=== PATIENT | female | born 1995 | race Caucasian/White ===

== ENCOUNTER 2017-12-10 20:43 | Emergency (ER) | payer OTHER ==
[~2017-12-10] VITALS: Ht 175.3 cm; Wt 61.3 kg
[~2017-12-10 20:43] MED LIST: ACET-1256 PO; FERR1TAB13 PO; PRENTAB26 PO
[2017-12-10 20:54] VITALS: TEMP 36.7; Ht 175.3 cm; Wt 61.3 kg
--- NOTE | 2017-12-10 23:56 | EMERGENCY ROOM VISIT NOTE ---
History Report prepared by Priscilla: Kiersten Lira Under the Supervision of: Dr. Mary Jane Zimmerman M.D. First contact with patient: 21:46 Chief Complaint: ED VAG BLEEDING Stated Complaint: BLEEDING, PAIN IN OVERIES History of Present Illness The patient is a 22 year old female who presents to the Emergency Room with complaints of persistent pink vaginal discharge starting 3-4 months ago. The patient has had pink discharge around 2 days out of each week. She denies any itching or burning. She has also had lower abdominal pain for 2 months which has worsened recently. The patient had a child delivered vaginally around 1 year ago. There were no complications with the or delivery. Her periods have been irregular since then. She has not had her period in 4 months. She had been on control, but stopped taking it 1 month ago. The patient has been having unprotected sex, but notes that she has not had sex since stopping her control. Source of History: patient Onset: 3-4 months ago Position: other (vaginal) Quality: other (pink discharge) Timing: other (persistent) Associated Symptoms: + abdominal pain Review of Systems See HPI for pertinent positives & negatives. A total of 10 systems reviewed and were otherwise negative. Past Medical & Surgical Medical Problems: (1) Anxiety (2) Cranial pain (3) Cranial pain (4) Cranial pain (5) Depression (6) H/O multiple concussions (7) Term Family History Diabetes mellitus Hypertension Social History Smoking Status: Never Smoker Alcohol Use: none Drug Use: none Marital Status: in relationship Housing Status: lives with family Current/Historical Medications Scheduled Miconazole Nitrate Vaginal (Miconazole 7), 1 SUPP PV q hs Multivit/Min/Iron/Fol Ac/Pren ( Vitamin), 1 TAB PO DAILY Allergies Coded Allergies: No Known Allergies (Verified , 12/10/17) Physical Exam Vital Signs Date Time Temp Pulse Resp B/P (MAP) Pulse Ox O2 Delivery O2 Flow Rate FiO2 12/11/17 00:39 78 18 108/55 99 12/10/17 23:42 78 18 108/55 99 Room Air 12/10/17 20:54 36.7 108 20 119/86 97 Room Air Physical Exam Vital signs reviewed. General: Well-appearing female, in no significant distress. HEENT: No scleral icterus, PERRLA, neck supple. Atraumatic. Cardiovascular: Regular rate and rhythm, no extra sounds. Pulmonary: Clear to auscultation bilaterally, normal work of breathing. Abdomen: Soft, nontender, nondistended, positive bowel sounds. Pelvis: Cervix was friable with a likely polyp. No cervical motion tenderness. A small amount of chunky white vaginal discharge. No external labial lesion. Normal female genitals. Musculoskeletal: Atraumatic, no peripheral edema. Neurologic: Patient awake alert and oriented x 3, full strength in all 4 extremities. Cranial nerves 2 through 12 grossly intact. Skin: Warm, dry, no rash Medical Decision & Procedures ER Provider Diagnostic Interpretation: Radiology results as stated below per my review and [facility] radiologist interpretation: US Ob/Endovag: Question tiny gestational sac within the endometrium measured 3.3 mm. This is too small to accurately date. Correlate with beta hCG and short-term follow-up clinically indicated. Probable corpus luteum within the right ovary. Otherwise ovaries are unremarkable. No torsion. No free fluid within the pelvis. Laboratory Results Test 12/10/17 22:02 12/11/17 00:13 12/11/17 00:32 Urine Color YELLOW Urine Appearance CLEAR (CLEAR) Urine pH 5.0 (4.5-7.5) Urine Specific [place] 1.023 (1.000-1.030) Urine Protein NEG (NEG) Urine Glucose (UA) NEG (NEG) Urine Ketones NEG (NEG) Urine Occult Blood NEG (NEG) Urine Nitrite NEG (NEG) Urine Bilirubin NEG (NEG) Urine Urobilinogen NEG (NEG) Urine Leukocyte Esterase MODERATE (NEG) Urine WBC (Auto) >30 /hpf (0-5) Urine RBC (Auto) 0-4 /hpf (0-4) Urine Hyaline Casts (Auto) 5-10 /lpf (0-5) Urine Epithelial Cells (Auto) >30 /lpf (0-5) Urine Bacteria (Auto) NEG (NEG) Urine Test POS (NEG) Human Chorionic Gonadotropin, Quant 143 mIU/mL Date/Time Source Procedure Growth Status 12/10/17 23:50 Vaginal Swab Trichomonas Preparation - Final Complete Laboratory results per my review. ED Course 2154: Past medical records reviewed. The patient was evaluated in room B10. A complete history and physical examination was performed. 2230: I reevaluated the patient. I updated her on the results. 2349: I performed a pelvic exam. I discussed findings with her. She verbalized agreement of the treatment plan. She was discharged home. Medical Decision Differential diagnosis: vaginitis, , threatened , ovarian cyst , irregular menses, hormone withdrawal. This patient was evaluated and appeared to be in no significant distress. IV access was obtained and laboratory work was drawn. Patient's urine test is positive. A follow-up quantitative beta hCG was ordered. Ultrasound of the pelvis was performed and reveals no certain at this time. Patient's laboratory work revealed a quantitative beta hCG of 143. It is likely too early to identify a . UA is concerning for infection but is contaminated. This will be sent for culture. Given the above findings and the vaginal discharge, the patient was ordered miconazole vaginal suppositories 7 days and a vitamin. GC/chlamydia and a vaginal culture are pending. The patient was informed of the findings. She was strongly encouraged to follow-up with [facility] as soon as possible. She will return to the emergency department for worsening of symptoms or any medical concerns. Medication Reconcilliation Current Medication List: was personally reviewed by me Blood Pressure Screening Patient's blood pressure: Normal blood pressure Blood pressure disposition: Did not require urgent referral Impression Primary Impression: First trimester bleeding Additional Impression: Yeast vaginitis Scribe Attestation The scribe's documentation has been prepared under my direction and personally reviewed by me in its entirety. I confirm that the note above accurately reflects all work, treatment, procedures, and medical decision making performed by me. Departure Information Dispostion Home / Self-Care Prescriptions Multivit/Min/Iron/Fol Ac/Pren ( Vitamin) Tab 1 TAB PO DAILY for 30 Days, #30 TAB Prov: Mary Jane Zimmerman M.D. 12/11/17 Miconazole Nitrate Vaginal (MICONAZOLE 7) 100 Mg Sup 1 SUPP PV q hs for 7 Days, #7 SUPP Prov: Mary Jane Zimmerman M.D. 12/11/17 Referrals No Doctor, Assigned (PCP) Festus Escobedo M.D. Forms HOME CARE DOCUMENTATION FORM, IMPORTANT VISIT INFORMATION, WORK / SCHOOL INSTRUCTIONS Patient Instructions My [facility] Additional Instructions Diagnosis: Vaginitis, first trimester . Your vaginal cultures are pending. We will contact you if further treatment is necessary. Please contact your OBGYN, number below, for follow up and care. Start a vitamin daily. Avoid alcohol. Return to the ED for worsening of symptoms or any medical concerns. Problem Qualifiers
[2017-12-11] MEDS ORDERED: [UNRECOGNIZED DRUG - CODE] PV (00:04)
[2017-12-11] MEDS ORDERED: PRENTAB26 PO (00:08)
[2017-12-11 00:39] VITALS: BP 108/55; PULSE 78; O2SAT 99
--- NOTE | 2017-12-11 07:14 | DIAGNOSTIC IMAGING REPORT ---
FIRST TRIMESTER OBSTETRICAL ULTRASOUND CLINICAL HISTORY: , first trimester bleed COMPARISON STUDY: No previous studies for comparison. FINDINGS: The patient was scanned in both a transabdominal and endovaginal fashion. The endometrium was thickened measuring 22 mm. A definite intrauterine gestational sac was not identified. There was a tiny cystic structure within the endometrium measuring 3 mm. This however was curvilinear and not convincing for gestational sac. A complex 19 mm right ovarian cystic lesion likely represents a corpus luteum cyst. IMPRESSION: 1. of uncertain location. Diagnostic considerations include ectopic , early intrauterine , or spontaneous . 2. Correlation with serial quantitative beta hCGs is recommended. Electronically signed by: Shay Spain M.D. 12/11/2017 7:12 AM Dictated Date/Time: 12/11/2017 7:08 AM
== END 2017-12-11 00:41 | disposition home or self-care (01) ==
LOC: C.EDB 20:44
DX: O26.851 Spotting complicating pregnancy, first trimester (principal); O26.891 Other specified pregnancy related conditions, first trimester; B37.3 Candidiasis of vulva and vagina; Z87.820 Personal history of traumatic brain injury; Z83.3 Family history of diabetes mellitus; Z82.49 Family history of ischemic heart disease and other diseases of the circulatory system

== ENCOUNTER 2018-03-07 20:24 | Emergency (ER) | payer OTHER ==
[~2018-03-07] VITALS: Ht 175.3 cm; Wt 62.8 kg
[~2018-03-07 20:24] MED LIST changes: -ACET-1256 PO; -FERR1TAB13 PO; -PRENTAB26 PO; +[UNRECOGNIZED DRUG - CODE] PV
[2018-03-07 20:25] VITALS: TEMP 36.7; Ht 175.3 cm; Wt 62.8 kg
[2018-03-07] MEDS ORDERED: SODIUM CHLORIDE 0.9% 1000ML 1,000 ML IV STA (20:43)
[2018-03-07] MEDS ORDERED: ONDANSETRON INJ 2 MG/ML 2 ML VIAL IV STA (20:43)
--- NOTE | 2018-03-07 20:50 | EMERGENCY ROOM VISIT NOTE ---
History Report prepared by Priscilla: Regan Ellison Under the Supervision of: Dr. Martin Landers D.O. First contact with patient: 20:35 Chief Complaint: OTHER COMPLAINT Stated Complaint: MRSA,2MO ,CANT THINK,FEVER,DIZZY History of Present Illness The patient is a 23 year old female who presents to the Emergency Room with complaints of a constant fever beginning today. The patient states that she had an abscess on her left arm and went to the hospital yesterday to have the abscess opened and drained. She reports that she was diagnosed with MRSA today and was placed on cefazedone and Bactrim. The patient states that she took her Bactrim three hours ago, and has been feeling ill since. She notes that her fever reached a high of 100.9 today. She also complains of heart palpitations, shakiness, hot flashes, nausea, vomiting, and chills. She reports that she is two months and had her last normal menstrual period in December. The patient states that she took Tylenol three hours ago with no relief of her symptoms. She denies any history of thyroid problems. Source of History: patient Onset: today Position: other (global) Symptom Intensity: 100.9 Quality: other (fever) Timing: constant Associated Symptoms: + chills, + nausea, + vomiting Note: The patient also complains of heart palpitations, shakiness, and hot flashes. Review of Systems See HPI for pertinent positives & negatives. A total of 10 systems reviewed and were otherwise negative. Past Medical & Surgical Medical Problems: (1) Anxiety (2) Cranial pain (3) Cranial pain (4) Cranial pain (5) Depression (6) H/O multiple concussions (7) MRSA (methicillin resistant Staphylococcus aureus) (8) (9) Term Family History Diabetes mellitus Hypertension Social History Smoking Status: Never Smoker Alcohol Use: none Drug Use: none Marital Status: single Housing Status: lives with family Occupation Status: unemployed Current/Historical Medications Scheduled Multivitamin (Multivitamin), 1 TAB PO DAILY Allergies Coded Allergies: No Known Allergies (Verified , 03/07/18) Physical Exam Vital Signs Date Time Temp Pulse Resp B/P (MAP) Pulse Ox O2 Delivery O2 Flow Rate FiO2 03/07/18 22:30 89 18 120/76 99 03/07/18 22:00 89 18 120/76 99 Room Air 03/07/18 21:20 92 03/07/18 21:18 99 Room Air 03/07/18 20:25 36.7 143 18 138/85 100 Room Air Physical Exam GENERAL: Awake, alert, very anxious appearing. EYES: The conjunctivae are clear. The pupils are round and reactive. EARS, NOSE, MOUTH AND THROAT: The nose is without any evidence of any deformity. Mucous membranes are moist tongue is midline NECK: The neck is nontender and supple. RESPIRATORY: Normal respiratory effort is noted there is no evidence of wheezing rhonchi or rales CARDIOVASCULAR: Heart sounds tachycardic but regular, no definite murmur noted. GASTROINTESTINAL: The abdomen is soft. Bowel sounds are present in all quadrants. Abdomen is nontender MUSCULOSKELETAL/EXTREMITIES: There is no evidence of gross deformity full range of motion is noted in the hips and shoulders SKIN: There is no obvious evidence of any rash. There are no petechiae, pallor or cyanosis noted. There was a recent I&D site on left forearm, no swelling or erythema, no discharge noted. NEUROLOGIC: Patient is awake alert and oriented x3 strength is symmetric patellar reflexes are 2+ bilaterally Medical Decision & Procedures ER Provider Diagnostic Interpretation: Radiology results as stated below per my review and radiologist interpretation: CHEST ONE VIEW PORTABLE FINDINGS: The lungs are clear. Cardiac silhouette is normal in size. No pleural effusions. No pneumothorax. IMPRESSION: No acute process. Electronically signed by: Benjamin Daugherty M.D. 03/07/2018 9:02 PM Laboratory Results 03/07/18 21:00 Red Blood Count 4.04, Mean Corpuscular Volume 90.1, Mean Corpuscular Hemoglobin 31.4, Mean Corpuscular Hemoglobin Concent 34.9, Mean Platelet Volume 10.7, Neutrophils (%) (Auto) 80.4, Lymphocytes (%) (Auto) 13.6, Monocytes (%) (Auto) 5.3, Eosinophils (%) (Auto) 0.3, Basophils (%) (Auto) 0.0, Neutrophils # (Auto) 6.03, Lymphocytes # (Auto) 1.02, Monocytes # (Auto) 0.40, Eosinophils # (Auto) 0.02, Basophils # (Auto) 0.00 03/07/18 21:00 Test 03/07/18 20:45 03/07/18 21:00 Urine Color YELLOW Urine Appearance CLEAR (CLEAR) Urine pH 8.0 (4.5-7.5) Urine Specific [place] 1.009 (1.000-1.030) Urine Protein NEG (NEG) Urine Glucose (UA) NEG (NEG) Urine Ketones NEG (NEG) Urine Occult Blood NEG (NEG) Urine Nitrite NEG (NEG) Urine Bilirubin NEG (NEG) Urine Urobilinogen NEG (NEG) Urine Leukocyte Esterase LARGE (NEG) Urine WBC (Auto) 5-10 /hpf (0-5) Urine RBC (Auto) 0-4 /hpf (0-4) Urine Hyaline Casts (Auto) 0 /lpf (0-5) Urine Epithelial Cells (Auto) 20-30 /lpf (0-5) Urine Bacteria (Auto) NEG (NEG) Urine Opiates Screen NEG (NEG) Urine Methadone, Qualitative NEG (NEG) Urine Barbiturates NEG (NEG) Urine Phencyclidine (PCP) Level NEG (NEG) Ur Amphetamine/Methamphetamine NEG (NEG) MDMA (Ecstasy) Screen NEG (NEG) Urine Benzodiazepines Screen NEG (NEG) Urine Cocaine Metabolite NEG (NEG) Urine Marijuana (THC) NEG (NEG) White Blood Count 7.50 K/uL (4.8-10.8) Red Blood Count 4.04 M/uL (4.2-5.4) Hemoglobin 12.7 g/dL (12.0-16.0) Hematocrit 36.4 % (37-47) Mean Corpuscular Volume 90.1 fL (80-100) Mean Corpuscular Hemoglobin 31.4 pg (25-34) Mean Corpuscular Hemoglobin Concent 34.9 g/dl (32-36) Platelet Count 201 K/uL (130-400) Mean Platelet Volume 10.7 fL (7.4-10.4) Neutrophils (%) (Auto) 80.4 % Lymphocytes (%) (Auto) 13.6 % Monocytes (%) (Auto) 5.3 % Eosinophils (%) (Auto) 0.3 % Basophils (%) (Auto) 0.0 % Neutrophils # (Auto) 6.03 K/uL (1.4-6.5) Lymphocytes # (Auto) 1.02 K/uL (1.2-3.4) Monocytes # (Auto) 0.40 K/uL (0.11-0.59) Eosinophils # (Auto) 0.02 K/uL (0-0.5) Basophils # (Auto) 0.00 K/uL (0-0.2) RDW Standard Deviation 42.2 fL (36.4-46.3) RDW Coefficient of Variation 12.8 % (11.5-14.5) Immature Granulocyte % (Auto) 0.4 % Immature Granulocyte # (Auto) 0.03 K/uL (0.00-0.02) Erythrocyte Sedimentation Rate 14 mm/hr (0-21) Prothrombin Time 10.7 SECONDS (9.0-12.0) Prothromb Time International Ratio 1.0 (0.9-1.1) Activated Partial Thromboplast Time 27.2 SECONDS (21.0-31.0) Partial Thromboplastin Ratio 1.0 Anion Gap 7.0 mmol/L (3-11) Est Creatinine Clear Calc Drug Dose 131.7 ml/min Estimated GFR () 145.6 Estimated GFR (Non- 125.7 BUN/Creatinine Ratio 11.9 (10-20) Calcium Level 8.7 mg/dl (8.5-10.1) Magnesium Level 1.9 mg/dl (1.8-2.4) Total Bilirubin 0.3 mg/dl (0.2-1) Direct Bilirubin 0.1 mg/dl (0-0.2) Aspartate Amino Transf (AST/SGOT) 16 U/L (15-37) Alanine Aminotransferase (ALT/SGPT) 14 U/L (12-78) Alkaline Phosphatase 80 U/L (45-117) Troponin I < 0.015 ng/ml (0-0.045) C-Reactive Protein < 0.29 mg/dl (0-0.29) Total Protein 8.0 gm/dl (6.4-8.2) Albumin 4.0 gm/dl (3.4-5.0) Lipase 69 U/L (73-393) Thyroid Stimulating Hormone (TSH) 2.410 uIu/ml (0.300-4.500) Human Chorionic Gonadotropin, Quant 8078 mIU/mL Laboratory results per my review. Medications Administered Medications (Trade) Dose Ordered Sig/Suha Route Start Time Stop Time Status Last Admin Dose Admin Ondansetron HCl (Zofran Inj) 4 mg NOW STAT IV 03/07/18 20:43 5/16/18 20:44 DC 03/07/18 21:18 4 MG Sodium Chloride 1,000 ml @ 999 mls/hr Q1H1M STAT IV 03/07/18 20:43 03/07/18 21:43 DC 03/07/18 21:17 999 MLS/HR ECG Per My Interpretation Indication: nausea Rate (beats per minute): 96 Rhythm: normal sinus Findings: no ectopy, other (No acute ST segments) Comparison ECG Date: 09/22/15 Change: no significant change ED Course 2033: The patient was evaluated in room B11. A complete history and physical examination were performed. 2042: Sodium Chloride 1000 ml @ 999 mls/hr IV, Zofran Inj 4mg IV 2203: Upon reevaluation, the patient is stable. I discussed the results and treatment plan with her. She verbalized agreement of the treatment plan. The patient was discharged home. Medical Decision Prior records/ancillary studies reviewed. Triage Nursing notes reviewed. The patient's history was concerning for palpitations. Differential diagnosis: Etiologies such as premature contractions, electrolyte abnormality, cardiac dysrhythmia, thyroid dysfunction, pulmonary embolism, infection, gastrointestinal, as well as others were entertained. The patient is a 23-year-old female who presented to the emergency department for an evaluation of palpitations. The patient states that she was recently diagnosed with MRSA in an abscess on her left forearm. The patient states that she was seen at an outside facility and had incision and drainage. The area was well healing. There is no significant discharge noted. She was started on antibiotic which would be appropriate for MRSA. The patient is also 8 weeks . She has no abdominal pain on physical exam. She complains of no vaginal bleeding. I discussed patient's laboratory and radiographic studies with her. She was treated with IV fluids and IV Zofran in the emergency department. Ultimately I encouraged her to continue all medications as prescribed. There is also encouraged to rest and avoid any strenuous activity. I also encouraged her to follow-up with her primary care physician for further evaluation. Medication Reconcilliation Current Medication List: was personally reviewed by me Blood Pressure Screening Patient's blood pressure: Elevated blood pressure Blood pressure disposition: Elevated BP felt to be situational Impression Primary Impression: Palpitations Additional Impression: MRSA (methicillin resistant Staphylococcus aureus) Scribe Attestation The scribe's documentation has been prepared under my direction and personally reviewed by me in its entirety. I confirm that the note above accurately reflects all work, treatment, procedures, and medical decision making performed by me. Departure Information Dispostion Home / Self-Care Referrals No Doctor, Assigned (PCP) Forms HOME CARE DOCUMENTATION FORM, IMPORTANT VISIT INFORMATION, WORK / SCHOOL INSTRUCTIONS Patient Instructions My [facility] Additional Instructions Continue all medications as prescribed. Drink plenty clear liquids. Continue using Tylenol as directed for pain. Call your family doctor in the morning to schedule a follow-up appointment. Continue to put triple antibody ointment to the area on her left arm twice a day. Discussed possibility with your primary care physician that you may require further studies such as an echocardiogram or Holter monitor to further evaluate the cause your palpitations. Problem Qualifiers
--- NOTE | 2018-03-07 21:03 | DIAGNOSTIC IMAGING REPORT ---
CHEST ONE VIEW PORTABLE HISTORY: EVALUATE ALTERED MENTAL STATUS/WEAKNESS COMPARISON: Chest 09/21/2015. FINDINGS: The lungs are clear. Cardiac silhouette is normal in size. No pleural effusions. No pneumothorax. IMPRESSION: No acute process. Electronically signed by: Benjamin Daugherty M.D. 03/07/2018 9:02 PM Dictated Date/Time: 03/07/2018 9:00 PM
[2018-03-07] MEDS ORDERED: MULT-506 PO (21:10)
[2018-03-07 21:18] VITALS: O2SAT 99
[2018-03-07 21:21] LABS: EOS % 0.3 %; EOS ABS # 0.02 K/uL (0-0.5); HEMATOCRIT 36.4 % (37-47); HEMOGLOBIN 12.7 g/dL (12.0-16.0); IG# 0.03 K/uL (0.00-0.02); LYMPH % 13.6 %; LYMPH ABS # 1.02 K/uL (1.2-3.4); MEAN CELL VOLUME 90.1 fL (80-100); MEAN CORPUSCULAR HEMOGLOBIN 31.4 pg (25-34); MEAN CORPUSCULAR HGB CONC 34.9 g/dl (32-36); MEAN PLATELET VOLUME 10.7 fL (7.4-10.4); MONO % 5.3 %; NEUT % 80.4 %; NEUT ABS # 6.03 K/uL (1.4-6.5); PLATELET COUNT 201 K/uL (130-400); RED CELL DISTRIBUTION WIDTH CV 12.8 % (11.5-14.5); RED CELL DISTRIBUTION WIDTH SD 42.2 fL (36.4-46.3)
[2018-03-07 21:41] LABS: PTT PATIENT 27.2 SECONDS (21.0-31.0)
[2018-03-07 21:50] LABS: ALKALINE PHOSPHATASE 80 U/L (45-117); ALT/SGPT 14 U/L (12-78); AST/SGOT 16 U/L (15-37); BLOOD UREA NITROGEN 8 mg/dl (7-18); CALCIUM 8.7 mg/dl (8.5-10.1); CARBON DIOXIDE 25 mmol/L (21-32); CREATININE 0.67 mg/dl (0.60-1.20); GLUCOSE 106 mg/dl (70-99); LIPASE 69 U/L (73-393); POTASSIUM 3.5 mmol/L (3.5-5.1); SODIUM 140 mmol/L (136-145)
[2018-03-07 22:30] VITALS: BP 120/76; PULSE 89; O2SAT 99
== END 2018-03-07 22:30 | disposition home or self-care (01) ==
LOC: C.EDB 20:24
DX: O99.89 Other specified diseases and conditions complicating pregnancy, childbirth and the puerperium (principal); R00.2 Palpitations; L02.414 Cutaneous abscess of left upper limb; A49.02 Methicillin resistant Staphylococcus aureus infection, unspecified site; Z3A.08 8 weeks gestation of pregnancy; F41.9 Anxiety disorder, unspecified; F32.9 Major depressive disorder, single episode, unspecified; Z83.3 Family history of diabetes mellitus; Z82.49 Family history of ischemic heart disease and other diseases of the circulatory system

== ENCOUNTER 2018-05-21 13:30 | Emergency (ER) | payer OTHER ==
[~2018-05-21] VITALS: Ht 175.3 cm; Wt 61.2 kg
[~2018-05-21 13:30] MED LIST changes: +FAMO40TA6 PO; +OXYC-737 PO; -[UNRECOGNIZED DRUG - CODE] PV
[2018-05-21 13:32] VITALS: TEMP 36.7; Ht 175.3 cm; Wt 61.2 kg
[2018-05-21] MEDS ORDERED: SODIUM CHLORIDE 0.9% 1000ML 1,000 ML IV STA (13:43)
[2018-05-21] MEDS ORDERED: KETOROLAC TROMETHAMINE 30 MG/ML VIAL IV STA (13:43)
--- NOTE | 2018-05-21 14:47 | DIAGNOSTIC IMAGING REPORT ---
CT SCAN OF THE ABDOMEN AND PELVIS WITHOUT CONTRAST CLINICAL HISTORY: Left flank pain COMPARISON STUDY: 12/27/2011 TECHNIQUE: CT scan of the abdomen and pelvis was performed from the lung bases to the proximal femurs. Images are reviewed in the axial, sagittal, and coronal planes. IV contrast was not administered for this examination. A dose lowering technique was utilized adhering to the principles of ALARA. CT DOSE: 450.50 mGy.cm FINDINGS: Lower chest: The heart is normal in size and configuration, without pericardial effusion. The lung bases and pleural spaces are clear. Liver: The unenhanced liver is normal in size, contour, and attenuation. There is no intrahepatic biliary ductal dilatation. Gallbladder: Unremarkable. Spleen: Normal in size and attenuation. Pancreas: Unremarkable. Adrenal glands: Unremarkable. Kidneys: There are 2 nonobstructing left renal calculi, the largest of which measures 2 mm. There is no hydronephrosis. No ureteral or bladder calculi are visualized. Bowel: There are no transition zones indicate bowel obstruction. There is no acute diverticulitis. There is no evidence of acute appendicitis. Peritoneum: There is no intraperitoneal free air or abdominal ascites. Vasculature: The abdominal aorta is normal in course and caliber. Adenopathy: None. Pelvic viscera: There is a suspected 3.5 cm left ovarian cyst/follicle. Skeletal structures: No destructive osseous lesions are seen. IMPRESSION: 1. Nonobstructing left renal calculi. No ureteral or bladder calculi identified 2. No evidence of bowel obstruction. No evidence of free air 3. No evidence of acute diverticulitis. No evidence of acute appendicitis. 4. Suspected 3.5 cm left ovarian cyst/follicle Electronically signed by: Shay Spain M.D. 05/21/2018 2:45 PM Dictated Date/Time: 05/21/2018 2:41 PM
[2018-05-21 14:56] LABS: BASO % 0.2 %; BASO ABS # 0.01 K/uL (0-0.2); EOS % 0.7 %; EOS ABS # 0.04 K/uL (0-0.5); HEMATOCRIT 39.7 % (37-47); HEMOGLOBIN 13.1 g/dL (12.0-16.0); IG# 0.01 K/uL (0.00-0.02); LYMPH % 25.8 %; LYMPH ABS # 1.49 K/uL (1.2-3.4); MEAN CELL VOLUME 94.1 fL (80-100); MEAN PLATELET VOLUME 11.2 fL (7.4-10.4); MONO % 6.8 %; MONO ABS # 0.39 K/uL (0.11-0.59); NEUT % 66.3 %; NEUT ABS # 3.83 K/uL (1.4-6.5); PLATELET COUNT 208 K/uL (130-400); RED CELL DISTRIBUTION WIDTH CV 12.6 % (11.5-14.5); RED CELL DISTRIBUTION WIDTH SD 43.2 fL (36.4-46.3); WHITE BLOOD COUNT 5.77 K/uL (4.8-10.8)
[2018-05-21 15:09] LABS: ALBUMIN 3.9 gm/dl (3.4-5.0); CALCIUM 8.9 mg/dl (8.5-10.1); CREATININE 0.67 mg/dl (0.60-1.20); POTASSIUM 3.7 mmol/L (3.5-5.1); TOTAL PROTEIN 7.4 gm/dl (6.4-8.2)
[2018-05-21 15:35] VITALS: BP 100/65; PULSE 68; O2SAT 96
--- NOTE | 2018-05-21 16:51 | EMERGENCY ROOM VISIT NOTE ---
History Report prepared by Priscilla: Estela Chow Under the Supervision of: Dr. Ben Vitale D.O. First contact with patient: 13:36 Chief Complaint: FLANK PAIN Stated Complaint: PAIN IN LEFT SIDE History of Present Illness The patient is a 23 year old female who presents to the Emergency Room with complaints of constant left flank pain that started a week ago. The patient notes that she had an x-ray and US in the ED and states that "they think they see kidney stones". She describes the pain as "intense." The patient notes that the pain is localized on her lower left flank that radiates up into her chest. She notes that she has been taking Tylenol with mild relief. She notes that laying down and not walking alleviates the pain, and that bending over exacerbates it. The patient complains of nausea, vomiting, pain in her middle back, and hematuria.The patient denies pain in her abdomen, pain in her buttocks , and vaginal bleeding. She denies a history of kidney stones. The patient states that her last menstrual period was 1 week ago and that she is sexually active. She notes that her last bowel movement was today. Source of History: patient Onset: 1 week ago Position: other (left flank) Quality: other (intense, radiating) Timing: constant Modifying Factors (Worsening): other (bending over) Modifying Factors (Relieving): tylenol, other (laying down, not moving) Associated Symptoms: + nausea, + vomiting, + back pain (middle back), + urinary symptoms, No abdominal pain Note: The patient denies pain in her buttocks and vaginal bleeding. Review of Systems See HPI for pertinent positives & negatives. A total of 10 systems reviewed and were otherwise negative. Past Medical & Surgical Medical Problems: (1) Anxiety (2) Cranial pain (3) Cranial pain (4) Cranial pain (5) Depression (6) H/O multiple concussions (7) MRSA (methicillin resistant Staphylococcus aureus) (8) (9) Term Family History Diabetes mellitus Hypertension Social History Smoking Status: Never Smoker Alcohol Use: none Drug Use: none Marital Status: single Housing Status: lives with family Occupation Status: unemployed Current/Historical Medications Scheduled Famotidine (Pepcid), 40 MG PO HS Scheduled PRN Oxycodone Immediate Rel Tab (Roxicodone Ir), 1-2 TAB PO Q4H PRN for Severe Pain Allergies Coded Allergies: No Known Allergies (Verified , 05/21/18) Physical Exam Vital Signs Date Time Temp Pulse Resp B/P (MAP) Pulse Ox O2 Delivery O2 Flow Rate FiO2 05/21/18 15:35 68 20 100/65 96 Room Air 05/21/18 13:32 36.7 108 18 114/77 98 Room Air Physical Exam GENERAL: Sitting up in bed, alert, well appearing, well nourished, no distress, non-toxic EYE EXAM: normal conjunctiva. OROPHARYNX: no exudate, no erythema, lips, buccal mucosa, and tongue normal and mucous membranes are moist NECK: supple, no nuchal rigidity, no adenopathy, non-tender LUNGS: Clear to auscultation. Normal chest wall mechanics HEART: no murmurs, S1 normal and S2 normal ABDOMEN: abdomen soft, tenderness in the left flank, normo-active bowel sounds, no masses, no rebound or guarding . BACK: Back is symmetrical on inspection and there is no deformity, no midline tenderness, no CVA tenderness. SKIN: no rashes and no bruising UPPER EXTREMITIES: upper extremities are grossly normal. LOWER EXTREMITIES: No pitting edema. NEURO EXAM: Normal sensorium, cranial nerves II-XII grossly intact, normal speech, no gross weakness of arms, no gross weakness of legs. Medical Decision & Procedures ER Provider Diagnostic Interpretation: Radiology results as stated below per my review and the radiologist's interpretation: CT SCAN OF THE ABDOMEN AND PELVIS WITHOUT CONTRAST CLINICAL HISTORY: Left flank pain COMPARISON STUDY: 12/27/2011 TECHNIQUE: CT scan of the abdomen and pelvis was performed from the lung bases to the proximal femurs. Images are reviewed in the axial, sagittal, and coronal planes. IV contrast was not administered for this examination. A dose lowering technique was utilized adhering to the principles of ALARA. CT DOSE: 450.50 mGy.cm FINDINGS: Lower chest: The heart is normal in size and configuration, without pericardial effusion. The lung bases and pleural spaces are clear. Liver: The unenhanced liver is normal in size, contour, and attenuation. There is no intrahepatic biliary ductal dilatation. Gallbladder: Unremarkable. Spleen: Normal in size and attenuation. Pancreas: Unremarkable. Adrenal glands: Unremarkable. Kidneys: There are 2 nonobstructing left renal calculi, the largest of which measures 2 mm. There is no hydronephrosis. No ureteral or bladder calculi are visualized. Bowel: There are no transition zones indicate bowel obstruction. There is no acute diverticulitis. There is no evidence of acute appendicitis. Peritoneum: There is no intraperitoneal free air or abdominal ascites. Vasculature: The abdominal aorta is normal in course and caliber. Adenopathy: None. Pelvic viscera: There is a suspected 3.5 cm left ovarian cyst/follicle. Skeletal structures: No destructive osseous lesions are seen. IMPRESSION: 1. Nonobstructing left renal calculi. No ureteral or bladder calculi identified 2. No evidence of bowel obstruction. No evidence of free air 3. No evidence of acute diverticulitis. No evidence of acute appendicitis. 4. Suspected 3.5 cm left ovarian cyst/follicle Electronically signed by: Shay Spain M.D. 05/21/2018 2:45 PM Dictated Date/Time: 05/21/2018 2:41 PM Laboratory Results 05/21/18 14:09 Red Blood Count 4.22, Mean Corpuscular Volume 94.1, Mean Corpuscular Hemoglobin 31.0, Mean Corpuscular Hemoglobin Concent 33.0, Mean Platelet Volume 11.2, Neutrophils (%) (Auto) 66.3, Lymphocytes (%) (Auto) 25.8, Monocytes (%) (Auto) 6.8, Eosinophils (%) (Auto) 0.7, Basophils (%) (Auto) 0.2, Neutrophils # (Auto) 3.83, Lymphocytes # (Auto) 1.49, Monocytes # (Auto) 0.39, Eosinophils # (Auto) 0.04, Basophils # (Auto) 0.01 05/21/18 14:09 Test 05/21/18 14:09 05/21/18 14:25 White Blood Count 5.77 K/uL (4.8-10.8) Red Blood Count 4.22 M/uL (4.2-5.4) Hemoglobin 13.1 g/dL (12.0-16.0) Hematocrit 39.7 % (37-47) Mean Corpuscular Volume 94.1 fL (80-100) Mean Corpuscular Hemoglobin 31.0 pg (25-34) Mean Corpuscular Hemoglobin Concent 33.0 g/dl (32-36) Platelet Count 208 K/uL (130-400) Mean Platelet Volume 11.2 fL (7.4-10.4) Neutrophils (%) (Auto) 66.3 % Lymphocytes (%) (Auto) 25.8 % Monocytes (%) (Auto) 6.8 % Eosinophils (%) (Auto) 0.7 % Basophils (%) (Auto) 0.2 % Neutrophils # (Auto) 3.83 K/uL (1.4-6.5) Lymphocytes # (Auto) 1.49 K/uL (1.2-3.4) Monocytes # (Auto) 0.39 K/uL (0.11-0.59) Eosinophils # (Auto) 0.04 K/uL (0-0.5) Basophils # (Auto) 0.01 K/uL (0-0.2) RDW Standard Deviation 43.2 fL (36.4-46.3) RDW Coefficient of Variation 12.6 % (11.5-14.5) Immature Granulocyte % (Auto) 0.2 % Immature Granulocyte # (Auto) 0.01 K/uL (0.00-0.02) Anion Gap 4.0 mmol/L (3-11) Est Creatinine Clear Calc Drug Dose 128.3 ml/min Estimated GFR () 145.6 Estimated GFR (Non- 125.7 BUN/Creatinine Ratio 13.5 (10-20) Calcium Level 8.9 mg/dl (8.5-10.1) Total Bilirubin 0.8 mg/dl (0.2-1) Direct Bilirubin 0.2 mg/dl (0-0.2) Aspartate Amino Transf (AST/SGOT) 13 U/L (15-37) Alanine Aminotransferase (ALT/SGPT) 13 U/L (12-78) Alkaline Phosphatase 74 U/L (45-117) Total Protein 7.4 gm/dl (6.4-8.2) Albumin 3.9 gm/dl (3.4-5.0) Lipase 69 U/L (73-393) Urine Color YELLOW Urine Appearance CLEAR (CLEAR) Urine pH 8.0 (4.5-7.5) Urine Specific [place] 1.015 (1.000-1.030) Urine Protein NEG (NEG) Urine Glucose (UA) NEG (NEG) Urine Ketones NEG (NEG) Urine Occult Blood 2+ (NEG) Urine Nitrite NEG (NEG) Urine Bilirubin NEG (NEG) Urine Urobilinogen NEG (NEG) Urine Leukocyte Esterase MODERATE (NEG) Urine WBC (Auto) 1-5 /hpf (0-5) Urine RBC (Auto) 0-4 /hpf (0-4) Urine Hyaline Casts (Auto) 1-5 /lpf (0-5) Urine Epithelial Cells (Auto) >30 /lpf (0-5) Urine Bacteria (Auto) NEG (NEG) Urine Test NEG (NEG) Laboratory results per my review. Medications Administered Medications (Trade) Dose Ordered Sig/Suha Route Start Time Stop Time Status Last Admin Dose Admin Sodium Chloride 1,000 ml @ 999 mls/hr Q1H1M STAT IV 05/21/18 13:43 05/21/18 14:43 DC 05/21/18 14:11 999 MLS/HR ED Course ED COURSE: Vital signs were reviewed and showed tachycardia. The patients medical record was reviewed The above diagnostic studies were performed and reviewed. ED treatments and interventions as stated above. 1337: The patient was evaluated in room C1. A complete history and physical examination was performed. [id number]: Ordered Toradol Inj 30 mg IV, NSS 1000 ml @ 999 mls/hr IV. 1526: Upon reevaluation, the patient is resting comfortably. I discussed my findings with the patient and she understands and agrees with the treatment plan. Based on the patients age, coexisting illnesses, exam and lab findings the decision to treat as an outpatient was made. The patient remained stable while under my care. The patient appeared well at the time of discharge. Medical Decision Differential diagnoses includes but is not limited to gastritis, peptic ulcer disease, GERD, gallbladder disease, pancreatitis, small bowel obstruction, acute coronary syndrome, pericarditis, ischemic bowel, irritable bowel disease, irritable bowel syndrome, appendicitis, diverticulitis, malignancy, hernia, urinary tract infection, torsion, /ectopic , perforation, trauma, infectious. Patient is a 23-year-old female who presents the ER left flank pain. Patient notes that it has been going on for the past week. Labs including CBC along with BMP, LFTs, bilirubin lipase is unremarkable. UA did have leukocytes greater than 30 epithelial cells. There is no significant white cells. I do favor this likely contaminant. was negative. CT abdomen pelvis shows a left ovarian cyst of 3.5 cm. I do favor that this the likely cause of her pain. Patient was updated in regards to her symptoms. She was given IV fluids and Toradol. She was discharged follow-up with her PCP as an outpatient. Discussed with Pt concerning signs and symptoms to watch out for. Pt was instructed to follow up with their PCP and discussed with the patient their option to return to the ED at anytime for persistent or worsening symptoms. The appropriate anticipatory guidance and out-patient management, including indications for return to the emergency department, were explained at length to the patient and understood. Medication Reconcilliation Current Medication List: was personally reviewed by me Blood Pressure Screening Patient's blood pressure: Normal blood pressure Blood pressure disposition: Did not require urgent referral Impression Primary Impression: Flank pain Additional Impression: Ovarian cyst Scribe Attestation The scribe's documentation has been prepared under my direction and personally reviewed by me in its entirety. I confirm that the note above accurately reflects all work, treatment, procedures, and medical decision making performed by me. Departure Information Dispostion Home / Self-Care Referrals Ángel Ortiz D.O. (PCP) Forms HOME CARE DOCUMENTATION FORM, IMPORTANT VISIT INFORMATION Patient Instructions My [facility] Additional Instructions Please follow up with your primary care doctor with in the next 24 hours. Any worsening of your symptoms, please return to the ED immediately. This includes any fevers greater than 100.4, worsening pain, chest pain, shortness breath, persistent nausea, vomiting, unable to eat or drink, or any other concerning signs or symptoms from your standpoint. Please take Tylenol or Motrin as needed for pain. Please make sure you follow-up with your primary care doctor or [facility] in regards to the left ovarian cyst. Problem Qualifiers Additional Impression: Ovarian cyst Laterality: left Qualified Codes: N83.202 - Unspecified ovarian cyst, left side
== END 2018-05-21 15:38 | disposition home or self-care (01) ==
LOC: C.EDB 13:31 → C.EDC 15:38
DX: R10.9 Unspecified abdominal pain (principal); N83.202 Unspecified ovarian cyst, left side; N20.0 Calculus of kidney; R11.2 Nausea with vomiting, unspecified; Z83.3 Family history of diabetes mellitus; Z82.49 Family history of ischemic heart disease and other diseases of the circulatory system

== ENCOUNTER 2021-05-02 08:54 | Inpatient (IN) ==
[2021-05-02] MEDS ORDERED: ACETAMINOPHEN 1000 MG/100 ML IV IV STA (09:21)
[2021-05-02] MEDS ORDERED: MoRPHine SULFATE 2 MG/ML CARP IV PRN (09:21)
[2021-05-02] MEDS ORDERED: LORazepam 1 MG/2 ML VIAL IV STA (09:21)
[2021-05-02] MEDS ORDERED: ONDANSETRON INJ 2 MG/ML 2 ML VIAL IV STA (09:21)
[2021-05-02] MEDS ORDERED: KETOROLAC TROMETHAMINE 15 MG/ML VIAL IV STA (09:21)
[2021-05-02] MEDS ORDERED: cefTRIAXone SODIUM 2,000 MG/70 ML BAG IV STA (09:23)
[2021-05-02] MEDS ORDERED: SODIUM CHLORIDE 0.9% 1000ML 1,000 ML IV SCH (09:30)
--- NOTE | 2021-05-02 09:30 | Emergency Department Note ---
Impression & Plan Headache, Acute ear pain, Acute Lyme disease, Acute facial pain, Failure of outpatient treatment ED Provider Note NAME: KARYN ADAMES AGE: 26 SEX: F : 1995 ARRIVES VIA: Walk-In INFORMANT: [Patient][family] ED PROVIDER(S): [Uche Ruiz MD] CHIEF COMPLAINT: Headache, ear pain, syncope HISTORY OF PRESENT ILLNESS: The patient is a 26-year-old female presents to the ER with over a month of bilateral ear pain, facial pain, headache, nausea vomiting. She states that she cannot really function. This is her sixth visit to this ER for this complaint. She has seen specialists who have no answer for her discomfort. The patient is currently on doxycycline for potential Lyme disease. She is taking this medication as best that she can however, she has a lot of vomiting and states that sometimes, she may vomit the doxycycline. She has had no fever. She has had no diarrhea or urinary complaints. She is not having chest pain or cough or congestion. She denies any trauma. The patient states that last night, the pain was so bad, she passed out. No injury from the syncope. The patient has had an MRI of her brain, CTs of her brain and mastoids. She has had laboratory work. No answer has been found except for the possibility of Lyme disease. She has an appointment upcoming for neurology. Patient is quite frustrated. She states that she has to wear ear protection to prevent the pain from being even worse. She states she feels very dizzy from all this and lightheaded. Wearing the ear protection seems to help the dizziness. I discussed performing a lumbar puncture. The patient is not willing to undergo this procedure. She states that she wants to see neurology first to see how they feel about her situation. REVIEW OF SYSTEMS: See HPI for pertinent positives and negatives. A total of ten systems were reviewed and were otherwise negative. PMHx/PSHx: See Below SOCIAL HISTORY: See Below. PHYSICAL EXAM: GENERAL: Patient is in mild distress from pain. Anxious. HEENT: No acute trauma, normocephalic atraumatic, mucous membranes moist, no nasal congestion, no scleral icterus. No throat erythema or exudate. NECK: No stridor, no adenopathy, no meningismus, trachea is midline. LUNGS: Clear to auscultation bilaterally, no wheeze, no rhonchi, breath sounds equal. HEART: Tachycardic, regular rhythm, no murmurs. ABDOMEN: Soft, nontender, bowel sounds positive, no hernias, no peritonitis. EXTREMITIES: No cyanosis or edema, full range of motion of all the joints without pain or difficulty, no signs for acute trauma. NEUROLOGIC: Oriented x 3, no acute motor or sensory deficits, no focal weakness. SKIN: No rash, no jaundice, no diaphoresis. Psychiatric: Anxious, upset, tearful. DIFFERENTIAL DIAGNOSIS: Lyme disease, trigeminal neuralgia, anxiety, otitis media, pharyngitis, intracranial mass, cellulitis, meningitis, viral illness, among others. EMERGENCY DEPARTMENT COURSE/PROCEDURES: ECG: Indication was tachycardia. The ECG shows a normal sinus rhythm with a rate of 79. There is no ST elevation, no PVCs. The QTc is 426. Continuous Cardiac Monitoring: An order was placed for continuous cardiac monitoring. The monitor shows a rate of 123 with sinus tachycardia. MEDICAL DECISION MAKING: There is no leukocytosis or concerning anemia. There is a normal platelet count. Sed rate is not elevated. Potassium was somewhat low at 3.1. No kidney failure. Lactic acid level was not elevated making sepsis less likely. No worrisome liver enzyme elevation. CRP was not elevated. The patient appeared to be in a euthyroid state. No concerning liver enzyme elevation. Covid testing was negative. The patient received IV ceftriaxone, 2 g. She was given IV Tylenol, IV Toradol, IV Ativan, IV morphine and IV Zofran. She received IV saline and IV potassium. I did discuss performing a lumbar puncture. The patient has refused this procedure. She wants to wait and see what neurology has to say before she undergoes a spinal tap. She understands that we cannot rule out meningitis wit hout performing this procedure. I think the patient requires a hospital stay. She has had issues now for 1 month. She is being treated for potential Lyme disease and now is vomiting. She had a syncopal spell last night she thinks from all her symptoms. She is failing outpatient treatment. I did speak with case management, the on-call hospitalist was consulted. Further work-up and care is required. Past Med/Surg History Medical History Anxiety Depression H/O multiple concussions History of asthma MRSA (methicillin resistant Staphylococcus aureus) Ovarian cyst Reflux esophagitis Surgical History No significant past surgical history Social History Smoking Status: Never smoker Hx Alcohol Use: Yes Hx Substance Use: No Preferred Language: [place] marital status: Single Current Living Situation: Family current occupational status: unemployed Feels Safe at Home: Yes Allergies Allergies Allergy/AdvReac Type Severity Reaction Status Date / Time No Known Allergies Allergy Verified 05/02/21 09:35 Home Meds Home Medications Medication Instructions Recorded Confirmed levonorgestrel [Mirena] 1 device INTRAUTERINE CONT 04/23/21 05/02/21 buprenorphine HCl 8 mg SUBLINGUAL TID 04/27/21 05/02/21 carbamazepine [Carbatrol] 100 mg PO BID 04/27/21 05/02/21 cephalexin 500 mg PO QID 04/29/21 05/02/21 fluticasone propionate 1 spray INTRANASAL BID 04/29/21 05/02/21 gabapentin 300 mg PO TID 04/29/21 05/02/21 methylprednisolone 4 mg PO DIRECTED 04/29/21 05/02/21 Previous Rx's Medication Instructions Recorded ondansetron 4 mg PO Q6H PRN #20 tab 04/23/21 doxycycline hyclate 100 mg PO BID 21 Days #42 cap 04/29/21 Results & Data (ED) Vital Signs Vital Signs - 24 hr 05/02/21 08:57 05/02/21 09:45 05/02/21 10:00 Temperature 37.2 C Temperature Source Temporal Artery Scan Pulse Rate 125 H 87 Pulse Rate from SpO2 Sensor 88 Respiratory Rate 18 15 Respiratory Effort / Characteristics Non-Labored Respiratory Depth Normal Blood Pressure 124/86 Blood Pressure Mean 98 Pulse Oximetry 98 100 100 Oxygen Delivery Method Room Air Room Air Sepsis Recent Fever Within 48 Hours No Sepsis New/Unexplained Change in Mental Status No Sepsis Action Taken by Nursing No Action Required 05/02/21 10:30 05/02/21 11:00 Temperature Temperature Source Pulse Rate 85 93 H Pulse Rate from SpO2 Sensor 87 93 H Respiratory Rate 20 17 Respiratory Effort / Characteristics Respiratory Depth Blood Pressure 122/93 125/92 Blood Pressure Mean 102 103 Pulse Oximetry 100 100 Oxygen Delivery Method Sepsis Recent Fever Within 48 Hours Sepsis New/Unexplained Change in Mental Status Sepsis Action Taken by Alf Medications Current Medication List: was personally reviewed by me Laboratory Data Attestation: I reviewed the patient's lab results. Result diagrams: 05/02/21 09:41 05/02/21 09:41 Lab Results 05/02/21 05/02/21 05/02/21 Range/Units 09:41 09:41 09:41 WBC 5.44 (4.8-10.8) K/uL RBC 4.24 (4.2-5.4) M/uL Hgb 13.4 (12.0-16.0) g/dL Hct 39.9 (37-47) % MCV 94.1 (80-100) fL MCH 31.6 (25-34) pg MCHC 33.6 (32-36) g/dL RDW Std Deviation 43.2 (36.4-46.3) fL RDW Coeff of Rubén 12.5 (11.5-14.5) % Plt Count 222 (130-400) K/uL MPV 11.1 H (7.4-10.4) fL Immature Gran % (Auto) 0.0 % Neut % (Auto) 65.8 % Lymph % (Auto) 24.1 % Overton % (Auto) 9.4 % Eos % (Auto) 0.7 % Baso % (Auto) 0.0 % Neut # (Auto) 3.58 (1.4-6.5) K/uL Lymph # (Auto) 1.31 (1.2-3.4) K/uL Overton # (Auto) 0.51 (0.11-0.59) K/uL Eos # (Auto) 0.04 (0-0.5) K/uL Baso # (Auto) 0.00 (0-0.2) K/uL Immature Gran # (Auto) 0.00 (0.00-0.02) K/uL ESR 5 (0-20) mm/hr Sodium 140 (136-145) mmol/L Potassium 3.1 L (3.5-5.1) mmol/L Chloride 108 H (98-107) mmol/L Carbon Dioxide 26 (21-32) mmol/L Anion Gap 6.0 (3-11) BUN 12 (7-18) mg/dl Creatinine 0.71 (0.6-1.2) mg/dl Est Cr Clr Drug Dosing 144.9 ml/min Est GFR ( Amer) 138.2 ml/min Est GFR (Non-Af Amer) 119.2 ml/min BUN/Creatinine Ratio 16.6 (10-20) Glucose 88 (70-99) mg/dl Lactate (0.4-2.0) mmol/L Calcium 9.1 (8.5-10.1) mg/dl Phosphorus 3.2 (2.5-4.9) mg/dl Magnesium 2.1 (1.8-2.4) mg/dl Total Bilirubin 0.6 (0.2-1) mg/dl AST 10 L (15-37) U/L ALT 18 (12-78) U/L Alkaline Phosphatase 71 (45-117) U/L C-Reactive Protein < 0.29 (0-0.29) mg/dl Total Protein 8.2 (6.4-8.2) gm/dl Albumin 4.3 (3.4-5.0) gm/dl Globulin 3.9 (2.5-4.0) gm/dl Albumin/Globulin Ratio 1.1 (0.9-2) TSH 1.060 (0.300-4.500) uIu/ml COVID-19 Eval Order SARS-CoV-2 (PCR) (Negative) 05/02/21 05/02/21 05/02/21 Range/Units 09:48 10:45 10:45 WBC (4.8-10.8) K/uL RBC (4.2-5.4) M/uL Hgb (12.0-16.0) g/dL Hct (37-47) % MCV (80-100) fL MCH (25-34) pg MCHC (32-36) g/dL RDW Std Deviation (36.4-46.3) fL RDW Coeff of Rubén (11.5-14.5) % Plt Count (130-400) K/uL MPV (7.4-10.4) fL Immature Gran % (Auto) % Neut % (Auto) % Lymph % (Auto) % Overton % (Auto) % Eos % (Auto) % Baso % (Auto) % Neut # (Auto) (1.4-6.5) K/uL Lymph # (Auto) (1.2-3.4) K/uL Overton # (Auto) (0.11-0.59) K/uL Eos # (Auto) (0-0.5) K/uL Baso # (Auto) (0-0.2) K/uL Immature Gran # (Auto) (0.00-0.02) K/uL ESR (0-20) mm/hr Sodium (136-145) mmol/L Potassium (3.5-5.1) mmol/L Chloride (98-107) mmol/L Carbon Dioxide (21-32) mmol/L Anion Gap (3-11) BUN (7-18) mg/dl Creatinine (0.6-1.2) mg/dl Est Cr Clr Drug Dosing ml/min Est GFR ( Amer) ml/min Est GFR (Non-Af Amer) ml/min BUN/Creatinine Ratio (10-20) Glucose (70-99) mg/dl Lactate 0.8 (0.4-2.0) mmol/L Calcium (8.5-10.1) mg/dl Phosphorus (2.5-4.9) mg/dl Magnesium (1.8-2.4) mg/dl Total Bilirubin (0.2-1) mg/dl AST (15-37) U/L ALT (12-78) U/L Alkaline Phosphatase (45-117) U/L C-Reactive Protein (0-0.29) mg/dl Total Protein (6.4-8.2) gm/dl Albumin (3.4-5.0) gm/dl Globulin (2.5-4.0) gm/dl Albumin/Globulin Ratio (0.9-2) TSH (0.300-4.500) uIu/ml COVID-19 Eval Order Covid19 at [facility] SARS-CoV-2 (PCR) NEGATIVE (Negative) Administered Medications Discontinued Medications Acetaminophen (Acetaminophen 1000 Mg/100 Ml Iv) 1,000 mg IV NOW STA Stop: 05/02/21 09:22 Last Admin: 05/02/21 10:45 Dose: 1,000 mg Documented by: [id number] Sodium Chloride (Nss 1000ml) 1,000 mls @ 999 mls/hr IV .Q1H1M FRIDA Stop: 05/02/21 10:30 Last Infusion: 05/02/21 11:00 Dose: 0 mls/hr Documented by: [id number] Admin: 05/02/21 09:50 Dose: 999 mls/hr Documented by: [id number] Lorazepam (Ativan) 1 mg in 2 mls @ 2 mls/min IV NOW STA Stop: 05/02/21 09:22 Last Admin: 05/02/21 12:00 Dose: Not Given Documented by: [id number] Ceftriaxone Sodium (Rocephin) 2,000 mg in 70 mls @ 140 mls/hr IV NOW STA Stop: 05/02/21 09:52 Last Infusion: 05/02/21 11:45 Dose: 0 mls/hr Documented by: [id number] Admin: 05/02/21 11:00 Dose: 140 mls/hr Documented by: [id number] Potassium Chloride (K [place] / Wtr) 10 meq in 100 mls @ 100 mls/hr IV ONE ONE Stop: 05/02/21 11:28 Last Infusion: 05/02/21 12:01 Dose: 0 mls/hr Documented by: [id number] Admin: 05/02/21 11:00 Dose: 100 mls/hr Documented by: [id number] Ketorolac Tromethamine (Ketorolac Tromethamine 15 Mg/Ml Vial) 15 mg IV NOW STA Stop: 05/02/21 09:22 Last Admin: 05/02/21 10:40 Dose: 15 mg Documented by: [id number] Ondansetron HCl (Ondansetron Inj 2 Mg/Ml 2 Ml Vial) 4 mg IV NOW STA Stop: 05/02/21 09:22 Last Admin: 05/02/21 10:59 Dose: 4 mg Documented by: [id number] Discharge Plan Visit Data Chief Complaint: Syncope Stated Complaint: SYNCOPE ED Provider: Uche Ruiz Discharge Problem: Headache, Acute ear pain, Acute Lyme disease, Acute facial pain, Failure of outpatient treatment Patient Disposition: Admitted As Inpatient Condition: Fair Forms Stand Alone Forms: [facility], [facility] Emergency Department, Important Visit Information Prescriptions Prescriptions: No Action Mirena 20 mcg/24 hours (6 yrs) 52 mg Intrauterine Device 1 device INTRAUTERINE CONT RF: 0 ondansetron 4 mg tablet,disintegrating 4 mg PO Q6H PRN (Reason: nausea and vomiting) Qty: 20 RF: 0 buprenorphine HCl 8 mg tablet, sublingual 8 mg SUBLINGUAL TID RF: 0 carbamazepine [Carbatrol] 100 mg capsule, ER multiphase 12 hr 100 mg PO BID RF: 0 cephalexin 500 mg capsule 500 mg PO QID RF: 0 gabapentin 300 mg capsule 300 mg PO TID RF: 0 methylprednisolone 4 mg tablets,dose pack 4 mg PO DIRECTED RF: 0 fluticasone propionate 50 mcg/actuation spray,suspension 1 spray INTRANASAL BID RF: 0 doxycycline hyclate 100 mg capsule 100 mg PO BID 21 Days Qty: 42 RF: 0 Referrals Referrals: PT,DECLINED [Primary Care Provider] - Discharge Problem: Headache Qualifiers: Headache type: unspecified Headache chronicity pattern: acute headache Intractability: not intractable Qualified Code(s): R51.9 - Headache, unspecified Acute ear pain Qualifiers: Laterality: bilateral Qualified Code(s): H92.03 - Otalgia, bilateral
[2021-05-02 10:00] LABS: Eosinophils # (auto) 0.04 K/uL (0-0.5); Eosinophils % (auto) 0.7 %; Hematocrit (blood only) 39.9 % (37-47); Hemoglobin 13.4 g/dL (12.0-16.0); Lymphocytes # (auto) 1.31 K/uL (1.2-3.4); Lymphocytes % (auto) 24.1 %; Mean Corpuscular Hemoglobin 31.6 pg (25-34); Mean Corpuscular Hgb Conc 33.6 g/dL (32-36); Mean Corpuscular Volume 94.1 fL (80-100); Mean Platelet Volume 11.1 fL (7.4-10.4); Monocytes # (auto) 0.51 K/uL (0.11-0.59); Monocytes % (auto) 9.4 %; Neutrophils # (auto) 3.58 K/uL (1.4-6.5); Neutrophils % (auto) 65.8 %; Platelet Count 222 K/uL (130-400); RDW Coefficient of Variation 12.5 % (11.5-14.5); RDW Standard Deviation 43.2 fL (36.4-46.3); Red Blood Count 4.24 M/uL (4.2-5.4); White Blood Count 5.44 K/uL (4.8-10.8)
[2021-05-02 10:21] LABS: Alanine Aminotransferase 18 U/L (12-78); Albumin Level 4.3 gm/dl (3.4-5.0); Aspartate Aminotransferase 10 U/L (15-37); BUN Creatinine Ratio 16.6 (10-20); Blood Urea Nitrogen 12 mg/dl (7-18); C Reactive Protein < 0.29 mg/dl (0-0.29); Calcium 9.1 mg/dl (8.5-10.1); Carbon Dioxide 26 mmol/L (21-32); Chloride 108 mmol/L (98-107); Creatinine Clr Calc Pharmacy 144.9 ml/min; Est GFR (African American) 138.2 ml/min; Est GFR (Non-African American) 119.2 ml/min; Glucose 88 mg/dl (70-99); Magnesium 2.1 mg/dl (1.8-2.4); Potassium 3.1 mmol/L (3.5-5.1); Sodium 140 mmol/L (136-145)
[2021-05-02] MEDS ORDERED: POTASSIUM CHLORIDE / WTR 10 MEQ/100 ML PLCT IV ONE (10:29)
[2021-05-02 10:30] LABS: Albumin Globulin Ratio 1.1 (0.9-2); Alkaline Phosphatase 71 U/L (45-117); Bilirubin,Total 0.6 mg/dl (0.2-1); Globulin 3.9 gm/dl (2.5-4.0); Phosphorus 3.2 mg/dl (2.5-4.9); Total Protein 8.2 gm/dl (6.4-8.2)
--- NOTE | 2021-05-02 11:05 | Electrocardiogram Report ---
Test Reason : Blood Pressure : / mmHG Vent. Rate : 079 BPM Atrial Rate : 079 BPM P-R Int : 132 ms QRS Dur : 084 ms QT Int : 372 ms P-R-T Axes : 066 066 066 degrees QTc Int : 426 ms Normal sinus rhythm Normal ECG When compared with ECG of 29-APR-2021 08:55, No significant change was found Confirmed by Danny Branham ([id number]) on 05/02/2021 11:05:40 AM Referred By: REFERRED SELF Confirmed By:Tyler Branham
--- NOTE | 2021-05-02 11:48 | History & Physical Report ---
Date of Service May 02, 2021 Assessment & Plan (1) Acute Lyme disease: Acute Lyme disease/likely [employer] involvement- Patient refused LP in the ED Failure of outpatient treatment with oral doxycycline Did have brief improvement after receiving IV ceftriaxone in the ED at a previous visit Placed on ceftriaxone 2 g IV daily, and doxycycline 100 mg IV every 12 hours. Dexamethasone 6 mg IV every 12 hours. Patient would likely need a PICC line placed, and outpatient IV treatment to continue. Consult neurology, who had been aware of the patient in the outpatient setting Present on Admission?: Yes (2) Hypokalemia: NSS + KCl 20 mEq under 25 mils per hour Did receive 1K rider in the ED Repeat laboratories in a.m. Present on Admission?: Yes (3) Depression: Depression with anxiety- Continue buprenorphine, carbamazepine, gabapentin. Present on Admission?: Yes (4) Anxiety: See above Present on Admission?: Yes History of Present Illness Chief Complaint: The patient presents to the emergency department for her sixth visit with persistent symptoms over the past month of bilateral ear pain, decreased hearing, facial pain, headache, nausea, vomiting and generally weak legs Primary Care Provider: PT DECLINED The patient is a 26-year-old female with a past medical history including Lyme disease, MRSA, history of multiple concussions, depression with anxiety, reflux esophagitis and ovarian cyst. She presents with symptoms as noted above. She had been placed on oral doxycycline in the outpatient setting, with continued worsening of her symptoms. She did have a dose of IV ceftriaxone at 1 point in the ED at the previous visit, and reports that her symptoms did improve briefly, but then worsened again. She has had a recent facial rash. She does report some generalized body aches and fatigue. She did undergo an MRI of brain without IV contrast on 04/26/2021, which showed no abnormalities. She was COVID-19 negative in the ED this morning. She did have Lyme testing performed on 04/23/2021 which was IgG negative, but IgM positive with reactive IgM bands 3/3 at 23 kDa, 39 kDa, and 41 kDa. Allergies Allergy/AdvReac Type Severity Reaction Status Date / Time No Known Allergies Allergy Verified 05/02/21 09:35 Home Medications Medication Instructions Recorded Confirmed Type levonorgestrel [Mirena] 1 device INTRAUTERINE CONT 04/23/21 05/02/21 History ondansetron 4 mg PO Q6H PRN #20 tab 04/23/21 05/02/21 Rx buprenorphine HCl 8 mg SUBLINGUAL TID 04/27/21 05/02/21 History carbamazepine [Carbatrol] 100 mg PO BID 04/27/21 05/02/21 History cephalexin 500 mg PO QID 04/29/21 05/02/21 History doxycycline hyclate 100 mg PO BID 21 Days #42 cap 04/29/21 05/02/21 Rx fluticasone propionate 1 spray INTRANASAL BID 04/29/21 05/02/21 History gabapentin 300 mg PO TID 04/29/21 05/02/21 History methylprednisolone 4 mg PO DIRECTED 04/29/21 05/02/21 History Past Med/Surg History Medical History Anxiety Depression H/O multiple concussions History of asthma MRSA (methicillin resistant Staphylococcus aureus) Ovarian cyst Reflux esophagitis Surgical History No significant past surgical history Social History Smoking Status: Never smoker Hx Alcohol Use: Yes Hx Substance Use: No Preferred Language: Mohawk marital status: Single Current Living Situation: Family current occupational status: unemployed Feels Safe at Home: Yes Review of Systems Review of Systems: The patient denies chest pain, palpitations, shortness of breath, dyspnea on exertion, cough, lower extremity swelling, sore throat, fevers, chills, sweats, diarrhea , constipation, abdominal pain, pelvic pain, blood in urine or stool, dysuria, urinary frequency or urgency, memory loss, loss of consciousness, abnormal bruising or bleeding, imbalance, focal weakness, numbness or tingling in arms or legs, back or neck pain, or night sweats. The review of systems is otherwise negative other than for that already noted above, and at least 10 systems have been reviewed. Physical Exam Physical Exam: The patient is awake, alert and oriented 3, well developed and well nourished, normocephalic and atraumatic, lying in bed and in no acute distress. HEENT--PERRL, EOMI, mucous membranes and oropharynx dry. Neck--supple. No JVD. No bruits. Thyroid normal, trachea midline, no adenopathy. Heart--normal S1 and S2. No murmurs, rubs or gallops. Lungs--clear bilaterally, no respiratory distress, no accessory muscle use. Abdomen--normal bowel sounds and soft. Nontender. Nondistended, no hernias or masses, no organomegaly. Extremities--no cyanosis or clubbing. No edema. There are good distal pulses b/l. Dermatologic--normal skin turgor, normal color, no abnormal lymph nodes, no rash. Neurologic--cranial nerves II through XII grossly intact. Rheumatologic--normal range of motion. Psychiatric--anxious Results & Data Results & Data ([facility]) Vital Signs (Past 12 Hours) Vital Signs Temp Pulse Resp BP Pulse Ox 05/02/21 11:00 93 H 17 125/92 100 05/02/21 10:30 85 20 122/93 100 05/02/21 10:00 87 15 100 05/02/21 09:45 100 05/02/21 08:57 99.0 F 125 H 18 124/86 98 Laboratory Results Laboratory Results WBC 5.44 K/uL (4.8-10.8) 05/02/21 09:41 RBC 4.24 M/uL (4.2-5.4) 05/02/21 09:41 Hgb 13.4 g/dL (12.0-16.0) 05/02/21 09:41 Hct 39.9 % (37-47) 05/02/21 09:41 MCV 94.1 fL (80-100) 05/02/21 09:41 MCH 31.6 pg (25-34) 05/02/21 09:41 MCHC 33.6 g/dL (32-36) 05/02/21 09:41 RDW Std Deviation 43.2 fL (36.4-46.3) 05/02/21 09:41 RDW Coeff of Rubén 12.5 % (11.5-14.5) 05/02/21 09:41 Plt Count 222 K/uL (130-400) 05/02/21 09:41 MPV 11.1 fL (7.4-10.4) H 05/02/21 09:41 Immature Gran % (Auto) 0.0 % 05/02/21 09:41 Neut % (Auto) 65.8 % 05/02/21 09:41 Lymph % (Auto) 24.1 % 05/02/21 09:41 Brantley % (Auto) 9.4 % 05/02/21 09:41 Eos % (Auto) 0.7 % 05/02/21 09:41 Baso % (Auto) 0.0 % 05/02/21 09:41 Neut # (Auto) 3.58 K/uL (1.4-6.5) 05/02/21 09:41 Lymph # (Auto) 1.31 K/uL (1.2-3.4) 05/02/21 09:41 Brantley # (Auto) 0.51 K/uL (0.11-0.59) 05/02/21 09:41 Eos # (Auto) 0.04 K/uL (0-0.5) 05/02/21 09:41 Baso # (Auto) 0.00 K/uL (0-0.2) 05/02/21 09:41 Immature Gran # (Auto) 0.00 K/uL (0.00-0.02) 05/02/21 09:41 ESR 5 mm/hr (0-20) 05/02/21 09:41 Sodium 140 mmol/L (136-145) 05/02/21 09:41 Potassium 3.1 mmol/L (3.5-5.1) L 05/02/21 09:41 Chloride 108 mmol/L (98-107) H 05/02/21 09:41 Carbon Dioxide 26 mmol/L (21-32) 05/02/21 09:41 Anion Gap 6.0 (3-11) 05/02/21 09:41 BUN 12 mg/dl (7-18) 05/02/21 09:41 Creatinine 0.71 mg/dl (0.6-1.2) 05/02/21 09:41 Est Cr Clr Drug Dosing 144.9 ml/min 05/02/21 09:41 Est GFR ( Amer) 138.2 ml/min 05/02/21 09:41 Est GFR (Non-Af Amer) 119.2 ml/min 05/02/21 09:41 BUN/Creatinine Ratio 16.6 (10-20) 05/02/21 09:41 Glucose 88 mg/dl (70-99) 05/02/21 09:41 Lactate 0.8 mmol/L (0.4-2.0) 05/02/21 09:48 Calcium 9.1 mg/dl (8.5-10.1) 05/02/21 09:41 Phosphorus 3.2 mg/dl (2.5-4.9) 05/02/21 09:41 Magnesium 2.1 mg/dl (1.8-2.4) 05/02/21 09:41 Total Bilirubin 0.6 mg/dl (0.2-1) 05/02/21 09:41 AST 10 U/L (15-37) L 05/02/21 09:41 ALT 18 U/L (12-78) 05/02/21 09:41 Alkaline Phosphatase 71 U/L (45-117) 05/02/21 09:41 C-Reactive Protein < 0.29 mg/dl (0-0.29) 05/02/21 09:41 Total Protein 8.2 gm/dl (6.4-8.2) 05/02/21 09:41 Albumin 4.3 gm/dl (3.4-5.0) 05/02/21 09:41 Globulin 3.9 gm/dl (2.5-4.0) 05/02/21 09:41 Albumin/Globulin Ratio 1.1 (0.9-2) 05/02/21 09:41 TSH 1.060 uIu/ml (0.300-4.500) 05/02/21 09:41 COVID-19 Eval Order Covid19 at [facility] 05/02/21 10:45 SARS-CoV-2 (PCR) NEGATIVE (Negative) 05/02/21 10:45 Code Status & VTE Plan Code Status Full code VTE Prophylaxis Plan VTE Prophylaxis will be ordered: Yes PG Care Time/CCT Total # of Minutes Spent Total Time Spent with Patient: Total time spent is greater than 50% in coordi nation of care (as documented) at patient's floor/unit and/or counseling patient: Coding Level of Care Code 34977 Initial Inpt Care Lvl 3 Diagnoses Acute Lyme disease A69.20 Hypokalemia E87.6 Depression F32.9 Anxiety F41.9
[2021-05-02] MEDS ORDERED: LEVONORGESTREL IU SCH (15:23)
[2021-05-02] MEDS ORDERED: [UNRECOGNIZED DRUG - OTHER] IU SCH (15:23)
[2021-05-02] MEDS: GABAPENTIN 300 MG CAP PO SCH ×2 (16:08→19:53)
[2021-05-02] MEDS: buprenorphine HCL 8 MG SUBL SL SCH ×2 (16:08→19:52)
[2021-05-02] MEDS: DOXYCYCLINE HYCLATE 100 MG in DEXTROSE 5% 100 ML IV SCH (16:09)
[2021-05-02] MEDS: dexAMETHasone 6 MG in SYRINGE 0 ML IV SCH (16:09)
[2021-05-02] MEDS: NSS + 20MEQ KCL 20 MEQ/1,000 ML BAG IV SCH (16:09)
[2021-05-02] MEDS ORDERED: LORazepam 1 MG/2 ML VIAL IV PRN (17:44)
[2021-05-02] MEDS: IBUPROFEN 200 MG TAB PO PRN (20:18)
[2021-05-03] MEDS: NSS + 20MEQ KCL 20 MEQ/1,000 ML BAG IV SCH (01:54)
[2021-05-03] MEDS: dexAMETHasone 6 MG in SYRINGE 0 ML IV SCH ×2 (05:08→15:35)
[2021-05-03] MEDS: DOXYCYCLINE HYCLATE 100 MG in DEXTROSE 5% 100 ML IV SCH (05:10)
[2021-05-03 06:21] LABS: Basophils # (auto) 0.01 K/uL (0-0.2); Basophils % (auto) 0.1 %; Eosinophils # (auto) 0.01 K/uL (0-0.5); Eosinophils % (auto) 0.1 %; Hematocrit (blood only) 35.9 % (37-47); Hemoglobin 11.7 g/dL (12.0-16.0); Immature Granulocytes # (auto) 0.01 K/uL (0.00-0.02); Immature Granulocytes % (auto) 0.1 %; Lymphocytes # (auto) 1.39 K/uL (1.2-3.4); Lymphocytes % (auto) 17.7 %; Mean Corpuscular Hemoglobin 30.9 pg (25-34); Mean Corpuscular Hgb Conc 32.6 g/dL (32-36); Mean Corpuscular Volume 94.7 fL (80-100); Monocytes # (auto) 0.62 K/uL (0.11-0.59); Monocytes % (auto) 7.9 %; Neutrophils # (auto) 5.81 K/uL (1.4-6.5); Neutrophils % (auto) 74.1 %; Platelet Count 219 K/uL (130-400); RDW Coefficient of Variation 12.5 % (11.5-14.5); RDW Standard Deviation 42.9 fL (36.4-46.3); Red Blood Count 3.79 M/uL (4.2-5.4); White Blood Count 7.85 K/uL (4.8-10.8)
[2021-05-03 07:03] LABS: Alanine Aminotransferase 13 U/L (12-78); Albumin Level 3.6 gm/dl (3.4-5.0); Aspartate Aminotransferase 8 U/L (15-37); BUN Creatinine Ratio 14.3 (10-20); Blood Urea Nitrogen 7 mg/dl (7-18); Carbon Dioxide 27 mmol/L (21-32); Chloride 109 mmol/L (98-107); Creatinine Clr Calc Pharmacy 174.5 ml/min; Est GFR (African American) > 150.0 ml/min; Est GFR (Non-African American) 134.6 ml/min; Glucose 94 mg/dl (70-99); Potassium 3.7 mmol/L (3.5-5.1); Sodium 140 mmol/L (136-145)
[2021-05-03 07:05] LABS: Albumin Globulin Ratio 1.2 (0.9-2); Alkaline Phosphatase 62 U/L (45-117); Bilirubin,Total 0.6 mg/dl (0.2-1); Globulin 3.1 gm/dl (2.5-4.0); Total Protein 6.7 gm/dl (6.4-8.2)
[2021-05-03] MEDS: cefTRIAXone SODIUM 2,000 MG in DEXTROSE 5% 50 ML IV SCH (07:51)
[2021-05-03] MEDS: POTASSIUM CHLORIDE CRTAB 20 MEQ TABCR PO SCH (07:51)
[2021-05-03] MEDS: GABAPENTIN 300 MG CAP PO SCH ×3 (07:55→19:39)
[2021-05-03] MEDS: buprenorphine HCL 8 MG SUBL SL SCH ×3 (07:56→19:40)
--- NOTE | 2021-05-03 08:57 | Neurology Consultation ---
Date of Consultation May 03, 2021 Assessment & Plan (1) Craniofacial pain syndrome: (2) Acute Lyme disease: Persistent craniofacial pain syndrome occurring in the context of probable acute Lyme disease. Symptoms began 1 month ago with intense left ear pain and have subsequently generalized. Most of her pain localizes to the left side of her head and face and has a neuralgiform quality. Would also consider a trigeminal neuralgia variant, nervous intermedius syndrome. Shingles unlikely, no obvious cutaneous lesions and patient had the chickenpox vaccination in childhood. Of note, patient had a brain MRI without contrast completed 1 week ago that was negative for any significant abnormalities. No hydrocephalus, Chiari malformation, neoplasm, demyelinating lesions or stroke. Patient's neck is supple, no meningeal signs. She probably does not have meningitis. However, she has been treated with antibiotics. As above, patient's persistent craniofacial pain occurs in the context of probable acute Lyme disease. She could have a variant of Bannwarth syndrome, lymphocytic meningeal radiculitis (but with cranial neuritis) due to Lyme disease. I would recommend some up-to-date testing including gadolinium enhanced brain MRI with attention to the internal auditory canals and trigeminal nerves. Would also recommend CSF analysis/lumbar puncture under fluoroscopy. Continue with Rocephin. Continue gabapentin 300 mg 3 times per day. Change carbamazepine to carbamazepine ER 200 mg twice daily History of Present Illness Reason for Consultation: Facial pain, Lyme disease Requesting Physician: Ray Trinh MD Attending Physician: Wilmer Page History of Present Illness The patient is a 26-year-old female with a chief complaint of stabbing left ear pain that began about 1 month ago. The pain has subsequently spread to the left side of her face and to the other ear as well. She complains of associated tinnitus, left facial weakness, and blurry vision with the left eye. Her pain is not triggered by chewing or swallowing. She complains of associated nausea as well as light and sound sensitivity. She does not have a history of migraine. She had the chickenpox vaccination in childhood. She denies experiencing any associated vesicular eruption or other rash. She has been evaluated several times in our emergency department and elsewhere. She does have a positive Lyme Western blot on April 23 with 3 reactive IgM bands. She had a single reactive IgG band. She does not have a history of tick bite, arthralgia, or bull's-eye rash, however. Patient does not appear to have elevated risk for Lyme disease, she does not hike or spend time outdoors, she does not have pets. 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 She does relay a history of anxiety. Past medical history also notable for recurrent tonsillar stones. No known history of parotid gland stones. No known history of other significant chronic medical problem. At the time of her latest presentation to [facility] she had already been prescribed sublingual buprenorphine, carbamazepine, Keflex, doxycycline, gabapentin, methylprednisolone, and Zofran. She did have a brain MRI completed without IV contrast on April 26 that was unremarkable. No evidence of neoplasm, stroke, demyelinating lesions, or significant parenchymal abnormality. I reviewed the images as well as the radiologist interpretation of this test. A CT of the mastoids completed on April 23 was unremarkable. The patient has been admitted to the medical floor for further evaluation and management. She is currently receiving Rocephin, intravenous doxycycline, and dexamethasone. Her gabapentin and buprenorphine have been continued. Family history noncontributory Allergies Allergy/AdvReac Type Severity Reaction Status Date / Time No Known Allergies Allergy Verified 05/02/21 09:35 Home Medications Medication Instructions Recorded Confirmed Type levonorgestrel [Mirena] 1 device INTRAUTERINE CONT 04/23/21 05/02/21 History ondansetron 4 mg PO Q6H PRN #20 tab 04/23/21 05/02/21 Rx buprenorphine HCl 8 mg SUBLINGUAL TID 04/27/21 05/02/21 History carbamazepine [Carbatrol] 100 mg PO BID 04/27/21 05/02/21 History cephalexin 500 mg PO QID 04/29/21 05/02/21 History doxycycline hyclate 100 mg PO BID 21 Days #42 cap 04/29/21 05/02/21 Rx fluticasone propionate 1 spray INTRANASAL BID 04/29/21 05/02/21 History gabapentin 300 mg PO TID 04/29/21 05/02/21 History methylprednisolone 4 mg PO DIRECTED 04/29/21 05/02/21 History Patient History Medical History Anxiety Depression H/O multiple concussions History of asthma MRSA (methicillin resistant Staphylococcus aureus) Ovarian cyst Reflux esophagitis Surgical History No significant past surgical history Social History Smoking Status: Never smoker Second Hand Exposure: No; Hx Alcohol Use: No Hx Substance Use: No Preferred Language: Lao Communication Ability: Effective Conventions Reservationist Required: No Beliefs That Will Affect Care: None marital status: Single Current Living Situation: Significant Other current occupational status: unemployed Feels Safe at Home: Yes Assistive Devices: None Review of Systems Constitutional: no fever and no chills Eyes: as per Subjective / HPI; no diplopia Ear, Nose, Mouth, Throat: as per Subjective / HPI, + ear pain and + tinnitus Respiratory: no cough and no dyspnea Cardiovascular: no chest pain and no palpitations Gastrointestinal: + nausea Genitourinary: no dysuria Musculoskeletal: no back pain, no neck pain, no joint pain and no myalgia Integumentary: no rash and no lesions Neurologic: as per Subjective / HPI and + headache(s); no gait abnormality, no localized weakness, no loss of sensation, no paresthesia, no tremor(s), no seizure-like activity and no syncope Psychiatric: + anxiety Hematologic / Lymphatic: no easy bleeding and no easy bruising Exam (Neuro) Constitutional: well developed and well nourished; no acute distress Eyes: normal visual heck by confrontation, PERRL, normal accommodation and EOM intact bilaterally; no fundoscopic abnormality, no nystagmus and no papilledema Cardiovascular: Vessels: normal carotid upstroke; no carotid bruit Neurologic: Oriented to:: Person, Place and Time Memory: Short Term Intact and Remote Intact Attention: Span Intact and Concentration Intact Language: Naming Objects and Repeating Phrases Speech Fluency: negative Dysarthria Speech Aphasia: negative Aphasia Fund of Knowledge: Current Events, Past History and Vocabulary Cranial Nerves: Normal II (Visual heck full to confrontation, visual acuity normal), III, IV, (Pupils equal round reactive to light and accommodation, eye movements normal), V (Facial sensation intact), VII (There is no facial droop or weakness), VIII (Hearing intact), IX, X (Palate elevates to midline), XI (Shoulder shrug intact) and XII (Tongue protrudes to midline) Motor Strength: Normal Lower Extremities and Normal Upper Extremities; negative Pronator Drift Motor Tone: Normal Lower Extremities and Normal Upper Extremities Muscle Bulk/Involuntary Movements: No Involuntary Movements; negative Muscle Atrophy Sensation: Light Touch Intact, Pain/Temperature Intact, Vibration Intact and Proprioception Intact Coordination: Normal; negative Limited Balance, Dysdiadochokinesia, Finger-Nose Abnormal and Heel-Leahy Abnormal Deep Tendon Reflexes: Rt Triceps: 2+, Lt Triceps: 2+, Rt Biceps: 2+, Lt Biceps: 2+, Rt Brachioradialis: 2+, Lt Brachioradialis: 2+, Rt Patellar: 2+, Lt Patellar: 2+, Rt Ankle: 2+ and Lt Ankle: 2+ Special Tests: negative Babinski Present Gait: Normal Station and Gait Results & Data ([facility]) Vital Signs (Past 12 Hours) Vital Signs Temp Pulse Pulse Resp BP Pulse Ox 05/03/21 07:34 36.8 C 98 H 16 114/78 95 05/03/21 07:16 74 05/03/21 03:16 36.5 C 84 14 124/86 99 05/03/21 00:25 36.7 C 18 126/87 95 05/02/21 23:05 36.9 C 16 130/87 98 05/02/21 22:19 66 Laboratory Results WBC 7.85, hemoglobin 11.7, hematocrit 35.9, platelet count 219, ESR 5, sodium 140, potassium 3.7, BUN 7, creatinine 0.51, glucose 94, calcium 9.0, AST 8, ALT 13, TSH 1.060, hCG negative, Lyme Western blot as described in the history of present illness Diagnostic Findings Brain MRI and CT of the mastoids/temporal bones as described in the history of present illness. I reviewed the images as well as the radiologist's interpretation of these tests. An electrocardiogram completed May 02, 2021 revealed a normal sinus rhythm, 79 bpm. Coding Level of Care Code 66154 Initial Inpt Care Lvl 3 Diagnoses Craniofacial pain syndrome G51.8 Acute Lyme disease A69.20
[2021-05-03] MEDS ORDERED: GADOBUTROL 65ML VIAL IV ONE (12:49)
[2021-05-03] MEDS: IBUPROFEN 200 MG TAB PO PRN (13:19)
--- NOTE | 2021-05-03 13:19 | Magnetic Resonance Report ---
MRI OF THE BRAIN INTERNAL AUDITORY CANAL PROTOCOL CLINICAL HISTORY: L>R ear pain, tinnitus, Lyme COMPARISON STUDY: MRI of the brain April 26, 2021. Head CT April 23, 2021. TECHNIQUE: Utilizing a 1.5 Jackelin magnet and dedicated coil, multiplanar, multiecho imaging of the br ain was performed pre and postcontrast administration with thin cut imaging through the internal peace tory canals. IV administration of 6 mL of Gadavist contrast was uneventful. FINDINGS: There are no foci of restricted diffusion to suggest acute infarct. No acute intracranial h emorrhage, midline shift or mass effect is present. Brain volume is normal. Ventricular system is nor mal. Basal cisterns are patent. There are no extra axial collections. Flow-voids for the major intrac ranial vessels are present. There is no intracranial mass or pathologic enhancement. There are no abn ormalities within the internal auditory canals. Exam is mildly compromised by motion artifact but is diagnostic. No foci of parenchymal signal abnormality are present. There is no mastoid effusion. Semi circular canals are intact. Orbits are unremarkable. There is no evidence for sinusitis. Calvarial si gnal is normal. IMPRESSION: 1. Unremarkable MRI of the brain. 2. No abnormalities within the internal auditory canals. 3. Exam mildly compromised by motion artifact. ACT 112: Negative or not required by law. Electronically signed by: Ismael Moses M.D. 05/03/2021 1:18 PM
--- NOTE | 2021-05-03 13:32 | Magnetic Resonance Report ---
MRI OF THE facial/trigeminal nerve WITHOUT AND WITH IV CONTRAST CLINICAL HISTORY: left facial pain, neuralgia COMPARISON STUDY: Noncontrast MRI the brain dated 04/26/2021 TECHNIQUE: MRI of the brain was performed from the vertex to the skull base utilizing various T1 and T2 weighted sequences. Following the IV administration of 6 mL of Gadavist contrast, additional enhan rob images were obtained. FINDINGS: Images were acquired in the sagittal axial and coronal planes, before and after the administration of 6 cc of intravenous Gadavist There is a 4 mm focus of diminished enhancement involving the right lateral aspect of the pituitary g land. A small microadenoma cannot be excluded. Correlation with appropriate biochemical markers recom mended. No additional mass lesions are visualized. Soft tissue prominence within the nasopharynx in the midline likely represents prominent lymphoid tis oneil given the patient's age. Axial diffusion-weighted images reveal no evidence of acute or subacute infarction. There is no evidence of ventricular dilatation. Proton density T2-weighted and FLAIR images reveal no significant intraparenchymal signal abnormaliti es. There are no abnormal flow voids. There is no evidence of pathologic enhancement. No abnormalities of the trigeminal ganglion are visualized. The study is compromised due to motion artifact. IMPRESSION: 1. Motion degradation study 2. No trigeminal nerve lesions identified given the limitations of the examination 3. 4 mm focus of diminished enhancement involving the right lateral aspect of the pituitary. A small microadenoma cannot be excluded. Correlation with appropriate biochemical markers is recommended. ACT 112: Negative or not required by law. Electronically signed by: Shay Spain M.D. 05/03/2021 1:30 PM
[2021-05-03] MEDS ORDERED: SODIUM CHLORIDE 0.65% NA SOLN 45 ML (OCEAN) PRN (14:02)
--- NOTE | 2021-05-03 14:03 | Hospitalist Progress Note ---
Date of Service May 03, 2021 Assessment & Plan (1) Acute Lyme disease: with concern for early disseminated disease to the CAVING GUIDE. no benefit to have both doxy and rocephin concurrently; will d/c doxy, continue rocephin IV. uncertain why she did not respond to doxycycline as outpatient. MRI brain w/ contrast w/ attn to auditory canals normal/negative today. appreciate neuro consult. LP under fluoro ordered - to have tomorrow. r/o CAVING GUIDE lyme and other infectious process. may need formal ID consultation depending on LP results. if she indeed has CAVING GUIDE Lyme disease then extended course of IV rocephin may be needed. (2) Craniofacial pain syndrome: left-sided facial symptoms concerning for trigeminal neuralgia. theoretically Lyme can cause such (can infect any cranial nerve). I did a case report search and there are case reports of trigeminal neuralgia in the setting of recent COVID illness (she had such in early February). agree w/ tegretol. cont gabapentin. titrate meds as needed for optimal pain control. cont IV decadron - reduce to once daily dosing. appreciate neurology consultation. LP under fluoro scheduled for tomorrow am. (3) Hypokalemia: replace repeat level am (4) Depression: (5) Anxiety: ongoing issue may need dedicated medication for such (6) Acute ear pain: may be related to acute Lyme or her craniofacial syndrome but symptoms are b/l. does seem to have element of eustacian tube dysfunction and TMJ syndrome as well. cont steroids. add afrin nasal spray 1 spray each nostril BID x 3 days. add rc 180mg daily. saline nasal spray prn. ENT consult post-d/c. no evidence of shingles. MRI brain today negative. (7) Chronic pain syndrome: on buprenorphine 8mg TID cont such Admission and Anticipated Discharge Date Admission Date: May 02, 2021 Subjective patient continues to have b/l, constant tinnitus - improves when she listens to music with headphones. continues with severe facial pain in the distribution of trigeminal nerve on left - this is main complaint. she also has b/l jaw pain and feels that ears are full which causes pain. she is constantly opening her jaw during the visit trying to "pop" the ears. she is very tearful, stating "I just want to get better". states she had COVID in late January/February. was sick for about 1 week. the ringing, facial pain, etc started about 1 month ago. Review of Systems Constitutional: no fever, no chills and no anorexia Respiratory: no cough and no dyspnea Cardiovascular: no chest pain Neurologic: as per Subjective / HPI and + paresthesia (severe, left-sided facial pain ); no localized weakness Physical Exam Constitutional: well developed, well nourished and + acute distress (holding left side of face 2nd to pain ); no altered mental status Eyes: PERRL; no scleral abnormality ENMT: Ears: + TM abnormality (retracted on left; no serous fluid; normal landmarks) and + unable to visualize TM (right - due to cerumen ) Mouth: no oropharynx abnormality and no oral mucosal abnormality Neck: trachea midline, no thyromegaly Respiratory: normal respiratory effort, lungs clear to auscultation Cardiovascular: RRR, no murmur, no edema Heart Sounds: normal S1 and normal S2 Vessels: posterior tibial pulses present and dorsalis pedis pulses present Gastrointestinal (Abdomen): normal bowel sounds, soft, nontender, no hepatosplenomegaly Skin: no rashes, warm and dry Neurologic: moves all extremities; no focal motor deficits Psychiatric: Orientation: alert and oriented x 3 Mood: + anxious mood Results & Data Results & Data ([facility]) Vital Signs (Past 12 Hours) Vital Signs Temp Pulse Pulse Resp BP Pulse Ox 05/03/21 11:23 36.8 C 84 16 101/65 97 05/03/21 07:34 36.8 C 98 H 16 114/78 95 05/03/21 07:16 74 05/03/21 03:16 36.5 C 84 14 124/86 99 cbc, bmp, lfts wnl recent Lyme Western Blot with +IgM bands x 3 IgG neg anaplasmosis DNA negative PG Care Time/CCT Total # of Minutes Spent Total Time Spent with Patient: Total time spent is greater than 50% in coordination of care (as documented) at patient's floor/unit and/or counseling patient: Coding Level of Care Code 63129 Subseq Hosp Care Lvl 3 Diagnoses Acute Lyme disease A69.20 Craniofacial pain syndrome G51.8 Hypokalemia E87.6 Depression F32.9 Anxiety F41.9 Acute ear pain H92.03 Laterality: bilateral Chronic pain syndrome G89.4 (1) Acute ear pain Laterality: bilateral Qualified Code(s): H92.03 - Otalgia, bilateral
[2021-05-03] MEDS: FEXOFENADINE HCL 180 MG TAB PO SCH (15:35)
[2021-05-03] MEDS: ACETAMINOPHEN 325 MG TAB PO PRN (16:49)
[2021-05-03] MEDS ORDERED: DOXYCYCLINE HYCLATE 100 MG CAP PO SCH (18:00)
[2021-05-03] MEDS: OXYMETAZOLINE 0.05% 30 ML BTL SCH (20:02)
[2021-05-04] MEDS: IBUPROFEN 200 MG TAB PO PRN ×2 (05:33→11:25)
[2021-05-04 06:50] LABS: Basophils # (auto) 0.01 K/uL (0-0.2); Basophils % (auto) 0.2 %; Eosinophils # (auto) 0.06 K/uL (0-0.5); Eosinophils % (auto) 1.1 %; Hematocrit (blood only) 36.5 % (37-47); Hemoglobin 12.1 g/dL (12.0-16.0); Immature Granulocytes # (auto) 0.01 K/uL (0.00-0.02); Immature Granulocytes % (auto) 0.2 %; Lymphocytes # (auto) 1.75 K/uL (1.2-3.4); Lymphocytes % (auto) 31.9 %; Mean Corpuscular Hemoglobin 30.9 pg (25-34); Mean Corpuscular Hgb Conc 33.2 g/dL (32-36); Mean Corpuscular Volume 93.4 fL (80-100); Mean Platelet Volume 11.2 fL (7.4-10.4); Monocytes # (auto) 0.52 K/uL (0.11-0.59); Monocytes % (auto) 9.5 %; Neutrophils # (auto) 3.14 K/uL (1.4-6.5); Neutrophils % (auto) 57.1 %; Platelet Count 211 K/uL (130-400); RDW Coefficient of Variation 12.8 % (11.5-14.5); RDW Standard Deviation 43.1 fL (36.4-46.3); Red Blood Count 3.91 M/uL (4.2-5.4); White Blood Count 5.49 K/uL (4.8-10.8)
[2021-05-04 07:46] LABS: Albumin Globulin Ratio 1.2 (0.9-2); Albumin Level 3.6 gm/dl (3.4-5.0); BUN Creatinine Ratio 24.8 (10-20); Bilirubin,Total 0.4 mg/dl (0.2-1); Calcium 8.8 mg/dl (8.5-10.1); Creatinine Clr Calc Pharmacy 152.2 ml/min; Est GFR (African American) 147.1 ml/min; Est GFR (Non-African American) 126.9 ml/min; Potassium 3.4 mmol/L (3.5-5.1); Total Protein 6.6 gm/dl (6.4-8.2)
[2021-05-04] MEDS: buprenorphine HCL 8 MG SUBL SL SCH ×2 (07:57→15:21)
[2021-05-04] MEDS: cefTRIAXone SODIUM 2,000 MG in DEXTROSE 5% 50 ML IV SCH (08:05)
[2021-05-04] MEDS ORDERED: oxyCODONE HCL IR 5 MG TAB (IMMEDIATE RELEASE) PO STA (08:18)
[2021-05-04] MEDS ORDERED: dexAMETHasone 6 MG in SYRINGE 0 ML IV SCH (09:00)
[2021-05-04] MEDS: NSS + 20MEQ KCL 20 MEQ/1,000 ML BAG IV SCH ×2 (09:40→20:58)
--- NOTE | 2021-05-04 09:43 | Neurology Progress Note ---
Date of Service May 04, 2021 Assessment & Plan (1) Craniofacial pain syndrome: (2) Acute Lyme disease: (3) Pituitary microadenoma: Persistent craniofacial pain syndrome in the context of suspected early Lyme disease. Patient does not have See's palsy although she does have persistent neuralgiform head pain, especially bilateral inner ear pain, could have nervous intermedius syndrome or trigeminal neuralgia variant. Has an intact mental status, does not have nuchal rigidity, probably does not have meningitis. CSF analysis/lumbar puncture will be done today. Incidental pituitary microadenoma. No associated mass-effect or hemorrhage. Would recommend prolactin and other endocrine markers. Continue with Rocephin. Continue with dexamethasone. Consider adding acyclovir or Valtrex. Would also consider trials of sumatriptan 6 mg SQ, indomethacin 50 mg twice daily, or switching from carbamazepine to topiramate. Would also consider consultation with pain management for possible auricular or occipital nerve blocks. If CSF analysis unremarkable would consider obtaining MRA and MRV of the brain as well. Admission and Anticipated Discharge Date Admission Date: May 02, 2021 Subjective Follow-up for cephalgia The patient continues to complain of pain in both ears, left greater than right. She also complains of associated paresthesias affecting the face and neck. She is visibly upset given the persistence of her symptoms. She does not have any vision loss, diplopia, change in speech or swallowing. She denies experiencing any light or sound sensitivity and has been eating reasonably well. She did have an MRI of the brain with attention to the internal auditory canals and trigeminal nerves completed yesterday. These tests were unremarkable. There is an incidental 4 mm focus of diminished enhancement within the right lateral aspect of the pituitary suggestive of a small microadenoma. I did review the images as well as the radiologist interpretation of these tests I discussed them with radiology, Dr. Moses, as well. Microadenomas likely incidental in the context of her symptoms. She had a normal ESR recently and had positive Lyme IgM serology suggestive of acute Lyme. A lumbar puncture is pending for today. I had increased her dosage of carbamazepine ER to 200 mg twice daily yesterday. Her gabapentin has been increased to 400 mg 3 times daily as well. She is also receiving Rocephin and dexamethasone. She remarks that she thinks her symptoms responded better to IV doxycycline yesterday. Review of Systems Constitutional: no fever and no chills Eyes: no blind spots and no diplopia Ear, Nose, Mouth, Throat: as per Subjective / HPI, + ear pain and + tinnitus Neurologic: as per Subjective / HPI, + paresthesia and + headache(s); no gait abnormality, no localized weakness, no loss of sensation and no abnormal speech Psychiatric: + anxiety Tearful Results & Data ([facility]) Vital Signs (Past 12 Hours) Vital Signs Temp Pulse Pulse Resp BP BP Pulse Ox 05/04/21 07:54 37.1 C 87 20 113/76 98 05/04/21 07:38 37 C 85 16 131/91 100 05/04/21 07:00 89 05/04/21 03:15 36.4 C L 75 18 100/66 98 05/04/21 00:10 36.5 C 86 18 110/75 98 05/03/21 22:19 82 Exam (Neuro) Constitutional: well developed and well nourished Upset, intermittently tearful, somewhat distractible. Neurologic: Oriented to:: Person, Place and Time Memory: Short Term Intact and Remote Intact Attention: Span Intact and Concentration Intact Speech Fluency: negative Dysarthria Speech Aphasia: negative Aphasia Fund of Knowledge: Current Events, Past History and Vocabulary Cranial Nerves: Normal II, III, IV, , V, VII, VIII, IX, X, XI and XII Motor Strength: Normal Lower Extremities and Normal Upper Extremities Motor Tone: Normal Lower Extremities and Normal Upper Extremities Muscle Bulk/Involuntary Movements: No Involuntary Movements; negative Muscle Atrophy Sensation: Light Touch Intact and Proprioception Intact Coordination: Normal; negative Dysdiadochokinesia, Finger-Nose Abnormal and Heel-Leahy Abnormal Deep Tendon Reflexes: Rt Biceps: 2+, Lt Biceps: 2+, Rt Patellar: 2+ and Lt Patellar: 2+ Details: No nuchal rigidity. Coding Level of Care Code 95600 Subseq Hosp Care Lvl 3 Diagnoses Craniofacial pain syndrome G51.8 Acute Lyme disease A69.20 Pituitary microadenoma D35.2
[2021-05-04] MEDS: POTASSIUM CHLORIDE CRTAB 20 MEQ TABCR PO SCH (09:46)
[2021-05-04] MEDS: dexAMETHasone 6 MG in SYRINGE 0 ML IV SCH (11:09)
[2021-05-04] MEDS: GABAPENTIN 400 MG CAP PO SCH ×3 (11:10→21:02)
[2021-05-04] MEDS: FEXOFENADINE HCL 180 MG TAB PO SCH (11:10)
[2021-05-04] MEDS: OXYMETAZOLINE 0.05% 30 ML BTL SCH ×2 (11:11→21:02)
--- NOTE | 2021-05-04 13:40 | Fluoroscopy Report ---
FLUOROSCOPICALLY GUIDED LUMBAR PUNCTURE CLINICAL HISTORY: suspected OXIDE FURNACE TENDER lyme disease. Facial numbness. FLUOROSCOPY TIME: 0.1 minutes. A single fluoroscopic spot image of the lumbar spine submitted. PROCEDURE: The procedure, risks and benefits were discussed with the patient including the risk of s kaya headache, bleeding and infection. The patient agreed to the procedure and informed written cons ent was obtained. The procedure was performed by Dr. Daugherty following a timeout. The left L4-5 int erlaminar space was targeted. Skin overlying the space was prepped and draped in the usual sterile fa shion and local anesthesia was achieved with 1% lidocaine. Under intermittent fluoroscopic guidance, a 20-gauge x 3 1/2 in. Sprotte needle was inserted into the thecal sac. A total of 3cc of clear, colo rless cerebral spinal fluid was obtained. The patient complained of nausea during the examination and requested the examination to be stopped. Therefore, only 3 cc of cerebral spinal fluid was obtained. Following the procedure there were no immediate complications. The specimens were sent to the [facility] at the request of the referring physician. IMPRESSION: The patient complained of nausea during the examination and requested the examination to be stopped. Therefore, only 3 cc of cerebral spinal fluid was obtained. The patient was transported t o her room in stable condition. ACT 112: Negative or not required by law. Electronically signed by: Benjamin Daugherty M.D. 05/04/2021 1:38 PM
[2021-05-04 14:16] LABS: Appearance CSF Clear; CSF Count Tube # 1; CSF Xanthrochromic No xanthochromia; Color CSF Colorless; Red Blood Cell CSF (A) 43 /uL (0-); Red Blood Cell CSF (B) 35 /uL (0-); White Blood Cell CSF (A) 4 /uL (0-5); White Blood Cell CSF (B) 3 /uL (0-5)
[2021-05-04] MEDS ORDERED: dexAMETHasone 6 MG in SYRINGE 0 ML IV STA (16:04)
[2021-05-04] MEDS ORDERED: cefTRIAXone SODIUM 2,000 MG in DEXTROSE 5% 50 ML IV STA (16:12)
[2021-05-04] MEDS ORDERED: KETOROLAC 30 MG/ML VIAL IV ONE (19:33)
[2021-05-04] MEDS: busPIRone 5 MG TAB PO SCH (20:58)
[2021-05-04] MEDS ORDERED: LORazepam 1 MG/2 ML VIAL IV PRN (22:55)
--- NOTE | 2021-05-04 23:57 | Hospitalist Progress Note ---
Date of Service May 04, 2021 Assessment & Plan (1) Acute Lyme disease: with concern for early disseminated disease to the [employer]. recent Lyme western blot with + IgM bands x 3. IgG negative on western blot. no benefit to have both doxy and rocephin concurrently; given suspected [employer] involvement will continue rocephin IV. uncertain why she did not respond to doxycycline as outpatient. MRI brain w/ contrast w/ attn to auditory canals normal/negative. LP with 4 wbcs on cell counts - meningitis highly unlikely. [id number] Lyme CSF DNA sent to be complete. it is uncertain if current symptoms - b/l tinnitus, left facial neuropathic pain, etc - is due to Lyme, COVID (had COVID in early February), part of a headache syndrome, etc. appreciate Dr Acevedo's consult & recs. (2) Craniofacial pain syndrome: left-sided facial symptoms concerning for trigeminal neuralgia. theoretically Lyme can cause such (can infect any cranial nerve). I did a case report search and there are case reports of trigeminal neuralgia in the setting of recent COVID illness (she had such in early February). I am uncertain if her tinnitus and ear pain b/l is connected or a completely separate issue however. agree w/ tegretol. cont gabapentin. increase to 400mg TID. I believe patient is not tolerating the decadron well - making her more anxious, etc. will d/c (and, she did not appear to have any relief from steroids either). appreciate neurology consultation. I agree w/ Dr Acevedo she may need pain management consult for consideration of nerve block. (3) Hypokalemia: replace repeat level am (4) Depression: Depression with anxiety- latter SEVERE - as below. previously was on wellbutrin and other agents for depression in the past. she is not coping well with current illness. will ask psych to see in consult. (5) Anxiety: ongoing issue SEVERE start buspar 5mg TID -- she reports having taken this in the past psych consult requested (6) Acute ear pain: b/l ear pain - mainly the canals, but she also has pain more interiorly. no evidence of AOM on exam however. no direct evidence of otitis externa. cannot rule out severe eustacian tube dysfunction contributing. cannot rule out TMJ syndrome causing pain in and around the ears. although I don't see evidence of otitis externa, to help less her inner ear canal pain, will try ciprodex (mainly for the steroid component) to help ease her pain. see above/below for additional information. cont treatment of craniofacial pain. consider ENT consultation for additional recs. if some of this is eustacian tube dysfunction continue valsalva maneuvers, motrin prn, afrin nasal spray x 3 days, saline nasal spray, and antihistamines. (7) Chronic pain syndrome: on buprenorphine 8mg TID PDMP shows she has been taking this at least since April 2019 oddly she reports she hasn't taken the medication in several weeks she has been refusing the subutex while here she may be experiencing subutex withdrawal and needs to go back on such ricky her emotional lability and other symptoms may be withdrawal (8) Pituitary microadenoma: No Rx needed at this time (9) History of COVID-19: early February 2021 (10) Complex care coordination: following my 2nd visit with her later in the day I reassured her she was not experiencing anaphylaxis from any medication no evidence of such on my 2nd physical exam I did order psych consult due to her severe anxiety/depression Admission and Anticipated Discharge Date Admission Date: May 02, 2021 Subjective saw patient multiple times today. first was during rounds. her grand-parents were present at bedside. she had returned from her LP completed by radiology. I gave the prelim results to the patient that cell counts were NOT suspicious for meningitic involvement from Lyme. she was very upset during the visit, oscillating between episodes of frequent crying and tearfulness along with anxiety. she was seen rubbing her TMJs b/l and opening/closing her jaw to gain relief. this am she had refused her rocephin and dexamethasone. she had also declined use of narcotic pain meds for her facial and ear pain. she declined use of ativan for her anxiety. she declined suboxone, and stopped the gabapentin. she requested additional basal IV fluids today. she continues with tinnitus b/l, ear pain (canal) b/l, and left sided facial pain. she is eating albeit little amounts. she ultimately was agreeable to taking the IV rocephin and IV dexamethasone this afternoon. following the steroid the patient complained to the nurse that she felt like she was reacting to the steroid. told staff she couldn't breath, had throat swelling, etc. I came to the bedside - no stridor, no resp distress, no wheezing. lung exam - CTA b/l ENT - no pharyngeal edema; no stridor skin - no rash psych - VERY anxious, crying Review of Systems Constitutional: + fatigue and + anorexia; no fever, no chills and no body aches Ear, Nose, Mouth, Throat: as per Subjective / HPI, + ear pain and + tinnitus; no ear discharge Respiratory: no cough and no dyspnea Cardiovascular: no chest pain Gastrointestinal: + nausea Neurologic: as per Subjective / HPI and + headache(s) Psychiatric: + depression and + anxiety Physical Exam Constitutional: well developed, well nourished and + acute distress (holding left side of face 2nd to pain; opening/closing jaw; rubbing TMJs); no altered mental status anxious, tearful ENMT: Ears: + TM abnormality (retracted on left; still no serous fluid; normal landmarks) and + unable to visualize TM (right - only top-most portion seen of TM - wnl; o/w canal tortuous ) Mouth: no oropharynx abnormality and no oral mucosal abnormality Neck: trachea midline, no thyromegaly no anterior neck swelling, no submandibular swelling and neck nontender Respiratory: normal respiratory effort, lungs clear to auscultation Cardiovascular: RRR, no murmur, no edema Heart Sounds: normal S1 and normal S2 Vessels: posterior tibial pulses present and dorsalis pedis pulses present Gastrointestinal (Abdomen): normal bowel sounds, soft, nontender, no hepatosplenomegaly Skin: no rashes, warm and dry Neurologic: moves all extremities; no focal motor deficits Psychiatric: Orientation: alert and oriented x 3 Affect: + tearful affect Mood: + anxious mood Results & Data Results & Data ([facility]) Vital Signs (Past 12 Hours) Vital Signs Temp Pulse Pulse Resp BP BP Pulse Ox 05/04/21 23:13 36.6 C 79 18 115/70 96 05/04/21 19:03 36.9 C 109 H 18 128/84 97 05/04/21 19:00 36.6 C 75 18 108/73 97 05/04/21 18:21 36.4 C L 89 18 117/80 96 05/04/21 15:00 94 H 05/04/21 13:25 36.7 C 91 H 20 113/75 98 05/04/21 12:20 88 20 105/72 97 Laboratory Results Laboratory Results - last 24 hr 05/04/21 05/04/21 05/04/21 06:35 06:35 06:35 WBC 5.49 RBC 3.91 L Hgb 12.1 Hct 36.5 L MCV 93.4 MCH 30.9 MCHC 33.2 RDW Std Deviation 43.1 RDW Coeff of Rubén 12.8 Plt Count 211 MPV 11.2 H Immature Gran % (Auto) 0.2 Neut % (Auto) 57.1 Lymph % (Auto) 31.9 Cuming % (Auto) 9.5 Eos % (Auto) 1.1 Baso % (Auto) 0.2 Neut # (Auto) 3.14 Lymph # (Auto) 1.75 Cuming # (Auto) 0.52 Eos # (Auto) 0.06 Baso # (Auto) 0.01 Immature Gran # (Auto) 0.01 Sodium 143 Potassium 3.4 L Chloride 112 H Carbon Dioxide 27 Anion Gap 4.0 BUN 15 D Creatinine 0.61 Est Cr Clr Drug Dosing 152.2 Est GFR ( Amer) 147.1 Est GFR (Non-Af Amer) 126.9 BUN/Creatinine Ratio 24.8 H Glucose 95 Calcium 8.8 Total Bilirubin 0.4 AST 6 L ALT 13 Alkaline Phosphatase 65 Total Protein 6.6 Albumin 3.6 Globulin 3.0 Albumin/Globulin Ratio 1.2 Vitamin B12 933 Fld Lyme DNA (PCR) Fluid Comment CSF Appearance CSF Color Xanthrochromic CSF WBC CSF RBC CSF Cell Count Tube # CSF Mononuclear WBCs % CSF Total Protein Lyme Specimen Source 05/04/21 05/04/21 05/04/21 13:59 14:00 Unknown WBC RBC Hgb Hct MCV MCH MCHC RDW Std Deviation RDW Coeff of Rubén Plt Count MPV Immature Gran % (Auto) Neut % (Auto) Lymph % (Auto) Cuming % (Auto) Eos % (Auto) Baso % (Auto) Neut # (Auto) Lymph # (Auto) Cuming # (Auto) Eos # (Auto) Baso # (Auto) Immature Gran # (Auto) Sodium Potassium Chloride Carbon Dioxide Anion Gap BUN Creatinine Est Cr Clr Drug Dosing Est GFR ( Amer) Est GFR (Non-Af Amer) BUN/Creatinine Ratio Glucose Calcium Total Bilirubin AST ALT Alkaline Phosphatase Total Protein Albumin Globulin Albumin/Globulin Ratio Vitamin B12 Fld Lyme DNA (PCR) Pending Fluid Comment CSF Appearance Clear CSF Color Colorless Xanthrochromic No xanthochromia CSF WBC 4 CSF RBC 43 CSF Cell Count Tube # 1 CSF Mononuclear WBCs % CSF Total Protein 45.5 H Lyme Specimen Source Pending PG Care Time/CCT Total # of Minutes Spent Total Time Spent with Patient: Total time spent is greater than 50% in coordination of care (as documented) at patient's floor/unit and/or counseling patient: Coding Level of Care Code 88909 Subseq Hosp Care Lvl 3 Diagnoses Acute Lyme disease A69.20 Craniofacial pain syndrome G51.8 Hypokalemia E87.6 Depression F32.9 Anxiety F41.9 Acute ear pain H92.03 Laterality: bilateral Chronic pain syndrome G89.4 Pituitary microadenoma D35.2 History of COVID-19 Z86.16 Complex care coordination Z71.89 (1) Acute ear pain Laterality: bilateral Qualified Code(s): H92.03 - Otalgia, bilateral
[2021-05-05] MEDS: MELATONIN 3 MG TAB PO PRN ×2 (00:36→22:44)
[2021-05-05] MEDS: CIPRO 0.3%/DEXAMETHASONE 0.1% OTIC SUSP 7.5ML OT SCH ×4 (01:10→20:22)
[2021-05-05] MEDS: NSS + 20MEQ KCL 20 MEQ/1,000 ML BAG IV SCH ×3 (06:41→15:49)
[2021-05-05 07:13] LABS: Basophils # (auto) 0.01 K/uL (0-0.2); Basophils % (auto) 0.1 %; Eosinophils # (auto) 0.01 K/uL (0-0.5); Eosinophils % (auto) 0.1 %; Hematocrit (blood only) 36.1 % (37-47); Hemoglobin 11.9 g/dL (12.0-16.0); Immature Granulocytes # (auto) 0.02 K/uL (0.00-0.02); Immature Granulocytes % (auto) 0.2 %; Lymphocytes # (auto) 1.19 K/uL (1.2-3.4); Lymphocytes % (auto) 12.4 %; Mean Corpuscular Hemoglobin 31.4 pg (25-34); Mean Corpuscular Volume 95.3 fL (80-100); Mean Platelet Volume 11.5 fL (7.4-10.4); Monocytes # (auto) 0.53 K/uL (0.11-0.59); Monocytes % (auto) 5.5 %; Neutrophils # (auto) 7.87 K/uL (1.4-6.5); Neutrophils % (auto) 81.7 %; Platelet Count 215 K/uL (130-400); RDW Coefficient of Variation 12.6 % (11.5-14.5); RDW Standard Deviation 43.8 fL (36.4-46.3); Red Blood Count 3.79 M/uL (4.2-5.4); White Blood Count 9.63 K/uL (4.8-10.8)
[2021-05-05 07:47] LABS: Alanine Aminotransferase 13 U/L (12-78); Albumin Level 3.4 gm/dl (3.4-5.0); Aspartate Aminotransferase 5 U/L (15-37); Blood Urea Nitrogen 11 mg/dl (7-18); Calcium 8.7 mg/dl (8.5-10.1); Carbon Dioxide 26 mmol/L (21-32); Chloride 112 mmol/L (98-107); Est GFR (African American) > 150.0 ml/min; Est GFR (Non-African American) 139.2 ml/min; Glucose 91 mg/dl (70-99); Sodium 142 mmol/L (136-145)
[2021-05-05 07:48] LABS: Alkaline Phosphatase 61 U/L (45-117); Bilirubin,Total 0.4 mg/dl (0.2-1); Globulin 3.3 gm/dl (2.5-4.0); Total Protein 6.7 gm/dl (6.4-8.2)
[2021-05-05] MEDS: cefTRIAXone SODIUM 2,000 MG in DEXTROSE 5% 50 ML IV SCH (09:46)
[2021-05-05] MEDS: GABAPENTIN 400 MG CAP PO SCH ×4 (09:50→20:23)
[2021-05-05] MEDS: FEXOFENADINE HCL 180 MG TAB PO SCH (09:51)
[2021-05-05] MEDS: busPIRone 5 MG TAB PO SCH ×3 (09:51→20:20)
[2021-05-05] MEDS: buprenorphine HCL 8 MG SUBL SL SCH ×3 (09:51→20:20)
[2021-05-05] MEDS: OXYMETAZOLINE 0.05% 30 ML BTL SCH ×2 (09:52→20:24)
[2021-05-05] MEDS: POTASSIUM CHLORIDE CRTAB 20 MEQ TABCR PO SCH (09:52)
[2021-05-05] MEDS: IBUPROFEN 200 MG TAB PO PRN ×2 (10:00→20:13)
--- NOTE | 2021-05-05 11:15 | Neurology Progress Note ---
Date of Service May 05, 2021 Assessment & Plan (1) Craniofacial pain syndrome: (2) Pituitary microadenoma: (3) Acute Lyme disease: Plan: Improving craniofacial pain, nonspecific headache syndrome. No objective evidence of disease other than positive Lyme IgM Western blot. Patient's clinical presentation would be atypical for acute Lyme. Nonetheless, she has been treated with appropriate antibiotics and has also received corticosteroids. She does have an incidental pituitary microadenoma. Should follow-up with endocrinology and/or appropriate lab evaluation, prolactin, etc. This finding does not explain her headaches. There is some concern regarding her buprenorphine use, Dr. Page aware, patient has a prescription but has apparently not taken the medication in several weeks and has been refusing this medication while here. Possibility of Subutex withdrawal considered. Potential misuse of narcotic analgesics is a potential contributing factor. Patient has been seen by psychiatry liaison as well. Patient has a history of depression and anxiety and has been admitted to the [facility] for these issues in 2012 and as well. Formal psychiatry evaluation pending. Continue with carbamazepine and gabapentin at the current dosages. Consider outpatient ENT evaluation Consider pain management consultation if head pain recurs or persists during this hospitalization. Admission and Anticipated Discharge Date Admission Date: May 02, 2021 Subjective Follow-up for headache The patient reports that her headache is improved this morning although she complains of bilateral ear pressure. She complains of fullness and popping in her ears, no hearing loss. She became tearful again and began to complain of headache. I discussed her case with Dr. Page this morning. Patient has had extensive unremarkable testing during this current hospitalization including MRI of the brain with attention to the internal auditory canals and trigeminal nerves. Her lumbar puncture was unremarkable as well although only a limited sample was obtained due to poor patient tolerance of the procedure. CSF clear, colorless, no xanthochromia, CSF WBC 4, RBC 43, total protein 45.5. Gram stain unremarkable. Review of Systems Constitutional: No fever Eyes: No vision loss Neurologic: As per subjective Results & Data ([facility]) Vital Signs (Past 12 Hours) Vital Signs Temp Pulse Pulse Resp BP BP Pulse Ox 05/05/21 09:00 68 05/05/21 07:25 36.8 C 75 16 115/74 97 05/05/21 04:58 36.6 C 94 H 14 118/80 97 05/04/21 23:13 36.6 C 79 18 115/70 96 Exam (Neuro) Neurologic: Oriented to:: Person, Place and Time Attention: Span Intact and Concentration Intact Speech Fluency: negative Dysarthria Speech Aphasia: negative Aphasia Fund of Knowledge: Vocabulary Cranial Nerves: Normal II, III, IV, , V, VII, VIII, IX, X, XI and XII Motor Strength: Normal Lower Extremities and Normal Upper Extremities Spasticity: None Muscle Bulk/Involuntary Movements: No Involuntary Movements Coordination: Normal Gait: Normal Station and Gait Coding Level of Care Code 19323 Subseq Hosp Care Lvl 2 Diagnoses Craniofacial pain syndrome G51.8 Pituitary microadenoma D35.2 Acute Lyme disease A69.20
--- NOTE | 2021-05-05 14:57 | Psychiatric Consultation ---
Date of Consultation May 05, 2021 Impression / Recommendations Impression This is a 26 old female presenting with anxiety which she claims is surrounding her pain symptoms. Chart review shows that patient has been struggling with depression anxiety for quite some time. At this time however patient is unwilling to accept psychiatric medication changes including potential to start SSRI or SNRI medication. She may benefit from benzodiazepine administration while in the hospital to assist with her anxiety, of course this is to be balanced with her use of opiates as there is the potential for respiratory depression. Recommendations: Lorazepam 0.5 mg every 12hrs as needed anxiety Patient to follow-up with outpatient psychiatric services Psych History Identifying Data 26-year-old female presenting with numerous medical complaints secondary to what is thought to be Lyme disease. Chief Complaint "I am just in a lot of pain right now". History of Present Illness HPI as per psychiatric liaison "Met with patient at bedside to complete mental health assessment. Upon entering patients room she is resting in bed with her eyes closed, headphones on and her eyes covered. She is easily roused verbally and is agreeable to interview at this time. Affect is flat to tearful throughout our interaction. Alert and oriented X4. Appears to be appropriately groomed. Eye contact is fleeting. All information contained in note was obtained from patient. Chief complaint is I cant deal with all of this. Depression and anxiety have been worsening since approximately one month ago when her Lyme disease symptoms became exacerbated. Including paresthesia, numbness, tinnitus, and facial pain. Chronically coping with these ailments are causing her great distress as she is feeling worn down and I cant keep living like this. She denies SI currently or within the past 30 days. She does however endorse what she does not describe as passive wishes but rather just wanting to leave so I dont have to deal with this anymore. Additional stressors include the recent suicide completion by her father, whom she was very close to and states We were pretty much each others supports. We bonded over his struggles with mental health. He was schizophrenic and treatments never seemed to work for him Reports difficulty completing ADLs at home due to a combination of lack of motivation, anergia, chronic pain, and other symptoms associated with her Lyme. She endorse additional depressive symptoms including anhedonia, feelings of hopelessness, sleep disturbances, poor appetite, lowered self-esteem, and focus is impaired as well. PHQ9 score total is 24, number 9 is scored as 1. She complains that she is experiencing anxiety almost constantly, nothing resolves, and rumination makes worse. Panic attacks with symptoms including globulus sensation, heart palpitations, chest tightness, shortness of breath, and tunnel vision occurring 4-5 times on most days, lasting an indeterminate amount of time. She denies panic attacks since hospitalized. She denies HI, AH/VH, SIB, past suicide attempts, and past violence/aggression. Denies alcohol and other substance use. She had previously been prescribed Subutex for treatment of pain approximately one year ago and does admit to using it from a friend recently. She has had two past inpatient hospitalizations [facility] in 2013 and 2014, both for Depression and anxiety with no suicidality. Her outpatient providers include a PCP at [facility] whom she was unable to recall the name, review of her chart shows Ángel Ortiz with [facility]. Last was seen by PCP one week ago with future appointment sometime next week. No psychiatrist c urrently or historically. Therapy services are provided via telehealth to patient by [facility], name of therapist is unrecalled by patient. Last appointment was one week ago and has appointment on 05/10. She was provided case management services [place] in [place] 3 months ago but did not follow up after that, agency and provider is unrecalled by patient. Additional providers include Neurologist, Jesús Acevedo, who she initially saw here during this admission. Per her report, she is to follow up with that provider as outpatient once discharged. She signs NATY consents for her PCP and [facility]. Lives in [place] with her boyfriend/significant other, Endy Sanders, who she identifies as her main support. Reports no guns or weapons accessible by patient at home. 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 Denies current legal issues. " Upon evaluation today patient endorsed the above information is accurate. Did state that she was starting to feel somewhat hopeless regarding her situation, but denied any suicidal or homicidal ideation. She was offered supportive counseling regarding the timing of medical treatments and the necessity for her to be patient. She does acknowledge anxiety more so than depression which she states is situationally related to her pain. Treatment options were discussed with the patient who at this time, is not open to the idea of SSRIs or other antidepressants to target her low mood. She feels that her mood symptoms are related to her pain and feels that medication at this time would be futile. Allergies Allergy/AdvReac Type Severity Reaction Status Date / Time No Known Allergies Allergy Verified 05/02/21 09:35 Home Medications Medication Instructions Recorded Confirmed Type levonorgestrel 20 mcg/24 hours (6 1 device INTRAUTERINE CONT 04/23/21 05/02/21 History yrs) 52 mg intrauterine device (Mirena) ondansetron 4 mg disintegrating 4 mg PO Q6H PRN #20 tab 04/23/21 05/02/21 Rx tablet buprenorphine HCl 8 mg sublingual 8 mg SUBLINGUAL TID 04/27/21 05/02/21 History tablet carbamazepine 100 mg 100 mg PO BID 04/27/21 05/02/21 History capsule,extended release [id number] (Carbatrol) cephalexin 500 mg capsule 500 mg PO QID 04/29/21 05/02/21 History doxycycline hyclate 100 mg capsule 100 mg PO BID 21 Days #42 cap 04/29/21 05/02/21 Rx fluticasone propionate 50 1 spray INTRANASAL BID 04/29/21 05/02/21 History mcg/actuation nasal spray,suspension gabapentin 300 mg capsule 300 mg PO TID 04/29/21 05/02/21 History methylprednisolone 4 mg tablets in 4 mg PO DIRECTED 04/29/21 05/02/21 History a dose pack Personal History Beliefs That Will Affect Care: None Patient History Medical History Anxiety Depression H/O multiple concussions History of asthma MRSA (methicillin resistant Staphylococcus aureus) Ovarian cyst Reflux esophagitis Surgical History No significant past surgical history Social History Smoking Status: Never smoker Second Hand Exposure: No; Hx Alcohol Use: No Hx Substance Use: No Preferred Language: Citizen [place] Communication Ability: Effective [employer] Required: No Beliefs That Will Affect Care: None marital status: Single Current Living Situation: Significant Other current occupational status: unemployed Feels Safe at Home: Yes Assistive Devices: None Physical Exam Psychiatric: alert well groomed good normal regular rhythm and rate frustrated moderately dysphoric linear logical denies denies Hallucinations: no auditory hallucinations and no visual hallucinations none Cognition: remote memory grossly intact Estimated Intelligence: consistent wi th education level Insight: + fair insight Judgement: + fair judgement Vital Signs (Past 24 Hours): Last Vital Signs Temp 36.7 C 05/05/21 10:53 Pulse 84 05/05/21 10:53 Resp 16 05/05/21 10:53 BP 102/70 05/05/21 10:53 Pulse Ox 97 05/05/21 10:53 Review of Systems Review of systems as outlined in HPI Results & Data (PSY) Medications Administered Acetaminophen (Acetaminophen 325 Mg Tab) 650 mg PO Q4H PRN PRN Reason: Pain or Fever Stop: 06/01/21 15:22 Last Admin: 05/03/21 16:49 Dose: 650 mg Documented by: [id number] Buprenorphine HCl (Buprenorphine Hcl 8 Mg Subl) 8 mg SL TID [facility] Stop: 06/04/21 08:59 Last Admin: 05/05/21 13:40 Dose: Not Given Documented by: [id number] Admin: 05/05/21 09:51 Dose: Not Given Documented by: [id number] Buspirone HCl (Buspirone 5 Mg Tab) 5 mg PO TID [facility] Stop: 06/03/21 19:59 Last Admin: 05/05/21 13:40 Dose: Not Given Documented by: [id number] Admin: 05/05/21 09:51 Dose: Not Given Documented by: [id number] Admin: 05/04/21 20:58 Dose: Not Given Documented by: [id number] Carbamazepine (Carbamazepine 200 Mg Tabcr) 200 mg PO BID [facility] Stop: 06/02/21 09:29 Last Admin: 05/05/21 09:55 Dose: Not Given Documented by: [id number] Admin: 05/04/21 21:01 Dose: 200 mg Documented by: [id number] Admin: 05/04/21 11:10 Dose: Not Given Documented by: [id number] Admin: 05/03/21 19:41 Dose: Not Given Documented by: [id number] Admin: 05/03/21 13:54 Dose: Not Given Documented by: [id number] Ciprofloxacin/Dexamethasone (Cipro 0.3%/Dexamethasone 0.1% Otic Susp 7.5ml) 4 drops OT BID [facility] Stop: 06/03/21 23:44 Last Admin: 05/05/21 10:29 Dose: 4 drops Documented by: [id number] Admin: 05/05/21 07:46 Dose: Not Given Documented by: [id number] Fexofenadine HCl (Fexofenadine Hcl 180 Mg Tab) 180 mg PO QAM [facility]IDA Stop: 06/02/21 14:14 Last Admin: 05/05/21 09:51 Dose: Not Given Documented by: [id number] Admin: 05/04/21 11:10 Dose: Not Given Documented by: [id number] Admin: 05/03/21 15:35 Dose: 180 mg Documented by: [id number] Gabapentin (Gabapentin 400 Mg Cap) 400 mg PO TID [facility]IDA Stop: 05/13/21 09:01 Last Admin: 05/05/21 09:55 Dose: 400 mg Documented by: [id number] Admin: 05/04/21 21:02 Dose: 400 mg Documented by: [id number] Admin: 05/04/21 15:21 Dose: Not Given Documented by: [id number] Admin: 05/04/21 11:10 Dose: Not Given Documented by: [id number] Ceftriaxone Sodium 2,000 mg/ (Dextrose) 70 mls @ 100 mls/hr IV DAILY FRIDA; Protocol Stop: 05/13/21 08:59 Last Infusion: 05/05/21 10:28 Dose: 0 mls/hr Documented by: [id number] Admin: 05/05/21 09:46 Dose: 100 mls/hr Documented by: [id number] Infusion: 05/04/21 11:10 Dose: 0 mls/hr Documented by: [id number] Infusion: 05/04/21 08:30 Dose: 0 mls/hr Documented by: [id number] Admin: 05/04/21 08:05 Dose: 100 mls/hr Documented by: [id number] Infusion: 05/03/21 08:47 Dose: 0 mls/hr Documented by: [id number] Admin: 05/03/21 07:51 Dose: 100 mls/hr Documented by: [id number] Potassium Chloride/Sodium Chloride (Normal Saline W/20 Meq Kcl) 20 meq in 1,000 mls @ 100 mls/hr IV .Q10H FRIDA Stop: 06/03/21 08:29 Last Infusion: 05/05/21 10:28 Dose: 100 mls/hr Documented by: [id number] Infusion: 05/05/21 09:46 Dose: 0 mls/hr Documented by: [id number] Admin: 05/05/21 09:30 Dose: 100 mls/hr Documented by: [id number] Infusion: 05/05/21 06:58 Dose: 100 mls/hr Documented by: [id number] Admin: 05/05/21 06:41 Dose: Not Given Documented by: [id number] Admin: 05/04/21 20:58 Dose: 100 mls/hr Documented by: [id number] Infusion: 05/04/21 20:58 Dose: 100 mls/hr Documented by: [id number] Infusion: 05/04/21 15:45 Dose: 100 mls/hr Documented by: [id number] Infusion: 05/04/21 13:07 Dose: 0 mls/hr Documented by: [id number] Admin: 05/04/21 09:40 Dose: 100 mls/hr Documented by: [id number] Ibuprofen (Ibuprofen 200 Mg Tab) 400 mg PO QID PRN PRN Reason: headache, body aches Stop: 06/01/21 20:01 Last Admin: 05/05/21 10:00 Dose: 400 mg Documented by: [id number] Admin: 05/04/21 11:25 Dose: 400 mg Documented by: [id number] Admin: 05/04/21 05:33 Dose: 400 mg Documented by: [id number] Admin: 05/03/21 13:19 Dose: 400 mg Documented by: [id number] Admin: 05/02/21 20:18 Dose: 400 mg Documented by: [id number] Melatonin (Melatonin 3 Mg Tab) 3 mg PO HS PRN PRN Reason: Sleep Stop: 06/04/21 00:01 Last Admin: 05/05/21 00:36 Dose: 3 mg Documented by: [id number] Oxymetazoline HCl (Oxymetazoline 0.05% 30 Ml Btl) 1 sprays NA BID FRIDA Stop: 05/06/21 20:59 Last Admin: 05/05/21 09:52 Dose: 1 sprays Documented by: [id number] Admin: 05/04/21 21:02 Dose: 1 sprays Documented by: [id number] Admin: 05/04/21 11:11 Dose: Not Given Documented by: [id number] Admin: 05/03/21 20:02 Dose: 1 sprays Documented by: [id number] Potassium Chloride (Potassium Chloride Crtab 20 Meq Tabcr) 40 meq PO QAM FRIDA Stop: 06/02/21 08:59 Last Admin: 05/05/21 09:52 Dose: 40 meq Documented by: [id number] Admin: 05/04/21 09:46 Dose: 40 meq Documented by: [id number] Admin: 05/03/21 07:51 Dose: 40 meq Documented by: [id number] Sodium Chloride (Sodium Chloride 0.65% Na Soln 45 Ml ([place])) 2 sprays NA Q1H PRN PRN Reason: nasal congestion/ear pain Stop: 06/02/21 14:01 Last Admin: 05/04/21 15:51 Dose: 2 sprays Documented by: [id number] Coding Level of Care Code 04126 [facility] Time Spent (min) 45
[2021-05-05] MEDS: ACETAMINOPHEN 325 MG TAB PO PRN (15:06)
--- NOTE | 2021-05-05 22:38 | Hospitalist Progress Note ---
Date of Service May 05, 2021 Assessment & Plan (1) Acute Lyme disease: Plan: Early stage vs early disseminated CSF cell counts not suspicious for meningitic involvement CSF lyme pending (2) Craniofacial pain syndrome: Plan: Trigeminal neuralgia - left ? Auricular nerve involvement? Complex migraine? (3) Hypokalemia: Plan: resolved (4) Depression: Plan: psych consult appreciated (5) Anxiety: Plan: refusing buspar also refusing ativan (6) Acute ear pain: Plan: b/l - etiology?? spoke with Dr Villafuerte, [facility] - he will see her shortly after d/c; will need tympanograms, audiometry, etc to determine etiology. MRI brain x 2 negative for acute pathology. seems to have some benefit from ciprodex -- but no discrete evidence of otitis externa or otitis media on exam as of 05/04. (7) Chronic pain syndrome: Plan: PDMP shows chronic subutex usage since at least 2018. had refill on 04/08, but patient states only using it prn now?? at other points during this hospitalization she states she has been off of it completely x 1-2 months. continues to refuse subutex and all narcotics. (8) Pituitary microadenoma: Plan: unlikely to be contributing to current symptomatology. (9) History of COVID-19: Plan: January 2021 (10) Radicular pain of right lower extremity: Plan: L5 nerve root distribution. started yesterday following her LP. (11) Complex care coordination: Plan: care d/w Dr Acevedo several times today care d/w Dr Dey from pain management care d/w Dr Villafuerte from ENT Plan: 1. patient not wanting to take gabapentin TID due to sedation; cut dose to HS use only 2. encouraged use of tegretol given suspicion of trigeminal neuralgia 3. stop oral K supplement 4. pain management consult 5. ENT consult post-d/c 6. MRI l-spine w/ and w/o contrast -- r/o spinal hematoma from LP 7. stop rocephin after today's dose; switch back to PO doxy in am for Lyme 8. cont ciprodex total time coordinating her complex care - 70 minutes (multiple visits to bedside, multiple phone calls to multiple providers, etc) Admission and Anticipated Discharge Date Admission Date: May 02, 2021 Subjective multiple visits to pt's bedside today pt with various complaints today including ongoing b/l tinnitus, b/l ear canal pain and ear fullness, left facial pain, frontal headache, sinus fullness, and new-onset right leg numbness extending from the right buttock down to the right foot. RLE numbness began several hours following her LP. denies RLE weakness. no LLE symptoms. she reports "it is my sciatica." she has frequent crying spells during the visit. "I just want to feel better." we had lengthy discussion about her subutex. she reports she stopped taking it regularly at least 1 month ago or longer. I explained to her that on the state PDMP I can see that she had it filled on April 08. she stated she got it filled because she continues to take it "once or twice a week" for back pain related to scoliosis. she has been on subutex for well over 5 years. nursing staff report that she is frequently declining use of the gabapentin and carbamazepine because she feels drunk/drowsy/dizzy on them. she also continues to decline the subutex. declining the buspar, stating it doesn't work. asks if we can go back to doxycycline. is using the ciprodex - seems to help ear canal pain. tele overnight wnl. Review of Systems Constitutional: + fatigue and + weakness; no fever, no body aches and no anorexia (appetite improving ) Respiratory: no cough and no dyspnea Cardiovascular: no chest pain Gastrointestinal: + constipation (no BM in 1 week ); no abdominal pain Neurologic: as per Subjective / HPI, + tingling (left face - ongoing), + paresthesia and + radiating pain (RLE) Psychiatric: + depression, + irritability and + anxiety Physical Exam Constitutional: well developed, well nourished and average body habitus; no acute distress and no altered mental status ENMT: Mouth: no oropharynx abnormality and no oral mucosal abnormality Respiratory: normal respiratory effort, lungs clear to auscultation Cardiovascular: RRR, no murmur, no edema Heart Sounds: normal S1 and normal S2 Vessels: posterior tibial pulses present and dorsalis pedis pulses present Gastrointestinal (Abdomen): normal bowel sounds, soft, nontender, no hepatosplenomegaly Skin: no rashes, warm and dry Neurologic: moves all extremities; no focal motor deficits Motor/Sensory: + sensory deficit (L5 dermatome, distal RLE) Psychiatric: Orientation: alert and oriented x 3 Affect: + tearful affect Mood: + anxious mood Results & Data Results & Data ([facility]) Vital Signs (Past 12 Hours) Vital Signs Temp Pulse Pulse Resp BP Pulse Ox 05/05/21 19:00 37.0 C 89 20 100/65 98 05/05/21 16:00 103 H 05/05/21 14:46 36.7 C 104 H 16 104/68 98 05/05/21 10:53 36.7 C 84 16 102/70 97 Laboratory Results Laboratory Results - last 24 hr 05/05/21 05/05/21 06:22 06:22 WBC 9.63 RBC 3.79 L Hgb 11.9 L Hct 36.1 L MCV 95.3 MCH 31.4 MCHC 33.0 RDW Std Deviation 43.8 RDW Coeff of Rubén 12.6 Plt Count 215 MPV 11.5 H Immature Gran % (Auto) 0.2 Neut % (Auto) 81.7 Lymph % (Auto) 12.4 [place] % (Auto) 5.5 Eos % (Auto) 0.1 Baso % (Auto) 0.1 Neut # (Auto) 7.87 H Lymph # (Auto) 1.19 L [place] # (Auto) 0.53 Eos # (Auto) 0.01 Baso # (Auto) 0.01 Immature Gran # (Auto) 0.02 Sodium 142 Potassium 4.0 D Chloride 112 H Carbon Dioxide 26 Anion Gap 4.0 BUN 11 Creatinine 0.46 L Est Cr Clr Drug Dosing 192.0 Est GFR ( Amer) > 150.0 Est GFR (Non-Af Amer) 139.2 BUN/Creatinine Ratio 23.0 H Glucose 91 Calcium 8.7 Total Bilirubin 0.4 AST 5 L ALT 13 Alkaline Phosphatase 61 Total Protein 6.7 Albumin 3.4 Globulin 3.3 Albumin/Globulin Ratio 1.0 Diagnostic Findings Microbiology 05/04/21 13:58 Cerebral Spinal Fluid Gram Stain - Final 05/04/21 13:58 Cerebral Spinal Fluid CSF Culture - Preliminary No growth to date. 05/02/21 09:41 Blood Aerobic Blood Culture - Preliminary No growth in Aerobic bottle after 48 hours. 05/02/21 09:41 Blood Anaerobic Blood Culture - Final 05/02/21 09:41 Blood Aerobic Blood Culture - Preliminary No growth in Aerobic bottle after 48 hours. 05/02/21 09:41 Blood Anaerobic Blood Culture - Preliminary No growth in Anaerobic bottle after 48 hours. PG Care Time/CCT Total # of Minutes Spent Total Time Spent with Patient: Total time spent is greater than 50% in coordination of care (as documented) at patient's floor/unit and/or counseling patient: Prolonged Care Time Prolonged Care Time: Yes 70 Coding Level of Care Code 48829 Subseq Hosp Care Lvl 3 (25 - SIGNIFICANT, SEPARATELY IDENTIFIABLE ) Diagnoses Acute Lyme disease A69.20 Craniofacial pain syndrome G51.8 Hypokalemia E87.6 Depression F32.9 Anxiety F41.9 Acute ear pain H92.03 Laterality: bilateral Chronic pain syndrome G89.4 Pituitary microadenoma D35.2 History of COVID-19 Z86.16 Complex care coordination Z71.89 Radicular pain of right lower extremity M54.10 Additional Codes Prolonged Care Time - Prolonged Care Time: Yes ([id number]) (1) Acute ear pain Laterality: bilateral Qualified Code(s): H92.03 - Otalgia, bilateral
--- NOTE | 2021-05-05 22:52 | Magnetic Resonance Report ---
MRI OF THE LUMBAR SPINE WITHOUT IV CONTRAST CLINICAL HISTORY: Lower extremity radiculopathy status post lumbar puncture. COMPARISON STUDY: Abdominal CT dated 05/21/2018. TECHNIQUE: MRI of the lumbar spine is performed utilizing various T1 and T2-weighted sequences in the axial and sagittal planes. IV contrast was not administered for this examination. FINDINGS: Lumbar spine: Vertebral body height and alignment are maintained throughout the lumbar spine. Normal marrow signal intensity is maintained throughout the visualized bony structures. The transverse and s pinous processes are intact. There is no evidence of spondylolysis. No destructive bony lesion is see n. Intervertebral discs: Normal in height and signal intensity. Spinal cord and central canal: The visualized spinal cord is normal in morphology and signal intensit y. The conus medullaris terminates at the level of L1. The nerve roots of the cauda equina are normal in morphology and signal intensity. There is no epidural fluid collection identified. L1-L2: Unremarkable. L2-L3: Unremarkable. L3-L4: Unremarkable. L4-L5: There is minimal posterior disc bulge with annular fissure. This abuts the transiting nerve ro ots. No significant acquired compromise of the central canal is identified. There is mild subarticula r stenosis. The neural foramina appear clear. L5-S1: There is minimal posterior disc bulge with annular fissure. No significant acquired compromise the central canal is identified. Mild facet arthropathy is of no consequence. The neural foramina ar e patent. Sacrum: The visualized sacrum is normal in morphology and signal intensity. Soft tissues: Mild induration within the posterior soft tissues at L4-L5 is likely related to recent lumbar puncture. The paraspinous soft tissues are otherwise normal as visualized. The retroperitoneal structures are grossly unremarkable but incompletely evaluated. IMPRESSION: 1. There is no disc herniation or significant acquired compromise of the central canal. 2. There is no epidural fluid collection identified as clinically queried. 3. Mild degenerative disc disease at L4-L5 and L5-S1 as above. See discussion for detailed level by rafael hannah analysis. Electronically signed by: Uche Butler M.D. 05/05/2021 10:51 PM
[2021-05-06] MEDS: NSS + 20MEQ KCL 20 MEQ/1,000 ML BAG IV SCH ×2 (00:58→08:37)
[2021-05-06] MEDS: ACETAMINOPHEN 325 MG TAB PO PRN ×3 (00:58→19:59)
[2021-05-06] MEDS ORDERED: KETOROLAC 30 MG/ML VIAL IV ONE (07:29)
[2021-05-06] MEDS: oxyCODONE HCL IR 5 MG TAB (IMMEDIATE RELEASE) PO STA ×2 (07:40→13:35)
[2021-05-06 07:50] LABS: BUN Creatinine Ratio 28.4 (10-20); Blood Urea Nitrogen 14 mg/dl (7-18); Calcium 8.3 mg/dl (8.5-10.1); Carbon Dioxide 29 mmol/L (21-32); Chloride 113 mmol/L (98-107); Creatinine Clr Calc Pharmacy 178.6 ml/min; Est GFR (African American) > 150.0 ml/min; Est GFR (Non-African American) 135.5 ml/min; Glucose 90 mg/dl (70-99); Potassium 3.7 mmol/L (3.5-5.1); Sodium 143 mmol/L (136-145)
[2021-05-06] MEDS: buprenorphine HCL 8 MG SUBL SL SCH ×2 (08:35→14:05)
[2021-05-06] MEDS: busPIRone 5 MG TAB PO SCH ×2 (08:35→14:05)
[2021-05-06] MEDS: CIPRO 0.3%/DEXAMETHASONE 0.1% OTIC SUSP 7.5ML OT SCH ×2 (08:36→20:04)
[2021-05-06] MEDS: DOXYCYCLINE HYCLATE 100 MG CAP PO SCH ×2 (08:37→20:03)
[2021-05-06] MEDS: SENNA 8.6 MG TAB PO SCH (08:37)
--- NOTE | 2021-05-06 09:16 | Pain Management Consultation ---
Date of Consultation May 06, 2021 Assessment & Plan (1) Craniofacial pain syndrome: (2) Acute Lyme disease: (3) Acute ear pain: Laterality: left Qualified Code(s): H92.02 - Otalgia, left ear (4) Depression: (5) Anxiety: * (6) Misuse of medication: * Patient presenting with atypical craniofacial/auricular pain complaints potentially related to her acute Lyme disease but ultimately unknown etiology. Due to her active Lyme infection and current antibiotic usage would not recommend pursuing cranial nerve block procedures * Patient may utilize ketorolac 15 mg every 6 hours for as needed breakthrough pain * Continue with Tegretol and gabapentin dosing-attempt to progress gabapentin dose * Would not recommend resumption of buprenorphine at this time as she admits to misusing the medication recently indicating she has not been utilizing the medication over the past few months although has been obtaining monthly prescriptions for review of PDMP which she readily admits are being taken by her boyfriend/significant other * Recommend ENT evaluation-consider initiation of steroid nasal spray * Continue involvement with behavioral health * Pain service will sign off at this time. Please contact us for reevaluation as needed. History of Present Illness Reason for Consultation: Atypical facial/ear pain Requesting Physician: Wilmer Page MD Attending Physician: Wilmer Page History of Present Illness Mrs. Ozuna is a 26-year-old white female who was admitted due to complaints of bilateral ear pain and facial pain with numbness. Patient has had multiple emergency department visits over the past few weeks due to similar complaints. She reported onset of recurrent complaints approximately 1 month ago without known injury. She is describing pain in the ear region bilaterally and equal which she describes as sharp, shooting in characteristic with a sense of fullness and pressure. She reports the pain can travel to the throat as she reports prior history of eustachian tube dysfunction. She further reported some left-sided facial numbness which is intermittent as well and complaints. She describes some general pain in the scalp bilaterally in the auriculotemporal and supraorbital locations. Patient has been diagnosed with Lyme disease upon this admission and is being treated with IV antibiotic therapy. Lumbar puncture was completed during this admission as well with negative Gram stain and preliminary culture with no growth to date. Patient has history of chronic Suboxone utilization of unclear reasons although has multiple mental health admissions and admissions to [place] [id number] in 2012 in 2014 for depression and anxiety. Patient reports that she has not been utilizing Suboxone over the past 1-2 [facility] although continues to receive monthly refills per review of PDMP. She further admitted today that her boyfriend has been using her Suboxone. She again denied current utilization of illicit drugs. Patient has frequent episodes of tearfulness followed by normal conversation throughout the visit. Patient was tearful upon entering due to her pain. Patient denies axial neck pain or cervicogenic component to her headache complaints. She denies upper extremity radicular pain or paresthesias. She denies diarrhea or abdominal pain. She reports some constipation. Patient denies visual disturbances. She denies difficulty with chewing or swallowing. She does report some chronic history of some jaw pain and nighttime clenching. Plan of care discussed with Dr. Lesly Dey. Pain Assessment Full Body Front + Back: 1. Right periauricular/external auditory canal/auriculotemporal scalp 2. Left periauricular/external auditory canal/auriculotemporal scalp Pain scale - at its best (0-10): 5 Pain scale - at its worst (0-10): 10 Allergies Allergy/AdvReac Type Severity Reaction Status Date / Time No Known Allergies Allergy Verified 05/02/21 09:35 Home Medications Medication Instructions Recorded Confirmed Type levonorgestrel 20 mcg/24 hours (6 1 device INTRAUTERINE CONT 04/23/21 05/02/21 History yrs) 52 mg intrauterine device (Mirena) ondansetron 4 mg disintegrating 4 mg PO Q6H PRN #20 tab 04/23/21 05/02/21 Rx tablet buprenorphine HCl 8 mg sublingual 8 mg SUBLINGUAL TID 04/27/21 05/02/21 History tablet carbamazepine 100 mg 100 mg PO BID 04/27/21 05/02/21 History capsule,extended release [id number] (Carbatrol) cephalexin 500 mg capsule 500 mg PO QID 04/29/21 05/02/21 History doxycycline hyclate 100 mg capsule 100 mg PO BID 21 Days #42 cap 04/29/21 05/02/21 Rx fluticasone propionate 50 1 spray INTRANASAL BID 04/29/21 05/02/21 History mcg/actuation nasal spray,suspension gabapentin 300 mg capsule 300 mg PO TID 04/29/21 05/02/21 History methylprednisolone 4 mg tablets in 4 mg PO DIRECTED 04/29/21 05/02/21 History a dose pack Pain History Pain Intensity Pain scale - at its best (0-10): 5 Pain scale - at its worst (0-10): 10 Patient History Medical History (Updated 05/06/21 @ 09:38 by Ricardo Shook PA-C) Anxiety Depression H/O multiple concussions History of asthma Misuse of medication MRSA (methicillin resistant Staphylococcus aureus) Ovarian cyst Reflux esophagitis Surgical History No significant past surgical history Social History Smoking Status: Never smoker Second Hand Exposure: No; Hx Alcohol Use: No Hx Substance Use: No Preferred Language: Spanish Communication Ability: Effective Architect Internship Required: No Beliefs That Will Affect Care: None marital status: Single Current Living Situation: Significant Other current occupational status: unemployed Feels Safe at Home: Yes Assistive Devices: None Physical Exam Physical Exam: General: Patient sitting quietly in exam room in no acute distress. Patient was weepy intermittently throughout the visit followed by normal speech/flat affect. Patient had headphones on initially upon entering. Cognition intact. Head: Normocephalic and atraumatic. Patient was tender over the greater auricular nerve, auriculotemporal nerve, lesser occipital nerve and greater occipital nerve bilaterally. ENT: No evidence of nasal or oral mucosal lesions. Mucous membranes are moist. Patient is nontender with manipulation of the tragus. There is no visible abnormalities of the external auditory canal upon visual inspection. Patient does have some clicking and popping sensations of the temporomandibular joint right greater than left-sided. Eyes: Pupils equal round reactive to light. Neck: Supple without adenopathy and full range of motion. Patient is moderately tender along the proximal sternocleidomastoid musculature. Minimal spasm. Patient nontender to provocative testing of the facet joints bilaterally. Paravertebral spasm was appreciated. A few scattered myoneural trigger points were appreciated in the proximal and mid trapezius region bilaterally. Chest: Nontender to palpation of the costosternal junction. Abdomen: Soft and nondistended. No organomegaly. Bowel sounds active. Lower extremities: Sensation intact. No appreciable edema. Neurologic: Cranial nerves grossly intact. Ambulatory function not witnessed. Results (Pain Clinic) Previous Records Review Previous Records: personally reviewed by me Opioid Risk Assessment Opioid Risk Assessment: risk assessment performed and high risk identified Additional Findings: PDMP reviewed which indicated the patient is receiving Suboxone 8 mg 3 times daily most recently written on 04/08/2021 and filled on same day for #84 tablets. Patient has 27 prescription for controlled medications over the past 1 year with 11 prescribers and 5 pharmacies utilized. The patient is utilizing private pay each time. Patient admits to not utilizing her Suboxone although she continues to refill prescriptions. Patient reported that her boyfriend is using her Suboxone.
--- NOTE | 2021-05-06 09:33 | Neurology Progress Note ---
Date of Service May 06, 2021 Assessment & Plan (1) Craniofacial pain syndrome: (2) Headache: Plan: Nonspecific headache/craniofacial pain syndrome. Patient has been very difficult from a management standpoint. Has refused multiple dosages of carbamazepine and gabapentin during this hospitalization. She has no objective abnormalities extensive imaging evaluation and has an intact neurological examination. Her Lyme Western blot done on April 23 did reveal 3+ IgM bands and 1+ IgM band potentially suggestive of acute Lyme. However, her symptoms began in early March and she does not have a known history of tick bite, bull's-eye rash, arthralgias, or other symptoms suggestive of systemic Lyme disease. Lumbar puncture/CSF analysis done on May 04 was unremarkable although only a limited sample could be obtained due to poor patient tolerance. She does not a ppear to have [employer] Lyme disease or meningitis. She has been treated with antibiotics both in the inpatient and outpatient setting. Patient's reported head head pain would be atypical for trigeminal neuralgia or migraine. Her symptoms could be consistent with nervous intermedius neuralgia although this is a very uncommon pain syndrome. This condition is felt to generally respond to carbamazepine and I would like her to continue with this medication. She has been taking it inconsistently during her hospitalization and I encouraged compliance. I will increase the dosage of carbamazepine to 300 mg twice daily. May also consider adding lamotrigine depending on her status going forward. I have ordered an MRA and MRV of the brain to complete her otherwise thorough neuro imaging work-up. These tests will be useful to exclude any significant vascular lesion that may otherwise contribute to or explain her headaches. However, there is no compelling evidence for aneurysmal rupture or cerebral venous thrombosis on other imaging studies of the brain. In addition to outpatient consultation with ENT, I will also likely need to refer this patient to a tertiary headache center for another opinion regarding her diagnosis and management. Admission and Anticipated Discharge Date Admission Date: May 02, 2021 Subjective Follow-up for headache The patient continues to complain of bilateral deep ear/head pain, stabbing quality, associated feeling of ear fullness, no hearing loss. Reports the pain is both constant and episodic. Does not complain of any significant associated nausea, light or sound sensitivity. Reports that wearing headphones eases her discomfort mildly. No dizziness or associated vertigo. Becomes upset and tearful. Requesting additional testing. Reviewed results of patient's lumbar spine MRI that was done yesterday. No evidence of hematoma or other significant abnormality. Denies significant low back pain, pain in the legs, or paresthesias in the lower limbs at this time. Reviewed results of patient's previous brain imaging including MRI with attention to both the internal auditory canals and trigeminal nerves. No significant abnormalities on these tests. Case has been discussed with Dr. Page several times. Concern regarding inconsistent or inappropriate use of buprenorphine as an outpatient. Noncompliance with gabapentin and carbamazepine as an inpatient. Patient has been evaluated by psychiatry during this hospitalization for depression with anxiety, lorazepam recommended. Patient will be referred to ENT as an outpatient for further evaluation as well. Review of Systems Constitutional: no fever and no chills Eyes: no blind spots and no diplopia Neurologic: as per Subjective / HPI and + headache(s) Results & Data ([facility]) Vital Signs (Past 12 Hours) Vital Signs Temp Pulse Resp BP Pulse Ox 05/06/21 07:51 36.8 C 82 18 116/77 99 05/06/21 04:31 36.8 C 76 20 116/80 98 05/06/21 00:13 36.8 C 66 18 103/71 98 Exam (Neuro) Neurologic: Oriented to:: Person, Place and Time Attention: Span Intact and Concentration Intact Speech Fluency: negative Dysarthria or Dysfluency Fund of Knowledge: Vocabulary Cranial Nerves: Normal II, III, IV, , V, VII, VIII, IX, X, XI and XII Motor Strength: Normal Lower Extremities and Normal Upper Extremities PG Care Time/CCT Total # of Minutes Spent Total Time Spent with Patient: Total time spent is greater than 50% in coordination of care (as documented) at patient's floor/unit and/or counseling patient: Coding Level of Care Code 79108 Subseq Hosp Care Lvl 3 Diagnoses Craniofacial pain syndrome G51.8 Headache R51.9 Headache chronicity pattern: acute headache Headache type: unspecified Intractability: not intractable (1) Headache Headache chronicity pattern: acute headache Headache type: unspecified In tractability: not intractable Qualified Code(s): R51.9 - Headache, unspecified
[2021-05-06] MEDS ORDERED: oxyCODONE HCL IR 5 MG TAB (IMMEDIATE RELEASE) PO PRN (11:00)
--- NOTE | 2021-05-06 11:40 | Magnetic Resonance Report ---
MR angio head wo con HISTORY: 26 years-old Female refractory headache . Subacute headache with left-sided facial numbness COMPARISON: MRV of same day TECHNIQUE: MRA of the head was obtained without the use of IV contrast. All measurements were obtaine d according to NASCET criteria. FINDINGS: Patent and normal-appearing internal, middle and anterior cerebral arteries. The distal vertebral art eries are unremarkable. The basilar and posterior cerebral arteries are within normal limits. No aneu rysm, dissection, high-grade stenosis or proximal branch occlusion. IMPRESSION: Unremarkable MRA of the head. ACT 112: Negative or not required by law. The above report was generated using voice recognition software. It may contain grammatical, syntax o r spelling errors. Electronically signed by: Ze Felder M.D. 05/06/2021 11:39 AM
--- NOTE | 2021-05-06 11:41 | Magnetic Resonance Report ---
MR venography head wo con CLINICAL HISTORY: Refractory headache. COMPARISON STUDY: Head CT April 23, 2021. MRI of the brain May 03, 2021. TECHNIQUE: Utilizing a 1.5 Jackelin magnet and dedicated coil was [id number] technique, unenhanced M RV was obtained. FINDINGS: The superior sagittal sinus is patent. The straight sinus is patent. The bilateral transver se and sigmoid sinuses are patent. No dural sinus thrombosis is identified on this examination. IMPRESSION: No evidence of dural sinus thrombosis. ACT 112: Negative or not required by law. Electronically signed by: Ismael Moses M.D. 05/06/2021 11:39 AM
[2021-05-06] MEDS: KETOROLAC TROMETHAMINE 15 MG/ML VIAL IV PRN (13:13)
[2021-05-06] MEDS ORDERED: BUTALBITAL/ACETAMIN/CAFFEINE TAB PO STA (14:33)
[2021-05-06] MEDS: NYSTATIN SUSP 500,000 U/5 ML UDC PO SCH ×3 (16:07→22:49)
[2021-05-06] MEDS: PSEUDOEPHEDRINE HCL 30 MG TAB PO PRN (20:02)
[2021-05-06] MEDS: GABAPENTIN 400 MG CAP PO SCH (20:03)
--- NOTE | 2021-05-06 21:09 | Hospitalist Progress Note ---
Date of Service May 06, 2021 Assessment & Plan (1) Acute Lyme disease: Plan: Early stage vs early disseminated - favor former. CSF cell counts not suspicious for meningitic involvement CSF lyme pending but anticipate it will be negative ok to d/c rocephin and change to PO doxy 100mg BID (2) Craniofacial pain syndrome: Plan: Trigeminal neuralgia - left ? Auricular nerve involvement? Complex migraine? No response to numerous meds tried this week No response to fioricet today MRI of brain x 2 negative. LP negative. MRV/MRA brain today NEGATIVE. Patient is willing to take gabapentin BID. will schedule such. cont tegretol. pain management saw - conservative Rx recommended at this time rather than diagnostic nerve block appreciate neurology consult & recs. (3) Hypokalemia: Plan: resolved d/c supplementation (4) Depression: Plan: psych consult appreciated (5) Anxiety: Plan: refusing buspar also refusing ativan (6) Acute ear pain: Plan: b/l - etiology?? [place] Villafuerte[place] [facility] [place] [facility] [place] he will see her shortly after d/c; will need tympanograms, audiometry, etc to determine etiology. MRI brain x 2 negative for acute pathology. seems to have some benefit from ciprodex -- but no discrete evidence of otitis externa or otitis media on exam as of 05/04. suspect the steroid component helps the canal and/or TM I looked again in her ears today - continues with mild TM retraction c/w eustacian dysfunction cont saline spray, decongestants, etc (7) Chronic pain syndrome: Plan: PDMP shows chronic subutex usage since at least 2018. had refill on 04/08. continues to refuse subutex and all narcotics, however. pain management saw patient in consult -- no plans for diagnostic nerve block at this time. I did encourage her to use toradol and/or oxycodone for severe facial pain. (8) Pituitary microadenoma: Plan: unlikely to be contributing to current symptomatology. (9) History of COVID-19: Plan: December/January 2021 (10) Radicular pain of right lower extremity: Plan: L5 nerve root distribution. started following her LP. MRI of l-spine returned -- no hematoma. treat symptoms. (11) Complex care coordination: Plan: care d/w Dr Acevedo several times today care d/w Dr Dey from pain management Plan: spoke with [facility] for 30min - they declined her transfer patient made aware of the decline pt's mother extensively updated today by phone (15 minutes) mother confirmed that patient has had depression and anxiety going back many, many years total time coordinating her complex care - 65 minutes -- multiple visits to bedside, multiple phone calls to multiple providers including [facility], [facility] Admission and Anticipated Discharge Date Admission Date: May 02, 2021 Subjective multiple visits to patient's room today. during the visits the patient would continue to oscillate between crying spells, having anxiety, and calmness. she reports ongoing pain, fullness and tinnitus in both ears. ciprodex helps for a little while. still reluctant to take any pain medication for her pains. still with facial numbness, facial fullness/subjective swelling, and headache. no prior h/o migraines. right leg paresthesias resolved today. both she and her mother requested transfer to [facility] in [place]. they request this to "get another opinion." she is hopeful that she can have ENT help her with the bilateral ear fullness and tinnitus. she remains frustrated that she hasn't improve thus far. after my first visit with her I gave her a one-time dose of fiorcet for her facial pain. after taking this she felt flushed and dizzy when she walked in the hallway. I came to her bedside after she walked in hallway - she was very anxious. called and spoke with the chief triage physician at [facility]. he and the hospitalist both declined her transfer. they also reported a 2-3 day waiting period for accepted transfers. was on the phone with [facility] for 30 minutes. Review of Systems Constitutional: + fatigue; no fever, no chills and no anorexia (this has improved ) Ear, Nose, Mouth, Throat: + ear pain, + tinnitus, + dizziness, + facial pain and + TMJ pain Respiratory: no cough and no dyspnea Cardiovascular: + palpitations; no chest pain Gastrointestinal: + constipation; no abdominal pain, no nausea and no vomiting Physical Exam Constitutional: well developed, well nourished and average body habitus; no acute distress and no altered mental status Eyes: PERRL; no scleral abnormality ENMT: Ears: + TM abnormality (retracted on left; still no serous fluid; normal landmarks) and + unable to visualize TM (right - only top-most portion seen of TM - wnl; o/w canal tortuous ) Mouth: no oropharynx abnormality and no oral mucosal abnormality Neck: trachea midline, no thyromegaly no anterior neck swelling, no submandibular swelling and neck nontender Respiratory: normal respiratory effort, lungs clear to auscultation Cardiovascular: RRR, no murmur, no edema Heart Sounds: normal S1 and normal S2 Vessels: posterior tibial pulses present and dorsalis pedis pulses present Gastrointestinal (Abdomen): normal bowel sounds, soft, nontender, no hepatosplenomegaly Skin: no rashes, warm and dry Neurologic: moves all extremities; no focal motor deficits Motor/Sensory: + sensory deficit (L5 dermatome, distal RLE) Psychiatric: Orientation: alert and oriented x 3 Affect: + tearful affect Mood: + anxious mood Results & Data Results & Data ([facility]) Vital Signs (Past 12 Hours) Vital Signs Temp Pulse Pulse Resp BP Pulse Ox 05/06/21 18:11 37 C 75 20 151/92 H 99 05/06/21 16:48 92 H 05/06/21 15:25 36.9 C 87 18 108/74 97 05/06/21 11:37 83 05/06/21 11:07 36.7 C 87 18 109/70 98 Laboratory Results Laboratory Results - last 24 hr 05/06/21 05/06/21 06:37 18:11 Sodium 143 Potassium 3.7 Chloride 113 H Carbon Dioxide 29 Anion Gap 1.0 L BUN 14 Creatinine 0.50 L Est Cr Clr Drug Dosing 178.6 Est GFR ( Amer) > 150.0 Est GFR (Non-Af Amer) 135.5 BUN/Creatinine Ratio 28.4 H Glucose 90 POC Glucose 86 Calcium 8.3 L Diagnostic Findings blood and CSF cultures negative MRA/MRV studies negative urine cx still with possible UTI PG Care Time/CCT Total # of Minutes Spent Total Time Spent with Patient: Total time spent is greater than 50% in coordination of care (as documented) at patient's floor/unit and/or counseling patient: Prolonged Care Time Prolonged Care Time: Yes Total Prolonged Care Time: 65 Coding Level of Care Code 41758 Subseq Hosp Care Lvl 3 (25 - SIGNIFICANT, SEPARATELY IDENTIFIABLE ) Diagnoses Acute Lyme disease A69.20 Craniofacial pain syndrome G51.8 Hypokalemia E87.6 Depression F32.9 Anxiety F41.9 Acute ear pain H92.03 Laterality: bilateral Chronic pain syndrome G89.4 Pituitary microadenoma D35.2 History of COVID-19 Z86.16 Radicular pain of right lower extremity M54.10 Complex care coordination Z71.89 Additional Codes Prolonged Care Time - Prolonged Care Time: Yes ([id number]) Time Spent (min) 65 (1) Acute ear pain Laterality: bilateral Qualified Code(s): H92.03 - Otalgia, bilateral
[2021-05-07] MEDS: NYSTATIN SUSP 500,000 U/5 ML UDC PO SCH ×4 (08:10→20:42)
[2021-05-07] MEDS: SENNA 8.6 MG TAB PO SCH (08:11)
[2021-05-07] MEDS: CIPRO 0.3%/DEXAMETHASONE 0.1% OTIC SUSP 7.5ML OT SCH ×2 (08:11→20:41)
[2021-05-07] MEDS: ACETAMINOPHEN 325 MG TAB PO PRN ×2 (08:12→20:56)
[2021-05-07] MEDS: DOXYCYCLINE HYCLATE 100 MG CAP PO SCH ×2 (08:12→20:43)
[2021-05-07] MEDS: ONDANSETRON 4 MG OD TAB PO PRN (09:08)
[2021-05-07] MEDS: GABAPENTIN 100 MG CAP PO SCH (11:05)
[2021-05-07] MEDS: PSEUDOEPHEDRINE HCL 30 MG TAB PO PRN (11:55)
--- NOTE | 2021-05-07 14:18 | XRay Report ---
PA CHEST RADIOGRAPH AND UPRIGHT AND SUPINE AP RADIOGRAPHS OF THE ABDOMEN CLINICAL HISTORY: abdominal pain; assess fecal load, etc COMPARISON STUDY: CT of the abdomen and pelvis May 21, 2018. Chest radiograph September 21, 2015. FINDINGS: Lung volumes are normal. Lungs are clear. There is no pneumothorax or pleural effusion. Ca rdiac size is normal. Mediastinal contours are normal. There is no free air. Intrauterine device is i n place. The bowel gas pattern is normal. There are multiple small calculi within the lower pole of t he left kidney that measure up to 2 mm. A left pelvic calcification statistically reflects a phleboli th. Amount of stool within the colon is within normal limits. IMPRESSION: 1. No free air or evidence of bowel obstruction. 2. Unremarkable amount of stool. 3. Left-sided nephrolithiasis. 4. No acute cardiopulmonary findings. ACT 112: Negative or not required by law. Electronically signed by: Ismael Moses M.D. 05/07/2021 2:16 PM
[2021-05-07] MEDS: KETOROLAC TROMETHAMINE 15 MG/ML VIAL IV PRN ×2 (14:20→20:39)
[2021-05-07] MEDS ORDERED: HYDROCODONE/ACETAMOPHEN 5/325MG TAB PO STA (16:26)
[2021-05-07] MEDS: LIDOCAINE 5% 1 PATCH TD SCH (17:13)
[2021-05-07] MEDS: lamoTRIgine 25 MG TAB PO SCH (20:42)
[2021-05-07] MEDS: GABAPENTIN 400 MG CAP PO SCH (20:44)
[2021-05-07 22:12] LABS: Lyme DNA PCR CSF or Synovial Not detected (Not Detected); Lyme DNA Source CSF
--- NOTE | 2021-05-07 23:26 | Hospitalist Progress Note ---
Date of Service May 07, 2021 Assessment & Plan (1) Acute Lyme disease: Plan: Early stage vs early disseminated - likely former. CSF cell counts not suspicious for meningitic involvement CSF lyme pending but anticipate it will be negative has transitioned back to doxycycline 100mg BID she is day #9 or rocephin IV or PO doxy (2) Craniofacial pain syndrome: Plan: ongoing, but she clinically looks much better in comparison to earlier this week. Trigeminal neuralgia - left ? Auricular nerve involvement? Complex migraine? No response to numerous meds tried this week No response to fioricet Incomplete response to steroids & NSAIDs MRI of brain x 2 negative. MRV/MRA brain NEGATIVE. LP negative. Mastoid CT earlier this month negative. pain management saw - conservative Rx recommended at this time rather than diagnostic nerve block appreciate neurology consult & recs. (3) Hypokalemia: Plan: resolved (4) Depression: Plan: psych consult appreciated (5) Anxiety: Plan: refusing buspar also refusing ativan (6) Acute ear pain: Plan: b/l - etiology?? spoke with Dr Villafuerte, [facility] [place] [facility] - he will see her shortly after d/c; will need tympanograms, audiometry, etc to determine etiology. MRI brain x 2 negative for acute pathology including an MRI that was focused on the ear canals. seems to have some benefit from ciprodex -- but no discrete evidence of otitis externa or otitis media on exam as of 05/04. suspect the steroid component helps the canal and/or TM suspect element of eustacian dysfunction and TMJ syndrome (7) Chronic pain syndrome: Plan: PDMP shows chronic subutex usage since at least 2018. had refill on 04/08. continues to refuse subutex and all narcotics, however. pain management saw patient in consult -- no plans for diagnostic nerve block at this time. I did encourage her to use toradol and/or oxycodone (or norco) for severe facial pain. (8) Pituitary microadenoma: Plan: unlikely to be contributing to current symptomatology. (9) History of COVID-19: Plan: December/January 2021 (10) Radicular pain of right lower extremity: Plan: L5 nerve root distribution. started following her LP. MRI of l-spine returned -- no hematoma. treat symptoms. (11) Complex care coordination: Plan: care d/w Dr Acevedo several times today care d/w Dr Dey from pain management (12) Abdominal pain: Plan: KUB x-ray today -- tiny left-sided renal stones in the renal pelvis, no significant fecal load passing a small kidney stone? gastritis from doxy? bowel spasm? other? (13) Candidiasis of mouth and esophagus: Plan: 1. check u/a 2. consider CT a/p - r/o kidney stone 3. spoke with Dr Acevedo -- d/c tegretol BID; change to lamictal 25mg HS; increase this med qweekly by 25mg 4. norco x 1 now for facial pain and abdominal pain (if she will take) 5. cont NSAIDs prn 6. cont nystatin qid swish/spit 7. cont bowel regimen for constipation d/c tele move to med/surg hopefully home this weekend?? Admission and Anticipated Discharge Date Admission Date: May 02, 2021 Subjective tele normal overnight patient has gone outside with family at least twice today - she stated it is helping her overall c/o left-sided abd pain - started this am no pain w/ eating no dysuria comes/goes, crampy/sharp no vomiting still with facial pain, facial numbness, and headache fioricet did NOT help these symptoms symptoms mildly worse w/ standing but able to ambulate tinnitus, ear pain b/l seem a little better today finally had multiple BMs this am Review of Systems Constitutional: no fever, no chills, no fatigue, no weakness and no anorexia Ear, Nose, Mouth, Throat: + ear pain, + tinnitus, + facial pain and + sinus pain/pressure; no ear discharge and no sore throat Respiratory: no cough, no dyspnea and no dyspnea on exertion Cardiovascular: no chest pain Gastrointestinal: as per Subjective / HPI and + abdominal pain; no nausea, no vomiting, no constipation and no diarrhea/loose stools Genitourinary: no dysuria and no hematuria Physical Exam Constitutional: well developed, well nourished and average body habitus; no acute distress and no altered mental status looks good today - best she has looked all week Eyes: PERRL; no scleral abnormality ENMT: external ear and nose normal, oropharynx normal Neck: trachea midline, no thyromegaly Respiratory: normal respiratory effort, lungs clear to auscultation Cardiovascular: RRR, no murmur, no edema Heart Sounds: normal S1 and normal S2 Vessels: posterior tibial pulses present and dorsalis pedis pulses present Extremities: no edema Gastrointestinal (Abdomen): Inspection/Auscultation: normal bowel sounds; abdomen not distended Percussion/Palpation: + abdomen tender (left upper quadrant at junction of left lower quadrant; no flank pain on L ) and abdomen soft; no guarding, abdomen not rigid and no hepatosplenomegaly Musculoskeletal: no cyanosis or clubbing, extremities motor strength 5/5 Skin: no rashes, warm and dry Neurologic: moves all extremities; no focal motor deficits Psychiatric: Orientation: alert and oriented x 3 Affect: + depressed affect, + anxious affect and + tearful affect Mood: + anxious mood Results & Data Results & Data ([facility]) Vital Signs (Past 12 Hours) Vital Signs Temp Pulse Pulse Resp BP Pulse Ox 05/07/21 16:04 103 H 05/07/21 15:14 36.8 C 139 H 20 106/78 96 Laboratory Results CSF culture negative blood cultures negative PG Care Time/CCT Total # of Minutes Spent Total Time Spent with Patient: Total time spent is greater than 50% in coordination of care (as documented) at patient's floor/unit and/or counseling patient: Coding Level of Care Code 03935 Subseq Hosp Care Lvl 3 Diagnoses Acute Lyme disease A69.20 Craniofacial pain syndrome G51.8 Hypokalemia E87.6 Depression F32.9 Anxiety F41.9 Acute ear pain H92.03 Laterality: bilateral Chronic pain syndrome G89.4 Pituitary microadenoma D35.2 History of COVID-19 Z86.16 Radicular pain of right lower extremity M54.10 Complex care coordination Z71.89 Abdominal pain R10.9 Candidiasis of mouth and esophagus B37.81; B37.0 (1) Acute ear pain Laterality: bilateral Qualified Code(s): H92.03 - Otalgia, bilateral
[2021-05-08 07:15] LABS: Appearance Urine Clear (Clear); Bilirubin Urine Negative (Negative); Blood Urine Negative (Negative); Color Urine Yellow; Glucose Urine UA Negative (Negative); Ketones Urine Negative (Negative); Leukocyte Esterase Urine Negative (Negative); Nitrite Urine Negative (Negative); Protein Urine Negative (Negative); Urobilinogen Urine Negative (Negative); pH Urine 5.5 (4.5-7.5)
[2021-05-08] MEDS ORDERED: IBUPROFEN 200 MG TAB PO ONE (08:55)
[2021-05-08] MEDS ORDERED: IBUPROFEN 600 MG TAB PO ONE (08:55)
[2021-05-08] MEDS: GABAPENTIN 100 MG CAP PO SCH (09:22)
[2021-05-08] MEDS: DOXYCYCLINE HYCLATE 100 MG CAP PO SCH ×2 (09:22→21:40)
[2021-05-08] MEDS: NYSTATIN SUSP 500,000 U/5 ML UDC PO SCH ×4 (09:24→21:40)
[2021-05-08] MEDS: SENNA 8.6 MG TAB PO SCH (09:24)
[2021-05-08] MEDS: CIPRO 0.3%/DEXAMETHASONE 0.1% OTIC SUSP 7.5ML OT SCH ×2 (10:19→21:40)
--- NOTE | 2021-05-08 12:43 | Hospitalist Progress Note ---
Date of Service May 08, 2021 Assessment & Plan (1) Acute Lyme disease: Plan: Early stage lyme. [employer] lyme disease was a concern at admission due to her various facial symptoms - LP negative; CSF lyme DNA NEGATIVE ruling out [employer] lyme. has transitioned back to doxycycline 100mg BID she is day #10 of . (2) Craniofacial pain syndrome: Plan: ongoing. no specific agent has been effective at reducing/eliminating her symptoms. Trigeminal neuralgia was entertained as a diagnosis early on (she had left facial numbness/pain) but now her symptoms are b/l. Complex migraine? But no response to fioricet Incomplete response to steroids & NSAIDs Gave imitrex 25mg po x 1 and it helped "a little" by report MRI of brain x 2 negative. MRV/MRA brain negative. LP negative. Mastoid CT earlier this month negative. spinal headache post-LP? pain management saw - conservative Rx recommended at this time rather than diagnostic nerve block appreciate neurology consult & recs. remains on lamictal 25mg HS remains on gabapentin 400mg HS, 200mg gabapentin qam (3) Hypokalemia: Plan: resolved (4) Depression: Plan: psych consult appreciated lamictal may provide some mood stabilization (5) Anxiety: Plan: refusing buspar refusing ativan previously was on various SSRIs in the past (6) Acute ear pain: Plan: b/l - etiology?? spoke with Dr Villafuerte, [facility] [place] [facility] - he will see her shortly after d/c; will need tympanograms, audiometry, etc to determine etiology. MRI brain x 2 negative for acute pathology including an MRI that was focused on the ear canals. seems to have some benefit from ciprodex -- but no discrete evidence of otitis externa or otitis media on exam as of 05/04. suspect the steroid component helps the canal and/or TM suspect element of eustacian dysfunction and TMJ syndrome (7) Chronic pain syndrome: Plan: PDMP shows chronic subutex usage since at least 2018. had refill on 04/08. continues to refuse subutex and all narcotics, however. pain management saw patient in consult -- no plans for diagnostic nerve block at this time. I did encourage her to use toradol and/or oxycodone (or norco) for severe facial pain but continues to decline narcotics. (8) Pituitary microadenoma: Plan: unlikely to be contributing to current symptomatology. checking cortisol would not be helpful because of recent steroids TSH wnl could consider prolactin, LH, FSH at some point (9) History of COVID-19: Plan: December/January 2021 (10) Radicular pain of right lower extremity: Plan: resolved L5 nerve root distribution. started following her LP. MRI of l-spine returned -- no hematoma. mild HNP seen on MRI (11) Complex care coordination: Plan: care d/w Dr Acevedo several times this week care d/w Dr Dey from pain management this week care d/w pt's mother this week (12) Abdominal pain: Plan: resolved KUB x-ray -- tiny left-sided renal stones in the renal pelvis, no significant fecal load she could have passed a small kidney stone - but ua negative either way pain resolved (13) Candidiasis of mouth and esophagus: Plan: nystatin Plan: 1. consulted anesthesiology to ensure no element of spinal headache 2. trialed her on imitrex today - unfortunately not helpful 3. cont lamictal, gabapentin - increase AM dose of latter to 400mg 4. nsaids prn 5. ciprodex b/l ear canals (steroid component may be helping her pain) hopefully home soon with ENT f/u Admission and Anticipated Discharge Date Admission Date: May 02, 2021 Subjective patient resting comfortably with her headphones on when I came into her room. her blinds were drawn and her lights were off - it was late morning. I woke her up to assess her, and within a minute she was crying. no change in her facial pain - she states her maxillary areas and nose feel swollen, she has bifrontal headache, she has numbness on the face (now bilateral). ears continue to hurt. does state that the lidoderm patches helped neck tingling (left posterior neck). no right leg symptoms. headache is worse w/ standing. she initially said the headache started getting worse with standing following her LP, then she said it was like this before the LP. she has been seen moving about the halls. she also asks if she can go outside again today w/ her boyfriend. eating fine. Review of Systems Constitutional: no fever, no chills, no body aches and no anorexia Eyes: no worsening vision Ear, Nose, Mouth, Throat: + sinus pain/pressure Respiratory: no cough, no dyspnea and no dyspnea on exertion Cardiovascular: no chest pain Gastrointestinal: no abdominal pain (resolved, no further left-sided pain ), no nausea and no vomiting Neurologic: + headache(s) no photophobia or phonophobia Psychiatric: + depression and + anxiety Physical Exam Constitutional: well developed, well nourished and average body habitus; no acute distress and no altered mental status crying spells - intermittent - throughout the visit Eyes: PERRL; no scleral abnormality ENMT: external ear and nose normal, oropharynx normal Respiratory: normal respiratory effort, lungs clear to auscultation Cardiovascular: RRR, no murmur, no edema Heart Sounds: normal S1 and normal S2 Vessels: posterior tibial pulses present and dorsalis pedis pulses present Extremities: no edema Gastrointestinal (Abdomen): normal bowel sounds, soft, nontender, no hepatosplenomegaly Musculoskeletal: no cyanosis or clubbing, extremities motor strength 5/5 Skin: no rashes, warm and dry Neurologic: moves all extremities; no focal motor deficits Psychiatric: Orientation: alert and oriented x 3 Affect: + depressed affect, + anxious affect and + tearful affect Results & Data Results & Data ([facility]) Vital Signs (Past 12 Hours) Vital Signs Temp Pulse Resp BP Pulse Ox 05/08/21 07:56 36.7 C 90 16 106/70 98 Laboratory Results Laboratory Results - last 24 hr 05/04/21 05/08/21 Unknown 06:45 Urine Color Yellow Urine Appearance Clear Urine pH 5.5 Ur Specific [place] 1.020 Urine Protein Negative Urine Glucose (UA) Negative Urine Ketones Negative Urine Blood Negative Urine Nitrite Negative Urine Bilirubin Negative Urine Urobilinogen Negative Ur Leukocyte Esterase Negative Fld Lyme DNA (PCR) Not detected Lyme Specimen Source CSF PG Care Time/CCT Total # of Minutes Spent Total Time Spent with Patient: Total time spent is greater than 50% in coordination of care (as documented) at patient's floor/unit and/or counseling patient: Coding Level of Care Code 31581 Subseq Hosp Care Lvl 3 Diagnoses Acute Lyme disease A69.20 Craniofacial pain syndrome G51.8 Hypokalemia E87.6 Depression F32.9 Anxiety F41.9 Acute ear pain H92.03 Laterality: bilateral Chronic pain syndrome G89.4 Pituitary microadenoma D35.2 History of COVID-19 Z86.16 Radicular pain of right lower extremity M54.10 Complex care coordination Z71.89 Abdominal pain R10.9 Candidiasis of mouth and esophagus B37.81; B37.0 (1) Acute ear pain Laterality: bilateral Qualified Code(s): H92.03 - Otalgia, bilateral
--- NOTE | 2021-05-08 13:41 | Anesthesiology Progress Note ---
Date of Service May 08, 2021 Assessment & Plan (1) Headache: Present on Admission?: Yes Plan: I talked with her about post dural puncture headaches including how they present, as well as the options for treatment including conservative measures and an epidural blood patch. While it is certainly possible there could be a component of her symptoms that are post dural puncture related, it does not seem likely to me. The presentation is not typical, and she describes her headache as relatively similar to before her procedure. It is not significantly worse when she ambulates. I think the yield from a blood patch would be pretty low, and she is already 4 days out so would likely be resolving on its own soon. At this point she would like to hold off on trying another procedure, and I think this is very reasonable. She knows that if things change or worsen, or if she changes her mind, that we are available to readdress the issue. Admission and Anticipated Discharge Date Admission Date: May 02, 2021 Subjective I was asked to see patient regarding headache and whether a component of it might be related to the fact that she had a lumbar puncture a few days ago. She was diagnosed with lyme disease this admit, came in with ear pain and headache that she describes as mostly in front in the area of her sinuses. She does not feel that it is significantly different now. While it does bother her more when she gets up and walks around, it is not dramatically different. Review of Systems Review of Systems: All systems reviewed & are unremarkable except as noted in HPI & below Physical Exam Vital Signs: Last Vital Signs Temp 36.7 C 05/08/21 07:56 Pulse 90 05/08/21 07:56 Resp 16 05/08/21 07:56 BP 106/70 05/08/21 07:56 Pulse Ox 98 05/08/21 07:56 Results & Data ([facility]) Medications Administered Acetaminophen (Acetaminophen 325 Mg Tab) 650 mg PO Q4H PRN PRN Reason: Pain or Fever Stop: 06/01/21 15:22 Last Admin: 05/07/21 20:56 Dose: 650 mg Documented by: [id number] Admin: 05/07/21 08:12 Dose: 650 mg Documented by: [id number] Admin: 05/06/21 19:59 Dose: 650 mg Documented by: [id number] Admin: 05/06/21 05:22 Dose: 650 mg Documented by: [id number] Admin: 05/06/21 00:58 Dose: 650 mg Documented by: [id number] Admin: 05/05/21 15:06 Dose: 650 mg Documented by: [id number] Admin: 05/03/21 16:49 Dose: 650 mg Documented by: [id number] Ciprofloxacin/Dexamethasone (Cipro 0.3%/Dexamethasone 0.1% Otic Susp 7.5ml) 4 drops OT BID FRIDA Stop: 06/03/21 23:44 Last Admin: 05/08/21 10:19 Dose: 4 drops Documented by: [id number] Admin: 05/07/21 20:41 Dose: 4 drops Documented by: [id number] Admin: 05/07/21 08:11 Dose: 4 drops Documented by: [id number] Admin: 05/06/21 20:04 Dose: 4 drops Documented by: [id number] Admin: 05/06/21 08:36 Dose: 4 drops Documented by: [id number] Admin: 05/05/21 20:22 Dose: 4 drops Documented by: [id number] Admin: 05/05/21 10:29 Dose: 4 drops Documented by: [id number] Admin: 05/05/21 07:46 Dose: Not Given Documented by: [id number] Doxycycline Hyclate (Doxycycline Hyclate 100 Mg Cap) 100 mg PO BID FRIDA Stop: 05/16/21 08:59 Last Admin: 05/08/21 09:22 Dose: 100 mg Documented by: [id number] Admin: 05/07/21 20:43 Dose: 100 mg Documented by: [id number] Admin: 05/07/21 08:12 Dose: 100 mg Documented by: [id number] Admin: 05/06/21 20:03 Dose: 100 mg Documented by: [id number] Admin: 05/06/21 08:37 Dose: 100 mg Documented by: [id number] Gabapentin (Gabapentin 400 Mg Cap) 400 mg PO HS FRIDA Stop: 05/30/21 21:01 Last Admin: 05/07/21 20:44 Dose: 400 mg Documented by: [id number] Admin: 05/06/21 20:03 Dose: 400 mg Documented by: [id number] Gabapentin (Gabapentin 100 Mg Cap) 200 mg PO QAM FRIDA Stop: 06/06/21 09:29 Last Admin: 05/08/21 09:22 Dose: 200 mg Documented by: [id number] Admin: 05/07/21 11:05 Dose: 200 mg Documented by: [id number] Lamotrigine (Lamotrigine 25 Mg Tab) 25 mg PO HS FRIDA Stop: 06/06/21 20:59 Last Admin: 05/07/21 20:42 Dose: 25 mg Documented by: [id number] Lidocaine (Lidocaine 5% 1 Patch) 2 patch TD DAILY@1800 [facility] Stop: 06/06/21 17:59 Last Admin: 05/07/21 17:13 Dose: 2 patch Documented by: [id number] Melatonin (Melatonin 3 Mg Tab) 3 mg PO HS PRN PRN Reason: Sleep Stop: 06/04/21 00:01 Last Admin: 05/05/21 22:44 Dose: 3 mg Documented by: [id number] Admin: 05/05/21 00:36 Dose: 3 mg Documented by: [id number] Miscellaneous (Remove Lidoderm Patch) 1 ea N/A DAILY@0600 [facility] Stop: 06/07/21 05:59 Last Admin: 05/08/21 08:11 Dose: Not Given Documented by: [id number] Nystatin (Nystatin Susp 500,000 U/5 Ml Udc) 5 ml PO QID [facility] Stop: 05/16/21 15:29 Last Admin: 05/08/21 13:22 Dose: Not Given Documented by: [id number] Admin: 05/08/21 09:24 Dose: Not Given Documented by: [id number] Admin: 05/07/21 20:42 Dose: 5 ml Documented by: [id number] Admin: 05/07/21 16:12 Dose: Not Given Documented by: [id number] Admin: 05/07/21 11:25 Dose: Not Given Documented by: [id number] Admin: 05/07/21 08:10 Dose: Not Given Documented by: [id number] Admin: 05/06/21 22:49 Dose: Not Given Documented by: [id number] Admin: 05/06/21 20:01 Dose: Not Given Documented by: [id number] Admin: 05/06/21 16:07 Dose: 5 ml Documented by: [id number] Ondansetron HCl (Ondansetron 4 Mg Od Tab) 4 mg PO Q6H PRN PRN Reason: nausea and vomiting Stop: 06/01/21 15:28 Last Admin: 05/07/21 09:08 Dose: 4 mg Documented by: [id number] Sennosides (Senna 8.6 Mg Tab) 17.2 mg PO QAM [facility] Stop: 06/05/21 08:59 Last Admin: 05/08/21 09:24 Dose: Not Given Documented by: [id number] Admin: 05/07/21 08:11 Dose: Not Given Documented by: [id number] Admin: 05/06/21 08:37 Dose: 17.2 mg Documented by: [id number] Sodium Chloride (Sodium Chloride 0.65% Na Soln 45 Ml ([place])) 2 sprays NA Q1H PRN PRN Reason: nasal congestion/ear pain Stop: 06/02/21 14:01 Last Admin: 05/04/21 15:51 Dose: 2 sprays Documented by: [id number] (1) Headache Headache chronicity pattern: acute headache Headache type: unspecified Intractability: not intractable Qualified Code(s): R51.9 - Headache, unspecified
[2021-05-08] MEDS: DICLOFENAC SOD 1% GEL 100 GM TUBE EXT SCH ×3 (13:52→23:01)
[2021-05-08] MEDS: ACETAMINOPHEN 325 MG TAB PO PRN (15:45)
[2021-05-08] MEDS ORDERED: SUMAtriptan succinate 25 MG TAB PO ONE (16:30)
[2021-05-08] MEDS: LIDOCAINE 5% 1 PATCH TD SCH (18:10)
[2021-05-08] MEDS: lamoTRIgine 25 MG TAB PO SCH (21:40)
[2021-05-08] MEDS: GABAPENTIN 400 MG CAP PO SCH (21:40)
[2021-05-08] MEDS: ONDANSETRON 4 MG OD TAB PO PRN (22:51)
[2021-05-09 05:42] LABS: Hematocrit (blood only) 37.6 % (37-47); Hemoglobin 12.2 g/dL (12.0-16.0); Mean Corpuscular Hemoglobin 30.7 pg (25-34); Mean Corpuscular Hgb Conc 32.4 g/dL (32-36); Mean Corpuscular Volume 94.5 fL (80-100); Mean Platelet Volume 11.1 fL (7.4-10.4); Platelet Count 187 K/uL (130-400); RDW Coefficient of Variation 12.6 % (11.5-14.5); RDW Standard Deviation 43.2 fL (36.4-46.3); Red Blood Count 3.98 M/uL (4.2-5.4); White Blood Count 6.37 K/uL (4.8-10.8)
[2021-05-09 06:23] LABS: BUN Creatinine Ratio 19.7 (10-20); Calcium 8.7 mg/dl (8.5-10.1); Creatinine Clr Calc Pharmacy 133.7 ml/min; Est GFR (African American) 142.6 ml/min; Potassium 3.7 mmol/L (3.5-5.1)
[2021-05-09] MEDS: DOXYCYCLINE HYCLATE 100 MG CAP PO SCH ×2 (08:25→21:06)
[2021-05-09] MEDS: IBUPROFEN 800 MG TAB PO PRN ×2 (08:25→22:22)
[2021-05-09] MEDS: GABAPENTIN 100 MG CAP PO SCH (08:26)
[2021-05-09] MEDS: SENNA 8.6 MG TAB PO SCH (08:27)
[2021-05-09] MEDS: NYSTATIN SUSP 500,000 U/5 ML UDC PO SCH ×2 (08:27→13:07)
[2021-05-09] MEDS: CIPRO 0.3%/DEXAMETHASONE 0.1% OTIC SUSP 7.5ML OT SCH ×2 (08:32→21:07)
[2021-05-09] MEDS: DICLOFENAC SOD 1% GEL 100 GM TUBE EXT SCH ×4 (08:32→21:05)
[2021-05-09] MEDS ORDERED: GABAPENTIN 100 MG CAP PO ONE (08:47)
--- NOTE | 2021-05-09 11:03 | Neurology Progress Note ---
Date of Service May 09, 2021 Assessment & Plan (1) Craniofacial pain syndrome: (2) Headache: Plan: Nonspecific headache/craniofacial pain syndrome. Patient has been very difficult from a management standpoint. Has refused multiple dosages of carbamazepine and gabapentin during this hospitalization. She has no objective abnormalities extensive imaging evaluation and has an intact neurological examination. Her Lyme Western blot done on April 23 did reveal 3+ IgM bands and 1+ IgM band potentially suggestive of acute Lyme. However, her symptoms began in early March and she does not have a known history of tick bite, bull's-eye rash, arthralgias, or other symptoms suggestive of systemic Lyme disease. Lumbar puncture/CSF analysis done on May 04 was unremarkable although only a limited sample could be obtained due to poor patient tolerance. 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 She has been treated with antibiotics both in the inpatient and outpatient setting. Patient's reported head head pain would be atypical for trigeminal neuralgia or migraine. Her symptoms could be consistent with nervous intermedius neuralgia although this is a very uncommon pain syndrome. This condition is felt to generally respond to carbamazepine and I would like her to continue with this medication. She has been taking it inconsistently during her hospitalization and I encouraged compliance. I will increase the dosage of carbamazepine to 300 mg twice daily. May also consider adding lamotrigine depending on her status going forward. I have ordered an MRA and MRV of the brain to complete her otherwise thorough neuro imaging work-up. These tests will be useful to exclude any significant vascular lesion that may otherwise contribute to or explain her headaches. However, there is no compelling evidence for aneurysmal rupture or cerebral venous thrombosis on other imaging studies of the brain. In addition to outpatient consultation with ENT, I will also likely need to refer this patient to a tertiary headache center for another opinion regarding her diagnosis and management. Plan: This patient has relatively acute onset of left trigeminal neuralgia like face pain following what was likely an acute Lyme infection. Her IgM was positive. She has been treated with doxycycline for almost 2 weeks. She does not have any right face pain but does have bilateral ear discomfort and tinnitus. Extensive imaging studies and LP have been unremarkable so far. there is no sign of meningoencephalitis. Her neurologic examination is unremarkable as well with no focal neurologic deficits, encephalopathy, or meningeal signs. She has an interesting emotional lability with crying and then going back to normal within a matter of seconds, on a frequent basis. She admits to depression because of her physical condition. Recommendations: 1. initiate doxepin 50 mg each evening . This is my drug of choice for burning pain. 2. continue Lamictal 25 mg twice a day. This is an excellent mood stabilizer. 3. continue gabapentin 300 mg in the morning, 300 mg in the afternoon, and 600 mg at night. 4. consider initiating IV Rocephin 2 g a day (for 3 weeks) to be used instead of doxycycline. she can do this through a PICC line after discharge. Otherwise, continue doxycycline 100 mg twice daily for a total of 4 weeks. 5. Increase activity as able 6. Consider Medrol Dosepak, if not already done, as an anti-inflammatory. Overall, I spent a total of 70 minutes with this case including review of records, direct evaluation the patient at bedside, and discussing the case with the patient and RN at bedside as well as Dr. Page including differential diagnosis and treatment options. Admission and Anticipated Discharge Date Admission Date: May 02, 2021 Subjective patient continues to have pain in her Left face. Review of her history suggests that she started out with left ear aching pain about a month ago. By 2 weeks ago it involved her left face in the forehead, cheek, and jaw line (all 3 distributions of the left 5th cranial nerve). She then had some burning discomfort inside her right ear. She does not have any face pain on the right. Her neck has some nonspecific discomfort posteriorly and anteriorly. She denies any pain, weakness, or numbness in her arms or legs and has good balance. She has no confusion, vision problems, or swallowing issues. The left face pain is not worsened by chewing, talking, or swallowing. Touching it makes it feel better. There is no lack of feeling or numbness in the face bilaterally. There is a shooting electric sensation At times, to the chronic burning pain of the left face. Currently she has bilateral tinnitus, sharp throbbing pain inside both ears, and occasional muffling of her hearing. MRI of the brain with without contrast was unremarkable with no lesions in the left or right trigeminal nerves. The inner ears and internal auditory canals were unremarkable by MRI as well. She did have a 4 mm lesion in the pituitary consistent with a microadenoma. MR angiography of the [place] was unremarkable. MRV of the head was unremarkable as well with no dural venous thrombosis. CT scan of the head, mastoids, and temporal bones/sinuses were unremarkable. LP showed 4 white cells and a protein of 45. cultures were unremarkable. Lyme Western blot was positive for IgM on April 23. She has been on doxepin. She had 1 dose of IV Rocephin and claims that did help. Current her blood pressure is 102/67. Patient has tried and failed carbamazepine. Gabapentin is of limited help as is low-dose Lamictal. Sumatriptan, Fioricet, ketorolac, and Motrin have not helped much. Results & Data ([facility]) Vital Signs (Past 12 Hours) Vital Signs Temp Pulse Resp BP Pulse Ox 05/09/21 07:39 36.9 C 83 16 102/67 98 05/08/21 23:15 36.7 C 74 16 103/69 98 Exam (Neuro) Physical Exam: she is awake and alert. Speech is without aphasia or dysarthria. Mood is labile if she could use from rapidly crying and tearing for a few seconds to completely stopped and focused on my question. This lability was evident throughout the exam and interview. Otherwise, she is very pleasant and cooperative. Mentation is normal with good long and short term memory. Extraocular eye muscles are intact without nystagmus. There is no facial droop. Tongue is midline with good strength bilaterally. Sternocleidomastoid trapezius strength is normal bilaterally. There was no decreased sensation to pinprick in all 3 distributions of the 5th cranial nerve bilaterally. Touch did not create issues or discomfort diffusely throughout the face. Neck is supple with no tenderness or masses. She is sitting up in bed normally. Coordination is normal in the arms without tremor or ataxia. Strength is 5/5 diffusely in all major muscle groups in arms and legs both proximally and distally. Reflexes are 2/4 in all 4 limbs diffusely. There is no sensory deficits in the limbs. Toes are downgoing plantar stimulation bilaterally. PG Care Time/CCT Total # of Minutes Spent Total Time Spent with Patient: Total time spent is greater than 50% in coordination of care (as documented) at patient's floor/unit and/or counseling patient: Coding Level of Care Code 77585 Subseq Hosp Care Lvl 3 Diagnoses Craniofacial pain syndrome G51.8 Headache R51.9 Headache chronicity pattern: acute headache Headache type: unspecified Intractability: not intractable Time Spent (min) 70 Comment At modifiers as needed (1) Headache Headache chronicity pattern: acute headache Headache type: unspecified Intractability: not intractable Qualified Code(s): R51.9 - Headache, unspecified
[2021-05-09] MEDS ORDERED: lamoTRIgine 25 MG TAB PO ONE (11:29)
[2021-05-09] MEDS: ACETAMINOPHEN 325 MG TAB PO PRN (13:06)
--- NOTE | 2021-05-09 13:48 | Hospitalist Progress Note ---
Date of Service May 09, 2021 Assessment & Plan (1) Acute Lyme disease: Plan: Early stage lyme. 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 has transitioned back to doxycycline 100mg BID she is day #[address] Smyth from neuro saw patient in consult - he did advise, while patient is hospitalized, a few more days of rocephin in ar[place] of doxy in the rare event her facial symptoms are indeed cranial nerve involvement from Lyme thus, in am tomorrow, will go back to rocephin for the remainder of her stay then - doxy at discharge I would NOT recommend PICC line placement due to prior diversion of subutex, etc. (2) Craniofacial pain syndrome: Plan: ongoing. no specific agent has been effective at reducing/eliminating her symptoms. Trigeminal neuralgia was entertained as a diagnosis early on (she had left facial numbness/pain). Symptoms seemed to become bilateral. However -- Dr Smyth saw patient today - he does feel she indeed has left-sided trigeminal neuralgia. he recommended - * adding doxepin 50mg hs * increasing lamictal to 25mg BID * increasing gabapentin to 300mg am, 300mg afternoon, and 600mg at bedtime patient refused an AM dose of lamictal today she has previously refused increases in gabapentin thus will only increase the am gabapentin to 300mg; leave pm gabapentin at 400mg; skip the afternoon for now lastly, she has tolerated poorly most meds thus will only use doxepin 25mg at HS to start Complex migraine highly unlikely -- did NOT respond to fioricet, NSAIDs, or imitrex. MRI of brain x 2 negative. MRV/MRA brain negative. LP negative. Mastoid CT earlier this month negative. spinal headache ruled out by anesthesia. pain management saw - conservative Rx recommended at this time rather than diagnostic nerve block Finally, patient reports her symptoms began after receiving cheek fillers by [facility] in early March. There are case reports of cheek fillers leading to trigeminal neuralgia. Thus, it is possible her trigeminal neuralgia is from the injections rather than lyme. This may take several months to resolve if truly from the injections. Will need patient to f/u with her plastic surgeon post-d/c. (3) Hypokalemia: Plan: resolved (4) Depression: Plan: psych consult appreciated lamictal may provide some mood stabilization (5) Anxiety: Plan: refusing buspar refusing ativan previously was on various SSRIs in the past lamictal may help moods (6) Acute ear pain: Plan: b/l - etiology?? otalgia/fullness with tinnitus b/l. spoke with Dr Villafuerte [facility] [place] [facility] - he will see her shortly after d/c; will need tympanograms, audiometry, etc to determine etiology. MRI brain x 2 negative for acute pathology including an MRI that was focused on the ear canals. seems to have some benefit from ciprodex -- but no discrete evidence of otitis externa or otitis media on exam as of 05/04. suspect the steroid component helps the canal and/or TM pain. continue for now. suspect element of eustacian dysfunction and TMJ syndrome as well. (7) Chronic pain syndrome: Plan: PDMP shows chronic subutex usage since at least 2018. had refill on 04/08. pain management states that she was diverting her subutex to her boyfriend. continues to refuse subutex and all narcotics, however. subutex discontinued from her med list. pain management saw patient in consult -- no plans for diagnostic nerve block of the face (trigeminal nerve) at this time. (8) Pituitary microadenoma: Plan: unlikely to be contributing to current symptomatology. checking cortisol would not be helpful because of recent steroids TSH wnl could consider prolactin, LH, FSH at some point (9) History of COVID-19: Plan: December/January 2021 no long-hauler symptoms (10) Radicular pain of right lower extremity: Plan: resolved L5 nerve root distribution. started following her LP. MRI of l-spine returned -- no hematoma. mild HNP seen on MRI which is the likely culprit either way her RLE symptoms are resolved (11) Complex care coordination: Plan: care d/w Dr Acevedo several times this week care d/w Dr Dey from pain management this week care d/w pt's mother this week care d/w Dr Smyth today (12) Abdominal pain: Plan: resolved KUB x-ray -- tiny left-sided renal stones in the renal pelvis, no significant fecal load she could have passed a small kidney stone - but ua negative either way pain resolved (13) Candidiasis of mouth and esophagus: Plan: change nystatin to magic mouthwash q6h swish/spit (14) Pain of left calf: Plan: doppler obtained - no DVT the "tingling" of left calf is likely from DJD of l-spine as seen on MRI l-spine a few days ago supportive care Plan: pt's mother and boyfriend were updated at bedside briefly Admission and Anticipated Discharge Date Admission Date: May 02, 2021 Subjective patient continues with ongoing facial symptoms - mainly left-sided numbness/pain, headache, b/l otalgia and tinnitus. she also c/o sore throat today along with left calf discomfort. left calf discomfort started last night. it is mainly an uncomfortable tingling sensation. like previous visits she is quite tearful. she asks if she could have developed her symptoms from plastic surgery. she recounts that she had b/l cheek fillers and lip filler on March 24. this was done at [facility] in [place]. she apparently had a localized reaction to the lip filler. she also did not do well with the cheek filler. the surgeon had to remove some of the cheek filler. 2-3 days following the procedure she developed the facial symptoms. she does note that she is eating better. Review of Systems Constitutional: no fever, no chills, no fatigue, no malaise, no weakness and no anorexia going outside for walks w/ family & boyfriend Ear, Nose, Mouth, Throat: + ear pain, + tinnitus and + sore throat; no ear discharge, no nasal discharge and no post nasal drip Respiratory: no cough, no dyspnea and no dyspnea on exertion Cardiovascular: no chest pain Gastrointestinal: + vomiting (following doxy last night she had reflux/regurgitation ); no nausea Neurologic: + tingling (left calf ) Physical Exam Constitutional: well developed and well nourished; no acute distress and no altered mental status ENMT: Mouth: + oropharynx abnormality (mild palatal erythema posterior throat; no white plaques; tonsils 1+ b/l) and + TMJ abnormality (clunks b/l ) Throat: no tonsil abnormality Respiratory: normal respiratory effort, lungs clear to auscultation Cardiovascular: RRR, no murmur, no edema Heart Sounds: normal S1 and normal S2 Vessels: posterior tibial pulses present and dorsalis pedis pulses present Extremities: no edema Gastrointestinal (Abdomen): normal bowel sounds, soft, nontender, no hepatosplenomegaly Musculoskeletal: no cyanosis or clubbing, extremities motor strength 5/5 Extremities: extremities normal to inspection (left calf w/o abnormalities ) Skin: no rashes, warm and dry Neurologic: moves all extremities; no focal motor deficits Psychiatric: Orientation: alert and oriented x 3 Affect: + anxious affect and + tearful affect Results & Data Results & Data ([facility]) Vital Signs (Past 12 Hours) Vital Signs Temp Pulse Resp BP Pulse Ox 05/09/21 07:39 36.9 C 83 16 102/67 98 Laboratory Results Laboratory Results - last 24 hr 05/09/21 05/09/21 05:22 05:22 WBC 6.37 RBC 3.98 L Hgb 12.2 Hct 37.6 MCV 94.5 MCH 30.7 MCHC 32.4 RDW Std Deviation 43.2 RDW Coeff of Rubén 12.6 Plt Count 187 MPV 11.1 H Sodium 142 Potassium 3.7 Chloride 109 H Carbon Dioxide 31 Anion Gap 2.0 L BUN 13 Creatinine 0.67 Est Cr Clr Drug Dosing 133.7 Est GFR ( Amer) 142.6 Est GFR (Non-Af Amer) 123.0 BUN/Creatinine Ratio 19.7 Glucose 92 Calcium 8.7 Diagnostic Findings Venous Doppler Study 05/09/21 13:47 LEFT LOWER EXTREMITY VENOUS DOPPLER CLINICAL HISTORY: prolonged hospital stay, left calf pain; eval DVT COMPARISON STUDY: No previous studies for comparison. TECHNIQUE: Sonography of the deep venous system of the left lower extremity was performed. Compression and augmentation were evaluated. FINDINGS: The left common femoral, superficial femoral and popliteal veins were compressible. Augmentation was normal. Flow was shown within the deep calf vessels. IMPRESSION: No evidence of deep venous thrombus within the left lower extremity. ACT 112: Negative or not required by law. Electronically signed by: Ismael Moses M.D. 05/09/2021 3:38 PM PG Care Time/CCT Total # of Minutes Spent Total Time Spent with Patient: Total time spent is greater than 50% in coordination of care (as documented) at patient's floor/unit and/or counseling patient: Coding Level of Care Code 53105 Subseq Hosp Care Lvl 3 Diagnoses Acute Lyme disease A69.20 Craniofacial pain syndrome G51.8 Hypokalemia E87.6 Depression F32.9 Anxiety F41.9 Acute ear pain H92.03 Laterality: bilateral Chronic pain syndrome G89.4 Pituitary microadenoma D35.2 History of COVID-19 Z86.16 Radicular pain of right lower extremity M54.10 Complex care coordination Z71.89 Abdominal pain R10.9 Candidiasis of mouth and esophagus B37.81; B37.0 Pain of left calf M79.662 (1) Acute ear pain Laterality: bilateral Qualified Code(s): H92.03 - Otalgia, bilateral
--- NOTE | 2021-05-09 15:39 | Ultrasound Report ---
LEFT LOWER EXTREMITY VENOUS DOPPLER CLINICAL HISTORY: prolonged hospital stay, left calf pain; eval DVT COMPARISON STUDY: No previous studies for comparison. TECHNIQUE: Sonography of the deep venous system of the left lower extremity was performed. Compressi on and augmentation were evaluated. FINDINGS: The left common femoral, superficial femoral and popliteal veins were compressible. Augmen tation was normal. Flow was shown within the deep calf vessels. IMPRESSION: No evidence of deep venous thrombus within the left lower extremity. ACT 112: Negative or not required by law. Electronically signed by: Ismael Moses M.D. 05/09/2021 3:38 PM
[2021-05-09] MEDS: LIDOCAINE 5% 1 PATCH TD SCH (17:33)
[2021-05-09] MEDS ORDERED: lamoTRIgine 25 MG TAB PO SCH (21:00)
[2021-05-09] MEDS: GABAPENTIN 400 MG CAP PO SCH (21:06)
[2021-05-09] MEDS: ONDANSETRON 4 MG OD TAB PO PRN (21:10)
[2021-05-09] MEDS: DOXEPIN HCL 25 MG CAPSULE PO SCH (22:16)
[2021-05-10] MEDS ORDERED: GABAPENTIN 300 MG CAP PO ONE (01:58)
--- NOTE | 2021-05-10 08:00 | XRay Report ---
SINGLE VIEW CHEST CLINICAL HISTORY: Atypical chest pain. FINDINGS: 2 AP, portable, upright chest radiographs are compared to study dated 05/07/2021. The cardio mediastinal silhouette is unremarkable. The lungs and pleural spaces are clear. No pneumothorax is se en. The bony thorax is grossly intact. IMPRESSION: No active disease in the chest. ACT 112: Negative or not required by law. Electronically signed by: Uche Butler M.D. 05/10/2021 7:59 AM
[2021-05-10] MEDS ORDERED: GABAPENTIN 300 MG CAP PO SCH (09:00)
--- NOTE | 2021-05-10 09:13 | Neurology Progress Note ---
Date of Service May 10, 2021 Assessment & Plan (1) Craniofacial pain syndrome: (2) Headache: Plan: This patient has relatively acute onset of left trigeminal neuralgia like face pain following what was likely an acute Lyme infection. Her IgM was positive. She has been treated with doxycycline for almost 2 weeks. She does not have any right face pain but does have bilateral ear discomfort and tinnitus. She had "cheek Fillers" March 24 by Plastic surgery. She Fillers have been associated with some facial neuralgia rarely but the current pattern is probably unrelated to her cheek Fillers in that it involves all 3 distributions of the 5th cranial nerve on the left suggesting a deep main trigeminal neuralgia. Extensive imaging studies and LP have been unremarkable so far. there is no sign of meningoencephalitis. Her neurologic examination is unremarkable as well with no focal neurologic deficits, encephalopathy, or meningeal signs. She has an interesting emotional lability with crying and then going back to normal within a matter of seconds, on a frequent basis. She admits to depression because of her physical condition. Recommendations: 1. Continue doxepin 25 milligrams each evening for 3 days then increase to 50 milligrams each evening . This is my drug of choice for burning pain. 2. continue Lamictal 25 mg twice a day. This is an excellent mood stabilizer. 3. continue gabapentin 300 mg in the morning, 300 mg in the afternoon, and 600 mg at night. 4. IV Rocephin 2 g a day (for 3 weeks) to be used instead of doxycycline. she can do this through a PICC line after discharge. Otherwise, if it PICC line is not felt to be stokes given her past drug abuse history, then just give her 2 grams of IV Rocephin daily while she is in the hospital and converted back to doxycycline 100 mg twice daily orally, for a total of 4 weeks. 5. Increase activity as able 6. Consider Medrol Dosepak, if not already done, as an anti-inflammatory. Overall, I spent a total of 25 minutes with this case including review of records, direct evaluation the patient at bedside, and discussion of the case with the patient and RN at bedside as well as Dr. [place]. including differential diagnosis and treatment options. Admission and Anticipated Discharge Date Admission Date: May 02, 2021 Subjective Apparently, the patient had "cheek Fillers" by [facility]. She did not have neuralgia type symptoms until later in the month. Patient had 25 milligrams of doxepin. She describes herself as being "dizzy" this morning. She has not had Rocephin yet. Chest x-ray was unremarkable and a venous Doppler of the leg was unremarkable. Results & Data ([facility]) Vital Signs (Past 12 Hours) Vital Signs Temp Pulse Pulse Resp BP Pulse Ox 05/10/21 06:22 36.4 C L 103 H 16 116/75 98 05/10/21 01:50 36.6 C 78 101/71 97 05/09/21 22:45 36.6 C 78 16 97/63 L 96 Exam (Neuro) Physical Exam: She complains of left-sided face pain and is tearful as before. She stops crying and focus is after a few seconds and has no new neurologic problems. Her exam is quite yesterday. PG Care Time/CCT Total # of Minutes Spent Total Time Spent with Patient: Total time spent is greater than 50% in coordination of care (as documented) at patient's floor/unit and/or counseling patient: Coding Level of Care Code 23913 Subseq Hosp Care Lvl 2 Diagnoses Craniofacial pain syndrome G51.8 Headache R51.9 Headache chronicity pattern: acute headache Headache type: unspecified Intractability: not intractable Time Spent (min) 25 (1) Headache Headache chronicity pattern: acute headache Headache type: unspecified Intractability: not intractable Qualified Code(s): R51.9 - Headache, unspecified
[2021-05-10] MEDS: cefTRIAXone SODIUM 2,000 MG in DEXTROSE 5% 50 ML IV SCH (09:28)
[2021-05-10] MEDS: GABAPENTIN 600 MG TAB PO SCH (09:34)
[2021-05-10] MEDS: CIPRO 0.3%/DEXAMETHASONE 0.1% OTIC SUSP 7.5ML OT SCH ×2 (09:34→20:10)
[2021-05-10] MEDS: DICLOFENAC SOD 1% GEL 100 GM TUBE EXT SCH ×4 (09:35→20:06)
[2021-05-10] MEDS: SENNA 8.6 MG TAB PO SCH ×3 (09:35→11:52)
[2021-05-10] MEDS: ACETAMINOPHEN 325 MG TAB PO PRN (11:40)
--- NOTE | 2021-05-10 12:53 | Hospitalist Progress Note ---
Date of Service May 10, 2021 Assessment & Plan (1) Acute Lyme disease: Plan: Early stage lyme. POOL HALL INSPECTOR lyme disease was a concern at admission due to her various facial symptoms - LP negative; CSF lyme DNA NEGATIVE making POOL HALL INSPECTOR lyme highly unlikely. Discussed with Dr Smyth and advised ceftriaxone for a few days as difficult to r/o central lyme disease Agree with prior provider and would advise against PICC line placement due to prior diversion of subutex. (2) Craniofacial pain syndrome: Plan: ongoing. no specific agent has been effective at reducing/eliminating her symptoms. Suspected trigeminal neuralgia Dr Smyth saw patient today - he does feel she indeed has left-sided trigeminal neuralgia. he recommended - * doxepin 50mg hs * continue lamictal to 25mg BID * increasing gabapentin to 300mg am, 300mg afternoon, and 400mg at bedtime * Dizziness noted possibly due to medication however would recommend staying the course for now and will get PT to assess per patient request Complex migraine highly unlikely -- did NOT respond to fioricet, NSAIDs, or imitrex. MRI of brain x 2 negative. MRV/MRA brain negative. LP negative. Mastoid CT earlier this month negative. spinal headache ruled out by anesthesia. pain management saw - conservative Rx recommended at this time rather than diagnostic nerve block Not suspected to be secondary to cheek fillers given all three nerve distribution However prudent to follow up with her plastic surgeon on discharge (3) Hypokalemia: Plan: resolved (4) Depression: Plan: psych consult appreciated Lamictal may provide some mood stabilization (5) Anxiety: Plan: refusing buspar refusing ativan previously was on various SSRIs in the past Lamictal may help moods (6) Acute ear pain: Plan: b/l - etiology?? otalgia/fullness with tinnitus b/l. spoke with Dr Villafuerte [facility] - he will see her shortly after d/c; will need tympanograms, audiometry, etc to determine etiology. MRI brain x 2 negative for acute pathology including an MRI that was focused on the ear canals. seems to have some benefit from ciprodex -- but no discrete evidence of otitis externa or otitis media on exam as of 05/04 and 05/10. suspect the steroid component helps the canal and/or TM pain. continue for now. suspect element of eustachian tube dysfunction. (7) Chronic pain syndrome: Plan: PDMP shows chronic subutex usage since at least 2018. had refill on 04/08. pain management states that she was diverting her subutex to her boyfriend. continues to refuse subutex and all narcotics, however. subutex discontinued from her med list. pain management saw patient in consult -- no plans for diagnostic nerve block of the face (trigeminal nerve) at this time. (8) Pituitary microadenoma: Plan: unlikely to be contributing to current symptomatology. checking cortisol would not be helpful because of recent steroids TSH wnl could consider prolactin, LH, FSH at some point (9) History of COVID-19: Plan: January 2021 no long-hauler symptoms (10) Radicular pain of right lower extremity: Plan: resolved L5 nerve root distribution. started following her LP. MRI of l-spine returned -- no hematoma. mild HNP seen on MRI which is the likely culprit either way her RLE symptoms are resolved (11) Complex care coordination: Plan: care d/w Dr Acevedo several times this week care d/w Dr Dey from pain management this week care d/w pt's mother this week care d/w Dr Smyth today (12) Abdominal pain: Plan: resolved KUB x-ray -- tiny left-sided renal stones in the renal pelvis, no significant fecal load she could have passed a small kidney stone - but ua negative either way pain resolved (13) Candidiasis of mouth and esophagus: Plan: change nystatin to magic mouthwash q6h swish/spit (14) Pain of left calf: Plan: doppler obtained - no DVT the "tingling" of left calf is likely from DJD of l-spine as seen on MRI l-spine a few days ago supportive care Plan: pt's mother and boyfriend were updated at bedside briefly Admission and Anticipated Discharge Date Admission Date: May 02, 2021 Subjective Reports 6/10 face pain but mainly concerned about how numb it is. Mainly on the left side except spans across the top of her forehead. Wishes me to look in her ears as they have continued to be itchy despite ciprodex. Continued tinnitus. Crying at times during the encounter but recovers quickly. She reports some mild improvement since admission. Chest pain reportedly overnight but now resolved. Review of Systems Review of Systems: All systems reviewed & are unremarkable except as noted in HPI & below Physical Exam Constitutional: well developed and well nourished; no acute distress and no altered mental status ENMT: Ears: no external ear abnormality (ear canal superiorly orientated but otherwise normal) and no TM abnormality Mouth: no oropharynx abnormality and no TMJ abnormality Throat: no tonsil abnormality Respiratory: normal respiratory effort, lungs clear to auscultation Cardiovascular: RRR, no murmur, no edema Heart Sounds: normal S1 and normal S2 Extremities: no edema Gastrointestinal (Abdomen): normal bowel sounds, soft, nontender, no hepatosplenomegaly Musculoskeletal: no cyanosis or clubbing, extremities motor strength 5/5 Extremities: extremities normal to inspection Skin: no rashes, warm and dry Neurologic: moves all extremities; no focal motor deficits Psychiatric: Orientation: alert and oriented x 3 Affect: + anxious affect and + tearful affect Results & Data Results & Data ([facility]) Vital Signs (Past 12 Hours) Vital Signs Temp Pulse Pulse Resp BP Pulse Ox 05/10/21 06:22 36.4 C L 103 H 16 116/75 98 05/10/21 01:50 36.6 C 78 101/71 97 PG Care Time/CCT Total # of Minutes Spent Total Time Spent with Patient: Total time spent is greater than 50% in coordination of care (as documented) at patient's floor/unit and/or counseling patient: Coding Level of Care Code 94765 Subseq Hosp Care Lvl 2 Diagnoses Acute Lyme disease A69.20 Craniofacial pain syndrome G51.8 Hypokalemia E87.6 Depression F32.9 Anxiety F41.9 Acute ear pain H92.03 Laterality: bilateral Chronic pain syndrome G89.4 Pituitary microadenoma D35.2 History of COVID-19 Z86.16 Radicular pain of right lower extremity M54.10 Complex care coordination Z71.89 Abdominal pain R10.9 Candidiasis of mouth and esophagus B37.81; B37.0 Pain of left calf M79.662 (1) Acute ear pain Laterality: bilateral Qualified Code(s): H92.03 - Otalgia, bilateral
--- NOTE | 2021-05-10 13:26 | Electrocardiogram Report ---
Test Reason : Blood Pressure : / mmHG Vent. Rate : 075 BPM Atrial Rate : 075 BPM P-R Int : 126 ms QRS Dur : 082 ms QT Int : 368 ms P-R-T Axes : 017 052 055 degrees QTc Int : 410 ms Normal sinus rhythm RSR' or QR pattern in V1 suggests right ventricular conduction delay Otherwise Normal ECG When compared with ECG of 02-MAY-2021 09:54, No significant change was found Confirmed by Martin Schulz ([id number]) on 05/10/2021 1:25:44 PM Referred By: REFERRED SELF Confirmed By:Martin Schulz
[2021-05-10 13:55] LABS: Appearance Urine Cloudy (Clear); Bacteria Urine Automated 1+ (Negative); Bilirubin Urine Negative (Negative); Blood Urine Negative (Negative); Color Urine Yellow; Epithelial Cell Urine Auto >30 /lpf (0-5); Glucose Urine UA Negative (Negative); Ketones Urine Negative (Negative); Leukocyte Esterase Urine 3+ (Negative); Nitrite Urine Negative (Negative); Protein Urine Negative (Negative); RBC Urine Automated 0-4 /hpf (0-4); Specific Gravity Urine 1.011 (1.000-1.030); Urobilinogen Urine Negative (Negative); WBC Urine Automated >30 /hpf (0-5); pH Urine 8.5 (4.5-7.5)
[2021-05-10] MEDS: LIDOCAINE 5% 1 PATCH TD SCH (17:15)
[2021-05-10] MEDS: IBUPROFEN 800 MG TAB PO PRN (20:08)
[2021-05-10] MEDS: GABAPENTIN 400 MG CAP PO SCH (20:09)
[2021-05-10] MEDS: lamoTRIgine 25 MG TAB PO SCH (20:09)
[2021-05-10] MEDS: DOXEPIN HCL 25 MG CAPSULE PO SCH (20:09)
[2021-05-11] MEDS: cefTRIAXone SODIUM 2,000 MG in DEXTROSE 5% 50 ML IV SCH (08:24)
[2021-05-11] MEDS: GABAPENTIN 600 MG TAB PO SCH (08:25)
[2021-05-11] MEDS: DICLOFENAC SOD 1% GEL 100 GM TUBE EXT SCH ×4 (08:25→21:49)
[2021-05-11] MEDS: CIPRO 0.3%/DEXAMETHASONE 0.1% OTIC SUSP 7.5ML OT SCH ×2 (08:25→21:47)
[2021-05-11] MEDS: GABAPENTIN 300 MG CAP PO SCH ×2 (08:33→08:39)
[2021-05-11] MEDS: ACETAMINOPHEN 325 MG TAB PO PRN ×2 (10:26→17:58)
[2021-05-11] MEDS: IBUPROFEN 800 MG TAB PO PRN (12:45)
[2021-05-11] MEDS ORDERED: GABAPENTIN 300 MG CAP PO SCH (13:00)
[2021-05-11] MEDS ORDERED: methylPREDNISolone 4 MG TAB, 6 DAY TAPER PO SCH (16:15)
[2021-05-11] MEDS ORDERED: methylPREDNISolone 4 MG TAB PO SCH ×2 (18:00→21:00)
[2021-05-11] MEDS: LIDOCAINE 5% 1 PATCH TD SCH (18:02)
--- NOTE | 2021-05-11 20:54 | Hospitalist Progress Note ---
Date of Service May 11, 2021 Assessment & Plan (1) Acute Lyme disease: Plan: Early stage lyme. [employer]AL[employer]ER [employer]ICE lyme disease was a concern at admission due to her various facial symptoms - LP negative; CSF lyme DNA NEGATIVE making [employer]ICE lyme highly unlikely. Discussed with Dr Smyth and advised ceftriaxone for a few days as difficult to r/o central lyme disease Agree with prior provider and would advise against PICC line placement due to prior diversion of subutex. (2) Craniofacial pain syndrome: Plan: ongoing. no specific agent has been effective at reducing/eliminating her symptoms. Suspected trigeminal neuralgia Neurology recommends: * doxepin 50mg hs * continue lamictal to 25mg BID * increasing gabapentin to 300mg am, 300mg afternoon, and 400mg at bedtime * Dizziness noted possibly due to medication however would recommend staying the course for now and will get PT to assess per patient request Complex migraine highly unlikely -- did NOT respond to fioricet, NSAIDs, or imitrex. MRI of brain x 2 negative. MRV/MRA brain negative. LP negative. Mastoid CT earlier this month negative. spinal headache ruled out by anesthesia. pain management saw - conservative Rx recommended at this time rather than diagnostic nerve block Not suspected to be secondary to cheek fillers given all three nerve distribution However prudent to follow up with her plastic surgeon on discharge (3) Hypokalemia: Plan: resolved (4) Depression: Plan: psych consult appreciated Lamictal may provide some mood stabilization (5) Anxiety: Plan: refusing buspar refusing ativan previously was on various SSRIs in the past Lamictal may help moods (6) Acute ear pain: Plan: b/l - etiology?? otalgia/fullness with tinnitus b/l. spoke with Dr Villafuerte [facility] - he will see her shortly after d/c; will need tympanograms, audiometry, etc to determine etiology. MRI brain x 2 negative for acute pathology including an MRI that was focused on the ear canals. seems to have some benefit from ciprodex -- but no discrete evidence of otitis externa or otitis media on exam as of 05/04 and 05/10. suspect the steroid component helps the canal and/or TM pain. continue for now. suspect element of eustachian tube dysfunction. (7) Chronic pain syndrome: Plan: PDMP shows chronic subutex usage since at least 2018. had refill on 04/08. pain management states that she was diverting her subutex to her boyfriend. continues to refuse subutex and all narcotics, however. subutex discontinued from her med list. pain management saw patient in consult -- no plans for diagnostic nerve block of the face (trigeminal nerve) at this time. (8) Pituitary microadenoma: Plan: unlikely to be contributing to current symptomatology. checking cortisol would not be helpful because of recent steroids TSH wnl could consider prolactin, LH, FSH at some point (9) History of COVID-19: Plan: January 2021 no long-hauler symptoms (10) Radicular pain of right lower extremity: Plan: resolved L5 nerve root distribution. started following her LP. MRI of l-spine returned -- no hematoma. mild HNP seen on MRI which is the likely culprit either way her RLE symptoms are resolved (11) Complex care coordination: Plan: care d/w Dr Acevedo several times this week care d/w Dr Dey from pain management this week care d/w pt's mother this week care d/w Dr Smyth today (12) Abdominal pain: Plan: resolved KUB x-ray -- tiny left-sided renal stones in the renal pelvis, no significant fecal load she could have passed a small kidney stone - but ua negative either way pain resolved (13) Candidiasis of mouth and esophagus: Plan: change nystatin to magic mouthwash q6h swish/spit (14) Pain of left calf: Plan: doppler obtained - no DVT the "tingling" of left calf is 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 Today sudden worsening or bilateral ear and behind eyes fullness. Very tearful about prospect of discharge. Feels she cannot manage at home. Concerned about balance. Review of Systems Constitutional: no fever, no chills, no fatigue, no malaise, no weakness and no anorexia going outside for walks w/ family & boyfriend Ear, Nose, Mouth, Throat: + ear pain and + tinnitus; no ear discharge, no nasal discharge, no post nasal drip and no sore throat Respiratory: no cough, no dyspnea and no dyspnea on exertion Cardiovascular: no chest pain Gastrointestinal: no nausea Physical Exam Constitutional: well developed and well nourished; no acute distress and no altered mental status ENMT: Ears: no external ear abnormality (ear canal superiorly orientated but otherwise normal) and no TM abnormality Mouth: no oropharynx abnormality and no TMJ abnormality Throat: no tonsil abnormality Respiratory: normal respiratory effort, lungs clear to auscultation Cardiovascular: RRR, no murmur, no edema Heart Sounds: normal S1 and normal S2 Extremities: no edema Gastrointestinal (Abdomen): normal bowel sounds, soft, nontender, no hepatosplenomegaly Musculoskeletal: no cyanosis or clubbing, extremities motor strength 5/5 Extremities: extremities normal to inspection Skin: no rashes, warm and dry Neurologic: moves all extremities; no focal motor deficits Psychiatric: Orientation: alert and oriented x 3 Affect: + anxious affect and + tearful affect Results & Data Results & Data ([facility]) Vital Signs (Past 12 Hours) Vital Signs Temp Pulse Resp BP Pulse Ox 05/11/21 17:53 37.2 C 79 16 120/81 98 PG Care Time/CCT Total # of Minutes Spent Total Time Spent with Patient: Total time spent is greater than 50% in coordination of care (as documented) at patient's floor/unit and/or counseling patient: Coding Level of Care Code 26429 Subseq Hosp Care Lvl 2 Diagnoses Acute Lyme disease A69.20 Craniofacial pain syndrome G51.8 Hypokalemia E87.6 Depression F32.9 Anxiety F41.9 Acute ear pain H92.03 Laterality: bilateral Chronic pain syndrome G89.4 Pituitary microadenoma D35.2 History of COVID-19 Z86.16 Radicular pain of right lower extremity M54.10 Complex care coordination Z71.89 Abdominal pain R10.9 Candidiasis of mouth and esophagus B37.81; B37.0 Pain of left calf M79.662 (1) Acute ear pain Laterality: bilateral Qualified Code(s): H92.03 - Otalgia, bilateral
[2021-05-11] MEDS: lamoTRIgine 25 MG TAB PO SCH (21:45)
[2021-05-11] MEDS: DOXEPIN HCL 25 MG CAPSULE PO SCH (21:45)
[2021-05-11] MEDS: GABAPENTIN 400 MG CAP PO SCH (21:47)
[2021-05-12] MEDS: IBUPROFEN 800 MG TAB PO PRN ×2 (00:29→18:09)
[2021-05-12] MEDS: methylPREDNISolone 4 MG TAB PO SCH ×3 (06:35→18:09)
[2021-05-12] MEDS ORDERED: GABAPENTIN 300 MG CAP PO STA (06:51)
--- NOTE | 2021-05-12 08:56 | Neurology Progress Note ---
Date of Service May 12, 2021 Assessment & Plan (1) Craniofacial pain syndrome: (2) Headache: Plan: This patient has relatively acute onset of left trigeminal neuralgia like face pain following what was likely an acute Lyme infection. Her IgM was positive. She has been treated with doxycycline for over 2 weeks. She does not have any right face pain but does have bilateral ear discomfort and tinnitus. Today she is slightly better With her pain, than she had been earlier in the week. She had "cheek Fillers" March 24 by Plastic surgery. Fillers have been associated with some facial neuralgia rarely but the current pattern is probably unrelated to her cheek Fillers in that it involves all 3 distributions of the 5th cranial nerve on the left suggesting a deep main trigeminal neuralgia. Extensive imaging studies and LP have been unremarkable so far. there is no sign of meningoencephalitis. Her neurologic examination is unremarkable as well with no focal neurologic deficits, encephalopathy, or meningeal signs. She has an interesting emotional lability with crying and then going back to normal within a matter of seconds, on a frequent basis. She admits to depression because of her physical condition. Recommendations: 1. Increase doxepin to 50 milligrams each evening. This is my drug of choice for burning pain. 2. Continue Lamictal 25 mg twice a day. This is an excellent mood stabilizer. 3. Increase gabapentin to 600mg tid . If gabapentin does not help I may consider baclofen for pain control. 4. Continue doxycycline for 2 more weeks 5. Increase activity as able 6. consult Neurosurgery for consideration of trigeminal neuralgia procedure (nerve ablation). My places of choice include [facility] or [facility]. The patient has chosen [facility] in [place], I spent a total of 35 minutes with this case including review of records, direct evaluation the patient at bedside, and discussion of the case with the patient and RN at bedside as well as Dr. Mesa. including differential diagnosis and treatment options. Admission and Anticipated Discharge Date Admission Date: May 02, 2021 Subjective The patient continues to have left facial pain and dysesthesias. She states that the sharp pain is a little better on the left face but she still gets sharp pains in her ears bilaterally. She does have numbness and tingling on the left face and continued burning pain of the left cheek and jaw. She is tolerating 25 milligrams doxepin daily and gabapentin at the current dose of 300 milligrams, 300 milligrams, 400 milligrams.She is also on Lamictal 25 milligrams each evening. She has been on several days of ceftriaxone. The patient wants to see a neurosurgeon for a neurosurgical procedure for her trigeminal neuralgia on the left. She contacted [facility], in [place]. Results & Data ([facility]) Vital Signs (Past 12 Hours) Vital Signs Temp Pulse Resp BP BP Pulse Ox 05/12/21 07:00 36.8 C 74 20 107/73 98 05/12/21 00:24 36.6 C 127/84 05/11/21 22:20 36.7 C 79 16 96/64 L 98 Exam (Neuro) Physical Exam: She is awake and alert. Speech is without aphasia or dysarthria. Mood is reasonable but she has a little bit of late ability as before. It is not quite as prominent as before and it "turns off" quicker than earlier this week. Thought processes are quite intact. Extraocular eye muscles are intact without nystagmus. There is no facial droop. Tongue is midline. Coordination is normal in the arms and strength is symme trical. There are no abnormal involuntary. PG Care Time/CCT Total # of Minutes Spent Total Time Spent with Patient: Total time spent is greater than 50% in coordination of care (as documented) at patient's floor/unit and/or counseling patient: Coding Level of Care Code 52630 Subseq Hosp Care Lvl 3 Diagnoses Craniofacial pain syndrome G51.8 Headache R51.9 Headache chronicity pattern: acute headache Headache type: unspecified Intractability: not intractable (1) Headache Headache chronicity pattern: acute headache Headache type: unspecified Intractability: not intractable Qualified Code(s): R51.9 - Headache, unspecified
[2021-05-12] MEDS ORDERED: GABAPENTIN 300 MG CAP PO SCH ×2 (09:00)
[2021-05-12] MEDS: CIPRO 0.3%/DEXAMETHASONE 0.1% OTIC SUSP 7.5ML OT SCH ×2 (09:29→21:21)
[2021-05-12] MEDS: cefTRIAXone SODIUM 2,000 MG in DEXTROSE 5% 50 ML IV SCH (09:29)
[2021-05-12] MEDS: DICLOFENAC SOD 1% GEL 100 GM TUBE EXT SCH ×4 (09:30→21:23)
[2021-05-12] MEDS ORDERED: GABAPENTIN 300 MG CAP PO ONE (09:30)
[2021-05-12] MEDS: SENNA 8.6 MG TAB PO SCH (09:31)
[2021-05-12] MEDS: ACETAMINOPHEN 325 MG TAB PO PRN (12:05)
[2021-05-12] MEDS ORDERED: GABAPENTIN 600 MG TAB PO SCH (14:00)
[2021-05-12] MEDS: GABAPENTIN 300 MG CAP PO SCH ×2 (14:20→21:22)
[2021-05-12] MEDS: LIDOCAINE 5% 1 PATCH TD SCH (18:09)
[2021-05-12] MEDS ORDERED: DOXEPIN HCL 50 MG CAPSULE PO SCH (21:00)
[2021-05-12] MEDS ORDERED: GABAPENTIN 400 MG CAP PO SCH (21:00)
[2021-05-12] MEDS ORDERED: methylPREDNISolone 4 MG TAB PO SCH (21:00)
[2021-05-12] MEDS: lamoTRIgine 25 MG TAB PO SCH (21:22)
--- NOTE | 2021-05-12 22:18 | Hospitalist Progress Note ---
Date of Service May 12, 2021 Assessment & Plan (1) Acute Lyme disease: Plan: Early stage lyme. BEE RANCHER lyme disease was a concern at admission due to her various facial symptoms - LP negative; CSF lyme DNA NEGATIVE making BEE RANCHER lyme highly unlikely. Discussed with Dr Smyth and advised ceftriaxone for a few days as difficult to r/o central lyme disease Agree with prior provider and would advise against PICC line placement due to prior diversion of subutex. (2) Craniofacial pain syndrome: Plan: ongoing. no specific agent has been effective at reducing/eliminating her symptoms. Suspected trigeminal neuralgia * Increase doxepin 50mg hs * continue lamictal to 25mg BID * increasing gabapentin to 600mg PO TID Complex migraine highly unlikely -- did NOT respond to fioricet, NSAIDs, or imitrex. MRI of brain x 2 negative. MRV/MRA brain negative. LP negative. Mastoid CT earlier this month negative. spinal headache ruled out by anesthesia. pain management saw - conservative Rx recommended at this time rather than diagnostic nerve block Not suspected to be secondary to cheek fillers given all three nerve distribution However prudent to follow up with her plastic surgeon on discharge (3) Hypokalemia: Plan: resolved (4) Depression: Plan: psych consult appreciated Lamictal may provide some mood stabilization (5) Anxiety: Plan: refusing buspar refusing ativan previously was on various SSRIs in the past Lamictal may help moods (6) Acute ear pain: Plan: b/l - etiology?? otalgia/fullness with tinnitus b/l. prior provider spoke with [facility] - he will see her shortly after d/c; will need tympanograms, audiometry, etc to determine etiology. MRI brain x 2 negative for acute pathology including an MRI that was focused on the ear canals. seems to have some benefit from ciprodex -- but no discrete evidence of otitis externa or otitis media on exam as of 05/04 and 05/10. suspect the steroid component helps the canal and/or TM pain. continue for now. suspect element of eustachian tube dysfunction. (7) Chronic pain syndrome: Plan: PDMP shows chronic subutex usage since at least 2018. had refill on 04/08. pain management states that she was diverting her subutex to her boyfriend. continues to refuse subutex and all narcotics, however. subutex discontinued from her med list. pain management saw patient in consult -- no plans for diagnostic nerve block of the face (trigeminal nerve) at this time. (8) Pituitary microadenoma: Plan: unlikely to be contributing to current symptomatology. checking cortisol would not be helpful because of recent steroids TSH wnl could consider prolactin, LH, FSH at some point (9) History of COVID-19: Plan: January 2021 no long-hauler symptoms (10) Radicular pain of right lower extremity: Plan: resolved L5 nerve root distribution. started following her LP. MRI of l-spine returned -- no hematoma. mild HNP seen on MRI which is the likely culprit either way her RLE symptoms are resolved (11) Complex care coordination: Plan: care d/w Dr Acevedo several times this week care d/w Dr Dey from pain management this week care d/w pt's mother this week care d/w Dr Smyth today (12) Abdominal pain: Plan: resolved KUB x-ray -- tiny left-sided renal stones in the renal pelvis, no significant fecal load she could have passed a small kidney stone - but ua negative either way pain resolved (13) Candidiasis of mouth and esophagus: Plan: change nystatin to magic mouthwash q6h swish/spit (14) Pain of left calf: Plan: doppler obtained - no DVT the "tingling" of left calf is 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 Main major ongoing complaint is bilateral ear fullness and tinnitus. Left sided numbness still continuing however. Doing well with PT without significant balance issues. Discussed with Dr Smyth and will increase gabapentin and doxepin today with plan to discharge possibly tomorrow on doxycycline. She wishes to see neurosurgery in [place] as an outpatient for the trigeminal neuralgia. Review of Systems Review of Systems: All systems reviewed & are unremarkable except as noted in HPI & below Physical Exam Constitutional: well developed and well nourished; no acute distress and no altered mental status ENMT: Ears: no external ear abnormality Mouth: no oropharynx abnormality and no TMJ abnormality Respiratory: normal respiratory effort Musculoskeletal: no cyanosis or clubbing, extremities motor strength 5/5 Extremities: extremities normal to inspection Skin: no rashes, warm and dry Neurologic: moves all extremities; no focal motor deficits Psychiatric: Orientation: alert and oriented x 3 Affect: + tearful affect Results & Data Results & Data ([facility]) Vital Signs (Past 12 Hours) Vital Signs Temp Pulse Resp BP Pulse Ox 05/12/21 21:44 36.9 C 75 15 91/58 L 98 05/12/21 15:23 36.6 C 78 20 114/72 99 PG Care Time/CCT Total # of Minutes Spent Total Time Spent with Patient: Total time spent is greater than 50% in coordination of care (as documented) at patient's floor/unit and/or counseling patient: Coding Level of Care Code 81452 Subseq Hosp Care Lvl 2 Diagnoses Acute Lyme disease A69.20 Craniofacial pain syndrome G51.8 Hypokalemia E87.6 Depression F32.9 Anxiety F41.9 Acute ear pain H92.03 Laterality: bilateral Chronic pain syndrome G89.4 Pituitary microadenoma D35.2 History of COVID-19 Z86.16 Radicular pain of right lower extremity M54.10 Complex care coordination Z71.89 Abdominal pain R10.9 Candidiasis of mouth and esophagus B37.81; B37.0 Pain of left calf M79.662 (1) Acute ear pain Laterality: bilateral Qualified Code(s): H92.03 - Otalgia, bilateral
[2021-05-13] MEDS: methylPREDNISolone 4 MG TAB PO SCH ×2 (05:58→13:35)
[2021-05-13] MEDS: GABAPENTIN 300 MG CAP PO SCH ×2 (09:09→13:35)
[2021-05-13] MEDS: CIPRO 0.3%/DEXAMETHASONE 0.1% OTIC SUSP 7.5ML OT SCH ×2 (09:09→09:29)
[2021-05-13] MEDS: DICLOFENAC SOD 1% GEL 100 GM TUBE EXT SCH ×2 (09:09→13:34)
[2021-05-13] MEDS: SENNA 8.6 MG TAB PO SCH (09:10)
[2021-05-13] MEDS: cefTRIAXone SODIUM 2,000 MG in DEXTROSE 5% 50 ML IV SCH (09:14)
[2021-05-13] MEDS: ACETAMINOPHEN 325 MG TAB PO PRN (09:21)
--- NOTE | 2021-05-13 13:21 | Discharge Summary ---
Date of Service May 13, 2021 Admission HPI Per Admitting Provider The patient is a 26-year-old female with a past medical history including Lyme disease, MRSA, history of multiple concussions, depression with anxiety, reflux esophagitis and ovarian cyst. She presents with symptoms as noted above. She had been placed on oral doxycycline in the outpatient setting, with continued worsening of her symptoms. She did have a dose of IV ceftriaxone at 1 point in the ED at the previous visit, and reports that her symptoms did improve briefly, but then worsened again. She has had a recent facial rash. She does report some generalized body aches and fatigue. She did undergo an MRI of brain without IV contrast on 04/26/2021, which showed no abnormalities. She was COVID-19 negative in the ED this morning. She did have Lyme testing performed on 04/23/2021 which was IgG negative, but IgM positive with reactive IgM bands 3/3 at 23 kDa, 39 kDa, and 41 kDa. Admission Exam Per Admitting Provider The patient is awake, alert and oriented 3, well developed and well nourished, normocephalic and atraumatic, lying in bed and in no acute distress. HEENT--PERRL, EOMI, mucous membranes and oropharynx dry. Neck--supple. No JVD. No bruits. Thyroid normal, trachea midline, no adenopathy. Heart--normal S1 and S2. No murmurs, rubs or gallops. Lungs--clear bilaterally, no respiratory distress, no accessory muscle use. Abdomen--normal bowel sounds and soft. Nontender. Nondistended, no hernias or masses, no organomegaly. Extremities--no cyanosis or clubbing. No edema. There are good distal pulses b/l. Dermatologic--normal skin turgor, normal color, no abnormal lymph nodes, no rash. Neurologic--cranial nerves II through XII grossly intact. Rheumatologic--normal range of motion. Psychiatric--anxious Principal Diagnosis Trigeminal Neuralgia Lyme disease Tinnitus Discharge Exam Constitutional well developed and well nourished; no acute distress and no altered mental status ENMT Ears: no external ear abnormality Mouth: no oropharynx abnormality and no TMJ abnormality Respiratory normal respiratory effort, lungs clear to auscultation normal respiratory effort Cardiovascular RRR, no murmur, no edema Heart Sounds: normal S1 and normal S2 Extremities: no edema Gastrointestinal (Abdomen) normal bowel sounds, soft, nontender, no hepatosplenomegaly Musculoskeletal no cyanosis or clubbing, extremities motor strength 5/5 Extremities: extremities normal to inspection Skin no rashes, warm and dry Neurologic moves all extremities; no focal motor deficits Psychiatric Orientation: alert and oriented x 3 Affect: + tearful affect Discharge Data Allergies Allergy/AdvReac Type Severity Reaction Status Date / Time No Known Allergies Allergy Verified 05/02/21 09:35 Consultations 05/02/21 10:57 ED Decision to Admit Stat 05/02/21 15:23 Consult Neurology Routine 05/04/21 17:43 Consult Psychiatry Routine 05/05/21 08:34 Consult Pain Management Routine 05/08/21 12:37 Consult Anesthesiology Routine 05/13/21 12:51 Burn CD for patient Routine Ordered Studies 05/03/21 09:18 MR brain IAC wo/w con Urgent MR brain trigeminal wo/w con Urgent IMPRESSION: 1. Unremarkable MRI of the brain. 2. No abnormalities within the internal auditory canals. 3. Exam mildly compromised by motion artifact. 05/04/21 12:45 FL lumbar puncture diagnostic Urgent 05/05/21 16:59 MR lumbar spine wo con Urgent IMPRESSION: 1. There is no disc herniation or significant acquired compromise of the central canal. 2. There is no epidural fluid collection identified as clinically queried. 3. Mild degenerative disc disease at L4-L5 and L5-S1 as above. See discussion for detailed level by level analysis. 05/06/21 09:03 MR angio head wo con Routine IMPRESSION: Unremarkable MRA of the head. MR venography head wo con Routine IMPRESSION: No evidence of dural sinus thrombosis. 05/09/21 13:47 US venous doppler LE LT Urgent IMPRESSION: No evidence of deep venous thrombus within the left lower extremity. Hospital Course (1) Acute Lyme disease: (2) Craniofacial pain syndrome: (3) Hypokalemia: (4) Depression: (5) Anxiety: (6) Acute ear pain: (7) Chronic pain syndrome: (8) Pituitary microadenoma: (9) History of COVID-19: (10) Radicular pain of right lower extremity: (11) Complex care coordination: (12) Abdominal pain: (13) Candidiasis of mouth and esophagus: (14) Pain of left calf: Sarah Marshall is a 26 year old female admitted to [facility] from May [id number] due to stabbing left ear pain, associated tinnitus. She was treated for possible central nervous system lyme disease with intravenous ceftriaxone however lumbar puncture was subsequently negative therefore will be switched back to oral doxycycline on discharge. This is most likely a left trigeminal neuralgia. This is being treated with gabapentin, doxepin and Lamictal. Recommend following up with neurosurgery and referral will be sent for this. Please follow up with neurology in 2-4 weeks after discharge. She was also diagnosed with pulsatile tinnitus. MRI scans of cranial arteries and veins did not show any cause of this. Recommend follow up with ENT as discussed with appointment arranged for next week. She was also diagnosed with bacterial vaginosis. Discussed treatment options of metronidazole gel vs. tablets and elected for the gel at this time. If smell discharge continues recommend prescribing a tablet course of metronidazole. Total Time Total Time Spent Total Time Spent (In Minutes): 50 Discharge Plan Discharge Items Patient Disposition: Home - Self-Care Reason For Visit: RN CORRECTIONS LYME DISEASE Discharge Diagnosis: Trigeminal Neuralgia Lyme disease Tinnitus Condition on Discharge: Fair Activity: Resume your previous activity Non-emergency contact: Primary Care Provider Call non-emergency contact if: you have any medication questions and your symptoms worsen Follow-up/Referrals: Chasity Mcleod [Other] (Follow up trigeminal neuralgia ) Lj Appiah DO [Physician] - 05/18/21 11:20 am (Follow up for tinnitus - appointment already arranged) Ptarice Acharya MD [Primary Care Provider] - Diet: Regular Addtl Attending Provider Instructions: You were admitted to [facility] from May 02-2020 due to stabbing left ear pain, associated tinnitus. You were treated for possible central nervous system lyme disease with intravenous ceftriaxone however lumbar puncture was subsequently negative therefore will be switched back to oral doxycycline on discharge. This is most likely a left trigeminal neuralgia. This is being treated with gabapentin, doxepin and Lamictal. Recommend follow up with neurosurgery and referral will be sent for this. Please follow up with neurology in 2-4 weeks after discharge. You have also been having pulsatile tinnitus. MRI scans of cranial arteries and veins did not show any cause of this. Recommend follow up with ENT as discussed with appointment arranged for next week. You were also noted to have bacterial vaginosis. Discussed treatment options of metronidazole gel vs. tablets and elected for the gel at this time. If smell discharge continues recommend following up with your primary care physician for metronidazole tablets to treat this. Pending Studies at Discharge: No Stand-Alone Forms: My [facility], Opioid Pain Management, Work/School Release, Smoking Cessation Medications and DC Order Prescriptions: New doxepin 50 mg Capsule 50 mg PO HS Qty: 30 RF: 0 lamotrigine [Lamictal] 25 mg Tablet 25 mg PO HS Qty: 30 RF: 0 lorazepam [Ativan] 0.5 mg tablet 0.5 mg PO Q8H PRN (Reason: anxiety) Qty: 7 RF: 0 doxycycline hyclate 100 mg tablet 100 mg PO BID 14 Days Qty: 28 RF: 0 methylprednisolone [Medrol] 4 mg tablet See Rx Instructions .ROUTE .COMPLEX Qty: 10 RF: 0 gabapentin 300 mg capsule 600 mg PO TID Qty: 180 RF: 0 Continued Mirena 20 mcg/24 hours (6 yrs) 52 mg Intrauterine Device 1 device INTRAUTERINE CONT RF: 0 ondansetron 4 mg tablet,disintegrating 4 mg PO Q6H PRN (Reason: nausea and vomiting) Qty: 20 RF: 0 fluticasone propionate 50 mcg/actuation spray,suspension 1 spray INTRANASAL BID RF: 0 Discontinued buprenorphine HCl 8 mg tablet, sublingual 8 mg SUBLINGUAL TID RF: 0 carbamazepine [Carbatrol] 100 mg capsule, ER multiphase 12 hr 100 mg PO BID RF: 0 cephalexin 500 mg capsule 500 mg PO QID RF: 0 gabapentin 300 mg capsule 300 mg PO TID RF: 0 methylprednisolone 4 mg tablets,dose pack 4 mg PO DIRECTED RF: 0 doxycycline hyclate 100 mg capsule 100 mg PO BID 21 Days Qty: 42 RF: 0 Discharge Orders: Discharge Order (Routine); Ordered 05/13/21 Ordered By: Wilmer Rasmussen/Other Patient Handouts: ED Trigeminal Neuralgia Admission Data Admit Date/Time: 05/02/21 11:46 Attending Provider: Wilmer Mesa Admit Provider: Ray Trinh Primary Care Provider: Patrice Acharya Other Providers: Ray Trinh ; Jesús Acevedo ; Yanet Aden ; Dr Daniel ; Chelsey Steele ; Reddy Meng ; Lesly Dey ; Primo Youssef ; PT,DECLINED Other Interventions: Discharge Summary Assessment (RN) Last Done: 05/13/21 14:11 Coding Level of Care Code D/C DAY MANAGEMENT >30 MINS Diagnoses Acute Lyme disease A69.20 Craniofacial pain syndrome G51.8 Hypokalemia E87.6 Depression F32.9 Anxiety F41.9 Acute ear pain H92.03 Laterality: bilateral Chronic pain syndrome G89.4 Pituitary microadenoma D35.2 History of COVID-19 Z86.16 Radicular pain of right lower extremity M54.10 Complex care coordination Z71.89 Abdominal pain R10.9 Candidiasis of mouth and esophagus B37.81; B37.0 Pain of left calf M79.662
[2021-05-14] MEDS ORDERED: methylPREDNISolone 4 MG TAB PO SCH (07:00)
[2021-05-15] MEDS ORDERED: methylPREDNISolone 4 MG TAB PO SCH (07:00)
[2021-05-16] MEDS ORDERED: methylPREDNISolone 4 MG TAB PO SCH (07:00)
== END 2021-05-13 15:27 | disposition home or self-care (01) | DRG 868 ==
LOC: ED 08:54 → SUPCPDRO 11:46 → SUATTDRO 11:46 → 2N 11:46 → 3E 05-07 16:27

== ENCOUNTER 2022-11-10 00:14 | Inpatient (IN) ==
[2022-11-10 02:57] LABS: Basophils # (auto) 0.02 K/uL (0-0.2); Basophils % (auto) 0.3 %; Eosinophils # (auto) 0.29 K/uL (0-0.50); Eosinophils % (auto) 3.8 %; Hematocrit (blood only) 40.4 % (34.1-44.9); Hemoglobin 13.7 g/dl (12.0-16.0); Immature Granulocytes # (auto) 0.02 K/uL (0.00-0.02); Immature Granulocytes % (auto) 0.3 %; Lymphocytes # (auto) 1.92 K/uL (1.2-3.4); Lymphocytes % (auto) 25.1 %; Mean Corpuscular Hemoglobin 31.2 pg (25.0-34.0); Mean Corpuscular Hgb Conc 33.9 g/dL (32.0-36.0); Mean Platelet Volume 11.4 fL (9.4-12.3); Monocytes # (auto) 0.49 K/uL (0.24-0.82); Monocytes % (auto) 6.4 %; Neutrophils # (auto) 4.92 K/uL (1.4-6.5); Neutrophils % (auto) 64.1 %; Platelet Count 206 K/uL (130-400); RDW Coefficient of Variation 12.4 % (11.5-14.5); Red Blood Count 4.39 M/uL (3.93-5.22); White Blood Count 7.66 K/ul (4.8-10.8)
[2022-11-10] MEDS ORDERED: cefTRIAXone SODIUM 2,000 MG/70 ML BAG IV STA (03:12)
[2022-11-10 03:13] LABS: Pregnancy Test, Serum Negative (Negative)
[2022-11-10 03:16] LABS: INR 1.1 (0.9-1.1); Partial Thromboplastin Time 27.1 Seconds (21.0-31.0); Prothrombin Time 11.3 Seconds (9.0-12.0)
--- NOTE | 2022-11-10 03:24 | Emergency Department Note ---
History of Present Illness General Chief complaint: Dizziness Stated complaint: DIZZINESS/VISION ISSUES/LYMES DISEASE Time Seen by Provider: 11/10/22 02:46 History of Present Illness Maximum Pain Intensity: 9 27-year-old female with a history of Lyme states that she has been dizzy for a f ew weeks now she is currently on doxycycline. Patient of note was in our emergency department yesterday had an LP and blood work and states that her Western blot was positive for Lyme was told to come back in to receive IV Rocephin and an admission. Patient had a similar episode 2 years ago and re quired IV Rocephin. Patient complains of dizziness generalized weakness. Home Medications Medication Instructions Recorded Confirmed Type acetaminophen 500 mg tablet 1,000 mg PO Q6H PRN Pain 05/23/21 11/10/22 History (Tylenol Extra Strength) copper 380 square mm intrauterine 1 device intrauterine CONTINOUS 02/18/22 0 11/10/22 History device (ParaGard T 380A) buprenorphine HCl 8 mg sublingual 8 mg sublingual DAILY 10/22/22 11/10/22 History tablet ondansetron 4 mg disintegrating 4 mg PO Q6H PRN nausea and 10/26/22 11/10/22 Rx tablet vomiting #15 tabs doxycycline hyclate 100 mg tablet 100 mg PO BID 28 days #56 tabs 11/02/22 11/10/22 Rx metoclopramide HCl 5 mg tablet 5 mg PO BID PRN nausea and 11/02/22 11/10/22 Rx (Reglan) vomiting #30 tabs cefdinir 300 mg capsule 300 mg PO Q12H 5 days #10 caps 11/07/22 11/10/22 Rx hydroxyzine pamoate 50 mg capsule 50 mg PO Q8H PRN sleep/anxiety #15 11/07/22 11/10/22 Rx (Vistaril) caps methylprednisolone 4 mg tablets in See Rx Instructions .Route 11/07/22 11/10/22 Rx a dose pack .COMPLEX #21 ea nitrofurantoin 100 mg PO BID 11/07/22 11/10/22 History monohydrate/macrocrystals 100 mg capsule metronidazole 500 mg tablet 500 mg PO BID 7 days #14 tabs 11/08/22 11/10/22 Rx amitriptyline 25 mg tablet 25 mg PO .COMPLEX #60 tabs 11/09/22 11/10/22 Rx Allergies Allergy/AdvReac Type Severity Reaction Status Date / Time No Known Allergies Allergy Verified 11/10/22 01:36 Past Med/Surg History Medical History Anxiety Depression H/O multiple concussions Headache History of asthma Misuse of medication MRSA (methicillin resistant Staphylococcus aureus) Ovarian cyst Reflux esophagitis Surgical History History of colonoscopy Family History Father Hearing loss Mother Hypertension Son Asthma Other No family history of adverse response to anesthesia No family history of bleeding disorder Social History Smoking Status: Never smoker Second Hand Exposure: No; Hx Alcohol Use: No Hx Substance Use: No Preferred Language: Icelandic Communication Ability: Effective Marketing Database Coordinator Required: No Beliefs That Will Affect Care: None marital status: Single Current Living Situation: Significant Other current occupational status: unemployed How many Children do You have: 1 Feels Safe at Home: Yes Assistive Devices: Glasses Review of Systems A total of 10 systems reviewed and were otherwise negative Neurologic: + paresthesia and + dizziness Physical Exam Vital Signs Vital Signs - 24 hr 11/10/22 00:33 11/10/22 02:53 11/10/22 02:53 Temperature 36.6 C Temperature Source Temporal Artery Scan Pulse Rate 99 H 83 Pulse Rate [Apical] Pulse Rhythm Regular Pulse Rhythm [Apical] Pulse Strength [Apical] Respiratory Rate 20 18 Respiratory Effort / Characteristics Respiratory Depth Respiratory Pattern Blood Pressure 135/90 Blood Pressure [Right Arm] Blood Pressure Mean 105 Blood Pressure Mean [Right Arm] Blood Pressure Position [Right Arm] Pulse Oximetry 99 99 99 Oxygen Delivery Method Room Air Room Air Room Air Oxygen Flow Rate 0 Sepsis Recent Fever Within 48 Hours Yes Sepsis New/Unexplained Change in Mental Status No Sepsis Action Taken by Nursing No Action Required 11/10/22 02:54 Temperature Temperature Source Pulse Rate Pulse Rate [Apical] 83 Pulse Rhythm Pulse Rhythm [Apical] Regular Pulse Strength [Apical] Normal Respiratory Rate 18 Respiratory Effort / Characteristics Non-Labored Spontaneous Respiratory Depth Normal Respiratory Pattern Regular Blood Pressure Blood Pressure [Right Arm] 113/78 Blood Pressure Mean Blood Pressure Mean [Right Arm] 89 Blood Pressure Position [Right Arm] Lying Pulse Oximetry 99 Oxygen Delivery Method Room Air Oxygen Flow Rate Sepsis Recent Fever Within 48 Hours Sepsis New/Unexplained Change in Mental Status Sepsis Action Taken by Nursing GENERAL: Patient is awake alert in no acute distress patient is resting comfortably and showing no signs of anxiety EYES: The conjunctivae are clear. The pupils are round and reactive. EARS, NOSE, MOUTH AND THROAT: The nose is without any evidence of any deformity. Mucous membranes are moist. Tongue is midline. NECK: The neck is nontender and supple. RESPIRATORY: Normal respiratory effort is noted there is no evidence of wheezing rhonchi or rales CARDIOVASCULAR: Regular rate and rhythm noted there no murmurs rubs or gallops normal S1 normal S2. GASTROINTESTINAL: The abdomen is soft. Abdomen is nontender. PELVIS: The Pelvis is stable. No tenderness to palpation is noted. BACK: No midline tenderness or or step-off noted range of motion in flexion extension as well as rotation no signs of muscle spasm noted MUSCULOSKELETAL/EXTREMITIES: There is no evidence of gross deformity full range of motion is noted in the hips and shoulders. SKIN: There is no obvious evidence of any rash. There are no petechiae, pallor or cyanosis noted. NEUROLOGIC: Patient is awake alert and oriented x3 strength is symmetric Course Reevaluation(s) Reevaluation #1: Patient resting in no distress. Patient will be given IV Rocephin. The case was discussed with the hospitalist for admission Time: 03:28 Consultations Consultation #1: Spoke with [facility] hospitalist for admission Time: 03:28 Medical Decision Making Medical Records Attestation: I reviewed the patient's medical records. Home Medications Current Medication List: was personally reviewed by me Laboratory Data Attestation: I reviewed the patient's lab results. Patient's lab work reviewed by me is unremarkable 11/10/22 02:28 11/10/22 02:28 Lab Results 11/10/22 11/10/22 11/10/22 Range/Units 02:28 02:28 02:28 WBC 7.66 (4.8-10.8) K/ul RBC 4.39 (3.93-5.22) M/uL Hgb 13.7 (12.0-16.0) g/dl Hct 40.4 (34.1-44.9) % MCV 92.0 (80.0-100.0) fL MCH 31.2 (25.0-34.0) pg MCHC 33.9 (32.0-36.0) g/dL RDW Std Deviation 42.0 (36.4-46.3) fL RDW Coeff of Rubén 12.4 (11.5-14.5) % Plt Count 206 (130-400) K/uL MPV 11.4 (9.4-12.3) fL Immature Gran % (Auto) 0.3 % Neut % (Auto) 64.1 % Lymph % (Auto) 25.1 % Pickett % (Auto) 6.4 % Eos % (Auto) 3.8 % Baso % (Auto) 0.3 % Neut # (Auto) 4.92 (1.4-6.5) K/uL Lymph # (Auto) 1.92 (1.2-3.4) K/uL Pickett # (Auto) 0.49 (0.24-0.82) K/uL Eos # (Auto) 0.29 (0-0.50) K/uL Baso # (Auto) 0.02 (0-0.2) K/uL Immature Gran # (Auto) 0.02 (0.00-0.02) K/uL PT 11.3 (9.0-12.0) Seconds INR 1.1 (0.9-1.1) APTT 27.1 (21.0-31.0) Seconds PTT Ratio 1.0 Troponin I High Sens < 2.3 (0-14) pg/ml HCG, Qual (Negative) 11/10/22 Range/Units 02:28 WBC (4.8-10.8) K/ul RBC (3.93-5.22) M/uL Hgb (12.0-16.0) g/dl Hct (34.1-44.9) % MCV (80.0-100.0) fL MCH (25.0-34.0) pg MCHC (32.0-36.0) g/dL RDW Std Deviation (36.4-46.3) fL RDW Coeff of Rubén (11.5-14.5) % Plt Count (130-400) K/uL MPV (9.4-12.3) fL Immature Gran % (Auto) % Neut % (Auto) % Lymph % (Auto) % Pickett % (Auto) % Eos % (Auto) % Baso % (Auto) % Neut # (Auto) (1.4-6.5) K/uL Lymph # (Auto) (1.2-3.4) K/uL Pickett # (Auto) (0.24-0.82) K/uL Eos # (Auto) (0-0.50) K/uL Baso # (Auto) (0-0.2) K/uL Immature Gran # (Auto) (0.00-0.02) K/uL PT (9.0-12.0) Seconds INR (0.9-1.1) APTT (21.0-31.0) Seconds PTT Ratio Troponin I High Sens (0-14) pg/ml HCG, Qual Negative (Negative) MDM Narrative Medical decision making differential diagnosis includes Lyme, Lyme neuritis, metabolic derangement, dehydration, anxiety. Plan is to check labs Nursing notes are appreciated and reviewed External medical records were reviewed by me Patient was started on IV Rocephin Case was discussed with the hospitalist who accepts patient for inpatient admission for IV Rocephin Reviewed the CSF and lab work from yesterday Impression & Plan Acute Lyme disease Discharge Plan Visit Data Chief Complaint: Dizziness Stated Complaint: DIZZINESS/VISION ISSUES/LYMES DISEASE ED Provider: Yonas Poole Discharge Problem: Acute Lyme disease Patient Disposition: Admitted As Inpatient Forms Stand Alone Forms: [facility] Prescriptions Prescriptions: No Action amitriptyline 25 mg tablet 25 mg PO .COMPLEX Qty: 60 5RF Rx Instructions: 25 mg orally at bedtime for one week then increase to 2 Tablets at bedtime; ParaGard T 380A 380 square mm intrauterine device 1 device intrauterine CONTINOUS metoclopramide HCl [Reglan] 5 mg tablet 5 mg PO BID PRN (Reason: nausea and vomiting) Qty: 30 0RF doxycycline hyclate 100 mg tablet 100 mg PO BID 28 Days Qty: 56 0RF acetaminophen [Tylenol Extra Strength] 500 mg Tablet 1,000 mg PO Q6H PRN (Reason: Pain) ondansetron 4 mg tablet,disintegrating 4 mg PO Q6H PRN (Reason: nausea and vomiting) Qty: 15 0RF nitrofurantoin monohyd/m-cryst 100 mg capsule 100 mg PO BID Rx Instructions: ordered 11/05/22 take for 7 days hydroxyzine pamoate [Vistaril] 50 mg capsule 50 mg PO Q8H PRN (Reason: sleep/anxiety) Qty: 15 0RF methylprednisolone 4 mg tablets,dose pack See Rx Instructions .ROUTE .COMPLEX Qty: 21 0RF Rx Instructions: Please follow instructions per blister pack. cefdinir 300 mg capsule 300 mg PO Q12H 5 Days Qty: 10 0RF buprenorphine HCl 8 mg tablet, sublingual 8 mg SUBLINGUAL DAILY metronidazole 500 mg tablet 500 mg PO BID 7 Days Qty: 14 0RF Referrals Referrals: PCP,NO [Primary Care Provider] -
[2022-11-10 03:27] LABS: Troponin I High Sensitivity < 2.3 pg/ml (0-14)
[2022-11-10 03:28] LABS: Alanine Aminotransferase 13 U/L (7-52); Albumin Globulin Ratio 1.4 (0.9-2); Albumin Level 4.4 gm/dl (3.4-5.0); Alkaline Phosphatase 67 U/L (34-104); Anion Gap 6 (3-11); Aspartate Aminotransferase 12 U/L (13-39); BUN Creatinine Ratio 13.1 (10-20); Bilirubin,Total 0.8 mg/dl (0.2-1.0); Blood Urea Nitrogen 8 mg/dl (6-23); Calcium 9.7 mg/dl (8.5-10.1); Carbon Dioxide 27 mmol/L (21-32); Chloride 108 mmol/L (98-107); Creatinine Clr Calc Pharmacy 147.3 ml/min; Globulin 3.1 gm/dl (2.5-4.0); Glucose 93 mg/dl (70-99(Fasting)); Potassium 3.7 mmol/L (3.5-5.1); Sodium 141 mmol/L (136-145); Total Protein 7.5 gm/dl (6.0-8.3)
[2022-11-10] MEDS ORDERED: ACETAMINOPHEN 500 MG TAB PO STA (05:19)
--- NOTE | 2022-11-10 05:33 | History & Physical Report ---
Date of Service November 10, 2022 Assessment & Plan (1) Lyme disease: Plan: 27-year-old woman with history of Lyme disease (2020), depression with anxiety, reflux esophagitis, and, more recently, Gardnerella UTI, who is here with dizziness x3 weeks, found to have positive Lyme serology. 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 Lyme disease -Was on doxycycline at last ED visit. Given 2 g IV ceftriaxone in the ED prior to admission. * Admitted to [facility] telemetry. * IV ceftriaxone 2 g every 12 hours * P.o. doxycycline 100 mg twice daily * PICC line order placed * Recommend infectious disease consult Gardnerella UTI * Metronidazole 500 mg p.o. twice daily Depression with anxiety * Continue home amitriptyline * As needed Vistaril Reflux esophagitis * Pantoprazole 40 mg p.o. every morning * Continue home Reglan 5 mg twice daily as needed Code: Full code Dispo: Med-Surg telemetry FEN/GI: Regular diet DVT Prophylaxis: PT/OT: Consults: None (2) Gardnerella vaginalis infection: History of Present Illness Primary Care Provider: NO PCP Sarah is a 27-year-old woman with a past medical history of Lyme, depression with anxiety, reflux esophagitis and multiple concussions who presented to the ED with a complaint of dizziness. She states that she has felt this way for a few weeks now. She thinks she may have caught this when she right believe that her grandma's home, in the [facility]. She is currently on doxycycline. Patient of note was in our emergency department yesterday had an LP and blood work and states that her Western blot was positive for Lyme was told to come back in to receive IV Rocephin and an admission. Patient had a similar episode 2 years ago and required IV Rocephin. Patient complains of dizziness generalized weakness. In the ED, vitals were normal. Labs were unremarkable, though patient serologies from her last stay on 11/07/2022 was positive for Lyme. She received IV ceftriaxone 2 g x 1 and decision was made to admit for admit to treat prophylactically for presumed disseminated Lyme. ROS + dizziness, fatigue, nausea, and palpitations. She denies chest pain, shortness of breath, abdominal pain, or headache. Allergies Allergy/AdvReac Type Severity Reaction Status Date / Time No Known Allergies Allergy Verified 11/10/22 01:36 Home Medications Medication Instructions Recorded Confirmed Type acetaminophen 500 mg tablet 1,000 mg PO Q6H PRN Pain 05/23/21 11/10/22 History (Tylenol Extra Strength) copper 380 square mm intrauterine 1 device intrauterine CONTINOUS 02/18/22 11/10/22 History device (ParaGard T 380A) buprenorphine HCl 8 mg sublingual 8 mg sublingual DAILY 10/22/22 11/10/22 History tablet ondansetron 4 mg disintegrating 4 mg PO Q6H PRN nausea and 10/26/22 11/10/22 Rx tablet vomiting #15 tabs doxycycline hyclate 100 mg tablet 100 mg PO BID 28 days #56 tabs 11/02/22 11/10/22 Rx metoclopramide HCl 5 mg tablet 5 mg PO BID PRN nausea and 11/02/22 11/10/22 Rx (Reglan) vomiting #30 tabs cefdinir 300 mg capsule 300 mg PO Q12H 5 days #10 caps 11/07/22 11/10/22 Rx hydroxyzine pamoate 50 mg capsule 50 mg PO Q8H PRN sleep/anxiety #15 11/07/22 11/10/22 Rx (Vistaril) caps methylprednisolone 4 mg tablets in See Rx Instructions .Route 11/07/22 11/10/22 Rx a dose pack .COMPLEX #21 ea nitrofurantoin 100 mg PO BID 11/07/22 11/10/22 History monohydrate/macrocrystals 100 mg capsule metronidazole 500 mg tablet 500 mg PO BID 7 days #14 tabs 11/08/22 11/10/22 Rx amitriptyline 25 mg tablet 25 mg PO .COMPLEX #60 tabs 11/09/22 11/10/22 Rx Past Med/Surg History Medical History Anxiety Depression H/O multiple concussions Headache History of asthma Misuse of medication MRSA (methicillin resistant Staphylococcus aureus) Ovarian cyst Reflux esophagitis Surgical History History of colonoscopy Family History Father Hearing loss Mother Hypertension Son Asthma Other No family history of adverse response to anesthesia No family history of bleeding disorder Social History Smoking Status: Former smoker Second Hand Exposure: Yes; Tobacco Cessation Education Requested by Patient: No Hx Alcohol Use: No Hx Substance Use: No Preferred Language: Amharic Communication Ability: Effective Group Therapy Counselor Required: No Beliefs That Will Affect Care: None marital status: Single Current Living Situation: Significant Other current occupational status: unemployed How many Children do You have: 1 Other Information That Helps Us Care for You: No Feels Safe at Home: Yes Safety Concerns: Feels Safe At This Time Assistive Devices: None Review of Systems Review of Systems: All systems reviewed & are unremarkable except as noted in HPI & below Physical Exam Physical Exam: General: Mild distress HEENT: PERRLA. Normal conjunctiva, anicteric sclera. Oropharynx normal. Respiratory: Normal respiratory effort, CTABL. Cardiovascular: RRR without murmurs, gallops, or rubs. No edema. GI: Soft abdomen with normal bowel sounds heard on auscultation. Nontender x4 quadrants Neuro: Alert and oriented x3. Results & Data Results & Data ([facility]) Vital Signs (Past 12 Hours) Vital Signs Temp Pulse Pulse Resp BP BP Pulse Ox 11/10/22 04:00 81 18 132/91 98 11/10/22 02:54 83 18 113/78 99 11/10/22 02:53 83 18 99 11/10/22 02:53 99 11/10/22 00:33 36.6 C 99 H 20 135/90 99 O2 Del Method O2 Flow Rate 11/10/22 04:00 Room Air 11/10/22 02:54 Room Air 11/10/22 02:53 Room Air 11/10/22 02:53 Room Air 0 11/10/22 00:33 Room Air Supervising Physician Co-Signing Physician Notes Attending addendum: I have physically seen this patient, have supervised the medical residents activities, and agree with the H&P unless as otherwise noted. Assessment and Plan: Lyme disease/central nervous system signs and symptoms- Ceftriaxone 2 g IV every 12 hours Doxycycline 100 mg p.o. twice daily PICC line order Patient with similar episode requiring hospitalization from 05/02-05/13/21 and extended course of IV ceftriaxone Gardnerella UTI- Metronidazole 500 mg p.o. twice daily Depression with anxiety continue amitriptyline, and as needed Vistaril Reflux esophagitis- Continue pantoprazole and Reglan as outpatient Remaining orders and notations as noted Resident Activity Tracking Resident Involvement: Resident Care Provided Care Provided: Adult [facility]
[2022-11-10 06:11] LABS: Appearance Urine Clear (Clear); Bacteria Urine Automated 1+ (Negative); Bilirubin Urine Negative (Negative); Blood Urine Negative (Negative); Color Urine Yellow; Epithelial Cell Urine Auto >30 /lpf (0-5); Glucose Urine UA Negative (Negative); Ketones Urine Negative (Negative); Leukocyte Esterase Urine 2+ (Negative); Nitrite Urine Negative (Negative); Protein Urine Negative (Negative); RBC Urine Automated 0-4 /hpf (0-4); Specific Gravity Urine 1.015 (1.000-1.030); Urobilinogen Urine Negative (Negative); pH Urine 5.5 (4.5-7.5)
[2022-11-10] MEDS ORDERED: ONDANSETRON 4 MG OD TAB PO PRN (06:41)
[2022-11-10] MEDS ORDERED: ACETAMINOPHEN 325 MG TAB PO PRN (06:41)
[2022-11-10] MEDS ORDERED: hydrOXYzine HCl 25 MG TAB PO PRN (06:41)
[2022-11-10] MEDS ORDERED: ONDANSETRON INJ 2 MG/ML 2 ML VIAL IV PRN (06:41)
[2022-11-10] MEDS ORDERED: KETOROLAC TROMETHAMINE 15 MG/ML VIAL IV ONE (07:58)
[2022-11-10] MEDS: PANTOprazole 40 MG TAB PO SCH (08:51)
[2022-11-10] MEDS: metroNIDAZOLE 500 MG TAB PO SCH ×2 (08:51→20:16)
[2022-11-10] MEDS: buprenorphine HCL 8 MG SUBL SL SCH (08:51)
[2022-11-10] MEDS ORDERED: DOXYCYCLINE HYCLATE 100 MG CAP PO SCH (09:00)
[2022-11-10] MEDS ORDERED: NON-FORMULARY MEDICATION (Doxycycline Hyclate 100 mg tablet) PO SCH (09:00)
--- NOTE | 2022-11-10 12:18 | Hospitalist Progress Note ---
Date of Service November 10, 2022 Assessment & Plan (1) Lyme disease: Plan: 27-year-old woman with history of Lyme disease (2020), depression with anxiety, reflux esophagitis, and, more recently, Gardnerella UTI, who is here with dizziness x3 weeks, found to have positive Lyme serology. 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 Disseminated Lyme disease with neurologic symptoms -Positive Lyme serology including IgM on 11/07 -CSF studies pending -Given her history of Lyme disease along with seemingly neurologic symptoms along with lab workup thus far, will treat as disseminated Lyme disease -At this time, I do not suspect Babesia or anaplasmosis coinfection though we will pursue blood smear if she does not improve -I do wonder if she may have underlying immune disease -11/02/2022 outpatient [facility] labs include negative CRP, ESR, RF. ROBER pending -Consider further workup after resolution of Lyme infection -Will discontinue doxycycline -Continue ceftriaxone 2g daily, anticipate likely 4 weeks of treatment -PICC line order placed Gardnerella UTI -Metronidazole 500 mg BID Depression with anxiety -Continue home amitriptyline -Vistaril PRN anxiety Reflux esophagitis -Pantoprazole 40 mg daily -Reglan PRN nausea Code: Full code Dispo: Medical/surgical with telemetry FEN/GI: Regular diet DVT Prophylaxis: Low-risk Consults: None (2) Gardnerella vaginalis infection: Admission and Anticipated Discharge Date Admission Date: November 10, 2022 Supervising Physician Co-Signing Physician Notes I personally examined the patient and verified all ferrer points of history and exam, discussed case, and agree with decision making with Dr Ortiz feels terrible. neck hurts. can't sleep vitals noted restless neck without palpable somatic dysfunction breathing unlabored no accessory muscles good effort skin no rashes no pallor or icterus neuro no focal deficits disseminated lyme - seems to have failed doxycycline but no overt evidence of infection beyond lyme (ie nothing fitting right now w babesia, and doxy would've been expected to cover anaplasma if that was coinfection prior to admission) - rocephin, supportive care, serial exams, time. w ELECTRICAL MECHANICAL TECHNICIAN symptoms have to assume ELECTRICAL MECHANICAL TECHNICIAN involvement - will go w rocephin x 28 days with recurrent infections - ?concern on underlying autoimmune vs immunodeficiency - likely not the case, recent ROBER appears to have been sent 11/02 and is pending - but would have close/serial outpt f/u otherwise as above Subjective No acute events overnight On my evaluation, the patient is tearful and complaining of neck pain as well as headache. She does report sensitivity to light and sound as well. Does feel generally weak and reports numbness through her entire body. Review of Systems Review of Systems: Per subjective Physical Exam Physical Exam: General: Mild distress, tearful HEENT: PERRLA. +Photophobia. Normal conjunctiva, anicteric sclera. No sinus tenderness Neck: Pain with active and passive ROM testing of neck, no nuchal rigidity Respiratory: Normal respiratory effort, CTABL. Cardiovascular: RRR without murmurs, gallops, or rubs. No edema. GI: Soft, nontender, nondistended Neuro: 4/5 strength of RUE with slightly more pronounced weakness R > L, slightly diminished sensation to light touch diffusely across LE and UE but symmetric, no cerebellar signs Results & Data Results & Data ([facility]) Vital Signs (Past 12 Hours) Vital Signs Temp Pulse Pulse Resp BP BP Pulse Ox 11/10/22 07:02 11/10/22 07:02 105 H 16 119/87 100 11/10/22 06:00 97 H 18 119/87 96 11/10/22 04:00 81 18 132/91 98 11/10/22 02:54 83 18 113/78 99 11/10/22 02:53 83 18 99 11/10/22 02:53 99 11/10/22 00:33 36.6 C 99 H 20 135/90 99 Pulse Ox O2 Del Method O2 Del Method O2 Flow Rate 11/10/22 07:02 100 Room Air 11/10/22 07:02 Room Air 11/10/22 06:00 Room Air 11/10/22 04:00 Room Air 11/10/22 02:54 Room Air 11/10/22 02:53 Room Air 11/10/22 02:53 Room Air 0 11/10/22 00:33 Room Air Resident Activity Tracking Resident Involvement: Resident Care Provided Care Provided: Adult Hospital Medicine
[2022-11-10] MEDS ORDERED: LIDOCAINE 5% 1 PATCH TD ONE (12:25)
[2022-11-10] MEDS: LIDOCAINE 5% 1 PATCH TD SCH (12:49)
[2022-11-10] MEDS: ACETAMINOPHEN 500 MG TAB PO PRN (16:55)
[2022-11-10] MEDS: MELATONIN 3 MG TAB PO SCH (20:15)
[2022-11-10] MEDS: AMITRIPTYLINE HCL 25 MG TAB PO SCH (20:16)
[2022-11-11] MEDS: ACETAMINOPHEN 500 MG TAB PO PRN ×2 (00:33→23:30)
--- NOTE | 2022-11-11 02:35 | Billing Data ---
Date of Service November 11, 2022 Coding Level of Care Code 82042 INT INP/OBS CARE
[2022-11-11] MEDS: cefTRIAXone SODIUM 2,000 MG in DEXTROSE 5% 50 ML IV SCH (03:48)
--- NOTE | 2022-11-11 07:02 | Hospitalist Progress Note ---
Date of Service November 11, 2022 Assessment & Plan (1) Lyme disease: Plan: 27-year-old woman with history of Lyme disease (2020), depression with anxiety, reflux esophagitis, and, more recently, Gardnerella UTI, who is here with dizziness x3 weeks, found to have positive Lyme serology. 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 Neurologic Symptoms - Possibly due to Lyme vs. other immuno-neurogenic process? -Positive Lyme serology including IgM, IgG on 11/07 ([facility]), but negative IgG Western Blot -- CSF studies still pending; however, c/f ID that Lyme IgM's may be false positive -Given her history of Lyme disease along with seemingly neurologic symptoms along with lab workup thus far, currently treating as disseminated Lyme disease. However the fact that she has sharp delineation at around the level of T4 and other neurologic symptoms may be consistent with a spinal process, such as transverse myelitis. Lower suspicion for significant B12 deficiency or neurogenic syphilis, but also on the differential. Inflammatory/rheumatologic/autoimmune w/u as below. Neuropsychiatric cause is diagnosis of exclusion but considered. --> Brain MRI previously ordered by neurology NEGATIVE --> We will obtain MRI of the cervical and thoracic spine with and without contrast given progressing neuro symptoms --> Obtain Babesia/anaplasmosis smear --> Obtain ESR, CRP, PCT, B12, antitreponemal Ab, ferritin for further inflammatory w/u -Given underlying recurrent infections and disseminated disease, concern for autoimmune vs. immunodeficiency -11/02/2022 outpatient [facility] labs include negative CRP, ESR, RF. ROBER pending -Consider further workup, including possible A&I referral, after resolution of Lyme infection -Continue ceftriaxone 2g daily x 28 days -ID consultation appreciated and pending -Pending outlined w/u above, consider empiric steroids -- has now been on doxycycline x weeks + CFTX x 2 days -We will consider neurology consultation if further diagnostic assistance is needed, and pending work-up above. Positive CSF Cx: Oxacillin-Resistant CoNS - Culture positive BUT was in setting of a difficult tap - no WBCs, RBCs, negative BioFire - Suspect contaminant given species and otherwise negative CSF studies - ID consult appreciated. Will hold off on vanco for now. Gardnerella UTI -Metronidazole 500 mg BID Depression with anxiety -Continue home amitriptyline -Vistaril PRN anxiety Reflux esophagitis -Pantoprazole 40 mg daily -Reglan PRN nausea Code: Full code Dispo: Medical/surgical FEN/GI: Regular diet DVT Prophylaxis: Low-risk Consults: None (2) Gardnerella vaginalis infection: Admission and Anticipated Discharge Date Admission Date: November 10, 2022 Supervising Physician Co-Signing Physician Notes I personally examined the patient and verified all ferrer points of history and exam, discussed case, and agree with decision making with Dr Medina feels terrible. neck hurts. can't sleep still. numbness on chest. vitals noted restless neck without palpable somatic dysfunction breathing unlabored no accessory muscles good effort skin no rashes no pallor or icterus neuro no focal deficits diffuse mylagias/paresthesia - ddx broad. for now working dx of disseminated lyme until/unless other more clear diagnoses are borne out (endemic area, (+) IgM, symptoms that fit with disseminated and/or SEMICONDUCTOR PROCESSOR lyme that i've seen in the past) - seems to have failed doxycycline (although doxy should cover SEMICONDUCTOR PROCESSOR lyme there is a bit of debate between ID and neurology communities on this) and no overt evidence of infection beyond lyme (ie nothing fitting right now w babesia, and doxy would've been expected to cover anaplasma if that was coinfection prior to admission) - rocephin, supportive care, serial exams, time. w SEMICONDUCTOR PROCESSOR symptoms have to assume SEMICONDUCTOR PROCESSOR involvement - will go w rocephin x 28 days until/unless new dx borne out. Given paresthesias, and overall appearanceMRI C-spine/T-spine to evaluate for any hint of transverse myelitis. Serial exams, serial inflammatory markers. Empiric trial of steroids. Continue supportive care. with recurrent infections - ?concern on underlying autoimmune vs immunodeficiency - likely not the case, recent ROBER appears to have been sent 11/02 and is pending - but would have close/serial outpt f/u otherwise as above Subjective Had headaches last night. Given APAP. This morning, really upset - persistent numbness and tingling that feels worse this morning, most noticeable on L side of the face, but also +R sided too. Says this extends down to her nipple-line, but doesn't go down her arms bilaterally. Abrubtly stops. Feels week in her arms. Moderate POP. No n/v/d. Review of Systems Review of Systems: as per HPI Physical Exam Physical Exam: General: 27-year old female who is alert, oriented, and is in moderate distress secondary tosymptoms. HEENT: NCAT. - Eyes - Sclera are white, anicteric, and without injection. - Mouth - MMM - Neck - supple, no appreciable JVD Cardiac: Normal rate and regular rhythm; S1 and S2 present with no murmurs, rubs, or gallops. Pulmonary: Good respiratory effort with symmetric expansion of the chest. No use of accessory muscles. Lungs were clear to auscultation bilaterally with no crackles or wheezes. Abdominal: Normoactive bowel sounds. Abdomen was soft, nondistended, and non- tender to palpation. Extremities: Upper and lower extremities are warm and well perfused. No peripheral edema in the lower extremities bilaterally Neuro: - Cranial Nerves: CN I, IX, XIII, and X - not assessed. II - PERRL. III/IV/ - EOMs WNL. No nystagmus. V - Facial sensation in tact in all three divisions; jaw opening WNL. VII - Patient is able to smile symmetrically and keep eyes close against resistance. IX - Soft palate raises equally and appropriately while saying "ah." XI - Patient is able to shrug shoulders against resistance. XII - patient is able to stick out tongue and deviate from [id number] appropriately. - Motor: UE - Finger, wrist, elbow, and shoulder strength is 4/5 bilaterally. LE - Hip, knee, and ankle strength is 5/5 bilaterally. - Sensation: +reported paraesthesias to L side of face but also on R - Reflexes - Biceps 3+ b/l; patellar 3+ b/l; No clonus. Results & Data Results & Data ([facility]) Vital Signs (Past 12 Hours) Vital Signs Temp Pulse Pulse Resp BP Pulse Ox O2 Del Method 11/10/22 21:59 88 11/10/22 19:46 37 C 75 20 103/67 98 Room Air Resident Activity Tracking Resident Involvement: Resident Care Provided Care Provided: Adult [facility] Medicine
[2022-11-11 08:03] LABS: Basophils # (auto) 0.01 K/uL (0-0.2); Basophils % (auto) 0.2 %; Eosinophils # (auto) 0.29 K/uL (0-0.50); Eosinophils % (auto) 4.5 %; Hematocrit (blood only) 37.5 % (34.1-44.9); Hemoglobin 12.5 g/dl (12.0-16.0); Immature Granulocytes # (auto) 0.01 K/uL (0.00-0.02); Immature Granulocytes % (auto) 0.2 %; Lymphocytes # (auto) 1.44 K/uL (1.2-3.4); Lymphocytes % (auto) 22.3 %; Mean Corpuscular Hemoglobin 31.1 pg (25.0-34.0); Mean Corpuscular Hgb Conc 33.3 g/dL (32.0-36.0); Mean Corpuscular Volume 93.3 fL (80.0-100.0); Mean Platelet Volume 11.4 fL (9.4-12.3); Monocytes # (auto) 0.53 K/uL (0.24-0.82); Monocytes % (auto) 8.2 %; Neutrophils # (auto) 4.17 K/uL (1.4-6.5); Neutrophils % (auto) 64.6 %; Platelet Count 180 K/uL (130-400); RDW Coefficient of Variation 12.7 % (11.5-14.5); RDW Standard Deviation 43.7 fL (36.4-46.3); Red Blood Count 4.02 M/uL (3.93-5.22); White Blood Count 6.45 K/ul (4.8-10.8)
[2022-11-11] MEDS: metroNIDAZOLE 500 MG TAB PO SCH ×2 (08:45→21:36)
[2022-11-11] MEDS: PANTOprazole 40 MG TAB PO SCH (08:45)
[2022-11-11] MEDS: LIDOCAINE 5% 1 PATCH TD SCH (08:47)
[2022-11-11] MEDS: buprenorphine HCL 8 MG SUBL SL SCH (08:50)
--- NOTE | 2022-11-11 09:46 | Infectious Disease Consult ---
Date of Consultation November 11, 2022 Assessment & Plan (1) Headache: (2) Acute ear pain: (3) Acute facial pain: Plan 27 yo F with a history of anxiety, depression, treatment for possible early Lyme disease in 2020 with multiple recent ED presentations who complains of worsening symptoms of headache, face/chest numbness, blurry vision, photophobia, tinnitus, decreased hearing, ear pain, dizziness, poor appetite since 10/17. She also reports having 3 fevers over this time period (as high as 101.1 at home--although has been afebrile at her hospital presentations), and an intermittent red rash on her face and chest. She is concerned for recurrent Lyme meningitis, and states she has been on doxycycline for around 1 month now, but it is not working. She had similar symptoms in 2020, when she had a Lyme western blot IgM positive and IgG negative, normal MRI brain and lumbar puncture, normal audiogram, and was treated with several days-weeks of amoxicillin, then 3 weeks of PO doxycycline for possible early Lyme disease. Her symptoms resolved in the intervening time period. Over the last several weeks, her work-up has included multiple negative CT heads, normal MRI brain, lumbar puncture with normal CSF cell counts, protein, and glucose, negative CSF biofire panel, and CSF culture growing coag neg Staph (not lugdunensis), thought to be a contaminant. She has had normal ESR, CRP, CBC, CMP, Lyme screen on 10/26 negative, repeat Lyme screen on 11/07 with negative IgG and equivocal IgM, reflex Lyme western blot with negative IgG (3/10 positive bands), IgM positive (2/3 positive bands), Anaplasma PCR negative, Borrelia miyamotoi Ab and PCR negative, Rickettsia typhi Ab negative, Q fever Ab neg, RMSF Ab neg, mono screen negative, UA negative. Throughout this time, she has received courses of doxycycline from her PCP, [facility], and Neurology, and she reports she has taken ~1 month of doxycycline by now. It is unlikely that her current symptoms are from Lyme infection. Her normal CSF cell counts and protein make nervous system Lyme disease extremely unlikely. Her CSF Lyme PCR is negative (with the caveat that this is not a highly sensitive test). Even if she had a new case of SEISMOMETER OPERATOR Lyme infection at this time, 4 weeks of doxycycline would be adequate treatment for this, and her lack of improvement speaks to neurologic Lyme disease being unlikely. Her treatment for possible early Lyme disease in 2020 was more than adequate, and therefore there would not be a possibility of a recurrence of her prior Lyme disease. As for whether she has a new recent Lyme infection, her Lyme western blot indicates a positive IgM and negative IgG--this can be seen in the setting of early Lyme disease before IgG production, but I would expect that after ~1 month of symptoms, she would have a positive IgG as well. Even if this were a new Lyme infection, she would be adequately treated with the doxycycline she has recently received. It is also important to note that Lyme western blot IgM has a high false positive rate. The IgM can also remain positive for years despite the absence of a new recent Lyme infection, and therefore does not indicate a need for retreatment. Micro: 11/07 CSF Lyme PCR: not detected 11/07 CSF Lyme Ab: pending 11/07 CSF Biofire meningitis/encephalitis panel: negative (for Crypto, CMV, Enterovirus, E coli, H influenzae, HSV 1/2, HHV6, Listeria, Neisseria meningitidis, Parechovirus, Strep agalactiae, Strep pneumoniae, VZV) 11/07 CSF Cell counts: WBC 2, RBC 3 Glucose 61 Protein 39 GS: no organisms Routine cx:Coag neg staph not lugdunensis (R oxacillin) Fungal cx: pending AFB smear neg, cx pending 11/07 Lyme Western blot: IgG negative (3/10 positive bands), IgM positive (2/3 positive bands) 11/07 Lyme screen: negative IgG, equivocal IgM 11/07 UCx: >3 organisms, mixed probably skin kemal 11/07 Genital culture: Gardnerella vaginalis, light normal kemal 11/07 Endocervical GC/CT/Trich: not detected 11/07 SARS-CoV-2 PCR: negative 10/28 UCx: 25-50k Staph epi 10/28 HIV screen: nonreactive 10/26 Lyme screen: negative 10/22/22 Anaplasma PCR: negative 10/22/22 Borrelia miyamotoi IgG, IgM: negative 10/22/22 Borrelia miyamotoi PCR: not detected 10/22/22 Rickettsia typhi IgG, IgM: not detected 10/22/22 Q fever Ab Phase I and II: negative 10/22/22 RMSF IgG, IgM: not detected 10/22/22 [place] screen: negative 06/25/21 HIV screen: negative 05/31/21 Babesia microti IgG, IgM: negative 04/23/21 Anaplasma PCR: negative 05/04/21 CSF Lyme PCR: not detected 05/04/21 CSF Cell counts: WBC 4, RBC 43 Protein 45.5 GS: no organisms Routine cx: negative Antimicrobial course: Ceftriaxone 11/10 - present Metronidazole 11/08 - present Doxycycline ? (has likely received ~1 month by now) Cefdinir 11/07 - ? Nitrofurantoin 11/05 - ? Problems: #Headache #Facial/chest numbness #Visual changes #Auditory changes, tinnitus #CSF culture with coag neg Staph: likely a contaminant #? Bacterial vaginosis: genital culture with Gardnerella on 11/07. Note that vaginal cx can be + Gardnerella in healthy asymptomatic individuals Recommendations: - See above discussion. Do not think she needs further ceftriaxone or doxycycline - She does not have any lab abnormalities to suggest other tick-borne illnesses - The coag neg Staph in her CSF culture is likely a contaminant - Would consider non-infectious etiologies for her symptoms ie complex regional pain syndrome, and consider contribution of her anxiety. Could consider neuro evaluation with nerve conduction study/electromyography to evaluate her complaints of face/chest numbness. Uncertain whether the distribution of her numbness coincides with a discrete dermatomal process, as she does not report arm symptoms despite numbness through T4 dermatome on her chest? Could also consider audiography evaluation Discussed with primary team. Will sign off. Please page ID [facility] with further questions. Consultation Information Consultation was provided via telemedicine using two-way real-time interactive telecommunication between the patient and the telemedicine provider. For the duration of the visit, the provider was performing the assessment from a different facility than the patient. This includesuse of bluetooth stethoscope forauscultationperformed by the telepresenter that the telemedicine provider can hear if described in the physical exam. Water Treatment Plant Operator contact information: Please call ID [facility] . (Phone Number For Physician Use Only) After establishing a telemedicine visit, patient was: Patient was verified with two unique identifiers, Patient/authorized rep acknowledged consent and understanding and Gave permission to continue telehealth session Time Spent with Patient: Initial => 55 min History of Present Illness Reason for Consultation: Dizziness, headache, positive CSF culture Requesting Physician: Dr. Ben Medina Attending Physician: Ben Mondragon DO History of Present Illness 27 yo F with a history of anxiety, depression, asthma with multiple recent ED presentations for headache. She had a similar presentation in 2020, when she was treated for possible Lyme meningitis. She was seen by [facility] ID in 05/2021. At that time, she had a positive Lyme WB IgM, negative IgG, unremarkable MRI brain and LP. She had a normal audiogram. She was treated with several days-weeks of amoxicillin, then 3 weeks of PO doxycycline for possible early Lyme disease. 10/22: ED presentation for headache and dysuria, feeling like her head was foggy and she had pressure in her head. At that time, she reported she had been tested for UTI and was negative, and she was recently on Bactrim and doxycycline by her PCP. Labs and CT head were unremarkable. The pt requested Lyme and tick-borne illness testing at that time, and was discharged. Her diagnostic testing was negative, including Anaplasma PCR, Borrelia miyamotoi antibodies and PCR, Rickettsia typhi antibodies, Q fever antibodies, RMSF antibodies, and mono screen. 10/26: [facility] ED presentation reporting facial rash, fever, vomiting, and headache, and expressed concern that she had Lyme meningitis again. She had reported being on doxycycline for ~2.5 weeks. Per ED notes, she had recently been on amoxicillin from an urgent care, and was started on doxycycline by [facility]. At that ED visit, physical exam noted a diffuse irritative appearing rash to her face that was blanching. Her labs were normal, UA was negative, and she was discharged. 10/26: [facility] ED presentation. CT head negative. ESR, CRP, procalcitonin normal. Lyme screen negative. 10/29: She presented back to the ED for headache, reporting that it had been going on for the past month. Labs and CT head were again unremarkable. Pt declined CTA head and LP, and was discharged. 11/02: Saw Neurology and reported ears ringing, brain fog, head pressure/pain in frontal and faith areas, blurry vision, sensitivity to light and noise, N/V, fever off and on, tunnel vision, rash on her forehead and chest the prior week, burning sensation. Labs were ordered including ROBER panel, Bartonella, RF, Sjogren's Ab. She was prescribed doxycycline x 4 weeks for possible Lyme disease. She was also referred to ophtho. 11/07: presented back to the ED with the same symptoms. Labs were unremarkable, UA was negative, COVID-19 negative, and Lyme screen was equivocal for IgM. She underwent an LP, which showed normal cell counts, normal protein and glucose. A CSF biofire panel was negative. MRI brain was negative. She was prescribed cefdinir x 5 days (since the pt reported she had improved with ceftriaxone in the past), and discharged home. 11/08: ED for increased headache following her LP, as well as coag neg Staph growing in her CSF culture. The ED spoke with neurology, who advised no need for inpatient treatment. Per ED note, pt declined the medication options neuro provided for her headache, and was adamant she needed IV ceftriaxone for Lyme disease. She did not feel the doxycycline was working. After much discussion, pt was given IV ceftriaxone and she was discharged and advised to follow-up with neurology. She was also discharged with metronidazole since she had a prior genital cx positive for Gardnerella. 11/10: Presented back to the ED because her Lyme western blot was positive for Lyme. She was given IV ceftriaxone and admitted. On my evaluation today, Sarah states her whole face is numb down to her chest. She feels like someone is "grabbing a rubber band to her head and slinging it back and forth". Reports blurry vision, photophobia, ears ringing, muffled hearing bilaterally, bilateral ear pain as if something is crawling in her ears. She feels weak, dizzy, has body twitches, has not been able to sleep, has poor appetite, and decreased PO intake. Also reports having 3 fevers at home, as high as 101.1, and has been taking ibuprofen and acetaminophen non- stop. She reports an intermittent red rash on her face and chest, which has not recurred since starting ceftriaxone. Her symptoms began on 10/17, and have been progressively worsening. She believes she has been on doxycycline for around a month now, but states doxycycline does not work for her. She reports that she spoke to ID in [place] and they prescribed her doxycycline. However, review of [facility] ID note indicates that she called in to schedule an appointment for a flare up of Lyme, but ID did not think she needed an appointment because they did not think she had Lyme disease since her Lyme screen was negative on 10/26 and she had reported symptoms for several weeks. They felt she was adequately treated for Lyme disease in 2020, and did not need to worry about a flare. She had similar symptoms in 2020 when she was evaluated and treated for possible SEISMOMETER OPERATOR Lyme disease, and reports her symptoms resolved at that time after 1-2 months. Review of her chart shows that the symptoms seem to have begun around March 2021, and were still ongoing in Jun 2021. She believes her current symptoms are worse than the symptoms she had in 2020. She was born in [place], and has never traveled outside of the area. She lives with her boyfriend in an apartment and has a pet dog. Denies other wild/farm animal exposures. 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 States she has no hobbies. Denies recent travel, sick contacts. Denies known tick/insect bites. Allergies Allergy/AdvReac Type Severity Reaction Status Date / Time No Known Allergies Allergy Verified 11/10/22 01:36 Home Medications Medication Instructions Recorded Confirmed Type acetaminophen 500 mg tablet 1,000 mg PO Q6H PRN Pain 05/23/21 11/10/22 History (Tylenol Extra Strength) copper 380 square mm intrauterine 1 device intrauterine CONTINOUS 02/18/22 11/10/22 History device (ParaGard T 380A) buprenorphine HCl 8 mg sublingual 8 mg sublingual DAILY 10/22/22 11/10/22 History tablet ondansetron 4 mg disintegrating 4 mg PO Q6H PRN nausea and 10/26/22 11/10/22 Rx tablet vomiting #15 tabs doxycycline hyclate 100 mg tablet 100 mg PO BID 28 days #56 tabs 11/02/22 11/10/22 Rx metoclopramide HCl 5 mg tablet 5 mg PO BID PRN nausea and 11/02/22 11/10/22 Rx (Reglan) vomiting #30 tabs cefdinir 300 mg capsule 300 mg PO Q12H 5 days #10 caps 11/07/22 11/10/22 Rx hydroxyzine pamoate 50 mg capsule 50 mg PO Q8H PRN sleep/anxiety #15 11/07/22 11/10/22 Rx (Vistaril) caps methylprednisolone 4 mg tablets in See Rx Instructions .Route 11/07/22 11/10/22 Rx a dose pack .COMPLEX #21 ea nitrofurantoin 100 mg PO BID 11/07/22 11/10/22 History monohydrate/macrocrystals 100 mg capsule metronidazole 500 mg tablet 500 mg PO BID 7 days #14 tabs 11/08/22 11/10/22 Rx amitriptyline 25 mg tablet 25 mg PO .COMPLEX #60 tabs 11/09/22 11/10/22 Rx Patient History Medical History Anxiety Depression H/O multiple concussions Headache History of asthma Misuse of medication MRSA (methicillin resistant Staphylococcus aureus) Ovarian cyst Reflux esophagitis Surgical History History of colonoscopy Family History Father Hearing loss Mother Hypertension Son Asthma Other No family history of adverse response to anesthesia No family history of bleeding disorder Social History Smoking Status: Former smoker Second Hand Exposure: Yes; Tobacco Cessation Education Requested by Patient: No Hx Alcohol Use: No Hx Substance Use: No Preferred Language: Citizen Of [place] Communication Ability: Effective Casting Repairer Required: No Beliefs That Will Affect Care: None marital status: Single Current Living Situation: Significant Other current occupational status: unemployed How many Children do You have: 1 Other Information That Helps Us Care for You: No Feels Safe at Home: Yes Safety Concerns: Feels Safe At This Time Assistive Devices: None Review of System A complete ROS was performed and is negative except as mentioned in the HPI. Physical Exam Physical Exam: GEN: distressed, crying HEENT: Head wrapped in cloth. No oropharyngeal lesions or exudates RESP: No increased work of breathing ABD: Soft, non-distended. Non-tender to palpation. EXT: No LE edema. Warm, well-perfused. SKIN: No lesions or rashes on exposed skin. BACK: Spinal tenderness to palpation down through thoracic area NEURO: Alert and oriented. Answers all questions appropriately. Speech not slurred. EOMI, face symmetric, no tongue deviation. Reports decreased sensation of L face PSYCH: anxious, tearful Results & Data ([facility]) Vital Signs (Past 12 Hours) Vital Signs Temp Pulse Pulse Resp BP Pulse Ox O2 Del Method 11/11/22 08:00 36.7 C 86 18 118/80 97 Room Air 11/11/22 07:15 76 11/10/22 21:59 88 Laboratory Results Short CBC 11/11/22 Range/Units 07:39 WBC 6.45 (4.8-10.8) K/ul Hgb 12.5 (12.0-16.0) g/dl Hct 37.5 (34.1-44.9) % Plt Count 180 (130-400) K/uL BMP 11/11/22 07:39 Sodium 141 Potassium 3.8 Chloride 109 H Carbon Dioxide 27 BUN 14 Creatinine 0.70 Glucose 90 Calcium 9.0 Liver Function 11/11/22 Range/Units 07:39 Total Bilirubin 0.5 (0.2-1.0) mg/dl AST 11 L (13-39) U/L ALT 11 (7-52) U/L Alkaline Phosphatase 57 (34-104) U/L Albumin 4.1 (3.4-5.0) gm/dl Diagnostic Findings 11/07 MRI brain IMPRESSION: 1. No acute intracranial abnormality. 2. No abnormal enhancement. 3. No evidence of demyelinating disease. 11/07 CT head FINDINGS: No acute intracranial hemorrhage, midline shift, intracranial mass, hydrocephalu s, territorial ischemia or abnormal extra-axial collection. Low-lying cerebellar tonsils. The calvarium is intact. The paranasal sinuses, mastoid air cells, and middle ear cavities are clear. IMPRESSION: No acute intracranial abnormality. 11/07 CXR IMPRESSION: No acute process. 05/06/21 MR venography head IMPRESSION: No evidence of dural sinus thrombosis. 05/06/21 MR angiography head Unremarkable MRA of the head. 05/05/21 MRI L spine IMPRESSION: 1. There is no disc herniation or significant acquired compromise of the central canal. 2. There is no epidural fluid collection identified as clinically queried. 3. Mild degenerative disc disease at L4-L5 and L5-S1 as above. See discussion for detailed level by level analysis. 05/03/21 MRI internal auditory canal IMPRESSION: 1. Unremarkable MRI of the brain. 2. No abnormalities within the internal auditory canals. 3. Exam mildly compromised by motion artifact. 05/03/21 MRI brain IMPRESSION: 1. Motion degradation study 2. No trigeminal nerve lesions identified given the limitations of the examination 3. 4 mm focus of diminished enhancement involving the right lateral aspect of the pituitary. A small microadenoma cannot be excluded. Correlation with appropriate biochemical markers is recommended. Medications Administered Current Inpatient Medications Acetaminophen (Acetaminophen 500 Mg Tab) 1,000 mg PO Q6H PRN PRN Reason: Pain Stop: 12/10/22 06:40 Last Admin: 11/11/22 00:33 Dose: 1,000 mg Amitriptyline HCl (Amitriptyline Hcl 25 Mg Tab) 50 mg PO HS FRIDA Stop: 12/10/22 20:59 Last Admin: 11/10/22 20:16 Dose: 50 mg Buprenorphine HCl (Buprenorphine Hcl 8 Mg Subl) 8 mg SL DAILY FRIDA Stop: 12/10/22 08:59 Last Admin: 11/11/22 08:50 Dose: 8 mg Hydroxyzine HCl (Hydroxyzine Hcl 25 Mg Tab) 50 mg PO Q8H PRN PRN Reason: sleep/anxiety Stop: 12/10/22 06:40 Ceftriaxone Sodium 2,000 mg/ (Dextrose) 70 mls @ 140 mls/hr IV Q24H FRIDA; Protocol Stop: 11/21/22 03:59 Last Infusion: 11/11/22 05:09 Dose: Infused Sodium Chloride (Nss 1000ml) 1,000 mls @ 125 mls/hr IV .Q8H FRIDA Stop: 11/11/22 18:59 Magnesium Sulfate/Dextrose (Magnesium Sulfate / D5w) 1 gm in 100 mls @ 50 mls/hr IV ONE ONE Stop: 11/11/22 12:47 Lidocaine (Lidocaine 5% 1 Patch) 1 patch TD QAM FRIDA Stop: 12/10/22 12:14 Last Admin: 11/11/22 08:47 Dose: 1 patch Melatonin (Melatonin 3 Mg Tab) 3 mg PO HS [facility] Stop: 12/10/22 20:59 Last Admin: 11/10/22 20:15 Dose: 3 mg Metoclopramide HCl (Metoclopramide Hcl 5 Mg Tablet) 5 mg PO BID PRN PRN Reason: nausea and vomiting Stop: 12/10/22 06:40 Metronidazole (Metronidazole 500 Mg Tab) 500 mg PO BID FRIDA Stop: 01/29/23 08:59 Last Admin: 11/11/22 08:45 Dose: 500 mg Miscellaneous (Remove Lidoderm Patch) 1 each N/A DAILY@2100 [facility] Stop: 12/10/22 20:59 Last Admin: 11/10/22 20:16 Dose: 1 each Ondansetron HCl (Ondansetron 4 Mg Od Tab) 4 mg PO Q6H PRN PRN Reason: nausea and vomiting Stop: 12/10/22 06:40 Ondansetron HCl (Ondansetron Inj 2 Mg/Ml 2 Ml Vial) 4 mg IV Q6H PRN PRN Reason: Nausea Stop: 12/10/22 06:40 Pantoprazole Sodium (Pantoprazole 40 Mg Tab) [facility] [place] Stop: 12/10/22 08:59 Last Admin: 11/11/22 08:45 Dose: 40 mg (1) Headache Headache chronicity pattern: acute headache Headache type: unspecified I ntractability: not intractable Qualified Code(s): R51.9 - Headache, unspecified (2) Acute ear pain Laterality: bilateral Qualified Code(s): H92.03 - Otalgia, bilateral
[2022-11-11 10:10] LABS: Albumin Globulin Ratio 1.6 (0.9-2); Albumin Level 4.1 gm/dl (3.4-5.0); Bilirubin,Total 0.5 mg/dl (0.2-1.0); Creatinine Clr Calc Pharmacy 128.4 ml/min; Est GFR (African American) 139.6 ml/min; Est GFR (Non-African American) 120.4 ml/min; Globulin 2.6 gm/dl (2.5-4.0); Potassium 3.8 mmol/L (3.5-5.1); Total Protein 6.7 gm/dl (6.0-8.3)
--- NOTE | 2022-11-11 10:31 | Electrocardiogram Report ---
Test Reason : Blood Pressure : / mmHG Vent. Rate : 081 BPM Atrial Rate : 081 BPM P-R Int : 136 ms QRS Dur : 080 ms QT Int : 360 ms P-R-T Axes : 066 050 056 degrees QTc Int : 418 ms Normal sinus rhythm Normal ECG When compared with ECG of 07-NOV-2022 09:05, No significant change was found Confirmed by Josué Jauregui ([id number]) on 11/11/2022 10:30:55 AM Referred By: REFERRED SELF Confirmed By:Josué Jauregui
[2022-11-11] MEDS ORDERED: ACETAMINOPHEN 500 MG TAB PO STA (10:48)
[2022-11-11] MEDS ORDERED: MAGNESIUM SULFATE / D5W 1 GM/100 ML BAG IV ONE (10:48)
[2022-11-11] MEDS ORDERED: SODIUM CHLORIDE 0.9% 1000ML 1,000 ML IV SCH (11:00)
[2022-11-11] MEDS ORDERED: GADOBUTROL 65ML VIAL IV ONE (13:15)
--- NOTE | 2022-11-11 13:43 | Magnetic Resonance Report ---
MR cervical spine wo/w con HISTORY: 27 years-old Female numbness tingling and weakness ending at T4 acute neck pain with histor y of lung disease COMPARISON: Brain MRI November 07, 2022 TECHNIQUE: Multiplanar multisequence MRI of the cervical spine was obtained both with and without the use of 5.5 cc Gadavist FINDINGS: Motion degraded exam. No abnormal enhancement identified. Unremarkable appearance of the imaged poste rior fossa with normal signal of the cervical and imaged upper thoracic spinal cord. No acute fractur e, subluxation, endplate erosion, significant soft tissue or bone marrow edema. No marrow replacing p rocess. Straightening of the normal cervical lordosis is likely positional. Minimal disc desiccation is noted throughout the cervical spine. C2-C3: No central canal or neural foraminal stenosis. C3-C4: No central canal or neural foraminal stenosis. C4-C5: Tiny posterior annular disc bulge. No central canal or neural foraminal stenosis. C5-C6: Tiny posterior annular disc bulge. No central canal or neural foraminal stenosis. C6-C7: No central canal or neural foraminal stenosis. C7-T1: No central canal or neural foraminal stenosis. IMPRESSION: 1. Motion degraded exam. 2. Normal signal of the cervical spinal cord. No evidence of demyelinating disease. 3. No abnormal enhancement. 4. No significant central canal or neural foraminal narrowing. ACT 112: Negative or not required by law. The above report was generated using voice recognition software. It may contain grammatical, syntax o r spelling errors. Electronically signed by: Ze Felder M.D. 11/11/2022 1:42 PM
[2022-11-11] MEDS ORDERED: LORazepam 2 MG/1 ML VIAL IV PRN (14:34)
[2022-11-11 15:32] LABS: C Reactive Protein < 0.50 mg/dl (0-0.5)
[2022-11-11 15:46] LABS: Ferritin 35.7 ng/ml (8-388)
[2022-11-11] MEDS ORDERED: methylPREDNISolone 60 MG in SYRINGE 0 ML IV SCH (17:00)
--- NOTE | 2022-11-11 17:56 | Billing Data ---
Date of Service November 11, 2022 Coding Level of Care Code 74758 SUB INP/OBS CARE MIN
[2022-11-11] MEDS: AMITRIPTYLINE HCL 25 MG TAB PO SCH (21:36)
[2022-11-11] MEDS: MELATONIN 3 MG TAB PO SCH (21:39)
[2022-11-12] MEDS: cefTRIAXone SODIUM 2,000 MG in DEXTROSE 5% 50 ML IV SCH (04:08)
--- NOTE | 2022-11-12 07:02 | Hospitalist Progress Note ---
Date of Service November 12, 2022 Assessment & Plan (1) Lyme disease: Plan: 27-year-old woman with history of Lyme disease (2020), depression with anxiety, reflux esophagitis, and, more recently, Gardnerella UTI, who is here with dizziness x3 weeks, found to have positive Lyme serology. 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 Neurologic Symptoms, Diffuse Myalgias, POP - Suspect Disseminated Lyme +/- underlying immunoneurologic process? -Positive Lyme serology including IgM, IgG on 11/07 (BANDS), positive IgM on WB, but negative IgG on WB; CSF studies still pending -Given her history of Lyme disease along with reported neurologic symptoms and lab workup thus far, treating as disseminated Lyme disease unless a more plausible explanation is demonstrated. She reports sharp delineation at around the level of T4 and other neurologic symptoms that could be consistent with a spinal process, such as transverse myelitis, though imaging so far has been negative for this. Lower suspicion for neurogenic syphilis, but also on the differential. Inflammatory/rheumatologic/autoimmune w/u as below. Neuropsychiatric cause is diagnosis of exclusion but considered. --> Brain MRI previously ordered by neurology NEGATIVE --> MRI C-spine NEGATIVE, MRI T-spine pending --> Smear NEGATIVE for intracellular parasites --> Initial inflammatory markers (ESR, CRP, PCT, ferritin) negative ; B12 normal --> ROBER, RF negative on 11/02 (PSH) negative --> FTS-ABS pending -Given underlying recurrent infections and now suspected disseminated disease, there is a concern for underlying autoimmune vs. immunodeficiency -- she shares with me that she has a personal history of CF, but has not undergone formal testing, but son has. Will look into literature more regarding this -Continue treatment for presumed disseminated Lyme: CFTX 2g q24h x 28 days -Trial SoluMedrol 40mg b.i.d. x 2 days -Schedule APAP 1000mg q8h, also can do Toradol 15mg q8h PRN (has ongoing PPI) -We will consider neurology consultation if further diagnostic assistance is needed, and pending work-up above -Serial inflammatory markers in the afternoon Positive CSF Cx: Oxacillin-Resistant CoNS - Culture positive BUT was in setting of a difficult tap - no WBCs, RBCs, negative BioFire - Suspect contaminant given species and otherwise negative CSF studies - ID consult: likely contaminant, hold off from vanc Reported History of Cystic Fibrosis - Newly discussed today. Son apparently has had genetic testing, she has not - Check vitamin D, folic acid level; +ferritin and B12 low - Give Venofer 200mg x 1, initiate B12 shots x 7 days while here - Will review literature as how this may relate to the above issues Gardnerella UTI -Metronidazole 500 mg BID Depression with anxiety -Continue home amitriptyline -Vistaril PRN anxiety Reflux esophagitis -Pantoprazole 40 mg daily -Reglan PRN nausea Code: Full code Dispo: [facility] FEN/GI: Regular diet DVT Prophylaxis: Low-risk Consults: None (2) Gardnerella vaginalis infection: Admission and Anticipated Discharge Date Admission Date: November 10, 2022 Supervising Physician Co-Signing Physician Notes I personally examined the patient and verified all ferrer points of history and exam, discussed case, and agree with decision making with Dr Medina May be 10% better than yesterday. Has neck pain radiating up around head and behind eye with a stabbing sensation. Still aching all over but a little bit better. vitals noted r uncomfortable but no true distress. Osteopathic/musculoskeletal shows left-sided greater than right suboccipitals to be high tone, tender, de creased range of motioninhibitory pressure with some improvement. Patient tolerated well. Breathing unlabored no accessory muscle use good effort. Skin shows no rashes no pallor or icterus. diffuse mylagias/paresthesia - ddx broad. for now working dx of disseminated lyme until/unless other more clear diagnoses are borne out (endemic area, (+) IgM, symptoms that fit with disseminated and/or MARKETING TRAINEE lyme that i've seen in the past) - seems to have failed doxycycline (although doxy should cover MARKETING TRAINEE lyme there is a bit of debate between ID and neurology communities on this) and no overt evidence of infection beyond lyme (ie nothing fitting right now w babesia, and doxy would've been expected to cover anaplasma if that was coinfection prior to admission) - rocephin, supportive care, serial exams, time. w MARKETING TRAINEE symptoms have to assume MARKETING TRAINEE involvement - will go w rocephin x 28 days until/unless new dx borne out. Transverse myelitis seems extremely unlikely. Continue to look for other possible etiologies of her symptoms with recurrent infections - ?concern on underlying autoimmune vs immunodeficiency - likely not the case, recent ROBER appears to have been sent 11/02 and is pending -and is at least relatively deficient in B12, iron, vitamin DI wonder about celiac disease or other malabsorption syndromes; she also notes a vague history of something that might relate to being a CF carrier, versus some other genetic syndromeshe notes she had a fairly extensive work-up after being fairly sick when she was probably about 17 years old, she also noted the work-up for that included a colonoscopy. She is really not quite sure what the diagnosis or yield wasbut [facility]. In the meantime, work-up further for celiac disease, replace B12, replace iron, replace vitamin D. Somatic dysfunction cervicalOMT as above otherwise as above Risk high due to neurologic symptoms, broad differential, several potentially dangerous etiologies at play, and multiple processes being managed simultaneously. Subjective Feeling a tiny bit better this morning. Still having shooting pains on L side of face. Still numbness and weakness in upper extremities. Endorses bladder spasms and some dysuria. Eager about finding diagnosis understandably. She shares with me that she has a personal history of CF but has not undergone formal genetic testing. Her son has reportedly undergone testing and +has cystic fibrosis. Unknown as to the specifics of the genetics (carrier vs. dz, mutation) Review of Systems Review of Systems: as per HPI Physical Exam Physical Exam: General: 27-year old female who is alert, oriented, and NAD HEENT: NCAT. - Eyes - Sclera are white, anicteric, and without injection. - Mouth - MMM - Neck - supple, no appreciable JVD Cardiac: Normal rate and regular rhythm; S1 and S2 present with no murmurs, rubs, or gallops. Pulmonary: Good respiratory effort with symmetric expansion of the chest. No use of accessory muscles. Lungs were clear to auscultation bilaterally with no crackles or wheezes. Neuro: - Cranial Nerves: CN I, IX, XIII, and X - not assessed. II - PERRL. III/IV/ - EOMs WNL. No nystagmus. V - Facial sensation in tact in all three divisions; jaw opening WNL. VII - Patient is able to smile symmetrically and keep eyes close against resistance. IX - Soft palate raises equally and appropriately while saying "ah." XI - Patient is able to shrug shoulders against resistance. XII - patient is able to stick out tongue and deviate from [id number] appropriately. - Motor: UE - Finger, wrist, elbow, and shoulder strength is 4/5 bilaterally. LE - Hip, knee, and ankle strength is 5/5 bilaterally. - Sensation: +reported paraesthesias to L side of face but also on R Results & Data Results & Data ([facility]) Vital Signs (Past 12 Hours) Vital Signs Temp Pulse Pulse Resp BP Pulse Ox O2 Del Method 11/12/22 04:00 37.4 C 103 H 18 123/83 99 Room Air 11/11/22 22:04 82 11/11/22 23:00 36.9 C 76 18 103/66 97 Room Air 11/11/22 20:04 36.7 C 97 H 18 118/81 98 Room Air Resident Activity Tracking Resident Involvement: Resident Care Provided Care Provided: Adult Hospital Medicine
[2022-11-12] MEDS: methylPREDNISolone 60 MG in SYRINGE 0 ML IV SCH ×2 (08:39→08:43)
[2022-11-12] MEDS: LIDOCAINE 5% 1 PATCH TD SCH (08:40)
[2022-11-12] MEDS: ACETAMINOPHEN 500 MG TAB PO SCH ×3 (08:42→22:05)
[2022-11-12] MEDS: buprenorphine HCL 8 MG SUBL SL SCH (08:43)
[2022-11-12] MEDS: PANTOprazole 40 MG TAB PO SCH (08:43)
[2022-11-12] MEDS: metroNIDAZOLE 500 MG TAB PO SCH ×2 (08:43→20:24)
[2022-11-12] MEDS ORDERED: FOLIC ACID 1 MG TAB PO SCH (09:00)
[2022-11-12] MEDS ORDERED: CYANOCOBALAMIN 1000 MCG/ML VIAL IM SCH (10:45)
[2022-11-12] MEDS ORDERED: GADOBUTROL 65ML VIAL IV ONE (10:49)
[2022-11-12] MEDS: FERROUS GLUCONATE 324 MG TAB PO SCH (11:22)
[2022-11-12] MEDS: CYANOCOBALAMIN 1000 MCG/ML VIAL IM SCH (11:22)
--- NOTE | 2022-11-12 11:32 | Magnetic Resonance Report ---
MR thoracic spine wo/w con CLINICAL HISTORY: numbness tingling and weakness ending at T4 TECHNIQUE: Multiplanar sequences through the thoracic spine were obtained, without and with intraveno us contrast. Comparison: Comparison is made to MRI cervical spine 11/11/2022 FINDINGS: Exam is limited by patient motion. The alignment is anatomical. Disks are normal in height and signa l. The spinal canal and neural foramina are patent. The spinal ligaments are intact, without evidence of disruption or abnormal signal intensity. The spi nal cord is normal in signal intensity and there is no evidence of cord contusion. There is no eviden ce of an extradural, intradural, extramedullary or intramedullary lesion. Visualized soft tissues are normal. IMPRESSION: No evidence of cord compression, significant neuroforaminal narrowing or ligamentous injury. ACT 112: Negative or not required by law. Electronically signed by: Mayank Granados M.D. 11/12/2022 11:30 AM
[2022-11-12] MEDS: KETOROLAC TROMETHAMINE 15 MG/ML VIAL IV PRN (11:56)
[2022-11-12] MEDS ORDERED: IRON SUCROSE 200 MG in 0.9 % SODIUM CHLORIDE 100 ML IV SCH (12:00)
[2022-11-12 12:19] LABS: Hematocrit (blood only) 35.2 % (34.1-44.9); Mean Corpuscular Hemoglobin 31.3 pg (25.0-34.0); Mean Corpuscular Hgb Conc 34.1 g/dL (32.0-36.0); Mean Corpuscular Volume 91.9 fL (80.0-100.0); Mean Platelet Volume 11.3 fL (9.4-12.3); Platelet Count 188 K/uL (130-400); RDW Coefficient of Variation 12.7 % (11.5-14.5); RDW Standard Deviation 42.8 fL (36.4-46.3); Red Blood Count 3.83 M/uL (3.93-5.22); White Blood Count 8.88 K/ul (4.8-10.8)
[2022-11-12 12:39] LABS: C Reactive Protein < 0.50 mg/dl (0-0.5)
[2022-11-12 12:40] LABS: BUN Creatinine Ratio 21.5 (10-20); Calcium 9.1 mg/dl (8.5-10.1); Creatinine Clr Calc Pharmacy 138.3 ml/min; Est GFR (Non-African American) 123.4 ml/min; Potassium 3.7 mmol/L (3.5-5.1)
[2022-11-12 12:44] LABS: Basophils # (auto) 0.01 K/uL (0-0.2); Basophils % (auto) 0.1 %; Immature Granulocytes # (auto) 0.02 K/uL (0.00-0.02); Immature Granulocytes % (auto) 0.2 %; Lymphocytes # (auto) 0.57 K/uL (1.2-3.4); Lymphocytes % (auto) 6.4 %; Monocytes # (auto) 0.19 K/uL (0.24-0.82); Monocytes % (auto) 2.1 %; Neutrophils # (auto) 8.09 K/uL (1.4-6.5); Neutrophils % (auto) 91.2 %; RBC Morphology Unremarkable
[2022-11-12 13:00] LABS: Ferritin 27.8 ng/ml (8-388)
[2022-11-12 13:09] LABS: Vitamin D, 25 Hydrox 15.5 ng/ml (30-100)
[2022-11-12] MEDS: ERGOCALCIFEROL 50,000 UNITS 1250 MCG CAP PO SCH (13:56)
[2022-11-12] MEDS ORDERED: PHENAZOPYRIDINE HCL 200 MG TAB PO PRN (16:19)
[2022-11-12 16:28] LABS: Appearance Urine Clear (Clear); Bacteria Urine Automated Negative (Negative); Bilirubin Urine Negative (Negative); Blood Urine Negative (Negative); Color Urine Dark Yellow; Epithelial Cell Urine Auto 20-30 /lpf (0-5); Glucose Urine UA 2+ (Negative); Ketones Urine Trace (Negative); Leukocyte Esterase Urine 1+ (Negative); Nitrite Urine Negative (Negative); Protein Urine Negative (Negative); RBC Urine Automated 0-4 /hpf (0-4); Specific Gravity Urine 1.036 (1.000-1.030); Urobilinogen Urine Negative (Negative)
--- NOTE | 2022-11-12 18:33 | Billing Data ---
Date of Service November 12, 2022 Coding Level of Care Code 11882 SUB INP/OBS CARE MIN
--- NOTE | 2022-11-12 18:43 | Hospitalist Progress Note ---
Date of Service November 12, 2022 Assessment & Plan Admission and Anticipated Discharge Date Admission Date: November 10, 2022 Results & Data Results & Data ([facility]) Vital Signs (Past 12 Hours) Vital Signs Temp Pulse Pulse Resp BP BP Pulse Ox 11/12/22 15:33 98.2 F 78 20 103/67 96 11/12/22 15:07 84 11/12/22 11:55 98.1 F 109 H 20 124/81 96 11/12/22 07:00 11/12/22 08:11 98.1 F 79 19 99/65 L 98 11/12/22 07:37 79 O2 Del Method O2 Del Method 11/12/22 15:33 Room Air 11/12/22 15:07 11/12/22 11:55 Room Air 11/12/22 07:00 Room Air 11/12/22 08:11 Room Air 11/12/22 07:37 PG Care Time/CCT Total # of Minutes Spent Total Time Spent with Patient: Total time spent is greater than 50% in coordination of care (as documented) at patient's floor/unit and/or counseling patient: Coding Level of Care Code None CPT Codes Musculoskeletal - Musculoskeletal: 62372 Oste[address] Norberto Tr 1-2 Body regions ([id number])
[2022-11-12] MEDS: AMITRIPTYLINE HCL 25 MG TAB PO SCH (20:24)
[2022-11-12] MEDS: MELATONIN 3 MG TAB PO SCH (20:24)
[2022-11-12] MEDS ORDERED: POLYETHYLENE (MIRALAX) 17 GM PACK PO PRN (20:49)
[2022-11-12] MEDS ORDERED: SENNA 8.6 MG TAB PO ONE (20:52)
[2022-11-13] MEDS: cefTRIAXone SODIUM 2,000 MG in DEXTROSE 5% 50 ML IV SCH (03:32)
[2022-11-13] MEDS: ACETAMINOPHEN 500 MG TAB PO SCH ×3 (05:40→23:54)
--- NOTE | 2022-11-13 06:53 | Hospitalist Progress Note ---
Date of Service November 13, 2022 Assessment & Plan (1) Lyme disease: Plan: 27-year-old woman with history of Lyme disease (2020), depression with anxiety, reflux esophagitis, and, more recently, Gardnerella UTI, who is here with dizziness x3 weeks, found to have positive Lyme serology. 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 Neurologic Symptoms, Diffuse Myalgias, POP - Suspect Disseminated Lyme -Reporting persistent yet changing quality of paraesthesias in the face (L>R) extending down to ~T4 on the thorax but sparing the arms. 4/5 UE weakness, but equal b/l. 3+ reflexes globally. Also: intermittent blurry vision, HAs, tinnitus. -Positive Lyme serology including IgM, IgG on 11/07 (BANDS), positive IgM on WB, but negative IgG on WB; CSF studies do not demonstrate e/o Lyme DNA -Workup as follows --> Brain MRI, C and T-Spine all NEGATIVE --> Smear NEGATIVE for intracellular parasites --> Inflammatory markers (ESR, CRP, PCT, ferritin) negative ; B12 normal --> ROBER, RF negative on 11/02 (PSH) negative --> FTS-ABS pending -Given her history of Lyme disease along with reported neurologic symptoms, disseminated Lyme disease is presumed diagnosis until presumed otherwise. Her spinal MRIs are normal. She has no known exposures or toxicities, and her RX wouldn't distinctively explain her condition. Lower suspicion for neurogenic syphilis, but also on the differential. Neuropsychiatric cause is diagnosis of exclusion but considered as at least part of the presenting phenotype. -Given underlying recurrent infections and now suspected disseminated disease, there is a concern for underlying autoimmune vs. immunodeficiency -- she shares with me that she has a personal history of CF, but has not undergone formal testing (as far as she can recall - either genetic or sweat test), but her son apparently has and carries the diagnosis -Continue treatment for presumed disseminated Lyme: CFTX 2g q24h x 28 days -Aid with symptom control/constitutional symptoms: transition to prednisone 40mg daily x 4 more days -APAP 1000mg q8h FRIDA; Toradol 15mg q8h PRN 11/13 * PT ordered: extensive discussion re- physical deconditioning in the setting of neurologic illness, and need to get up and modulate activities such that they replicate what it feels like to be a person and not a patient. Amenable and will try. Set expectations that she is likely to tire out initially in the beginning, and slowly pushing is going to be needed to regain strength. Also discussed avoiding the illness role and setting small goals for each day, which she is willing to try. Will likely need revisiting daily. * Place PICC line today * Ativan trial- will discuss today to help delineate symptomatology Positive CSF Cx: Oxacillin-Resistant CoNS - Culture positive BUT was in setting of a difficult tap - no WBCs, RBCs, negative BioFire - Suspect contaminant given species, clinical presentation, and otherwise negative CSF studies - ID consult: likely contaminant, hold off from vanc Reported History of Cystic Fibrosis - History discussed during admission. Reports that she is in "remission" but can 't recall undergoing any formal testing. Son has had genetic testing reportedly confirming the diagnosis - Vitamin D, B12, and ferritin all low -- ?malabsorptive pathology. 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 establishing with tray service worker as outpatient -- could certainly affect intermittent screenings/immunizations - Will reach out to Eric[facility] to see if we can get pediatric files re- w/u for ?CF Nutritional Deficiencies - Ferritin, B12, and vitamin D all low - Management: -- Venofer 200mg x 1 given while here; initiate iron sulfate 325mg MWF at discharge -- Vitamin D2 50,000U q7d x 8 weeks then recheck level as outpatient ; also vitamin D3 2000 IU daily -- recheck in 3 mo' time -- Vitamin B12 shots daily x 7 days, then q7d x 4 weeks, then monthly x 3 months --> recheck level - Check CD panel. Possible contribution from CF, though would be atypical given no other sxs of pancreatic insufficiency Gardnerella UTI -Metronidazole 500 mg BID -Pyridium t.i.d. x 2 days, end 11/14 Depression with anxiety -Continue home amitriptyline -Vistaril PRN anxiety Reflux esophagitis -Pantoprazole 40 mg daily -Reglan PRN nausea Code: Full code Dispo: [facility] FEN/GI: Regular diet DVT Prophylaxis: Low-risk Consults: None (2) Gardnerella vaginalis infection: Admission and Anticipated Discharge Date Admission Date: November 10, 2022 Supervising Physician Co-Signing Physician Notes I personally examined the patient and verified all ferrer points of history and exam, discussed case, and agree with decision making with Dr Medina Had 1 mg of Ativan slightly more than an hour before I saw her. No real change in symptoms. Biggest problem today is her face feeling like it is burning. [place] like steroids might of been helping more than she realized vitals noted uncomfortable and restless but no true distress. Breathing unlabored no accessory muscle use good effort. Skin shows no rashes no pallor or icterus. diffuse mylagias/paresthesia - ddx broad. for now working dx of disseminated lyme until/unless other more clear diagnoses are borne out (endemic area, (+) IgM, symptoms that fit with disseminated and/or TRANSFER KNITTER lyme that i've seen in the past) - seems to have failed doxycycline (although doxy should cover TRANSFER KNITTER lyme there is a bit of debate between ID and neurology communities on this) and no overt evidence of infection beyond lyme (ie nothing fitting right now w babesia, and doxy would've been expected to cover anaplasma if that was coinfection prior to admission) -continue rocephin, supportive care, serial exams, time. w TRANSFER KNITTER symptoms have to assume TRANSFER KNITTER involvement - will go w rocephin x 28 days until/unless new dx borne out. Transverse myelitis seems extremely unlikely. Continue to look for other possible etiologies of her symptomswhile I do believe there is a "mind-body" component, I really do not feel that her symptoms are purely neuropsychiatric/conversion/etc. with recurrent infections - ?concern on underlying autoimmune vs immunodeficiency - likely not the case, recent ROBER appears to have been sent 11/02 and is pending -and is at least relatively deficient in B12, iron, vitamin DI wonder about celiac disease or other malabsorption syndromes; she also notes a vague history of something that might relate to being a CF carrier, versus some other genetic syndromeshe notes she had a fairly extensive work-up after being fairly sick when she was probably about 17 years old, she also noted the work-up for that included a colonoscopy. She is really not quite sure what the diagnosis or yield wasbut it [facility]. In the meantime, work-up further for celiac disease (antibodies sentbut if negative, consider repeat and/or EGD once she is off steroids), replace B12, replace iron, replace vitamin D. otherwise as above Risk high due to neurologic symptoms, broad differential, several potentially dangerous etiologies at play, and multiple processes being managed simultaneously. Subjective No acute events reported overnight. Feels about the same. Feels like forehead is completely numb. No more shooting pains. Still persistent symptoms down to level of T4, sparing the arms. POP still not great. Urine really yellow per her. Not drinking a lot of water. Scared of what the future brings with all this going on. Review of Systems Review of Systems: As per HPI Physical Exam Physical Exam: General: 27-year old female who is alert, oriented, and is intermittently in distress throughout our conversation HEENT: NCAT. - Eyes - Sclera are white, anicteric, and without injection. - Mouth - MMM - Neck - supple, no appreciable JVD Cardiac: Normal rate and regular rhythm; S1 and S2 present with no murmurs, rubs, or gallops. Pulmonary: Good respiratory effort with symmetric expansion of the chest. No use of accessory muscles. Lungs were clear to auscultation bilaterally with no crackles or wheezes. Neuro: - Cranial Nerves: CN I, IX, XIII, and X - not assessed. II - PERRL. III/IV/ - EOMs WNL. No nystagmus. V - Facial sensation in tact in all three divisions; jaw opening WNL. VII - Patient is able to smile symmetrically and keep eyes close against resistance. IX - Soft palate raises equally and appropriately while saying "ah." XI - Patient is able to shrug shoulders against resistance. XII - patient is able to stick out tongue and deviate from [id number] appropriately. - Motor: UE - Finger, wrist, elbow, and shoulder strength is 4/5 bilaterally. Results & Data Results & Data ([facility]) Vital Signs (Past 12 Hours) Vital Signs Temp Pulse Pulse Resp BP Pulse Ox O2 Del Method 11/13/22 04:00 36.8 C 74 20 124/77 98 Room Air 11/12/22 23:11 36.9 C 77 20 121/79 97 Room Air 11/12/22 22:05 71 11/12/22 19:25 36.8 C 70 18 111/71 98 Room Air Resident Activity Tracking Resident Involvement: Resident Care Provided Care Provided: Adult [facility] Medicine
[2022-11-13] MEDS ORDERED: PANTOprazole 40 MG in SYRINGE 0 ML IV SCH (09:00)
[2022-11-13] MEDS: SENNA 8.6 MG TAB PO SCH (09:41)
[2022-11-13] MEDS: metroNIDAZOLE 500 MG TAB PO SCH ×2 (09:41→21:12)
[2022-11-13] MEDS: FERROUS GLUCONATE 324 MG TAB PO SCH (09:42)
[2022-11-13] MEDS: CHOLECALCIFEROL 1,000 UNITS 25 MCG TAB PO SCH (09:44)
[2022-11-13] MEDS: LIDOCAINE 5% 1 PATCH TD SCH (09:46)
[2022-11-13] MEDS: buprenorphine HCL 8 MG SUBL SL SCH (09:53)
[2022-11-13] MEDS ORDERED: COPPER PO PRN (10:12)
[2022-11-13] MEDS: CYANOCOBALAMIN 1000 MCG/ML VIAL IM SCH (10:19)
[2022-11-13] MEDS: KETOROLAC TROMETHAMINE 15 MG/ML VIAL IV PRN (11:57)
[2022-11-13] MEDS: PHENAZOPYRIDINE HCL 100 MG TAB PO SCH ×2 (14:04→21:12)
[2022-11-13] MEDS ORDERED: LORazepam 2 MG/1 ML VIAL IV STA (15:14)
[2022-11-13] MEDS ORDERED: predniSONE 20 MG TAB PO STA (15:14)
[2022-11-13] MEDS: methylPREDNISolone 60 MG in SYRINGE 0 ML IV SCH (15:19)
--- NOTE | 2022-11-13 17:23 | Billing Data ---
Date of Service November 13, 2022 Coding Level of Care Code 58028 SUB INP/OBS CARE MIN
[2022-11-13] MEDS ORDERED: GABAPENTIN 600 MG TAB PO SCH (21:00)
[2022-11-13] MEDS: AMITRIPTYLINE HCL 25 MG TAB PO SCH (21:12)
[2022-11-13] MEDS: MELATONIN 3 MG TAB PO SCH (21:13)
[2022-11-14] MEDS: cefTRIAXone SODIUM 2,000 MG in DEXTROSE 5% 50 ML IV SCH (04:13)
[2022-11-14] MEDS: ACETAMINOPHEN 500 MG TAB PO SCH ×3 (04:49→21:29)
[2022-11-14] MEDS: CHOLECALCIFEROL 1,000 UNITS 25 MCG TAB PO SCH (08:33)
[2022-11-14] MEDS: CYANOCOBALAMIN 1000 MCG/ML VIAL IM SCH (08:35)
[2022-11-14] MEDS: FERROUS GLUCONATE 324 MG TAB PO SCH (08:36)
[2022-11-14] MEDS: PANTOprazole 40 MG TAB PO SCH (08:41)
[2022-11-14] MEDS: LIDOCAINE 5% 1 PATCH TD SCH (08:41)
[2022-11-14] MEDS: metroNIDAZOLE 500 MG TAB PO SCH ×2 (08:41→21:29)
[2022-11-14] MEDS: PHENAZOPYRIDINE HCL 100 MG TAB PO SCH ×3 (08:42→21:27)
[2022-11-14] MEDS: SENNA 8.6 MG TAB PO SCH (08:42)
[2022-11-14] MEDS: buprenorphine HCL 8 MG SUBL SL SCH (08:43)
[2022-11-14] MEDS ORDERED: GABAPENTIN 300 MG CAP PO SCH ×2 (09:00→21:00)
[2022-11-14] MEDS ORDERED: predniSONE 20 MG TAB PO SCH (09:00)
--- NOTE | 2022-11-14 09:08 | Hospitalist Progress Note ---
Date of Service November 14, 2022 Assessment & Plan (1) Lyme disease: Plan: 27-year-old woman with history of Lyme disease (2020), depression with anxiety, reflux esophagitis, and, more recently, Gardnerella UTI, who is here with dizziness x3 weeks, found to have positive Lyme serology. 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 Neurologic Symptoms, Diffuse Myalgias, POP - Suspect Disseminated Lyme -Reporting persistent yet changing quality of paraesthesias in the face (L>R) extending down to ~T4 on the thorax but sparing the arms. 4/5 UE weakness, but equal b/l. 3+ reflexes globally. Also: intermittent blurry vision, HAs, tinnitus. -Positive Lyme serology including IgM, IgG on 11/07 (BANDS), positive IgM on WB, but negative IgG on WB; CSF studies do not demonstrate e/o Lyme DNA -Workup as follows --> Brain MRI, C and T-Spine all NEGATIVE --> Smear NEGATIVE for intracellular parasites --> Inflammatory markers (ESR, CRP, PCT, ferritin) negative ; B12 normal --> ROBER, RF negative on 11/02 (PSH) negative --> FTS-ABS pending -Given her history of Lyme disease along with reported neurologic symptoms, disseminated Lyme disease is presumed diagnosis until presumed otherwise. Her spinal MRIs are normal. She has no known exposures or toxicities, and her RX wouldn't distinctively explain her condition. Lower suspicion for neurogenic syphilis, but also on the differential. Neuropsychiatric cause is diagnosis of exclusion but considered as at least part of the presenting phenotype. -Given underlying recurrent infections and now suspected disseminated disease, there is a concern for underlying autoimmune vs. immunodeficiency -- she shares with me that she has a personal history of CF, but has not undergone formal testing (as far as she can recall - either genetic or sweat test), but her son apparently has and carries the diagnosis -Continue treatment for presumed disseminated Lyme: CFTX 2g q24h x 28 days -PICC placed 11/13 -Steroids discontinued 11/13 -APAP 1000mg q8h FRIDA; Toradol 15mg q8h PRN -Will increase amitryptiline 50 mg to 75 mg today, continue gabapentin 300 mg TID -Consider addition of Tegretol 100 mg BID tomorrow if no improvement with increased amitryptiline dose -PT ordered: extensive discussion re- physical deconditioning in the setting of neurologic illness, and need to get up and modulate activities such that they replicate what it feels like to be a person and not a patient. Amenable and will try. Set expectations that she is likely to tire out initially in the beginning, and slowly pushing is going to be needed to regain strength. Also discussed avoiding the illness role and setting small goals for each day, which she is willing to try. Will likely need revisiting daily. Positive CSF Cx: Oxacillin-Resistant CoNS - Culture positive BUT was in setting of a difficult tap - no WBCs, RBCs, negative BioFire - Suspect contaminant given species, clinical presentation, and otherwise negative CSF studies - ID consult: likely contaminant, hold off from vancomycin Reported History of Cystic Fibrosis - History discussed during admission. Reports that she is in "remission" but can't recall undergoing any formal testing. Son has had genetic testing reportedly confirming the diagnosis - Vitamin D, B12, and ferritin all low -- ?malabsorptive pathology. 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 establishing with data center consultant as outpatient -- could certainly affect intermittent screenings/immunizations - Will reach out to [facility] to see if we can get pediatric files re- w/u for ?CF Nutritional Deficiencies - Ferritin, B12, and vitamin D all deficient - Management: -- Venofer 200mg x 1 given while here; initiate iron sulfate 325mg MWF at discharge -- Vitamin D2 50,000U q7d x 8 weeks then recheck level as outpatient ; also vitamin D3 2000 IU daily -- recheck in 3 mo' time -- Vitamin B12 shots daily x 7 days, then q7d x 4 weeks, then monthly x 3 months --> recheck level - Check CD panel. Possible contribution from CF, though would be atypical given no other sxs of pancreatic insufficiency Gardnerella UTI -Metronidazole 500 mg BID -Pyridium t.i.d. x 2 days, end 11/14 Depression with anxiety -Continue home amitriptyline -Vistaril PRN anxiety Reflux esophagitis -Pantoprazole 40 mg daily -Reglan PRN nausea Code: Full code Dispo: [facility] FEN/GI: Regular diet DVT Prophylaxis: Low-risk Consults: Infectious disease (2) Gardnerella vaginalis infection: Admission and Anticipated Discharge Date Admission Date: November 10, 2022 Supervising Physician Co-Signing Physician Notes I personally examined the patient and verified all ferrer points of history and exam, discussed case, and agree with decision making with Dr Fox. Subjective No acute events reported overnight. She feels similar to day prior, continues to report sensation of burning and numbness in forehead, behind ears with radiation down to neck bilaterally. Still very anxious regarding her illness.. Review of Systems Review of Systems: As per HPI Physical Exam Physical Exam: General: 27-year old female who is alert, oriented, and is intermittently in distress throughout our conversation HEENT: NCAT. - Eyes - Sclera are white, anicteric, and without injection. - Mouth - MMM - Neck - supple, no appreciable JVD Cardiac: Normal rate and regular rhythm; S1 and S2 present with no murmurs, rubs, or gallops. Pulmonary: Good respiratory effort with symmetric expansion of the chest. No use of accessory muscles. Lungs were clear to auscultation bilaterally with no crackles or wheezes. Neuro: - Cranial Nerves: CN I, IX, XIII, and X - not assessed. II - PERRL. III/IV/ - EOMs WNL. No nystagmus. V - Facial sensation in tact in all three divisions; jaw opening WNL. VII - Patient is able to smile symmetrically and keep eyes close against resistance. IX - Soft palate raises equally and appropriately while saying "ah." XI - Patient is able to shrug shoulders against resistance. XII - patient is able to stick out tongue and deviate from [id number] appropriately. - Motor: UE - Finger, wrist, elbow, and shoulder strength is 4/5 bilaterally. Results & Data Results & Data ([facility]) Vital Signs (Past 12 Hours) Vital Signs Temp Pulse Resp BP Pulse Ox O2 Del Method 11/14/22 07:09 36.7 C 69 18 109/75 99 Room Air 11/13/22 23:35 36.5 C 84 16 110/66 97 Room Air Resident Activity Tracking Resident Involvement: Resident Care Provided Care Provided: Adult [facility]
[2022-11-14] MEDS ORDERED: MECLIZINE HCL 25 MG TAB PO STA (12:13)
[2022-11-14] MEDS: GABAPENTIN 300 MG CAP PO SCH ×2 (13:26→21:28)
[2022-11-14] MEDS ORDERED: FAMOTIDINE 40 MG TABLET PO ONE (18:34)
[2022-11-14] MEDS ORDERED: GABAPENTIN 600 MG TAB PO SCH (21:00)
[2022-11-14] MEDS ORDERED: carBAMazepine 100 MG CHEW TAB PO SCH (21:00)
[2022-11-14] MEDS: KETOROLAC TROMETHAMINE 15 MG/ML VIAL IV PRN (21:27)
[2022-11-14] MEDS: MELATONIN 3 MG TAB PO SCH (21:27)
[2022-11-14] MEDS: AMITRIPTYLINE HCL 25 MG TAB PO SCH (21:28)
[2022-11-15] MEDS ORDERED: AMITRIPTYLINE HCL 25 MG TAB PO ONE (01:47)
[2022-11-15] MEDS: cefTRIAXone SODIUM 2,000 MG in DEXTROSE 5% 50 ML IV SCH (03:55)
[2022-11-15] MEDS: ACETAMINOPHEN 500 MG TAB PO SCH ×3 (05:50→21:01)
[2022-11-15] MEDS: metroNIDAZOLE 500 MG TAB PO SCH ×2 (07:47→20:22)
[2022-11-15] MEDS: GABAPENTIN 300 MG CAP PO SCH ×3 (07:47→20:22)
[2022-11-15] MEDS: CYANOCOBALAMIN 1000 MCG/ML VIAL IM SCH (07:48)
[2022-11-15] MEDS: PHENAZOPYRIDINE HCL 100 MG TAB PO SCH (07:48)
[2022-11-15] MEDS: SENNA 8.6 MG TAB PO SCH (07:48)
[2022-11-15] MEDS: FERROUS GLUCONATE 324 MG TAB PO SCH (07:48)
[2022-11-15] MEDS: PANTOprazole 40 MG TAB PO SCH (07:48)
[2022-11-15] MEDS: CHOLECALCIFEROL 1,000 UNITS 25 MCG TAB PO SCH (07:49)
[2022-11-15] MEDS: LIDOCAINE 5% 1 PATCH TD SCH (07:49)
[2022-11-15] MEDS: buprenorphine HCL 8 MG SUBL SL SCH (07:59)
[2022-11-15] MEDS ORDERED: carBAMazepine 100 MG CHEW TAB PO ONE (08:45)
--- NOTE | 2022-11-15 09:12 | Hospitalist Progress Note ---
Date of Service November 15, 2022 Assessment & Plan (1) Lyme disease: Plan: 27-year-old woman with history of Lyme disease (2020), depression with anxiety, reflux esophagitis, and, more recently, Gardnerella UTI, who is here with dizziness x3 weeks, found to have positive Lyme serology. 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 Neurologic Symptoms, Diffuse Myalgias, POP - Suspect Disseminated Lyme -Reporting persistent yet changing quality of paraesthesias in the face (L>R) extending down to ~T4 on the thorax but sparing the arms. 4/5 UE weakness, but equal b/l. 3+ reflexes globally. Also: intermittent blurry vision, HAs, tinnitus. -Positive Lyme serology including IgM, IgG on 11/07 (BANDS), positive IgM on WB, but negative IgG on WB; CSF studies do not demonstrate e/o Lyme DNA -Workup as follows --> Brain MRI, C and T-Spine all NEGATIVE --> Smear NEGATIVE for intracellular parasites --> Inflammatory markers (ESR, CRP, PCT, ferritin) negative ; B12 normal --> ROBER, RF negative on 11/02 (PSH) negative --> FTA-ABS negative -Given her history of Lyme disease along with reported neurologic symptoms, disseminated Lyme disease is presumed diagnosis until presumed otherwise. Her spinal MRIs are normal. She has no known exposures or toxicities, and her RX wouldn't distinctively explain her condition. Lower suspicion for neurogenic syphilis, but also on the differential. Neuropsychiatric cause is diagnosis of exclusion but considered as at least part of the presenting phenotype. -Given underlying recurrent infections and now suspected disseminated disease, there is a concern for underlying autoimmune vs. immunodeficiency -- she shares with me that she has a personal history of CF, but has not undergone formal testing (as far as she can recall - either genetic or sweat test), but her son apparently has and carries the diagnosis -Continue treatment for presumed disseminated Lyme: CFTX 2g q24h x 28 days- to conclude on 12/08 -PICC placed 11/13 -Steroids discontinued 11/13 -APAP 1000mg q8h FRIDA; Toradol 15mg q8h PRN -PT ordered: extensive discussion re- physical deconditioning in the setting of neurologic illness, and need to get up and modulate activities such that they r eplicate what it feels like to be a person and not a patient. Amenable and will try. Set expectations that she is likely to tire out initially in the beginning, and slowly pushing is going to be needed to regain strength. Also discussed avoiding the illness role and setting small goals for each day, which she is willing to try. Will likely need revisiting daily. -Continue amitryptiline 75 mg daily, continue gabapentin 300 mg TID -Trial of Tegretol 100 mg today -Consider trial of SNRI as well -Consider outpatient nerve conduction studies -Psychiatry consulted today Positive CSF Cx: Oxacillin-Resistant CoNS - Culture positive BUT was in setting of a difficult tap - no WBCs, RBCs, negative BioFire - Suspect contaminant given species, clinical presentation, and otherwise negative CSF studies - ID consult: likely contaminant, hold off from vancomycin Reported History of Cystic Fibrosis - History discussed during admission. Reports that she is in "remission" but can't recall undergoing any formal testing. Son has had genetic testing reportedly confirming the diagnosis - Vitamin D, B12, and ferritin all low -- ?malabsorptive pathology. 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 establishing with perioperative manager as outpatient -- could certainly affect intermittent screenings/immunizations - We did contact Erica for her pediatric history- no chronic conditions were noted per their chart review Nutritional Deficiencies - Ferritin, B12, and vitamin D all deficient - Management: -- Venofer 200mg x 1 given while here; initiate iron sulfate 325mg MWF at discharge -- Vitamin D2 50,000U q7d x 8 weeks then recheck level as outpatient ; also vitamin D3 2000 IU daily -- recheck in 3 mo' time -- Vitamin B12 shots daily x 7 days, then q7d x 4 weeks, then monthly x 3 months --> recheck level - Check CD panel. Possible contribution from CF, though would be atypical given no other sxs of pancreatic insufficiency Gardnerella UTI -Metronidazole 500 mg BID -Pyridium t.i.d. x 2 days, end 11/14 Depression with anxiety -Continue home amitriptyline -Vistaril PRN anxiety Reflux esophagitis -Pantoprazole 40 mg daily -Reglan PRN nausea Code: Full code Dispo: [facility] FEN/GI: Regular diet DVT Prophylaxis: Low-risk Consults: Infectious disease, psychiatry (2) Gardnerella vaginalis infection: Admission and Anticipated Discharge Date Admission Date: November 10, 2022 Supervising Physician Co-Signing Physician Notes I personally examined the patient and verified all ferrer points of history and exam, discussed case, and agree with decision making with Dr Fox. Subjective No acute events reported overnight. Pt continues to report sensation of numbness similar to day prior. States the increased amitryptiline dose has not helped her and she is still in significant pain. She is amenable to trying carbamazepine today and seeing the psychiatrist as well. Denies any new complaints or symptoms. Review of Systems Review of Systems: As per HPI Physical Exam Physical Exam: General: 27-year old female who is alert, oriented, and is intermittently in distress throughout our conversation HEENT: NCAT. - Eyes - Sclera are white, anicteric, and without injection. - Mouth - MMM - Neck - supple, no appreciable JVD Cardiac: Normal rate and regular rhythm; S1 and S2 present with no murmurs, rubs, or gallops. Pulmonary: Good respiratory effort with symmetric expansion of the chest. No use of accessory muscles. Lungs were clear to auscultation bilaterally with no crackles or wheezes. Neuro: - Cranial Nerves: CN I, IX, XIII, and X - not assessed. II - PERRL. III/IV/ - EOMs WNL. No nystagmus. V - Facial sensation in tact in all three divisions; jaw opening WNL. VII - Patient is able to smile symmetrically and keep eyes close against resistance. IX - Soft palate raises equally and appropriately while saying "ah." XI - Patient is able to shrug shoulders against resistance. XII - patient is able to stick out tongue and deviate from [id number] appropriately. - Motor: UE - Finger, wrist, elbow, and shoulder strength is 4/5 bilaterally. Results & Data Results & Data ([facility]) Vital Signs (Past 12 Hours) Vital Signs Temp Pulse Resp BP Pulse Ox O2 Del Method 11/15/22 06:28 36.8 C 88 18 108/78 97 Room Air 11/15/22 02:46 37.0 C 76 18 123/82 98 Room Air 11/14/22 21:02 36.8 C 82 16 101/70 97 Room Air Resident Activity Tracking Resident Involvement: Resident Care Provided Care Provided: Adult [facility]
[2022-11-15] MEDS: KETOROLAC TROMETHAMINE 15 MG/ML VIAL IV PRN ×2 (13:48→23:24)
--- NOTE | 2022-11-15 14:20 | Psychiatric Consultation ---
Date of Consultation November 15, 2022 Impression / Recommendations Impression 27 yo female with recurrent somatic complaints/pain syndrome with hx of lyme disease [id number] with concerns for chronic disseminated lyme. Likely worsening of her baseline mood/anxiety issues due to stress/pain and recent steroids. No perceived benefit from TCA but notes some improvement with toradol and lidocaine topical. Hx of concussion and past med trials for migraine variant related to lyme (per chart review). Patient did not present as overly med seeking though [facility] that provides buprenorphine is a substance abuse tx plan. No recent urine tox. Differential other than medical listed on chart includes somatoform disorder (somatic symptom disorder), factitious disorder or malingering. The patient did not present in a drug seeking manner but would want to confirm any recent relapse/learn more about substance use hx given now has PICC line. (1) Anxiety: (2) Depression: (3) Lyme disease: (4) H/O multiple concussions: (5) Opioid dependence on agonist therapy: Plan urine tox may not be accurate at this time will attempt to sign release/get collateral from [facility] bupenorphine prescriber. defer to neurology on acute management of complex migraine/neuropathy symptoms, hospitalist states may try Cymbalta next. Ideally would be in place of TCA to limit polypharm, risk of QTc with other agents (Vistaril, Zofran, etc.). Cymbalta would be more likely to address any depression/anxiety than low dose TCA and better safety profile. Psych History Identifying Data Sarah is a 27 yo female from [place], hx of recurrent hospitalizations/ED visits for POP/facial pain, etc related to perceived reactivation of Lyme ds. Consult is by hospitalist service for "sev anxiety/recs with home RX prior to discharge." Chief Complaint "This is horrible, it just deshpande then is numb, nothing helps". History of Present Illness The patient was admitted to [facility] on 11/10 following 2 recent ED visits. Most recently c/o post LP POP and she gives varying reports of parasthesias in the forehead and left face, upper right thorax including nipples, and down right arm at times associated with blurry visioin, HAs, and tinnitus. Lyme serology remains positive, denies hx of shingles, has been noted as possible trigeminal neuralgia in the past, disseminated lyme, and/or migraine variant. There is no particular med seeking behavior this stay but emotional, somatic, and health preoccupation with possible CF carrier. Her steroid burst was just discontinued on 11/13/22 and she now has a PICC line for IV antibiotics. No recent urine tox available. TCA was prescribed just prior to this admission and per Dr. Webster she did not tolerate higher doses of Neurontin. I currently do not see a great history re: her past opiod use, during a prior consultation she has openly endorsed anxiety and depressive symptoms. Dr. Meng saw patient acutely for psych consult in 2020 and recommended Ativan despite suboxone use. Patient remains on buprenorphine. She has taken 1 dose of hydroxyzine for anxiety overnight. A previous stay notes admit to using a friends suboxone prior to it being prescribed for her. Past Psychiatric History Previous Psych Admissions: 2012 and 2014 [place] History of Previous Suicide Attempt: No Allergies Allergy/AdvReac Type Severity Reaction Status Date / Time No Known Allergies Allergy Verified 11/10/22 01:36 Home Medications Medication Instructions Recorded Confirmed Type acetaminophen 500 mg tablet 1,000 mg PO Q6H PRN Pain 05/23/21 11/10/22 History (Tylenol Extra Strength) copper 380 square mm intrauterine 1 device intrauterine CONTINOUS 02/18/22 11/10/22 History device (ParaGard T 380A) buprenorphine HCl 8 mg sublingual 8 mg sublingual DAILY 10/22/22 11/10/22 History tablet ondansetron 4 mg disintegrating 4 mg PO Q6H PRN nausea and 10/26/22 11/10/22 Rx tablet vomiting #15 tabs doxycycline hyclate 100 mg tablet 100 mg PO BID 28 days #56 tabs 11/02/22 11/10/22 Rx metoclopramide HCl 5 mg tablet 5 mg PO BID PRN nausea and 11/02/22 11/10/22 Rx (Reglan) vomiting #30 tabs cefdinir 300 mg capsule 300 mg PO Q12H 5 days #10 caps 11/07/22 11/10/22 Rx hydroxyzine pamoate 50 mg capsule 50 mg PO Q8H PRN sleep/anxiety #15 11/07/22 11/10/22 Rx (Vistaril) caps methylprednisolone 4 mg tablets in See Rx Instructions .Route 11/07/22 11/10/22 Rx a dose pack .COMPLEX #21 ea nitrofurantoin 100 mg PO BID 11/07/22 11/10/22 History monohydrate/macrocrystals 100 mg capsule metronidazole 500 mg tablet 500 mg PO BID 7 days #14 tabs 11/08/22 11/10/22 Rx amitriptyline 25 mg tablet 25 mg PO .COMPLEX #60 tabs 11/09/22 11/10/22 Rx Patient History Medical History Anxiety Depression H/O multiple concussions Headache History of asthma Misuse of medication MRSA (methicillin resistant Staphylococcus aureus) Ovarian cyst Reflux esophagitis Surgical History History of colonoscopy Family History Father Hearing loss Suicide 2020 Mother Hypertension Son Asthma Other No family history of adverse response to anesthesia No family history of bleeding disorder Social History (Updated 11/15/22 @ 14:34 by Yanet Aden MD) Smoking Status: Former smoker Second Hand Exposure: Yes; Tobacco Cessation Education Requested by Patient: No Hx Alcohol Use: No Hx Substance Use: No Preferred Language: Prydeinig Communication Ability: Effective General Worker Required: No Beliefs That Will Affect Care: None marital status: Single Current Living Situation: Significant Other current occupational status: employed current occupation: [employer] How many Children do You have: 1 Other Information That Helps Us Care for You: No Feels Safe at Home: Yes Safety Concerns: Feels Safe At This Time Assistive Devices: None Physical Exam Psychiatric: Orientation: alert and oriented x 3 Apperance: appropriately dressed and appropriately groomed Eye Contact: + poor eye contact Motor Behavior: no abnormal motor movements Speech: normal rate/rhythm/volume of speech Affect: + depressed affect Mood: + depressed mood and + anxious mood Thought Process: goal directed thought process Thought Content: reality based without delusions Suicidal Thoughts: denies suicidal thoughts Homicidal Thoughts: denies homicidal thoughts Hallucinations: no auditory hallucinations and no visual hallucinations Cognition: attention grossly intact and language grossly intact Estimated Intelligence: consistent with education level Vital Signs (Past 24 Hours): Last Vital Signs Temp 36.8 C 11/15/22 06:28 Pulse 88 11/15/22 06:28 Resp 18 11/15/22 06:28 BP 108/78 11/15/22 06:28 Pulse Ox 97 11/15/22 06:28 O2 Del Method 11/15/22 06:28 O2 Flow Rate 0 11/10/22 02:53 Review of Systems All systems reviewed & are unremarkable except as noted in HPI & below Results & Data (PSY) Medications Administered Acetaminophen (Acetaminophen 500 Mg Tab) 1,000 mg PO Q8 FRIDA Stop: 12/12/22 07:14 Last Admin: 11/15/22 11:18 Dose: 1,000 mg Documented By: Admin: 11/15/22 05:50 Dose: 1,000 mg Documented By: Admin: 11/14/22 21:29 Dose: 1,000 mg Documented By: Admin: 11/14/22 13:26 Dose: 1,000 mg Documented By: Admin: 11/14/22 04:49 Dose: 1,000 mg Documented By: Admin: 11/13/22 23:54 Dose: Not Given Documented By: Admin: 11/13/22 09:53 Dose: 1,000 mg Documented By: Admin: 11/13/22 05:40 Dose: 1,000 mg Documented By: Admin: 11/12/22 22:05 Dose: Not Given Documented By: Admin: 11/12/22 12:29 Dose: 1,000 mg Documented By: Admin: 11/12/22 08:42 Dose: 1,000 mg Documented By: DONALD Amitriptyline HCl (Amitriptyline Hcl 25 Mg Tab) 75 mg PO HS FRIDA Stop: 12/14/22 20:59 Last Admin: 11/14/22 21:28 Dose: 75 mg Documented By: DEMETRIA Buprenorphine HCl (Buprenorphine Hcl 8 Mg Subl) 8 mg SL DAILY FRIDA Stop: 12/10/22 08:59 Last Admin: 11/15/22 07:59 Dose: 8 mg Documented By: Admin: 11/14/22 08:43 Dose: 8 mg Documented By: Admin: 11/13/22 09:53 Dose: 8 mg Documented By: Admin: 11/12/22 08:43 Dose: 8 mg Documented By: Admin: 11/11/22 08:50 Dose: 8 mg Documented By: Admin: 11/10/22 08:51 Dose: 8 mg Documented By: JENNIFER Cyanocobalamin (Cyanocobalamin 1000 Mcg/Ml Vial) 1,000 mcg IM QAM [facility] Stop: 11/19/22 08:59 Last Admin: 11/15/22 07:48 Dose: 1,000 mcg Documented By: Admin: 11/14/22 08:35 Dose: 1,000 mcg Documented By: Admin: 11/13/22 10:19 Dose: 1,000 mcg Documented By: Admin: 11/12/22 11:22 Dose: 1,000 mcg Documented By: DONALD Ergocalciferol (Ergocalciferol 50,000 Units 1250 Mcg Cap) 50,000 units PO Q7D [facility] Stop: 12/31/22 13:31 Last Admin: 11/12/22 13:56 Dose: 50,000 units Documented By: DONALD Ferrous Gluconate (Ferrous Gluconate 324 Mg Tab) 324 mg PO QAM [facility] Stop: 12/12/22 08:59 Last Admin: 11/15/22 07:48 Dose: 324 mg Documented By: Admin: 11/14/22 08:36 Dose: 324 mg Documented By: Admin: 11/13/22 09:42 Dose: 324 mg Documented By: Admin: 11/12/22 11:22 Dose: 324 mg Documented By: DONALD Gabapentin (Gabapentin 300 Mg Cap) 300 mg PO TID [facility] Stop: 12/14/22 13:59 Last Admin: 11/15/22 11:18 Dose: 300 mg Documented By: Admin: 11/15/22 07:47 Dose: 300 mg Documented By: Admin: 11/14/22 21:28 Dose: 300 mg Documented By: Admin: 11/14/22 13:26 Dose: Not Given Documented By: JUNG Hydroxyzine HCl (Hydroxyzine Hcl 25 Mg Tab) 50 mg PO Q8H PRN PRN Reason: sleep/anxiety Stop: 12/10/22 06:40 Last Admin: 11/15/22 01:53 Dose: 50 mg Documented By: DEMETRIA Ketorolac Tromethamine (Ketorolac Tromethamine 15 Mg/Ml Vial) 15 mg IV Q8H PRN PRN Reason: Pain Stop: 11/17/22 09:23 Last Admin: 11/15/22 13:48 Dose: 15 mg Documented By: Admin: 11/14/22 21:27 Dose: 15 mg Documented By: Admin: 11/13/22 11:57 Dose: 15 mg Documented By: Admin: 11/12/22 11:56 Dose: 15 mg Documented By: DONALD Lidocaine (Lidocaine 5% 1 Patch) 1 patch TD QAM [facility] Stop: 12/10/22 12:14 Last Admin: 11/15/22 07:49 Dose: 1 patch Documented By: Admin: 11/14/22 08:41 Dose: 1 patch Documented By: Admin: 11/13/22 09:46 Dose: 1 patch Documented By: Admin: 11/12/22 08:40 Dose: 1 patch Documented By: Admin: 11/11/22 08:47 Dose: 1 patch Documented By: Admin: 11/10/22 12:49 Dose: 1 patch Documented By: JENNIFER Melatonin (Melatonin 3 Mg Tab) 3 mg PO [facility] Stop: 12/10/22 20:59 Last Admin: 11/14/22 21:27 Dose: 3 mg Documented By: Admin: 11/13/22 21:13 Dose: Not Given Documented By: Admin: 11/12/22 20:24 Dose: 3 mg Documented By: Admin: 11/11/22 21:39 Dose: 3 mg Documented By: Admin: 11/10/22 20:15 Dose: 3 mg Documented By: MIRELA Metronidazole (Metronidazole 500 Mg Tab) 500 mg PO BID [facility] Stop: 11/20/22 08:59 Last Admin: 11/15/22 07:47 Dose: 500 mg Documented By: Admin: 11/14/22 21:29 Dose: 500 mg Documented By: Admin: 11/14/22 08:41 Dose: 500 mg Documented By: Admin: 11/13/22 21:12 Dose: 500 mg Documented By: Admin: 11/13/22 09:41 Dose: 500 mg Documented By: Admin: 11/12/22 20:24 Dose: 500 mg Documented By: Admin: 11/12/22 08:43 Dose: 500 mg Documented By: Admin: 11/11/22 21:36 Dose: 500 mg Documented By: Admin: 11/11/22 08:45 Dose: 500 mg Documented By: Admin: 11/10/22 20:16 Dose: 500 mg Documented By: Admin: 11/10/22 08:51 Dose: 500 mg Documented By: JENNIFER Miscellaneous (Remove Lidoderm Patch) 1 each N/A DAILY@2100 [facility] Stop: 12/10/22 20:59 Last Admin: 11/14/22 21:29 Dose: 1 each Documented By: Admin: 11/13/22 21:14 Dose: Not Given Documented By: Admin: 11/12/22 20:24 Dose: 1 each Documented By: Admin: 11/11/22 21:38 Dose: 1 each Documented By: Admin: 11/10/22 20:16 Dose: 1 each Documented By: MIRELA Ondansetron HCl (Ondansetron 4 Mg Od Tab) 4 mg PO Q6H PRN PRN Reason: nausea and vomiting Stop: 12/10/22 06:40 Last Admin: 11/14/22 18:27 Dose: 4 mg Documented By: JUNG Pantoprazole Sodium (Pantoprazole 40 Mg Tab) 40 mg PO [facility] Stop: 12/10/22 08:59 Last Admin: 11/15/22 07:48 Dose: 40 mg Documented By: Admin: 11/14/22 08:41 Dose: 40 mg Documented By: Admin: 11/12/22 08:43 Dose: 40 mg Documented By: Admin: 11/11/22 08:45 Dose: 40 mg Documented By: Admin: 11/10/22 08:51 Dose: 40 mg Documented By: JENNIFER Sennosides (Senna 8.6 Mg Tab) 17.2 mg PO [facility] Stop: 12/13/22 08:59 Last Admin: 11/15/22 07:48 Dose: 17.2 mg Documented By: Admin: 11/14/22 08:42 Dose: 17.2 mg Documented By: Admin: 11/13/22 09:41 Dose: 17.2 mg Documented By: JULI Vitamin D (Cholecalciferol 1,000 Units 25 Mcg Tab) 2,000 units PO [facility] Stop: 12/13/22 08:59 Last Admin: 11/15/22 07:49 Dose: 2,000 units Documented By: Admin: 11/14/22 08:33 Dose: 2,000 units Documented By: Admin: 11/13/22 09:44 Dose: 2,000 units Documented By: JULI Coding Level of Care Code 24907 [facility] Intl Hosp Care Lvl 2 Diagnoses Anxiety F41.9 Depression F32.9 Lyme disease A69.20 H/O multiple concussions Z87.820 Opioid dependence on agonist therapy F11.20
[2022-11-15] MEDS: AMITRIPTYLINE HCL 25 MG TAB PO SCH (20:22)
[2022-11-15] MEDS: MELATONIN 3 MG TAB PO SCH (20:34)
[2022-11-16 02:12] LABS: IgA Serum 344 mg/dL (47-310); Tis Trans IgA <1.0 U/mL
[2022-11-16] MEDS: ACETAMINOPHEN 500 MG TAB PO SCH ×2 (05:27→13:18)
[2022-11-16] MEDS: LIDOCAINE 5% 1 PATCH TD SCH (10:39)
[2022-11-16] MEDS: CYANOCOBALAMIN 1000 MCG/ML VIAL IM SCH (10:39)
[2022-11-16] MEDS: GABAPENTIN 300 MG CAP PO SCH ×3 (10:39→20:39)
[2022-11-16] MEDS: cefTRIAXone SODIUM 2,000 MG in DEXTROSE 5% 50 ML IV SCH (10:39)
[2022-11-16] MEDS: CHOLECALCIFEROL 1,000 UNITS 25 MCG TAB PO SCH (10:39)
[2022-11-16] MEDS: PANTOprazole 40 MG TAB PO SCH (10:39)
[2022-11-16] MEDS: FERROUS GLUCONATE 324 MG TAB PO SCH (10:39)
[2022-11-16] MEDS: metroNIDAZOLE 500 MG TAB PO SCH (10:39)
[2022-11-16] MEDS: buprenorphine HCL 8 MG SUBL SL SCH (10:52)
[2022-11-16] MEDS: SENNA 8.6 MG TAB PO SCH (11:36)
[2022-11-16 11:59] LABS: Basophils # (auto) 0.01 K/uL (0-0.2); Basophils % (auto) 0.2 %; Eosinophils # (auto) 0.18 K/uL (0-0.50); Eosinophils % (auto) 3.2 %; Hematocrit (blood only) 36.2 % (34.1-44.9); Hemoglobin 12.1 g/dl (12.0-16.0); Immature Granulocytes # (auto) 0.01 K/uL (0.00-0.02); Immature Granulocytes % (auto) 0.2 %; Lymphocytes # (auto) 1.66 K/uL (1.2-3.4); Lymphocytes % (auto) 29.5 %; Mean Corpuscular Hemoglobin 31.1 pg (25.0-34.0); Mean Corpuscular Hgb Conc 33.4 g/dL (32.0-36.0); Mean Corpuscular Volume 93.1 fL (80.0-100.0); Mean Platelet Volume 11.4 fL (9.4-12.3); Monocytes # (auto) 0.46 K/uL (0.24-0.82); Monocytes % (auto) 8.2 %; Neutrophils # (auto) 3.31 K/uL (1.4-6.5); Neutrophils % (auto) 58.7 %; Platelet Count 184 K/uL (130-400); RDW Coefficient of Variation 12.7 % (11.5-14.5); RDW Standard Deviation 43.3 fL (36.4-46.3); Red Blood Count 3.89 M/uL (3.93-5.22); White Blood Count 5.63 K/ul (4.8-10.8)
--- NOTE | 2022-11-16 12:53 | Hospitalist Progress Note ---
Date of Service November 16, 2022 Assessment & Plan (1) Lyme disease: Plan: 27-year-old woman with history of Lyme disease (2020), depression with anxiety, reflux esophagitis, and, more recently, Gardnerella UTI, who is here with dizziness x3 weeks, found to have positive Lyme serology. 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 Neurologic Symptoms, Diffuse Myalgias, POP - Suspect Disseminated Lyme -Reporting persistent yet changing quality of paraesthesias in the face (L>R) extending down to ~T4 on the thorax but sparing the arms. 4/5 UE weakness, but equal b/l. 3+ reflexes globally. Also: intermittent blurry vision, HAs, tinnitus. -Positive Lyme serology including IgM, IgG on 11/07 (BANDS), positive IgM on WB, but negative IgG on WB; CSF studies do not demonstrate e/o Lyme DNA -Workup as follows --> Brain MRI, C and T-Spine all NEGATIVE --> Smear NEGATIVE for intracellular parasites --> Inflammatory markers (ESR, CRP, PCT, ferritin) negative ; B12 normal --> ROBER, RF negative on 11/02 (PSH) negative --> FTA-ABS negative -Given her history of Lyme disease along with reported neurologic symptoms, disseminated Lyme disease is presumed diagnosis until presumed otherwise. Her spinal MRIs are normal. She has no known exposures or toxicities, and her RX wouldn't distinctively explain her condition. Lower suspicion for neurogenic syphilis, but also on the differential. Neuropsychiatric cause is diagnosis of exclusion but considered as at least part of the presenting phenotype. -Given underlying recurrent infections and now suspected disseminated disease, there is a concern for underlying autoimmune vs. immunodeficiency -- she shares with me that she has a personal history of CF, but has not undergone formal testing (as far as she can recall - either genetic or sweat test), but her son apparently has and carries the diagnosis -Continue treatment for presumed disseminated Lyme: CFTX 2g q24h x 28 days- to conclude on 12/08 -PICC placed 11/13 -Steroids discontinued 11/13 -APAP 1000mg q8h FRIDA; Toradol 15mg q8h PRN -PT ordered: extensive discussion re- physical deconditioning in the setting of neurologic illness, and need to get up and modulate activities such that they r eplicate what it feels like to be a person and not a patient. Amenable and will try. Set expectations that she is likely to tire out initially in the beginning, and slowly pushing is going to be needed to regain strength. Also discussed avoiding the illness role and setting small goals for each day, which she is willing to try. Will likely need revisiting daily. -Pain medication regimen -Discontinued amitryptiline and gabapentin today -Pt did not report any relief from carbamazepine, failed Ativan trial -Initiated Cymbalta 20 mg today -Consider outpatient nerve conduction studies -Psychiatry consulted 11/15- appreciated recommendations Positive CSF Cx: Oxacillin-Resistant CoNS - Culture positive BUT was in setting of a difficult tap - no WBCs, RBCs, negative BioFire - Suspect contaminant given species, clinical presentation, and otherwise negative CSF studies - ID consult: likely contaminant, hold off from vancomycin Reported History of Cystic Fibrosis - History discussed during admission. Reports that she is in "remission" but can't recall undergoing any formal testing. Son has had genetic testing reportedly confirming the diagnosis - Vitamin D, B12, and ferritin all low -- ?malabsorptive pathology. 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 establishing with pattern ruler as outpatient -- could certainly affect intermittent screenings/immunizations - We did contact Erica for her pediatric history- no chronic conditions were noted per their chart review Nutritional Deficiencies - Ferritin, B12, and vitamin D all deficient - Management: -- Venofer 200mg x 1 given while here; initiate iron sulfate 325mg MWF at discharge -- Vitamin D2 50,000U q7d x 8 weeks then recheck level as outpatient ; also vitamin D3 2000 IU daily -- recheck in 3 mo' time -- Vitamin B12 shots daily x 7 days, then q7d x 4 weeks, then monthly x 3 months --> recheck level -Possible contribution from CF, though would be atypical given no other sxs of pancreatic insufficiency -Celiac disease panel negative Gardnerella UTI -Metronidazole 500 mg BID -Pyridium t.i.d. x 2 days, end 11/14 Depression with anxiety -Discontinued amitryptiline, initiated duloxetine as above -Vistaril PRN anxiety Reflux esophagitis -Pantoprazole 40 mg daily -Reglan PRN nausea Code: Full code Dispo: MST FEN/GI: Regular diet DVT Prophylaxis: Low-risk Consults: Infectious disease, psychiatry (2) Gardnerella vaginalis infection: Admission and Anticipated Discharge Date Admission Date: November 10, 2022 Supervising Physician Co-Signing Physician Notes I personally examined the patient and verified all ferrer points of history and exam, discussed case, and agree with decision making with Dr Fox. Subjective No acute events reported overnight. Pt still complaining of multiple symptoms. She does endorse intermittent blurry vision, headache. The facial pain has not improved with any interventions. She does not feel safe to go home at this time with her inadequate pain control. Review of Systems Review of Systems: As per HPI Physical Exam Physical Exam: General: 27-year old female who is alert, oriented, and is intermittently in distress throughout our conversation HEENT: NCAT. - Eyes - Sclera are white, anicteric, and without injection. - Mouth - MMM - Neck - supple, no appreciable JVD Cardiac: Normal rate and regular rhythm; S1 and S2 present with no murmurs, rubs, or gallops. Pulmonary: Good respiratory effort with symmetric expansion of the chest. No use of accessory muscles. Lungs were clear to auscultation bilaterally with no crackles or wheezes. Neuro: - Cranial Nerves: CN I, IX, XIII, and X - not assessed. II - PERRL. III/IV/ - EOMs WNL. No nystagmus. V - Facial sensation in tact in all three divisions; jaw opening WNL. VII - Patient is able to smile symmetrically and keep eyes close against resistance. IX - Soft palate raises equally and appropriately while saying "ah." XI - Patient is able to shrug shoulders against resistance. XII - patient is able to stick out tongue and deviate from [id number] appropriately. - Motor: UE - Finger, wrist, elbow, and shoulder strength is 4/5 bilaterally. Results & Data Results & Data ([facility]) Vital Signs (Past 12 Hours) Vital Signs Temp Pulse Resp BP Pulse Ox O2 Del Method 11/16/22 08:01 36.9 C 91 H 18 104/70 97 Room Air Resident Activity Tracking Resident Involvement: Resident Care Provided Care Provided: Adult [facility] Medicine
[2022-11-16] MEDS: DULoxetine HCL 20 MG CAP PO SCH (13:17)
--- NOTE | 2022-11-16 15:56 | Neurology Consultation ---
Date of Consultation November 16, 2022 Assessment & Plan (1) Headache syndrome: Plan NEUROLOGY CONSULTATION Assessment & Plan: Impression: pt with Lyme positive and significant psychiatric disorder with ongoing headache syndrome. her headache is likely persistent due to multiple factors including worsening stress, anxiety and depressed mood, chronic pain med/opioid use, lack of sleep and some component of lyme symptoms. I do not feel she has BUNG SEWER lyme disease. Recommendations: continue tx for her lyme. here are few options to consider and try for her headache: -trial of repeat steroid treatment (e.g. IV solumedrol 250mg q12 hr for 1-2 days, followed by prednisone 60mg po daily for 7 days). plenty of IVF hydration and IV antiemetics use prn for breakthrough treatment. can continue neurontin along with cymbalta. can also add Topamax 50mg po bid and titrate up to 100mg po bid in a week. she needs to improve her mood and sleep and cut back on her pain med/opioid meds in order to expect improvement of her headache. if above does not work, may try CGRP blockers, e.g. Nurtec ODT 75mg po every other day (this can be used as prevention therapy and acute treatment). i suspect it will take time for her to improve with medications to take effect. she is very anxious and emotional and will need close treatment with psychiatry to improve her mood and stress and insomnia. please call again if new question. Dr. Jorge A House MD [facility] Neurology Chief Complaint: headache History of Present Illness: pt with significant psychi history and opioid use in the past and now being tx for lyme disease. mri brain and spine negative. CSF unremarkable. pt currently complaing of throbbing headache and numbness in her face and neck. she is very anxious and stress about her medical condition and emotional. pt with photophobia and phonophobia. psychiatry help with mood disorder and pain management. pt is now off neurontin and started on cymbalta. chart reviewed. Admission/Initial HPI documentation: The patient was admitted to [facility] on 11/10 following 2 recent ED visits. Most recently c/o post LP POP and she gives varying reports of parasthesias in the forehead and left face, upper right thorax including nipples, and down right arm at times associated with blurry visioin, HAs, and tinnitus. Lyme serology remains positive, denies hx of shingles, has been noted as possible trigeminal neuralgia in the past, disseminated lyme, and/or migraine variant. There is no particular med seeking behavior this stay but emotional, somatic, and health preoccupation with possible CF carrier. Her steroid burst was just discontinued on 11/13/22 and she now has a PICC line for IV antibiotics. No recent urine tox available. TCA was prescribed just prior to this admission and per Dr. Webster she did not tolerate higher doses of Neurontin. Past Medical History: See chart Meds: See chart I personally reviewed all of the medications Social & Family History: See chart Review of Systems: Per initial HPI on admission. Physical Exam: GEN: NAD HEENT: Normocephalic Neuro: Mental status:A & O x 3.No dysarthria or aphasia.No neglect. Fluent speech. No apraxia Cranial Nerves:II-XII intact Motor:Normal bulk and tone,5/5 strength x 4 extremities Coordination:Intact Reflexes: down going toes surya Sensation: Intact x 4 extremities to touch Chart reviewed I have spent more than 50% educating patient about potential diagnosis and neurological evaluation and coordinating care with patient's treatment team. Total time spent (including chart review and coordination of care): 80 min (this includes chart review). History of Present Illness Attending Physician: Martin Calderon DO Allergies Allergy/AdvReac Type Severity Reaction Status Date / Time No Known Allergies Allergy Verified 11/10/22 01:36 Home Medications Medication Instructions Recorded Confirmed Type acetaminophen 500 mg tablet 1,000 mg PO Q6H PRN Pain 05/23/21 11/10/22 History (Tylenol Extra Strength) copper 380 square mm intrauterine 1 device intrauterine CONTINOUS 02/18/22 11/10/22 History device (ParaGard T 380A) buprenorphine HCl 8 mg sublingual 8 mg sublingual DAILY 10/22/22 11/10/22 History tablet ondansetron 4 mg disintegrating 4 mg PO Q6H PRN nausea and 10/26/22 11/10/22 Rx tablet vomiting #15 tabs doxycycline hyclate 100 mg tablet 100 mg PO BID 28 days #56 tabs 11/02/22 11/10/22 Rx metoclopramide HCl 5 mg tablet 5 mg PO BID PRN nausea and 11/02/22 11/10/22 Rx (Reglan) vomiting #30 tabs cefdinir 300 mg capsule 300 mg PO Q12H 5 days #10 caps 11/07/22 11/10/22 Rx hydroxyzine pamoate 50 mg capsule 50 mg PO Q8H PRN sleep/anxiety #15 11/07/22 11/10/22 Rx (Vistaril) caps methylprednisolone 4 mg tablets in See Rx Instructions .Route 11/07/22 11/10/22 Rx a dose pack .COMPLEX #21 ea nitrofurantoin 100 mg PO BID 11/07/22 11/10/22 History monohydrate/macrocrystals 100 mg capsule metronidazole 500 mg tablet 500 mg PO BID 7 days #14 tabs 11/08/22 11/10/22 Rx amitriptyline 25 mg tablet 25 mg PO .COMPLEX #60 tabs 11/09/22 11/10/22 Rx Patient History Medical History Anxiety Depression H/O multiple concussions Headache History of asthma Misuse of medication MRSA (methicillin resistant Staphylococcus aureus) Ovarian cyst Reflux esophagitis Surgical History History of colonoscopy Family History Father Hearing loss Suicide 2020 Mother Hypertension Son Asthma Other No family history of adverse response to anesthesia No family history of bleeding disorder Social History (Updated 11/15/22 @ 14:34 by Yanet Aden MD) Smoking Status: Former smoker Second Hand Exposure: Yes; Tobacco Cessation Education Requested by Patient: No Hx Alcohol Use: No Hx Substance Use: No Preferred Language: Prydeinig Communication Ability: Effective Hand Model Required: No Beliefs That Will Affect Care: None marital status: Single Current Living Situation: Significant Other current occupational status: employed current occupation: [employer] How many Children do You have: 1 Other Information That Helps Us Care for You: No Feels Safe at Home: Yes Safety Concerns: Feels Safe At This Time Assistive Devices: None Results & Data ([facility]) Vital Signs (Past 12 Hours) Vital Signs Temp Pulse Resp BP Pulse Ox O2 Del Method 11/16/22 08:01 36.9 C 91 H 18 104/70 97 Room Air
[2022-11-16] MEDS: KETOROLAC TROMETHAMINE 15 MG/ML VIAL IV SCH (16:45)
[2022-11-16] MEDS ORDERED: SODIUM CHLORIDE 0.9% 1000ML 500 ML IV ONE (17:55)
[2022-11-16] MEDS: SODIUM CHLORIDE 0.9% 1000ML 1,000 ML IV SCH (19:13)
[2022-11-16] MEDS: methylPREDNISolone 120 MG in SYRINGE 0 ML IV SCH (19:15)
[2022-11-16] MEDS: MELATONIN 3 MG TAB PO SCH (20:39)
[2022-11-16] MEDS: ACETAMINOPHEN 500 MG TAB PO PRN (20:39)
[2022-11-16] MEDS: TOPIRAMATE 50 MG TAB PO SCH (20:42)
[2022-11-16] MEDS: OFLOXACIN 0.3% 75 DROPS/5 ML BTL OT SCH (20:42)
[2022-11-17] MEDS: SODIUM CHLORIDE 0.9% 1000ML 1,000 ML IV SCH (05:23)
[2022-11-17] MEDS: methylPREDNISolone 120 MG in SYRINGE 0 ML IV SCH ×2 (05:24→18:04)
[2022-11-17] MEDS: KETOROLAC TROMETHAMINE 15 MG/ML VIAL IV SCH ×3 (05:24→20:35)
[2022-11-17] MEDS: ACETAMINOPHEN 500 MG TAB PO PRN ×2 (08:06→20:32)
[2022-11-17] MEDS: GABAPENTIN 300 MG CAP PO SCH ×3 (08:08→20:33)
[2022-11-17] MEDS: TOPIRAMATE 50 MG TAB PO SCH ×2 (08:09→20:34)
[2022-11-17] MEDS: SENNA 8.6 MG TAB PO SCH (08:09)
[2022-11-17] MEDS: CHOLECALCIFEROL 1,000 UNITS 25 MCG TAB PO SCH (08:09)
[2022-11-17] MEDS: DULoxetine HCL 20 MG CAP PO SCH (08:09)
[2022-11-17] MEDS: FERROUS GLUCONATE 324 MG TAB PO SCH (08:10)
[2022-11-17] MEDS: PANTOprazole 40 MG TAB PO SCH (08:10)
[2022-11-17] MEDS: OFLOXACIN 0.3% 75 DROPS/5 ML BTL OT SCH ×2 (08:10→20:35)
[2022-11-17] MEDS: CYANOCOBALAMIN 1000 MCG/ML VIAL IM SCH (08:11)
[2022-11-17] MEDS: LIDOCAINE 5% 1 PATCH TD SCH (08:12)
[2022-11-17] MEDS: cefTRIAXone SODIUM 2,000 MG in DEXTROSE 5% 50 ML IV SCH (08:20)
[2022-11-17] MEDS: buprenorphine HCL 8 MG SUBL SL SCH (08:20)
--- NOTE | 2022-11-17 10:01 | Hospitalist Progress Note ---
Date of Service November 17, 2022 Assessment & Plan (1) Lyme disease: Plan: 27-year-old woman with history of Lyme disease (2020), depression with anxiety, reflux esophagitis, and, more recently, Gardnerella UTI, who is here with dizziness x3 weeks, found to have positive Lyme serology. 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 Neurologic Symptoms, Diffuse Myalgias, POP - Suspect Disseminated Lyme -Reporting persistent yet changing quality of paraesthesias in the face (L>R) extending down to ~T4 on the thorax but sparing the arms. 4/5 UE weakness, but equal b/l. 3+ reflexes globally. Also: intermittent blurry vision, HAs, tinnitus. -Positive Lyme serology including IgM, IgG on 11/07 (BANDS), positive IgM on WB, but negative IgG on WB; CSF studies do not demonstrate e/o Lyme DNA -Workup as follows --> Brain MRI, C and T-Spine all NEGATIVE --> Smear NEGATIVE for intracellular parasites --> Inflammatory markers (ESR, CRP, PCT, ferritin) negative ; B12 normal --> ROBER, RF negative on 11/02 (PSH) negative --> FTA-ABS negative -Given her history of Lyme disease along with reported neurologic symptoms, disseminated Lyme disease is presumed diagnosis until presumed otherwise. Her spinal MRIs are normal. She has no known exposures or toxicities, and her RX wouldn't distinctively explain her condition. Lower suspicion for neurogenic syphilis, but also on the differential. Neuropsychiatric cause is diagnosis of exclusion but considered as at least part of the presenting phenotype. -Given underlying recurrent infections and now suspected disseminated disease, there is a concern for underlying autoimmune vs. immunodeficiency -- she shares with me that she has a personal history of CF, but has not undergone formal testing (as far as she can recall - either genetic or sweat test), but her son apparently has and carries the diagnosis -Psychiatry consulted 11/15- appreciated recommendations -Continue treatment for presumed disseminated Lyme: CFTX 2g q24h x 28 days- to conclude on 12/08 -PICC placed 11/13 -Given her substance use history, there is concern with discharging her with PICC. SNF will not accept her per discussion with case management. One option is to treat her with IV antibiotics until 2 weeks of treatment completed and then complete 2 weeks of doxycycline on discharge. -While this may possibly not be true CHIEF PILOT Lyme per discussion with neurology, we have committed to treating her as such as mentioned above -Neurology consulted 11/16 -Initiated topiramate 50 mg BID, plan to increase to 100 mg BID in 1 week -Continue Cymbalta 20 mg daily, gabapentin 300 mg TID -Solumedrol 250 mg q12h until 11/19- transition to prednisone 60 mg daily for 1 week -Consider outpatient nerve conduction studies Positive CSF Cx: Oxacillin-Resistant CoNS - Culture positive BUT was in setting of a difficult tap - no WBCs, RBCs, negative BioFire - Suspect contaminant given species, clinical presentation, and otherwise nega tive CSF studies - ID consult: likely contaminant, hold off from vancomycin Reported History of Cystic Fibrosis - History discussed during admission. Reports that she is in "remission" but can't recall undergoing any formal testing. Son has had genetic testing reportedly confirming the diagnosis - Vitamin D, B12, and ferritin all low -- ?malabsorptive pathology. Though so mewhat strange she has no other sxs of pancreatic insufficiency if this is truly related to CF - Should consider establishing with food service driver as outpatient -- could certainly affect intermittent screenings/immunizations - We did contact Erica for her pediatric history- no chronic conditions were noted per their chart review Nutritional Deficiencies - Ferritin, B12, and vitamin D all deficient - Management: -- Venofer 200mg x 1 given while here; initiate iron sulfate 325mg MWF at discharge -- Vitamin D2 50,000U q7d x 8 weeks then recheck level as outpatient ; also vitamin D3 2000 IU daily -- recheck in 3 mo' time -- Vitamin B12 shots daily x 7 days, then q7d x 4 weeks, then monthly x 3 months --> recheck level -Possible contribution from CF, though would be atypical given no other sxs of pancreatic insufficiency -Celiac disease panel negative Gardnerella UTI -Metronidazole 500 mg BID completed in hospital -Pyridium t.i.d. x 2 days, end 11/14 Depression with anxiety -Discontinued amitryptiline, initiated duloxetine as above -Vistaril PRN anxiety Reflux esophagitis -Pantoprazole 40 mg daily -Reglan PRN nausea Code: Full code Dispo: MST FEN/GI: Regular diet DVT Prophylaxis: Low-risk Consults: Infectious disease, psychiatry (2) Gardnerella vaginalis infection: Admission and Anticipated Discharge Date Admission Date: November 10, 2022 Supervising Physician Co-Signing Physician Notes I have seen and examined patient. I agree with Assessment and plan as documented by Medical Student/Resident. Subjective No acute events reported overnight. Pt does report feeling slightly better today, attributes this to the steroids. Her blurry vision is improving. Still reporting numbness and pain which is poorly controlled but she does express some optimism the new medications may help. Review of Systems Review of Systems: As per HPI Physical Exam Physical Exam: General: 27-year old female who is alert, oriented, and is intermittently in distress throughout our conversation HEENT: NCAT. - Eyes - Sclera are white, anicteric, and without injection. - Mouth - MMM - Neck - supple, no appreciable JVD Cardiac: Normal rate and regular rhythm; S1 and S2 present with no murmurs, rubs, or gallops. Pulmonary: Good respiratory effort with symmetric expansion of the chest. No use of accessory muscles. Lungs were clear to auscultation bilaterally with no crackles or wheezes. Neuro: - Cranial Nerves: CN I, IX, XIII, and X - not assessed. II - PERRL. III/IV/ - EOMs WNL. No nystagmus. V - Facial sensation in tact in all three divisions; jaw opening WNL. VII - Patient is able to smile symmetrically and keep eyes close against resistance. IX - Soft palate raises equally and appropriately while saying "ah." XI - Patient is able to shrug shoulders against resistance. XII - patient is able to stick out tongue and deviate from [id number] appropriately. - Motor: UE - Finger, wrist, elbow, and shoulder strength is 4/5 bilaterally. Results & Data Results & Data ([facility]) Vital Signs (Past 12 Hours) Vital Signs Temp Pulse Resp BP Pulse Ox O2 Del Method 11/17/22 07:25 36.9 C 91 H 16 119/78 97 Room Air Resident Activity Tracking Resident Involvement: Resident Care Provided Care Provided: Adult Hospital Medicine
[2022-11-17] MEDS: MELATONIN 3 MG TAB PO SCH (20:37)
[2022-11-18] MEDS: methylPREDNISolone 120 MG in SYRINGE 0 ML IV SCH (06:21)
--- NOTE | 2022-11-18 07:39 | Hospitalist Progress Note ---
Date of Service November 18, 2022 Assessment & Plan (1) Lyme disease: Plan: Sarah is a 27-year-old woman with history of Lyme disease (2020), depression with anxiety, reflux esophagitis, OUD on Subutex with prior IVDU who is here with persistent POP, dizziness x3 weeks, nausea, blurry vision, facial numbness, and other reported symptoms found to have positive Lyme serology. While initially there was a strong suspicion for FERMENTER Lyme, evaluations undergone by both infectious disease and neurology do not feel that FERMENTER Lyme is likely (especially since patient had very similar symptoms a year prior and more recently completed a full course of outpatient doxycycline and, while here, ongoing CFTX with minimal improvement). At this time, primary suspicion is that her symptoms likely represent a phenotype of a chronic, complicated migraine, possibly superimposed by neuropsychiatric features. Suspected Chronic, Complicated Migraine with Neurologic and Neuropsychiatric Manifestations -- initially thought to be FERMENTER Lyme -Reporting persistent yet changing quality of paraesthesias in the face (L>R) extending down to ~T4 on the thorax but sparing the arms, 4/5 UE weakness, intermittent blurry vision, HAs, tinnitus -Workup: --> Positive Lyme serology including IgM, IgG on 11/07 (BANDS), positive IgM on WB, but negative IgG on WB; CSF studies do not demonstrate e/o Lyme DNA --> Contrast-enhanced brain, C and T-Spine MRIs - NEGATIVE for acute processes, demyelination, inflammation --> Smears NEGATIVE for intracellular parasites --> Inflammatory markers (ESR, CRP, PCT, ferritin) checked multiple times, all negative ; B12 normal --> ROBER, RF negative on 11/02 (PSH) negative --> FTA-ABS negative --> No MRI findings, physical exam findings, or inflammatory markers to sugg est endocarditis (in setting of previous IVDU) --> Improvement with steroids. No reported improvement with CFTX. Minimal improvements reported from prior TCA adjustment, gabapentin initiation. -Consults: --> ID consulted: Low suspicion for FERMENTER Lyme -- more likely to represent neuropsychiatric etiologies from their perspective --> Neurology consulted: Low suspicion for FERMENTER Lyme -- more likely to represent chronic, complicated headache phenotype with neuropsychiatric features --> Psychiatry consulted: Differential for symptoms (with Lyme excluded) include somatoform disorder, factitious disorder, malingering -Multidisciplinary Treatment Plan: (patient completed outpatient course of doxycycline prior to hospitalization) * CFTX started 11/10. Discontinue 11/18. Remove PICC. Transition to doxycycline, end on 11/24 to complete 14-day course * Ample hydration * Steroids: SoluMedrol burst x 2 days, then prednisone 60mg daily x 7 days (e nd 11/26) * Topiramate 50mg b.i.d. x 7 days, the increase to 100mg b.i.d. (beginning 11/24) * Cymbalta 20mg daily, gabapentin 300mg t.i.d. * Continue vitamin replacement (B12, D3) and iron * Discontinue amitriptyline (no improvement with dosage change; also see psychiatry note) * Patient would benefit from outpatient headache clinic / establishing with center. Could also consider establishing with rheumatology/immunology Positive CSF Cx: Oxacillin-Resistant CoNS - Culture positive BUT was in setting of a difficult tap - no WBCs, RBCs, negative BioFire - Suspect contaminant given species, clinical presentation, and otherwise negative CSF studies - ID consult: largely suspect contaminant (agree), no indication for IV ABX Reported History of Cystic Fibrosis - History discussed during admission. Reports that she is in "remission" but can't recall undergoing any formal testing. Son has had genetic testing reportedly confirming the diagnosis - Vitamin D, B12, and ferritin all low -- ?malabsorptive pathology. 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 establishing with weblogic developer as outpatient -- could certainly affect intermittent screenings/immunizations - We did contact Erica for her pediatric history- no chronic conditions were noted per their chart review Nutritional Deficiencies - Ferritin, B12, and vitamin D all deficient - Management: -- Venofer 200mg x 1 given while here; initiate iron sulfate 325mg MWF at discharge -- Vitamin D2 50,000U q7d x 8 weeks then recheck level as outpatient ; also vitamin D3 2000 IU daily -- recheck in 3 mo' time -- Vitamin B12 shots daily x 7 days, then q7d x 4 weeks, then monthly x 3 months --> recheck level -Possible contribution from CF, though would be atypical given no other sxs of pancreatic insufficiency -Celiac disease panel negative Gardnerella UTI -Metronidazole 500 mg BID completed in hospital -Pyridium t.i.d. x 2 days, end 11/14 Depression with anxiety -See above -Discontinued amitriptyline, initiated duloxetine as above -Vistaril PRN anxiety -Otherwise as above, psychiatry following Reflux esophagitis -Pantoprazole 40 mg daily -Reglan PRN nausea Code: Full code Dispo: FEN/GI: Regular diet DVT Prophylaxis: Low-risk Consults: Infectious disease, neurology, psychiatry, PT (2) Gardnerella vaginalis infection: Admission and Anticipated Discharge Date Admission Date: November 10, 2022 Supervising Physician Co-Signing Physician Notes 27-year old female with past medical history pertinent for Lyme disease, anxiety/depression, and OUD on MAT on admission for suspected complicated migraine with neurologic manifestations, work-up for FERMENTER Lyme negative, patient will transition to p.o. doxycycline and prednisone, symptoms are improving. Patient currently tolerating topiramate, remains on Cymbalta and gabapentin. Patient seen and examined with resident, agree with history, physical, and plan as above. Subjective Feeling pretty good this morning - 40% improved compared to last week. Probably best morning here yet. Headache, paraesthesias present but reduced. Face still most uncomfortable part of this all. No n/v/d. Feels ready to go tomorrow. Review of Systems Review of Systems: as per HPI Physical Exam Physical Exam: General: 27-year old female who is alert, oriented, and appears in no acute distress. HEENT: NCAT. - Eyes - Sclera are white, anicteric, and without injection. - Mouth - MMM - Neck - supple, no appreciable JVD Pulmonary: Good respiratory effort with symmetric expansion of the chest. No use of accessory muscles. Extremities: Upper and lower extremities are warm and well perfused Psych: Well-developed, well-nourished, appropriately dressed for occasion. Behavior is cooperative and appropriate. Affect is mildly anxious, but more restful compared to previous days. Results & Data Results & Data ([facility]) Vital Signs (Past 12 Hours) Vital Signs Temp Pulse Pulse Resp BP BP Pulse Ox 11/18/22 07:01 36.6 C 83 14 114/69 96 11/17/22 23:00 36.6 C 82 14 127/75 97 11/17/22 21:07 36.5 C 78 16 111/74 96 O2 Del Method 11/18/22 07:01 Room Air 11/17/22 23:00 Room Air 11/17/22 21:07 Room Air Resident Activity Tracking Resident Involvement: Resident Care Provided Care Provided: Adult Hospital Medicine
[2022-11-18] MEDS: cefTRIAXone SODIUM 2,000 MG in DEXTROSE 5% 50 ML IV SCH (08:28)
[2022-11-18] MEDS: buprenorphine HCL 8 MG SUBL SL SCH (08:28)
[2022-11-18] MEDS: KETOROLAC TROMETHAMINE 15 MG/ML VIAL IV SCH ×3 (08:28→18:24)
[2022-11-18] MEDS: CHOLECALCIFEROL 1,000 UNITS 25 MCG TAB PO SCH (08:29)
[2022-11-18] MEDS: DULoxetine HCL 20 MG CAP PO SCH (08:29)
[2022-11-18] MEDS: TOPIRAMATE 50 MG TAB PO SCH ×2 (08:30→21:30)
[2022-11-18] MEDS: CYANOCOBALAMIN 1000 MCG/ML VIAL IM SCH (08:30)
[2022-11-18] MEDS: FERROUS GLUCONATE 324 MG TAB PO SCH (08:31)
[2022-11-18] MEDS: PANTOprazole 40 MG TAB PO SCH (08:31)
[2022-11-18] MEDS: GABAPENTIN 300 MG CAP PO SCH ×3 (08:31→21:30)
[2022-11-18] MEDS: SENNA 8.6 MG TAB PO SCH (08:31)
[2022-11-18] MEDS: LIDOCAINE 5% 1 PATCH TD SCH (08:32)
[2022-11-18] MEDS: OFLOXACIN 0.3% 75 DROPS/5 ML BTL OT SCH ×2 (08:32→21:30)
[2022-11-18] MEDS ORDERED: DOXYCYCLINE HYCLATE 100 MG CAP PO SCH (09:00)
[2022-11-18] MEDS: DOXYCYCLINE HYCLATE 100 MG CAP PO SCH ×2 (10:54→21:30)
[2022-11-18] MEDS: ACETAMINOPHEN 500 MG TAB PO PRN (14:52)
[2022-11-18] MEDS ORDERED: KETOROLAC TROMETHAMINE 15 MG/ML VIAL IV ONE (16:53)
[2022-11-18] MEDS: MELATONIN 3 MG TAB PO SCH (21:30)
[2022-11-19] MEDS: KETOROLAC TROMETHAMINE 15 MG/ML VIAL IV SCH ×4 (01:12→22:40)
[2022-11-19] MEDS: NAPROXEN 375 MG TAB PO PRN (05:49)
[2022-11-19] MEDS: FERROUS GLUCONATE 324 MG TAB PO SCH (05:49)
[2022-11-19] MEDS: ACETAMINOPHEN 500 MG TAB PO PRN ×2 (07:54→16:34)
[2022-11-19] MEDS: buprenorphine HCL 8 MG SUBL SL SCH ×3 (07:54→21:07)
[2022-11-19] MEDS: GABAPENTIN 300 MG CAP PO SCH ×3 (07:55→21:08)
[2022-11-19] MEDS: predniSONE 20 MG TAB PO SCH (07:55)
[2022-11-19] MEDS: DOXYCYCLINE HYCLATE 100 MG CAP PO SCH ×2 (07:57→21:07)
[2022-11-19] MEDS: CHOLECALCIFEROL 1,000 UNITS 25 MCG TAB PO SCH (07:57)
[2022-11-19] MEDS: PANTOprazole 40 MG TAB PO SCH (07:57)
[2022-11-19] MEDS: TOPIRAMATE 50 MG TAB PO SCH ×2 (07:58→21:08)
[2022-11-19] MEDS: OFLOXACIN 0.3% 75 DROPS/5 ML BTL OT SCH ×2 (07:58→21:10)
[2022-11-19] MEDS: DULoxetine HCL 20 MG CAP PO SCH (07:58)
[2022-11-19] MEDS: LIDOCAINE 5% 1 PATCH TD SCH (07:58)
[2022-11-19] MEDS: SENNA 8.6 MG TAB PO SCH (07:58)
[2022-11-19] MEDS ORDERED: diphenhydrAMINE 50 MG/ML VIAL IV STA (08:03)
[2022-11-19] MEDS: METOCLOPRAMIDE HCL 5 MG TABLET PO PRN ×2 (09:22→23:06)
--- NOTE | 2022-11-19 10:01 | Hospitalist Progress Note ---
Date of Service November 19, 2022 Assessment & Plan (1) Lyme disease: Plan: Sarah is a 27-year-old woman with history of Lyme disease (2020), depression with anxiety, reflux esophagitis, OUD on Subutex with prior IVDU who is here with persistent POP, dizziness x3 weeks, nausea, blurry vision, facial numbness, and other reported symptoms found to have positive Lyme serology. While initially there was a strong suspicion for BOARDING KENNEL OR CATTERY OPERATOR Lyme, evaluations undergone by both infectious disease and neurology do not feel that BOARDING KENNEL OR CATTERY OPERATOR Lyme is likely (especially since patient had very similar symptoms a year prior and more recently completed a full course of outpatient doxycycline and, while here, ongoing CFTX with minimal improvement). At this time, primary suspicion is that her symptoms likely represent a phenotype of a chronic, complicated migraine, possibly superimposed by neuropsychiatric features. Suspected Chronic, Complicated Migraine with Neurologic and Neuropsychiatric Manifestations -- initially thought to be BOARDING KENNEL OR CATTERY OPERATOR Lyme -Reporting persistent yet changing quality of paraesthesias in the face (L>R) extending down to ~T4 on the thorax but sparing the arms, 4/5 UE weakness, intermittent blurry vision, HAs, tinnitus -Workup: --> Positive Lyme serology including IgM, IgG on 11/07 (BANDS), positive IgM on WB, but negative IgG on WB; CSF studies do not demonstrate e/o Lyme DNA --> Contrast-enhanced brain, C and T-Spine MRIs - NEGATIVE for acute processes, demyelination, inflammation --> Smears NEGATIVE for intracellular parasites --> Inflammatory markers (ESR, CRP, PCT, ferritin) checked multiple times, all negative ; B12 normal --> ROBER, RF negative on 11/02 (PSH) negative --> FTA-ABS negative --> No MRI findings, physical exam findings, or inflammatory markers to sugg est endocarditis (in setting of previous IVDU) --> Improvement with steroids. No reported improvement with CFTX. Minimal improvements reported from prior TCA adjustment, gabapentin initiation. -Consults: --> ID consulted: Low suspicion for BOARDING KENNEL OR CATTERY OPERATOR Lyme -- more likely to represent neuropsychiatric etiologies from their perspective --> Neurology consulted: Low suspicion for BOARDING KENNEL OR CATTERY OPERATOR Lyme -- more likely to represent chronic, complicated headache phenotype with neuropsychiatric features --> Psychiatry consulted: Differential for symptoms (with Lyme excluded) include somatoform disorder, factitious disorder, malingering -Multidisciplinary Treatment Plan: (patient completed outpatient course of doxycycline prior to hospitalization) * CFTX started 11/10. Discontinue 11/18. Remove PICC. Transition to doxycycline, end on 11/24 to complete 14-day course * Ample hydration * Steroids: SoluMedrol burst x 2 days, then prednisone 60mg daily x 7 days (e nd 11/26) * Topiramate 50mg b.i.d. x 7 days, the increase to 100mg b.i.d. (beginning 11/24) * Cymbalta 20mg daily, gabapentin 300mg t.i.d. * Continue vitamin replacement (B12, D3) and iron * Discontinue amitriptyline (no improvement with dosage change; also see psychiatry note) * Patient would benefit from outpatient headache clinic / establishing with center. Could also consider establishing with rheumatology/immunology Subutex Use - Subutex use of 8mg SL TID per PDMP review but inconsistent reports of use by patient (she is, however, in acute pain episode) -- Patient has been using Subutex 8mg SL daily since admission - Will discuss use further with patient tomorrow Positive CSF Cx: Oxacillin-Resistant CoNS - Culture positive BUT was in setting of a difficult tap - no WBCs, RBCs, negative BioFire - Suspect contaminant given species, clinical presentation, and otherwise negative CSF studies - ID consult: largely suspect contaminant (agree), no indication for IV ABX Reported History of Cystic Fibrosis - History discussed during admission. Reports that she is in "remission" but can't recall undergoing any formal testing. Son has had genetic testing reportedly confirming the diagnosis - Vitamin D, B12, and ferritin all low -- ?malabsorptive pathology. 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 establishing with plate straightener as outpatient -- could certainly affect intermittent screenings/immunizations - We did contact [facility] for her pediatric history- no chronic conditions were noted per their chart review Nutritional Deficiencies - Ferritin, B12, and vitamin D all deficient - Management: -- Venofer 200mg x 1 given while here; initiate iron sulfate 325mg MWF at discharge -- Vitamin D2 50,000U q7d x 8 weeks then recheck level as outpatient ; also vitamin D3 2000 IU daily -- recheck in 3 mo' time -- Vitamin B12 shots daily x 7 days, then q7d x 4 weeks, then monthly x 3 months --> recheck level -Possible contribution from CF, though would be atypical given no other sxs of pancreatic insufficiency -Celiac disease panel negative Gardnerella UTI -Metronidazole 500 mg BID completed in hospital -Pyridium t.i.d. x 2 days, end 11/14 Depression with anxiety -See above -Discontinued amitriptyline, initiated duloxetine as above -Vistaril PRN anxiety -Otherwise as above, psychiatry following Reflux esophagitis -Pantoprazole 40 mg daily -Reglan PRN nausea Code: Full code Dispo: FEN/GI: Regular diet DVT Prophylaxis: Low-risk Consults: Infectious disease, neurology, psychiatry, PT (2) Gardnerella vaginalis infection: Admission and Anticipated Discharge Date Admission Date: November 10, 2022 Supervising Physician Co-Signing Physician Notes 27-year old female with past medical history pertinent for Lyme disease, anxiety/depression, and OUD on MAT on admission for complicated migraine with neurologic manifestations. Discussed buprenorphine dosing with patient, per PDMP, current dosing is 8 mg TID, when discussing this with patient, she was experiencing a pain flare and was in a state of confusion, will address in depth tomorrow but consider inadequate dosing possibly contributing to pain flare. Patient remains emotionally labile due to continued pain. Discussed importance of mindfulness to avoid excessive anxiety which may worsen symptomatology. Will continue topiramate, duloxetine, and gabapentin. Now on oral prednisone and doxycyline therapy. Will trial topical lidocaine. Patient seen and examined with resident, agree with history, physical, and plan as above. Subjective Patient states that she did well overnight, however this AM is having re- exacerbation of her symptoms. She is frequently crying out during our interaction this AM. Patient's largest complaint is a headache (she is unable to pinpoint a location of the headache) with radiation of pain down the left throat and to the upper chest. She denies CP or SOB. Patient states that she had minimal benefit with IV steroids yesterday, but that was what has provided the most relief thus far per her opinion. Patient is able to tolerate po intake but reports decreased appetite secondary to pain. She denies abdominal pain, nausea, or vomiting. Patient is frustrated with regards to her continued symptoms and reports some passive SI this morning. Patient states, "I just don't want to live like this anymore." She states that these thoughts have been present for the past few days . Patient denies a suicide plan. Denies hx of suicide plans or attempts in the past. She does have a 6 year old son and patient mentions that it's "difficult to not be able to be there for him because of all these problems." Review of Systems Review of Systems: as per HPI Physical Exam Physical Exam: GENERAL: Anxious. Labile and frequently crying throughout exam. Well developed and well nourished. Vital signs reviewed as above. EYES: PERRL. EOMI. Anicteric sclerae. HENT: Moist mucous membranes. Ice pack on left jaw. RESPIRATORY: Clear to auscultation bilaterally. No wheezing, rales, or rhonchi. CARDIOVASCULAR: Regular rate and rhythm. No murmurs. No JVD. ABDOMEN: Soft, non-tender and non-distended. Normal bowel sounds. EXTREMITIES: No edema. Non-tender. SKIN: Warm, dry. NEUROLOGIC: A/O x3. Normal speech. No focal neurological deficits. No sensorimotor deficits. PSYCHIATRIC: Anxious affect. Labile mood. Results & Data Results & Data ([facility]) Vital Signs (Past 12 Hours) Vital Signs Temp Pulse Resp BP BP Pulse Ox O2 Del Method 11/19/22 07:50 36.4 C L 94 H 18 124/88 98 Room Air 11/18/22 23:20 36.8 C 74 16 117/76 97 Room Air Resident Activity Tracking Resident Involvement: Resident Care Provided Care Provided: Adult Hospital Medicine
[2022-11-19] MEDS: ERGOCALCIFEROL 50,000 UNITS 1250 MCG CAP PO SCH (14:01)
[2022-11-19] MEDS: LIDOCAINE 4% CREAM 15 GM TUBE EXT PRN ×2 (16:34→21:11)
[2022-11-19] MEDS ORDERED: buprenorphine HCL 8 MG SUBL SL SCH (18:00)
[2022-11-19] MEDS: MELATONIN 3 MG TAB PO SCH (21:07)
[2022-11-20] MEDS: ACETAMINOPHEN 500 MG TAB PO PRN ×3 (01:14→21:22)
[2022-11-20 06:02] LABS: Basophils # (auto) 0.01 K/uL (0-0.2); Basophils % (auto) 0.1 %; Eosinophils # (auto) 0.03 K/uL (0-0.50); Eosinophils % (auto) 0.4 %; Hematocrit (blood only) 35.1 % (37.0-47.0); Hemoglobin 11.9 g/dl (12.0-16.0); Immature Granulocytes # (auto) 0.05 K/uL (0.01-0.20); Immature Granulocytes % (auto) 0.6 %; Lymphocytes # (auto) 2.78 K/uL (1.2-3.4); Lymphocytes % (auto) 33.4 %; Mean Corpuscular Hemoglobin 31.7 pg (25.0-34.0); Mean Corpuscular Hgb Conc 33.9 g/dL (32.0-36.0); Mean Corpuscular Volume 93.6 fL (80.0-100.0); Mean Platelet Volume 10.9 fL (9.4-12.4); Monocytes # (auto) 0.75 K/uL (0.11-0.59); Neutrophils % (auto) 56.5 %; Platelet Count 188 K/uL (130-400); RDW Coefficient of Variation 12.8 % (11.5-14.5); RDW Standard Deviation 44.4 fL (36.4-46.3); Red Blood Count 3.75 M/uL (4.20-5.40); White Blood Count 8.32 K/ul (4.8-10.8)
[2022-11-20] MEDS: FERROUS GLUCONATE 324 MG TAB PO SCH (06:07)
[2022-11-20] MEDS: KETOROLAC TROMETHAMINE 15 MG/ML VIAL IV SCH ×3 (06:07→22:08)
[2022-11-20 06:50] LABS: Calcium 8.7 mg/dl (8.5-10.1); Potassium 3.8 mmol/L (3.5-5.1)
[2022-11-20 06:56] LABS: BUN Creatinine Ratio 31.8 (10-20); Creatinine Clr Calc Pharmacy 136.2 ml/min; Est GFR (African American) 142.3 ml/min; Est GFR (Non-African American) 122.8 ml/min
[2022-11-20] MEDS: SENNA 8.6 MG TAB PO SCH (08:36)
[2022-11-20] MEDS: buprenorphine HCL 8 MG SUBL SL SCH ×3 (08:38→22:58)
[2022-11-20] MEDS: DULoxetine HCL 20 MG CAP PO SCH (08:38)
[2022-11-20] MEDS: CHOLECALCIFEROL 1,000 UNITS 25 MCG TAB PO SCH (08:38)
[2022-11-20] MEDS: DOXYCYCLINE HYCLATE 100 MG CAP PO SCH ×2 (08:38→21:20)
[2022-11-20] MEDS: GABAPENTIN 300 MG CAP PO SCH ×3 (08:38→21:20)
[2022-11-20] MEDS: LIDOCAINE 5% 1 PATCH TD SCH ×2 (08:39→16:57)
[2022-11-20] MEDS: PANTOprazole 40 MG TAB PO SCH (08:39)
[2022-11-20] MEDS: OFLOXACIN 0.3% 75 DROPS/5 ML BTL OT SCH ×2 (08:39→21:21)
[2022-11-20] MEDS: TOPIRAMATE 50 MG TAB PO SCH ×2 (08:40→21:19)
[2022-11-20] MEDS: predniSONE 20 MG TAB PO SCH (08:40)
[2022-11-20] MEDS: LIDOCAINE 4% CREAM 15 GM TUBE EXT PRN (08:41)
[2022-11-20] MEDS: METOCLOPRAMIDE HCL 5 MG TABLET PO PRN (11:04)
--- NOTE | 2022-11-20 18:18 | Hospitalist Progress Note ---
Date of Service November 20, 2022 Assessment & Plan (1) Lyme disease: Plan: Sarah is a 27-year-old woman with history of Lyme disease (2020), depression with anxiety, reflux esophagitis, OUD on Subutex with prior IVDU who is here with persistent POP, dizziness x3 weeks, nausea, blurry vision, facial numbness, and other reported symptoms found to have positive Lyme serology. While initially there was a strong suspicion for HOOK LOADER Lyme, evaluations undergone by both infectious disease and neurology do not feel that HOOK LOADER Lyme is likely (especially since patient had very similar symptoms a year prior and more recently completed a full course of outpatient doxycycline and, while here, ongoing CFTX with minimal improvement). At this time, primary suspicion is that her symptoms likely represent a phenotype of a chronic, complicated migraine, possibly superimposed by neuropsychiatric features. Suspected Chronic, Complicated Migraine with Neurologic and Neuropsychiatric Manifestations -- initially thought to be HOOK LOADER Lyme -Reporting persistent yet changing quality of paraesthesias in the face (bilaterally but L>R) extending down to ~T4 on the left thorax but sparing the arms - also w/ report of intermittent 4/5 UE weakness, intermittent blurry vision, HAs, tinnitus -Workup: --> Positive Lyme serology including IgM, IgG on 11/07 (BANDS), positive IgM on WB, but negative IgG on WB; CSF studies do not demonstrate e/o Lyme DNA --> Contrast-enhanced brain, C and T-Spine MRIs - NEGATIVE for acute processes, demyelination, inflammation --> Smears NEGATIVE for intracellular parasites --> Inflammatory markers (ESR, CRP, PCT, ferritin) checked multiple times, all negative ; B12 normal --> ROBER, RF negative on 11/02 (PSH) negative --> FTA-ABS negative --> No MRI findings, physical exam findings, or inflammatory markers to suggest endocarditis (in setting of previous IVDU) --> Improvement with steroids. No reported improvement with CFTX. Minimal improvements reported from prior TCA adjustment, gabapentin initiation. -Consults: --> ID consulted: Low suspicion for HOOK LOADER Lyme -- more likely to represent neuropsychiatric etiologies from their perspective --> Neurology consulted: Low suspicion for HOOK LOADER Lyme -- more likely to represent chronic, complicated headache phenotype with neuropsychiatric features --> Psychiatry consulted: Differential for symptoms (with Lyme excluded) include somatoform disorder, factitious disorder, malingering -Multidisciplinary Treatment Plan: (patient completed outpatient course of doxycycline prior to hospitalization) * CFTX started 11/10. Discontinue 11/18. Remove PICC. Transition to doxycycline, end on 11/24 to complete 14-day course * Ample hydration * Steroids: SoluMedrol burst x 2 days, then prednisone 60mg daily x 7 days (end 11/26) * Topiramate 50mg b.i.d. x 7 days, the increase to 100mg b.i.d. (beginning 11/24) *Considered trial of Nurtec per neurology recommendations; however, hospital w/o Nurtec on formulary * Cymbalta 20mg daily, gabapentin 300mg t.i.d. -- Patient does not feel that gabapentin is providing much benefit. She notes that her mother uses Lyrica for hx of fibromyalgia. If patient continues to have no benefit with gabapentin, can consider switching trial of Lyrica. * Continue vitamin replacement (B12, D3) and iron * Discontinue amitriptyline (no improvement with dosage change; also see psychiatry note) * Patient would benefit from outpatient headache clinic / establishing with center. Could also consider establishing with rheumatology/immunology -Patient with improvement of facial paresthesias w/ topical lidocaine; started trial of lidocaine patches on 11/20 -Encouraged patient to limit ice pack use due to concern of exacerbating nerves; frequent reorientation throughout H&P with patient touching face to avoid exacerbating nerve pain Subutex Use - Subutex use of 8mg SL TID per PDMP review but inconsistent reports of use by patient - Patient reports that Subutex home regimen has been 8mg qAM, 4mg at lunch, and 8mg qhs -- Patient has been using Subutex 8mg SL daily since admission - Regimen adjusted on 11/20 to reflect home use - ? component of increased anxiety/pain secondary to decreased Subutex use since admission Positive CSF Cx: Oxacillin-Resistant CoNS - Culture positive BUT was in setting of a difficult tap - no WBCs, RBCs, negative BioFire - Suspect contaminant given species, clinical presentation, and otherwise negative CSF studies - ID consult: largely suspect contaminant (agree), no indication for IV ABX Reported History of Cystic Fibrosis - History discussed during admission. Reports that she is in "remission" but can't recall undergoing any formal testing. Son has had genetic testing reportedly confirming the diagnosis - Vitamin D, B12, and ferritin all low -- ?malabsorptive pathology. 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 establishing with nurse prn as outpatient -- could certainly affect intermittent screenings/immunizations - We did contact Erica for her pediatric history- no chronic conditions were noted per their chart review Nutritional Deficiencies - Ferritin, B12, and vitamin D all deficient - Management: -- Venofer 200mg x 1 given while here; initiate iron sulfate 325mg MWF at discharge -- Vitamin D2 50,000U q7d x 8 weeks then recheck level as outpatient ; also vitamin D3 2000 IU daily -- recheck in 3 mo' time -- Vitamin B12 shots daily x 7 days, then q7d x 4 weeks, then monthly x 3 months --> recheck level -Possible contribution from CF, though would be atypical given no other sxs of pancreatic insufficiency -Celiac disease panel negative Gardnerella UTI -Metronidazole 500 mg BID completed in hospital -Pyridium t.i.d. x 2 days, end 11/14 Depression with anxiety -See above -Discontinued amitriptyline, initiated duloxetine as above -Vistaril PRN anxiety -Otherwise as above, psychiatry following Reflux esophagitis -Pantoprazole 40 mg daily -Reglan PRN nausea Code: Full code Dispo: FEN/GI: Regular diet DVT Prophylaxis: Low-risk Consults: Infectious disease, neurology, psychiatry, PT (2) Gardnerella vaginalis infection: Admission and Anticipated Discharge Date Admission Date: November 10, 2022 Supervising Physician Co-Signing Physician Notes 27-year old female with past medical history pertinent for lyme disease, anxiety/depression, and OUD on MAT on admission for complicated migraine with neurologic manifestations. Discussed at length with patient her continued pain and approaches to manage it. Patient seen and examined with resident, agree with history, physical, and plan as above. Subjective Patient seen and evaluated at bedside this morning. Affect continues to be labile. Reports no change from yesterday. Continued pain, most prominent throughout face; pain described as burning sensation. This pain radiates around the temples, eyes, down the right side of the face to the chin, and down the left side of the face to the neck and upper chest (just above the nipple area). Denies nipple pain/sensitivity. States that she has been tolerating po intake but that she not hungry secondary to the pain. Patient reports that she has not been sleeping well; states that even when she does sleep she wakes up with the same pain. No changes today. Review of Systems Review of Systems: as per HPI Physical Exam Physical Exam: GENERAL: Anxious. Labile and frequently crying throughout exam. Well developed and well nourished. Vital signs reviewed as above. EYES: EOMI. Anicteric sclerae. HENT: Moist mucous membranes. Ice pack situated on forehead. RESPIRATORY: Clear to auscultation bilaterally. No wheezing, rales, or rhonchi. CARDIOVASCULAR: Regular rate and rhythm. No murmurs. No JVD. ABDOMEN: Soft, non-tender and non-distended. Normal bowel sounds. EXTREMITIES: No edema. Non-tender. SKIN: Warm, dry. NEUROLOGIC: A/O x3. Normal speech. Reports numbness throughout face (trigeminal distribution) bilaterally. 5/5 strength to BUE and BLE. PSYCHIATRIC: Anxious affect. Labile mood. Results & Data Results & Data ([facility]) Vital Signs (Past 12 Hours) Vital Signs Temp Pulse Resp BP BP Pulse Ox O2 Del Method 11/20/22 15:22 36.9 C 90 14 112/74 96 Room Air 11/20/22 11:03 110/72 11/20/22 07:22 36.4 C L 66 16 99/64 L 97 Room Air Laboratory Results 11/20/22 11/20/22 Range/Units 05:37 05:37 WBC 8.32 (4.8-10.8) K/ul RBC 3.75 L (4.20-5.40) M/uL Hgb 11.9 L (12.0-16.0) g/dl Hct 35.1 L (37.0-47.0) % MCV 93.6 (80.0-100.0) fL MCH 31.7 (25.0-34.0) pg MCHC 33.9 (32.0-36.0) g/dL RDW Std Deviation 44.4 (36.4-46.3) fL RDW Coeff of Rubén 12.8 (11.5-14.5) % Plt Count 188 (130-400) K/uL MPV 10.9 (9.4-12.4) fL Immature Gran % (Auto) 0.6 % Neut % (Auto) 56.5 % Lymph % (Auto) 33.4 % Ransom % (Auto) 9.0 % Eos % (Auto) 0.4 % Baso % (Auto) 0.1 % Neut # (Auto) 4.70 (1.40-6.50) K/uL Lymph # (Auto) 2.78 (1.2-3.4) K/uL Ransom # (Auto) 0.75 H (0.11-0.59) K/uL Eos # (Auto) 0.03 (0-0.50) K/uL Baso # (Auto) 0.01 (0-0.2) K/uL Immature Gran # (Auto) 0.05 (0.01-0.20) K/uL Sodium 139 (136-145) mmol/L Potassium 3.8 (3.5-5.1) mmol/L Chloride 106 (98-107) mmol/L Carbon Dioxide 30 (21-32) mmol/L Anion Gap 3 (3-11) BUN 21 (6-23) mg/dl Creatinine 0.66 (0.6-1.2) mg/dl Est Cr Clr Drug Dosing 136.2 ml/min Est GFR ( Amer) 142.3 ml/min Est GFR (Non-Af Amer) 122.8 ml/min BUN/Creatinine Ratio 31.8 H (10-20) Glucose 84 (70-99(Fasting)) mg/dl Calcium 8.7 (8.5-10.1) mg/dl Resident Activity Tracking Resident Involvement: Resident Care Provided Care Provided: Adult [facility]
[2022-11-20] MEDS: MELATONIN 3 MG TAB PO SCH (21:18)
[2022-11-21] MEDS: LIDOCAINE 4% CREAM 15 GM TUBE EXT PRN ×3 (01:08→20:08)
[2022-11-21] MEDS: KETOROLAC TROMETHAMINE 15 MG/ML VIAL IV SCH ×2 (05:57→13:57)
[2022-11-21] MEDS: ACETAMINOPHEN 500 MG TAB PO PRN ×2 (05:57→16:48)
[2022-11-21] MEDS: FERROUS GLUCONATE 324 MG TAB PO SCH (06:01)
[2022-11-21 07:39] LABS: Basophils # (auto) 0.01 K/uL (0-0.2); Basophils % (auto) 0.1 %; Eosinophils # (auto) 0.04 K/uL (0-0.50); Eosinophils % (auto) 0.5 %; Hematocrit (blood only) 34.6 % (37.0-47.0); Hemoglobin 11.9 g/dl (12.0-16.0); Immature Granulocytes # (auto) 0.04 K/uL (0.01-0.20); Immature Granulocytes % (auto) 0.5 %; Lymphocytes # (auto) 2.54 K/uL (1.2-3.4); Lymphocytes % (auto) 32.1 %; Mean Corpuscular Hemoglobin 31.3 pg (25.0-34.0); Mean Corpuscular Hgb Conc 34.4 g/dL (32.0-36.0); Mean Corpuscular Volume 91.1 fL (80.0-100.0); Mean Platelet Volume 10.8 fL (9.4-12.4); Monocytes # (auto) 0.65 K/uL (0.11-0.59); Monocytes % (auto) 8.2 %; Neutrophils # (auto) 4.63 K/uL (1.40-6.50); Neutrophils % (auto) 58.6 %; Platelet Count 194 K/uL (130-400); RDW Coefficient of Variation 12.7 % (11.5-14.5); RDW Standard Deviation 41.7 fL (36.4-46.3); White Blood Count 7.91 K/ul (4.8-10.8)
--- NOTE | 2022-11-21 07:49 | Progress Note ---
Date of Service November 21, 2022 Assessment & Plan (1) Lyme disease: Plan: Sarah is a 27-year-old woman with history of Lyme disease (2020), depression with anxiety, reflux esophagitis, OUD on Subutex with prior IVDU who is here with persistent POP, dizziness x3 weeks, nausea, blurry vision, facial numbness, and other reported symptoms found to have positive Lyme serology. While initially there was a strong suspicion for JACK SPOOLER TENDER Lyme, evaluations undergone by both infectious disease and neurology do not feel that JACK SPOOLER TENDER Lyme is likely (especially since patient had very similar symptoms a year prior and more recently completed a full course of outpatient doxycycline and, while here, ongoing CFTX with minimal improvement). At this time, primary suspicion is that her symptoms likely represent a phenotype of a chronic, complicated migraine, possibly superimposed by neuropsychiatric features. #Suspected Chronic, Complicated Migraine with Neurologic and Neuropsychiatric Manifestations -- initially thought to be JACK SPOOLER TENDER Lyme -Reporting persistent yet changing quality of paraesthesias in the face (bilaterally but L>R) extending down to ~T4 on the left thorax but sparing the arms w/ report of intermittent 4/5 UE weakness, intermittent blurry vision, HAs, tinnitus. Suspect conversion disorder in addition to facial pain (migraine vs. less likely trigeminal neuralgia) and a component of eustachian tube dysfunction. -Workup: --> Positive Lyme serology including IgM, IgG on 11/07 (BANDS), positive IgM on WB, but negative IgG on WB; CSF studies do not demonstrate e/o Lyme DNA --> Contrast-enhanced brain, C and T-Spine MRIs - NEGATIVE for acute processes, demyelination, inflammation --> Smears NEGATIVE for intracellular parasites --> Inflammatory markers (ESR, CRP, PCT, ferritin) checked multiple times, all negative ; B12 normal --> ROBER, RF negative on 11/02 (PSH) negative --> FTA-ABS negative --> No MRI findings, physical exam findings, or inflammatory markers to navarro ggest endocarditis (in setting of previous IVDU), history of Chiari malformation found on MRI in [facility] --> Improvement with steroids. No reported improvement with CFTX. Minimal improvements reported from prior TCA adjustment, gabapentin initiation. -Consults: --> ID consulted: Low suspicion for JACK SPOOLER TENDER Lyme -- more likely to represent neuropsychiatric etiologies from their perspective --> Neurology consulted: Low suspicion for JACK SPOOLER TENDER Lyme -- more likely to represent chronic, complicated headache phenotype with neuropsychiatric features --> Psychiatry consulted: Differential for symptoms (with Lyme excluded) include somatoform disorder, factitious disorder, malingering -Multidisciplinary Treatment Plan: (patient completed outpatient course of doxycycline prior to hospitalization) * CFTX started 11/10. Discontinue 11/18. Remove PICC. Transition to doxycycline, end on 11/24 to complete 14-day course * Ample hydration * Steroids: SoluMedrol burst x 2 days, then prednisone 60mg daily x 7 days (end 11/26) * Topiramate 50mg b.i.d. x 7 days, the increase to 100mg b.i.d. (beginning 11/24) *Considered trial of Nurtec per neurology recommendations; however, hospital w/o Nurtec on formulary * Cymbalta increase to 60mg daily, gabapentin changed to Lyrica 150 mg BID due to concerns of dizziness * Continue vitamin replacement (B12, D3) and iron * Discontinue amitriptyline (no improvement with dosage change; also see psychiatry note) * Patient would benefit from outpatient headache clinic / establishing with center. Could also consider establishing with rheumatology/immunology. Consider outpatient follow-up with Dr. Villa for pain management * Fluticasone spray initiated for congestion/ear discomfort -Patient with improvement of facial paresthesias w/ topical lidocaine; started trial of lidocaine patches on 11/20 -Encouraged patient to limit ice pack use due to concern of exacerbating nerves; frequent reorientation throughout H&P with patient touching face to avoid exacerbating nerve pain - Counseled on the lack of structural etiology likely at play but rather the interplay of mind - body as a cause due to her history of Lyme and trigeminal neuralgia. Set goal to strive to do one activity a day for about an hour. Subutex Use - Subutex use of 8mg SL TID per PDMP review but inconsistent reports of use by patient - Patient reports that Subutex home regimen has been 8mg qAM, 4mg at lunch, and 8mg qhs -- Patient has been using Subutex 8mg SL daily since admission - Regimen adjusted on 11/20 to reflect home use - ? component of increased anxiety/pain secondary to decreased Subutex use since admission Positive CSF Cx: Oxacillin-Resistant CoNS - Culture positive BUT was in setting of a difficult tap - no WBCs, RBCs, negative BioFire - Suspect contaminant given species, clinical presentation, and otherwise negative CSF studies - ID consult: largely suspect contaminant (agree), no indication for IV ABX Reported History of Cystic Fibrosis - History discussed during admission. Reports that she is in "remission" but can't recall undergoing any formal testing. Son has had genetic testing reportedly confirming the diagnosis - Vitamin D, B12, and ferritin all low -- ?malabsorptive pathology. 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 establishing with radiology special procedure tech as outpatient -- could certainly affect intermittent screenings/immunizations - We did contact Erica for her pediatric history- no chronic conditions were noted per their chart review Nutritional Deficiencies - Ferritin, B12, and vitamin D all deficient - Management: -- Venofer 200mg x 1 given while here; initiate iron sulfate 325mg MWF at discharge -- Vitamin D2 50,000U q7d x 8 weeks then recheck level as outpatient ; also vitamin D3 2000 IU daily -- recheck in 3 mo' time -- Vitamin B12 shots daily x 7 days, then q7d x 4 weeks, then monthly x 3 months --> recheck level -Possible contribution from CF, though would be atypical given no other sxs of pancreatic insufficiency -Celiac disease panel negative Gardnerella UTI -Metronidazole 500 mg BID completed in hospital -Pyridium t.i.d. x 2 days, end 11/14 Depression with anxiety -See above -Discontinued amitriptyline, initiated duloxetine as above -Vistaril PRN anxiety -Otherwise as above, psychiatry following Reflux esophagitis -Pantoprazole 40 mg daily -Reglan PRN nausea Code: Full code Dispo: MS FEN/GI: Regular diet DVT Prophylaxis: Low-risk Consults: Infectious disease, neurology, psychiatry, PT (2) Gardnerella vaginalis infection: Admission and Anticipated Discharge Date Admission Date: November 10, 2022 Supervising Physician Co-Signing Physician Notes I personally examined the patient and verified all ferrer points of history and exam, discussed case, and agree with decision making with Samantha Jesus MS4 and Dr Morales Ongoing face pain. Burning across both sides of face. Ears feel congested as well. Cannot rest. Feels like she is going crazy. Vitals noted, in general she is awake and alert alternates between periods of being more calm and being in a significant degree of distress almost pulling on her face. HEENT normocephalic atraumatic mucous membranes moist, bilateral TMs with clear fluid. Left greater than right suboccipitals high tone, tender, decreased range of motioninhibitory pressureimproved. Bilateral ear effleurage done and taught to patient as well. Breathing unlabored no accessory muscle use good effort. Skin shows no rashes no pallor or icterus. Neuro without focal deficits or asymmetries. Facial painsuspect multifactorial. -Small portion probably suboccipital tension headachesomatic dysfunction C- spine/occipital regionOMT as above -Small part eustachian tube dysfunctionAfrin/Flonase/OMT as above -A large part I suspect to be somatoform disordershe had what amounts to a fairly traumatic experience having had Lyme a year ago, subsequent trigeminal neuralgia and severe painher symptoms now seem to have started with a case of Lymealthough not JACK SPOOLER TENDER Lyme after further reviewbut I suspect after her experience last year, this easily could have created a neuro psychophysiologic "spinoff" of face pain somewhat mimicking, but worse than, her trigeminal neuralgia from a year ago. Explained this to patient in depth. Discussed that we will continue to try to mitigate symptoms, but also working on some degree of normal function in spite of symptoms will likely be more beneficial than anything we can do medically. With patient's permission, removed ice packs and encouraged her to try to "fake normalcy" (suggested utilizing her oculus headset for distraction) for at least an hour todaygradually increase. Offered empathy/compassion/support, and discussed similar situations where there was improvement over time. Switch gabapentin to pregabalin given that she is not feeling significant relief, and is feeling some degree of dizziness. Titrate up Cymbalta. adjustment of meds, ongoing hospitalization, multiple working diagnoses making risk high. Otherwise as above Subjective Sarah Ozuna is a 27 year old female admitted on 11/10 with facial pain and burning, dizziness, depression. She has a history of IVDU, clean since 2015. She has a history of lyme (2020) and at that time had similar symptoms, less severe. Affect continues to be labile. Reports 8/10 pain, unrelieved with current medications but will have moments of relief with the topical Lidocaine. Pain most prominent throughout face; pain described as burning sensation. This pain radiates around the temples, eyes, down the right side of the face to the chin, and down the left side of the face to the neck and upper chest (just above the nipple area). Denies nipple pain/sensitivity. She feels pressure in the neck. States that she has been tolerating po intake but that she not hungry secondary to the pain. Patient reports that she has not been sleeping well; states that even when she does sleep she wakes up with the same pain. She has ringing and a pressure sensation in the ears. Review of Systems Review of Systems: See HPI Physical Exam Physical Exam: GENERAL: Anxious. Labile and frequently crying throughout exam. Well developed and well nourished. Vital signs reviewed as above. EYES: EOMI. Anicteric sclerae. HENT: Moist mucous membranes. RESPIRATORY: Clear to auscultation bilaterally. No wheezing, rales, or rhonchi. CARDIOVASCULAR: Regular rate and rhythm. No murmurs. No JVD. ABDOMEN: Soft, non-tender and non-distended. Normal bowel sounds. EXTREMITIES: No edema. Non-tender. SKIN: Warm, dry. NEUROLOGIC: A/O x3. Normal speech. Reports numbness throughout face (trigeminal distribution) bilaterally. 5/5 strength to BUE and BLE. PSYCHIATRIC: Anxious affect. Labile mood. No suicidal ideation. Results & Data ([facility]) Vital Signs (Past 12 Hours) Vital Signs Temp Pulse Resp BP Pulse Ox O2 Del Method 11/20/22 20:36 36.5 C 67 16 110/61 96 Room Air
[2022-11-21 08:14] LABS: Calcium 8.8 mg/dl (8.5-10.1); Potassium 3.4 mmol/L (3.5-5.1)
[2022-11-21 08:20] LABS: BUN Creatinine Ratio 31.7 (10-20); Creatinine Clr Calc Pharmacy 142.7 ml/min; Est GFR (African American) 144.5 ml/min; Est GFR (Non-African American) 124.7 ml/min
[2022-11-21] MEDS ORDERED: POTASSIUM CHLORIDE CRTAB 20 MEQ TABCR PO STA (08:42)
[2022-11-21] MEDS: GABAPENTIN 300 MG CAP PO SCH ×2 (08:44→13:57)
[2022-11-21] MEDS: buprenorphine HCL 8 MG SUBL SL SCH ×2 (08:44→20:03)
[2022-11-21] MEDS: TOPIRAMATE 50 MG TAB PO SCH ×2 (08:45→20:03)
[2022-11-21] MEDS: NAPROXEN 375 MG TAB PO PRN (08:45)
[2022-11-21] MEDS: DOXYCYCLINE HYCLATE 100 MG CAP PO SCH ×2 (08:45→20:03)
[2022-11-21] MEDS: DULoxetine HCL 20 MG CAP PO SCH (08:45)
[2022-11-21] MEDS: predniSONE 20 MG TAB PO SCH (08:45)
[2022-11-21] MEDS: METOCLOPRAMIDE HCL 5 MG TABLET PO PRN (08:46)
[2022-11-21] MEDS: CHOLECALCIFEROL 1,000 UNITS 25 MCG TAB PO SCH (08:46)
[2022-11-21] MEDS: PANTOprazole 40 MG TAB PO SCH (08:46)
[2022-11-21] MEDS: SENNA 8.6 MG TAB PO SCH (08:46)
[2022-11-21] MEDS: OFLOXACIN 0.3% 75 DROPS/5 ML BTL OT SCH ×2 (08:49→20:04)
[2022-11-21] MEDS: LIDOCAINE 5% 1 PATCH TD SCH (08:50)
[2022-11-21] MEDS: buprenorphine HCL 2 MG SUBL SL SCH (11:44)
[2022-11-21] MEDS ORDERED: DULoxetine HCL 20 MG CAP PO ONE (14:42)
[2022-11-21] MEDS ORDERED: OXYMETAZOLINE 0.05% 30 ML BTL PRN (15:45)
--- NOTE | 2022-11-21 17:57 | Billing Data ---
Date of Service November 21, 2022 Coding Level of Care Code 10214 SUB INP/OBS CARE MIN
--- NOTE | 2022-11-21 17:58 | Billing Data ---
Date of Service November 21, 2022 Coding Level of Care Code 81287 SUB INP/OBS CARE MIN
--- NOTE | 2022-11-21 17:58 | Hospitalist Progress Note ---
Date of Service November 21, 2022 Assessment & Plan (1) Somatic dysfunction of cervical region: Plan: and head region OMT as in progress note, same date Admission and Anticipated Discharge Date Admission Date: November 10, 2022 Results & Data Results & Data ([facility]) Vital Signs (Past 12 Hours) Vital Signs Temp Pulse Resp BP Pulse Ox O2 Del Method 11/21/22 15:48 97.7 F 83 17 111/75 95 Room Air 11/21/22 07:50 97.9 F 78 18 109/77 97 Room Air PG Care Time/CCT Total # of Minutes Spent Total Time Spent with Patient: Total time spent is greater than 50% in coordination of care (as documented) at patient's floor/unit and/or counseling patient: Coding Level of Care Code None Diagnoses Somatic dysfunction of cervical region M99.01 CPT Codes Musculoskeletal - Musculoskeletal: 30912 Osteo Norberto Tr 1-2 Body regions ([id number])
[2022-11-21] MEDS: MELATONIN 3 MG TAB PO SCH (20:03)
[2022-11-21] MEDS: PREGABALIN 150 MG CAP PO SCH (20:03)
[2022-11-21] MEDS ORDERED: buprenorphine HCL 8 MG SUBL SL SCH (21:00)
[2022-11-22] MEDS: ACETAMINOPHEN 500 MG TAB PO PRN ×2 (06:34→21:17)
[2022-11-22] MEDS: FERROUS GLUCONATE 324 MG TAB PO SCH (06:34)
[2022-11-22] MEDS ORDERED: POTASSIUM CHLORIDE CRTAB 20 MEQ TABCR PO STA (08:19)
[2022-11-22] MEDS: DOXYCYCLINE HYCLATE 100 MG CAP PO SCH ×2 (08:46→21:14)
[2022-11-22] MEDS: TOPIRAMATE 50 MG TAB PO SCH ×2 (08:47→21:14)
[2022-11-22] MEDS: CHOLECALCIFEROL 1,000 UNITS 25 MCG TAB PO SCH (08:47)
[2022-11-22] MEDS: SENNA 8.6 MG TAB PO SCH (08:48)
[2022-11-22] MEDS: PANTOprazole 40 MG TAB PO SCH (08:48)
[2022-11-22] MEDS: predniSONE 20 MG TAB PO SCH (08:49)
[2022-11-22] MEDS: LIDOCAINE 5% 1 PATCH TD SCH (08:51)
[2022-11-22] MEDS: buprenorphine HCL 8 MG SUBL SL SCH ×2 (08:52→21:13)
[2022-11-22] MEDS: FLUTICASONE PROPIONATE NA SPR 16 GM BTL SCH (08:52)
[2022-11-22] MEDS: OFLOXACIN 0.3% 75 DROPS/5 ML BTL OT SCH ×2 (08:53→21:14)
[2022-11-22] MEDS: DULoxetine HCL 60 MG CAP PO SCH (09:01)
[2022-11-22] MEDS: PREGABALIN 150 MG CAP PO SCH ×2 (09:01→21:13)
--- NOTE | 2022-11-22 10:06 | Hospitalist Progress Note ---
Date of Service November 22, 2022 Assessment & Plan (1) Lyme disease: Plan: Sarah is a 27-year-old woman with history of Lyme disease (2020), depression with anxiety, reflux esophagitis, OUD on Subutex with prior IVDU who is here with persistent POP, dizziness x3 weeks, nausea, blurry vision, facial numbness, and other reported symptoms found to have positive Lyme serology. While initially there was a strong suspicion for IMPREG[employer]RI[employer] Lyme, evaluations undergone by both infectious disease and neurology do not feel that IMPREGNATOR [employer] DRI[employer] Lyme is likely (especially since patient had very similar symptoms a year prior and more recently completed a full course of outpatient doxycycline and, while here, ongoing CFTX with minimal improvement). At this time, primary suspicion is that her symptoms likely represent a phenotype of a chronic, complicated migraine, possibly superimposed by neuropsychiatric features. #Suspected Chronic, Complicated Migraine with Neurologic and Neuropsychiatric Manifestations -- initially thought to be IMPREGNATOR AND DRIER Lyme -Reporting persistent yet changing quality of paraesthesias in the face (bilaterally but L>R) extending down to ~T4 on the left thorax but sparing the arms w/ report of intermittent 4/5 UE weakness, intermittent blurry vision, HAs, tinnitus. Suspect conversion disorder in addition to facial pain (migraine vs. less likely trigeminal neuralgia) and a component of eustachian tube dysfunction. -Workup: --> Positive Lyme serology including IgM, IgG on 11/07 (BANDS), positive IgM on WB, but negative IgG on WB; CSF studies do not demonstrate e/o Lyme DNA --> Contrast-enhanced brain, C and T-Spine MRIs - NEGATIVE for acute processes, demyelination, inflammation --> Smears NEGATIVE for intracellular parasites --> Inflammatory markers (ESR, CRP, PCT, ferritin) checked multiple times, all negative ; B12 normal --> ROBER, RF negative on 11/02 (PSH) negative --> FTA-ABS negative --> No MRI findings, physical exam findings, or inflammatory markers to navarro ggest endocarditis (in setting of previous IVDU), history of Chiari malformation found on MRI in [facility] --> Improvement with steroids. No reported improvement with CFTX. Minimal improvements reported from prior TCA adjustment, gabapentin initiation. -Consults: --> ID consulted: Low suspicion for IMPREGNATOR AND DRIER Lyme -- more likely to represent neuropsychiatric etiologies from their perspective --> Neurology consulted: Low suspicion for IMPREGNATOR AND DRIER Lyme -- more likely to represent chronic, complicated headache phenotype with neuropsychiatric features --> Psychiatry consulted: Differential for symptoms (with Lyme excluded) include somatoform disorder, factitious disorder, malingering -Multidisciplinary Treatment Plan: (patient completed outpatient course of doxycycline prior to hospitalization) * CFTX started 11/10. Discontinue 11/18. Remove PICC. Transition to doxycycline, end on 11/24 to complete 14-day course * Ample hydration * Steroids: SoluMedrol burst x 2 days, then prednisone 60mg daily x 7 days (end 11/26) * Topiramate 50mg b.i.d. x 7 days, the increase to 100mg b.i.d. (beginning 11/24) *Considered trial of Nurtec per neurology recommendations; however, hospital w/o Nurtec on formulary * Cymbalta increase to 60mg daily, gabapentin changed to Lyrica 150 mg BID due to concerns of dizziness * Continue vitamin replacement (B12, D3) and iron * Discontinue amitriptyline (no improvement with dosage change; also see psychiatry note) * Patient would benefit from outpatient headache clinic / establishing with center. Could also consider establishing with rheumatology/immunology. Consider outpatient follow-up with Dr. Villa for pain management * Fluticasone spray initiated for congestion/ear discomfort -Patient with improvement of facial paresthesias w/ topical lidocaine; started trial of lidocaine patches on 11/20 -Encouraged patient to limit ice pack use due to concern of exacerbating nerves; frequent reorientation throughout H&P with patient touching face to avoid exacerbating nerve pain - Counseled on the lack of structural etiology likely at play but rather the interplay of mind - body as a cause due to her history of Lyme and trigeminal neuralgia. Set goal to strive to do one activity a day for about an hour. Subutex Use - Subutex use of 8mg SL TID per PDMP review but inconsistent reports of use by patient - Patient reports that Subutex home regimen has been 8mg qAM, 4mg at lunch, and 8mg qhs -- Patient has been using Subutex 8mg SL daily since admission - Regimen adjusted on 11/20 to reflect home use - ? component of increased anxiety/pain secondary to decreased Subutex use since admission Positive CSF Cx: Oxacillin-Resistant CoNS - Culture positive BUT was in setting of a difficult tap - no WBCs, RBCs, negative BioFire - Suspect contaminant given species, clinical presentation, and otherwise negative CSF studies - ID consult: largely suspect contaminant (agree), no indication for IV ABX Reported History of Cystic Fibrosis - History discussed during admission. Reports that she is in "remission" but can't recall undergoing any formal testing. Son has had genetic testing reportedly confirming the diagnosis - Vitamin D, B12, and ferritin all low -- ?malabsorptive pathology. 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 establishing with manager search as outpatient -- could certainly affect intermittent screenings/immunizations - We did contact Erica for her pediatric history- no chronic conditions were noted per their chart review Nutritional Deficiencies - Ferritin, B12, and vitamin D all deficient - Management: -- Venofer 200mg x 1 given while here; initiate iron sulfate 325mg MWF at discharge -- Vitamin D2 50,000U q7d x 8 weeks then recheck level as outpatient ; also vitamin D3 2000 IU daily -- recheck in 3 mo' time -- Vitamin B12 shots daily x 7 days, then q7d x 4 weeks, then monthly x 3 months --> recheck level -Possible contribution from CF, though would be atypical given no other sxs of pancreatic insufficiency -Celiac disease panel negative Gardnerella UTI -Metronidazole 500 mg BID completed in hospital -Pyridium t.i.d. x 2 days, end 11/14 Depression with anxiety -See above -Discontinued amitriptyline, initiated duloxetine as above -Vistaril PRN anxiety -Otherwise as above, psychiatry following Reflux esophagitis -Pantoprazole 40 mg daily -Reglan PRN nausea Code: Full code Dispo: MS FEN/GI: Regular diet DVT Prophylaxis: Low-risk Consults: Infectious disease, neurology, psychiatry, PT (2) Gardnerella vaginalis infection: Admission and Anticipated Discharge Date Admission Date: November 10, 2022 Supervising Physician Co-Signing Physician Notes I personally examined the patient and verified all ferrer points of history and exam, discussed case, and agree with decision making with Samantha Jesus MS4 and Dr Morales Ongoing face pain. Burning across both sides of face. Generally feels about the same as yesterday. Vitals noted, in general she is awake and alert alternates between periods of being more calm and being in a significant degree of distress almost pulling on her face. HEENT normocephalic atraumatic mucous membranes moist, bilateral TMs with clear fluid. Left greater than right suboccipitals high tone, tender, decreased range of motioninhibitory pressureimproved. Bilateral ear effleurage done and taught to patient as well. Breathing unlabored no accessory muscle use good effort. Skin shows no rashes no pallor or icterus. Neuro without focal deficits or asymmetries. I walked her through a box breathing exercise, and over 2 cycles, probably about 20 seconds total, she has maybe 8 seconds where she looks very calm/peaceful/relaxed, and other times where she is wincing some with pain. Facial painsuspect multifactorial. -Small portion probably suboccipital tension headachesomatic dysfunction C- spine/occipital regionOMT as above again today -Small part eustachian tube dysfunctionAfrin/Flonase/OMT as above again today -A large part I suspect to be somatoform disordershe had what amounts to a fairly traumatic experience having had Lyme a year ago, subsequent trigeminal neuralgia and severe painher symptoms now seem to have started with a case of Lymealthough not IMPREGNATOR AND DRIER Lyme after further reviewbut I suspect after her expe rience last year, this easily could have created a neuro psychophysiologic "spinoff" of face pain somewhat mimicking, but worse than, her trigeminal neuralgia from a year ago. Reiterated explanations in depth again. Discussed that we will continue to try to mitigate symptoms, but also working on some degree of normal function in spite of symptoms will likely be more beneficial than anything we can do medically. Given the limited, but very real, success with box breathing and distracting herself with her oculus headset, encouraged her to do both again. Also encouraged taking small walks and trying to eat most of her lunch. Continuing to draw from examples from other patients with somewhat similar problems who did have success. Her lightheadedness is probably a little bit from volume depletion from poor p.o. intakefluid bolus to help mitigate that. The more spinning dizziness is likely getting used to the pregabalin. Time. Otherwise as above Subjective Sarah Ozuna is a 27 year old female admitted on 11/10 with facial pain and burning, dizziness, depression. She has a history of IVDU, clean since 2016. She has a history of lyme (2020) and at that time had similar symptoms, less severe. Affect continues to be labile. Reports 8/10 pain, unrelieved with current medications. Pain most prominent throughout face; pain described as burning sensation and numbness, equal on both sides and unaffected. This pain radiates around the temples, eyes, down the right side of the face to the chin, and down the left side of the face to the neck and upper chest (just above the nipple area). Denies nipple pain/sensitivity. She feels pressure in the neck. Patient reports that she has not been sleeping well; states that even when she does sleep she wakes up with the same pain. She has ringing and a pressure sensation in the ears. She was able to distract herself for 5-10 minutes yesterday but then the pain returned. Feels dizzy (room spinning and lightheaded) since switching got Lyrica yesterday. Review of Systems Review of Systems: See HPI Physical Exam Physical Exam: GENERAL: Anxious. Labile and frequently crying throughout exam. Well developed and well nourished. Vital signs reviewed as above. EYES: EOMI. Anicteric sclerae. HENT: Moist mucous membranes. RESPIRATORY: Clear to auscultation bilaterally. No wheezing, rales, or rhonchi. CARDIOVASCULAR: Regular rate and rhythm. No murmurs. No JVD. ABDOMEN: Soft, non-tender and non-distended. Normal bowel sounds. EXTREMITIES: No edema. Non-tender. SKIN: Warm, dry. NEUROLOGIC: A/O x3. Normal speech. Reports numbness throughout face (trigeminal distribution) bilaterally. 5/5 strength to BUE and BLE. PSYCHIATRIC: Anxious affect. Labile mood. No suicidal ideation. Results & Data Results & Data ([facility]) Vital Signs (Past 12 Hours) Vital Signs Temp Pulse Resp BP Pulse Ox O2 Del Method 11/22/22 07:31 36.7 C 83 16 112/78 96 Room Air
[2022-11-22] MEDS ORDERED: LACTATED RINGER'S 1,000 ML IV ONE (10:54)
[2022-11-22] MEDS: buprenorphine HCL 2 MG SUBL SL SCH (12:28)
--- NOTE | 2022-11-22 18:54 | Billing Data ---
Date of Service November 22, 2022 Coding Level of Care Code 53876 SUB INP/OBS CARE
--- NOTE | 2022-11-22 18:56 | Hospitalist Progress Note ---
Date of Service November 22, 2022 Assessment & Plan (1) Somatic dysfunction of cervical region: Plan: OMT as per progress note same date Admission and Anticipated Discharge Date Admission Date: November 10, 2022 Results & Data Results & Data ([facility]) Vital Signs (Past 12 Hours) Vital Signs Temp Pulse Resp BP Pulse Ox O2 Del Method 11/22/22 15:46 97.9 F 94 H 17 121/80 97 Room Air 11/22/22 15:36 98.2 F 88 16 115/78 96 Room Air 11/22/22 07:31 98.1 F 83 16 112/78 96 Room Air PG Care Time/CCT Total # of Minutes Spent Total Time Spent with Patient: Total time spent is greater than 50% in coordination of care (as documented) at patient's floor/unit and/or counseling patient: Coding Level of Care Code None Diagnoses Somatic dysfunction of cervical region M99.01 CPT Codes Musculoskeletal - Musculoskeletal: 267[address] Tr 1-2 Body regions ([id number])
[2022-11-22] MEDS: MELATONIN 3 MG TAB PO SCH (21:13)
[2022-11-23] MEDS: PREGABALIN 150 MG CAP PO SCH (08:05)
[2022-11-23] MEDS: DOXYCYCLINE HYCLATE 100 MG CAP PO SCH ×2 (08:06→20:56)
[2022-11-23] MEDS: TOPIRAMATE 50 MG TAB PO SCH (08:06)
[2022-11-23] MEDS: buprenorphine HCL 8 MG SUBL SL SCH ×2 (08:06→20:56)
[2022-11-23] MEDS: CHOLECALCIFEROL 1,000 UNITS 25 MCG TAB PO SCH (08:07)
[2022-11-23] MEDS: DULoxetine HCL 60 MG CAP PO SCH (08:07)
[2022-11-23] MEDS: FERROUS GLUCONATE 324 MG TAB PO SCH (08:08)
[2022-11-23] MEDS: SENNA 8.6 MG TAB PO SCH (08:08)
[2022-11-23] MEDS: OFLOXACIN 0.3% 75 DROPS/5 ML BTL OT SCH ×2 (08:08→21:42)
[2022-11-23] MEDS: PANTOprazole 40 MG TAB PO SCH (08:09)
[2022-11-23] MEDS: predniSONE 20 MG TAB PO SCH (08:09)
[2022-11-23] MEDS: LIDOCAINE 5% 1 PATCH TD SCH (08:10)
[2022-11-23] MEDS: FLUTICASONE PROPIONATE NA SPR 16 GM BTL SCH (08:10)
[2022-11-23] MEDS: ACETAMINOPHEN 500 MG TAB PO PRN ×2 (08:22→20:56)
--- NOTE | 2022-11-23 09:05 | Hospitalist Progress Note ---
Date of Service November 23, 2022 Assessment & Plan (1) Lyme disease: Plan: Sarah is a 27-year-old woman with history of Lyme disease (2020), depression with anxiety, reflux esophagitis, OUD on Subutex with prior IVDU who is here with persistent POP, dizziness x3 weeks, nausea, blurry vision, facial numbness, and other reported symptoms found to have positive Lyme serology. While initially there was a strong suspicion for AGRICULTURAL SCIENTIST Lyme, evaluations undergone by both infectious disease and neurology do not feel that AGRICULTURAL SCIENTIST Lyme is likely (especially since patient had very similar symptoms a year prior and more recently completed a full course of outpatient doxycycline and, while here, ongoing CFTX with minimal improvement). At this time, primary suspicion is that her symptoms likely represent a phenotype of a chronic, complicated migraine, possibly superimposed by neuropsychiatric features. #Suspected Chronic, Complicated Migraine with Neurologic and Neuropsychiatric Manifestations -- - Pain likely multifactorial. Small portion of suboccipital tension POP - somatic dysfunction [id number] region. Also component of eustation tube dysfunction. Suspect large component to be somataform disorder following traumatic experience with Lyme in 2020. -Workup: --> Positive Lyme serology including IgM, IgG on 11/07 (BANDS), positive IgM on WB, but negative IgG on WB; CSF studies do not demonstrate e/o Lyme DNA --> Contrast-enhanced brain, C and T-Spine MRIs - NEGATIVE for acute processes, demyelination, inflammation --> Smears NEGATIVE for intracellular parasites --> Inflammatory markers (ESR, CRP, PCT, ferritin) checked multiple times, all negative ; B12 normal --> ROBER, RF negative on 11/02 (PSH) negative --> FTA-ABS negative --> No MRI findings, physical exam findings, or inflammatory markers to suggest endocarditis (in setting of previous IVDU), history of Chiari malformation found on MRI in [facility] --> Improvement with steroids. No reported improvement with CFTX. Minimal imp rovements reported from prior TCA adjustment, gabapentin initiation. -Consults: --> ID consulted: Low suspicion for AGRICULTURAL SCIENTIST Lyme -- more likely to represent neuropsychiatric etiologies from their perspective --> Neurology consulted: Low suspicion for AGRICULTURAL SCIENTIST Lyme -- more likely to represent chronic, complicated headache phenotype with neuropsychiatric features --> Psychiatry consulted: Differential for symptoms (with Lyme excluded) include somatoform disorder, factitious disorder, malingering -Multidisciplinary Treatment Plan: (patient completed outpatient course of doxycycline prior to hospitalization) * CFTX started 11/10. Discontinue 11/18. Remove PICC. Transition to doxycycline, end on 11/24 to complete 14-day course * Ample hydration * Steroids: SoluMedrol burst x 2 days, then prednisone 60mg daily. Taper starting on 11/24 30 mg *Considered trial of Nurtec per neurology recommendations; however, hospital w/o Nurtec on formulary * Cymbalta increase to 60mg daily * Continue vitamin replacement (B12, D3) and iron * Discontinue amitriptyline (no improvement with dosage change; also see psychiatry note) * Patient would benefit from outpatient headache clinic / establishing with center. Could also consider establishing with rheumatology/immunology. Consider outpatient follow-up with Dr. Villa for pain management * Fluticasone spray initiated for congestion/ear discomfort * Minimal pain improvement and increased dizziness, discontinue Topiramate 50 mg BID, Lyrica 150 mg TID * Continue topical lidocaine patches since 11/10. Discussed and initiated trial of Capsaicin Cream 0.075% to a small patch on maxillary cheek * Patient can call and make appt with [facility] to obtain Medical Marijuana Card -Patient with improvement of facial paresthesias w/ topical lidocaine; started trial of lidocaine patches on 11/20 -Encouraged patient to limit ice pack use due to concern of exacerbating nerves; frequent reorientation throughout H&P with patient touching face to avoid ex acerbating nerve pain - Counseled on the lack of structural etiology likely at play but rather the interplay of mind - body as a cause due to her history of Lyme and trigeminal neuralgia. Set goal to strive to do one activity a day for about an hour. Subutex Use - Subutex use of 8mg SL TID per PDMP review but inconsistent reports of use by patient - Patient reports that Subutex home regimen has been 8mg qAM, 4mg at lunch, and 8mg qhs -- Patient has been using Subutex 8mg SL daily since admission - Regimen adjusted on 11/20 to reflect home use - ? component of increased anxiety/pain secondary to decreased Subutex use since admission Positive CSF Cx: Oxacillin-Resistant CoNS - Culture positive BUT was in setting of a difficult tap - no WBCs, RBCs, negative BioFire - Suspect contaminant given species, clinical presentation, and otherwise nega tive CSF studies - ID consult: largely suspect contaminant (agree), no indication for IV ABX Reported History of Cystic Fibrosis - History discussed during admission. Reports that she is in "remission" but can't recall undergoing any formal testing. Son has had genetic testing reportedly confirming the diagnosis - Vitamin D, B12, and ferritin all low -- ?malabsorptive pathology. 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 establishing with aba therapist as outpatient -- could certainly affect intermittent screenings/immunizations - We did contact Erica for her pediatric history- no chronic conditions were noted per their chart review Nutritional Deficiencies - Ferritin, B12, and vitamin D all deficient - Management: -- Venofer 200mg x 1 given while here; initiate iron sulfate 325mg MWF at discharge -- Vitamin D2 50,000U q7d x 8 weeks then recheck level as outpatient ; also vitamin D3 2000 IU daily -- recheck in 3 mo' time -- Vitamin B12 shots daily x 7 days, then q7d x 4 weeks, then monthly x 3 months --> recheck level -Possible contribution from CF, though would be atypical given no other sxs of pancreatic insufficiency -Celiac disease panel negative Gardnerella UTI -Metronidazole 500 mg BID completed in hospital -Pyridium t.i.d. x 2 days, end 11/14 Depression with anxiety -See above -Discontinued amitriptyline, initiated duloxetine as above -Vistaril PRN anxiety -Otherwise as above, psychiatry following Reflux esophagitis -Pantoprazole 40 mg daily -Reglan PRN nausea Code: Full code Dispo: MS FEN/GI: Regular diet DVT Prophylaxis: Low-risk Consults: Infectious disease, neurology, psychiatry, PT (2) Gardnerella vaginalis infection: Admission and Anticipated Discharge Date Admission Date: November 10, 2022 Supervising Physician Co-Signing Physician Notes I personally examined the patient and verified all ferrer points of history and exam, discussed case, and agree with decision making with Samantha Jesus MS4 and Dr Morales Ongoing face pain. Left ear/neck pain. Dizziness with standing persists. Vitals noted, in general she is awake and alert alternates between periods of being more calm and being in a significant degree of distress almost pulling on her face. HEENT normocephalic atraumatic mucous membranes moist. Left-sided sternocleidomastoid high tone/tender/decreased range of motionpost isometric relaxation muscle energy, as well as inhibitory pressure/LAStissue texture improved some, patient tolerated well. Bilateral ear effleurage done as well. Breathing unlabored no accessory muscle use good effort. Skin shows no rashes no pallor or icterus. Neuro without focal deficits or asymmetries. Facial painsuspect multifactorial. -Small portion probably suboccipital tension headachesomatic dysfunction C- spine/occipital regionOMT as above again today -Small part eustachian tube dysfunctionAfrin/Flonase/OMT as above again today -A large part I suspect to be somatoform disordershe had what amounts to a fairly traumatic experience having had Lyme a year ago, subsequent trigeminal neuralgia and severe painher symptoms now seem to have started with a case of Lymealthough not AGRICULTURAL SCIENTIST Lyme after further reviewbut I suspect after her experience last year, this easily could have created a neuro psychophysiologic "spinoff" of face pain somewhat mimicking, but worse than, her trigeminal neuralgia from a year ago. Reiterated explanations in depth again. Continue to discuss goals. Encouraged normalcy. Encouraged eating. Wean meds that do not seem to be helping, as I suspect a lot of her dizziness is from side effect. (Wean steroids, stop Topamax and Lyrica, etc.) Koffi Ozuna is a 27 year old female admitted on 11/10 with facial pain and burning, dizziness, depression. She has a history of IVDU, clean since 2015. She has a history of lyme (2020) and at that time had similar symptoms, less severe. Affect continues to be labile. Reports 8/10 pain, unrelieved with current medications. Pain most prominent throughout face; pain described as burning sensation and numbness, equal on both sides and unaffected. This pain radiates around the temples, eyes, down the right side of the face to the chin, and down the left side of the face to the neck and upper chest (just above the nipple area). Denies nipple pain/sensitivity. She feels pressure in the neck. Patient reports that she has not been sleeping well; states that even when she does sleep she wakes up with the same pain. She has ringing and a pressure sensation in the ears. Lying comfortable in bed engaged with Occulus. Less tearful today, continued frustration with the pain and feeling "not normal." She has continued to work to distract herself with her Occulus (using the Trip meditation alysa). She ate lunch yesterday but not dinner. She did not try to walk yesterday due to continued dizziness. She has a mental health professional she sees in-person in the area that she just started with. In the afternoon still feeling dizzy and also reports a numbness in her left leg and left arm. Notes it feels prickly to the touch and gave out when ambulating to the restroom. Discussed possibility of using medical marijuana. She has smoked in the past and recalls it made her feel "out of it" but she would be willing to try it again. Worries to go home in this state as her boyfriend is already on edge and she wants to be more functional and not a burden. Amenable to cutting back on medications as she has not achieved much pain relief. Review of Systems Review of Systems: See HPI Physical Exam Physical Exam: GENERAL: Anxious. Labile and frequently crying throughout exam. Well developed and well nourished. Vital signs reviewed as above. EYES: EOMI. Anicteric sclerae. HENT: Moist mucous membranes. RESPIRATORY: Clear to auscultation bilaterally. No wheezing, rales, or rhonchi. CARDIOVASCULAR: Regular rate and rhythm. No murmurs. No JVD. ABDOMEN: Soft, non-tender and non-distended. Normal bowel sounds. EXTREMITIES: No edema. Non-tender. SKIN: Warm, dry. NEUROLOGIC: A/O x3. Normal speech. Reports numbness throughout face (trigeminal distribution) bilaterally. 5/5 strength to BUE and BLE. PSYCHIATRIC: Anxious affect. Labile mood. No suicidal ideation. Results & Data Results & Data ([facility]) Vital Signs (Past 12 Hours) Vital Signs Temp Pulse Resp BP Pulse Ox O2 Del Method 11/23/22 08:27 36.9 C 70 16 115/75 96 Room Air 11/22/22 21:00 Room Air 11/22/22 21:36 36.4 C L 83 16 115/79 96 Room Air
[2022-11-23] MEDS: buprenorphine HCL 2 MG SUBL SL SCH (12:29)
[2022-11-23] MEDS: CAPSAICIN CR 0.075% 60 GM TUBE EXT SCH (16:12)
--- NOTE | 2022-11-23 18:48 | Billing Data ---
Date of Service November 23, 2022 Coding Level of Care Code 32904 SUB INP/OBS CARE MIN
[2022-11-23] MEDS: MELATONIN 3 MG TAB PO SCH (20:57)
[2022-11-24] MEDS: FERROUS GLUCONATE 324 MG TAB PO SCH (06:03)
[2022-11-24] MEDS: DOXYCYCLINE HYCLATE 100 MG CAP PO SCH (08:52)
[2022-11-24] MEDS: ACETAMINOPHEN 500 MG TAB PO PRN ×2 (08:52→18:20)
[2022-11-24] MEDS: CHOLECALCIFEROL 1,000 UNITS 25 MCG TAB PO SCH (08:52)
[2022-11-24] MEDS: PANTOprazole 40 MG TAB PO SCH (08:52)
[2022-11-24] MEDS: buprenorphine HCL 8 MG SUBL SL SCH ×2 (08:52→21:08)
[2022-11-24] MEDS: DULoxetine HCL 60 MG CAP PO SCH (08:53)
[2022-11-24] MEDS: FLUTICASONE PROPIONATE NA SPR 16 GM BTL SCH (08:53)
[2022-11-24] MEDS: CAPSAICIN CR 0.075% 60 GM TUBE EXT SCH (08:53)
[2022-11-24] MEDS: LIDOCAINE 5% 1 PATCH TD SCH (08:53)
[2022-11-24] MEDS: OFLOXACIN 0.3% 75 DROPS/5 ML BTL OT SCH ×2 (08:54→21:04)
[2022-11-24] MEDS: SENNA 8.6 MG TAB PO SCH (08:54)
[2022-11-24] MEDS ORDERED: predniSONE 10 MG TABLET PO SCH (09:00)
[2022-11-24 11:01] LABS: BUN Creatinine Ratio 31.4 (10-20); Calcium 9.1 mg/dl (8.5-10.1); Creatinine Clr Calc Pharmacy 128.4 ml/min; Est GFR (African American) 139.6 ml/min; Est GFR (Non-African American) 120.4 ml/min; Potassium 3.5 mmol/L (3.5-5.1)
[2022-11-24] MEDS: NAPROXEN 375 MG TAB PO PRN (11:56)
[2022-11-24] MEDS: buprenorphine HCL 2 MG SUBL SL SCH (11:56)
--- NOTE | 2022-11-24 16:40 | Hospitalist Progress Note ---
Date of Service November 24, 2022 Assessment & Plan (1) Lyme disease: Plan: Sarah is a 27-year-old woman with history of Lyme disease (2020), depression with anxiety, reflux esophagitis, OUD on Subutex with prior IVDU who is here with persistent POP, dizziness x3 weeks, nausea, blurry vision, facial numbness, and other reported symptoms found to have positive Lyme serology. While initially there was a strong suspicion for PAPER FINISHER Lyme, evaluations undergone by both infectious disease and neurology do not feel that PAPER FINISHER Lyme is likely (especially since patient had very similar symptoms a year prior and more recently completed a full course of outpatient doxycycline and, while here, ongoing CFTX with minimal improvement). At this time, primary suspicion is that her symptoms likely represent a phenotype of a chronic, complicated migraine, possibly superimposed by neuropsychiatric features. #Suspected Chronic, Complicated Migraine with Neurologic and Neuropsychiatric Manifestations -- - Pain likely multifactorial. Small portion of suboccipital tension POP - somatic dysfunction L-tjffy-vfnymkldq region. Also component of eustation tube dysfunction. Suspect large component to be somataform disorder following traumatic experience with Lyme in 2020. -Workup: --> Positive Lyme serology including IgM, IgG on 11/07 (BANDS), positive IgM on WB, but negative IgG on WB; CSF studies do not demonstrate e/o Lyme DNA --> Contrast-enhanced brain, C and T-Spine MRIs - NEGATIVE for acute processes, demyelination, inflammation --> Smears NEGATIVE for intracellular parasites --> Inflammatory markers (ESR, CRP, PCT, ferritin) checked multiple times, all negative ; B12 normal --> ROBER, RF negative on 11/02 (PSH) negative --> FTA-ABS negative --> No MRI findings, physical exam findings, or inflammatory markers to suggest endocarditis (in setting of previous IVDU), history of Chiari malformation found on MRI in [facility] --> Improvement with steroids. No reported improvement with CFTX. Minimal imp rovements reported from prior TCA adjustment, gabapentin initiation. -Consults: --> ID consulted: Low suspicion for PAPER FINISHER Lyme -- more likely to represent neuropsychiatric etiologies from their perspective --> Neurology consulted: Low suspicion for PAPER FINISHER Lyme -- more likely to represent chronic, complicated headache phenotype with neuropsychiatric features --> Psychiatry consulted: Differential for symptoms (with Lyme excluded) include somatoform disorder, factitious disorder, malingering -Multidisciplinary Treatment Plan: (patient completed outpatient course of doxycycline prior to hospitalization) * CFTX started 11/10. Discontinue 11/18. Remove PICC. Transition to doxycycline, end on 11/24 to complete 14-day course * Ample hydration * Steroids: SoluMedrol burst x 2 days, then prednisone 60mg daily. Taper starting on 11/24 30 mg *Considered trial of Nurtec per neurology recommendations; however, hospital w/o Nurtec on formulary * Cymbalta increase to 60mg daily * Continue vitamin replacement (B12, D3) and iron * Discontinue amitriptyline (no improvement with dosage change; also see psychiatry note) * Patient would benefit from outpatient headache clinic / establishing with center. Could also consider establishing with rheumatology/immunology. Consider outpatient follow-up with Dr. Villa for pain management * Fluticasone spray initiated for congestion/ear discomfort * Minimal pain improvement and increased dizziness, discontinue Topiramate 50 mg BID, Lyrica 150 mg TID * Continue topical lidocaine patches since 11/10. Discussed and initiated trial of Capsaicin Cream 0.075% to a small patch on maxillary cheek * Patient can call and make appt with [facility] to obtain Medical Marijuana Card -Patient with improvement of facial paresthesias w/ topical lidocaine; started trial of lidocaine patches on 11/20 -Encouraged patient to limit ice pack use due to concern of exacerbating nerves; frequent reorientation throughout H&P with patient touching face to avoid ex acerbating nerve pain - Counseled on the lack of structural etiology likely at play but rather the interplay of mind - body as a cause due to her history of Lyme and trigeminal neuralgia. Set goal to strive to do one activity a day for about an hour. Subutex Use - Subutex use of 8mg SL TID per PDMP review but inconsistent reports of use by patient - Patient reports that Subutex home regimen has been 8mg qAM, 4mg at lunch, and 8mg qhs -- Patient has been using Subutex 8mg SL daily since admission - Regimen adjusted on 11/20 to reflect home use - ? component of increased anxiety/pain secondary to decreased Subutex use since admission Positive CSF Cx: Oxacillin-Resistant CoNS - Culture positive BUT was in setting of a difficult tap - no WBCs, RBCs, negative BioFire - Suspect contaminant given species, clinical presentation, and otherwise nega tive CSF studies - ID consult: largely suspect contaminant (agree), no indication for IV ABX Reported History of Cystic Fibrosis - History discussed during admission. Reports that she is in "remission" but can't recall undergoing any formal testing. Son has had genetic testing reportedly confirming the diagnosis - Vitamin D, B12, and ferritin all low -- ?malabsorptive pathology. 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 -- could certainly affect intermittent screenings/immunizations - We did contact Erica for her pediatric history- no chronic conditions were noted per their chart review Nutritional Deficiencies - Ferritin, B12, and vitamin D all deficient - Management: -- Venofer 200mg x 1 given while here; initiate iron sulfate 325mg MWF at discharge -- Vitamin D2 50,000U q7d x 8 weeks then recheck level as outpatient ; also vitamin D3 2000 IU daily -- recheck in 3 mo' time -- Vitamin B12 shots daily x 7 days, then q7d x 4 weeks, then monthly x 3 months --> recheck level -Possible contribution from CF, though would be atypical given no other sxs of pancreatic insufficiency -Celiac disease panel negative Gardnerella UTI -Metronidazole 500 mg BID completed in hospital -Pyridium t.i.d. x 2 days, end 11/14 Depression with anxiety -See above -Discontinued amitriptyline, initiated duloxetine as above -Vistaril PRN anxiety -Otherwise as above, psychiatry following Reflux esophagitis -Pantoprazole 40 mg daily -Reglan PRN nausea Code: Full code Dispo: MS FEN/GI: Regular diet DVT Prophylaxis: Low-risk Consults: Infectious disease, neurology, psychiatry, PT (2) Gardnerella vaginalis infection: Admission and Anticipated Discharge Date Admission Date: November 10, 2022 Supervising Physician Co-Signing Physician Notes I personally examined the patient and verified all ferrer points of history and exam, discussed case, and agree with decision making with Samantha Jesus MS4 and Dr Morales Ongoing face pain. Left ear/neck pain. Dizziness with standing persists but was able to take a shower. Notes that in her home, she has a living room and kitchen on the first floor, bedroom and bathroom are upstairs. Vitals noted, in general she is awake and alert alternates between periods of being more calm and being in a significant degree of distress almost pulling on her face. HEENT normocephalic atraumatic mucous membranes moist. Breathing unlabored no accessory muscle use good effort. Skin shows no rashes no pallor or icterus. Neuro without focal deficits or asymmetries, jeanine was very slow to sit up and spent several times leaning forward to collect her selfit was entirely clear if some was dizziness, some was pain, or both. Then walked about 200 feet around the hallwaya "steadily unsteady" gaitcortez seemed to slightly favor her right leg, both legs were shaky, and she would step slightly longer and slightly more unsteady with her left leg. While I/resident physician guided her son and provided a hand for guidance, she did not require actual support. Facial painsuspect multifactorial. -Small portion probably suboccipital tension headachesomatic dysfunction C- spine/occipital regionOMT several times throughout her stay -Small part eustachian tube dysfunctionAfrin/Flonase/OMT done several times throughout her stay -A large part I suspect to be somatoform disordershe had what amounts to a fairly traumatic experience having had Lyme a year ago, subsequent trigeminal neuralgia and severe painher symptoms now seem to have started with a case of Lymealthough not PAPER FINISHER Lyme after further reviewbut I suspect after her experience last year, this easily could have created a neuro psychophysiologic "spinoff" of face pain somewhat mimicking, but worse than, her trigeminal neuralgia from a year ago. Reiterated explanations in depth yet again. Continue to discuss goals. Encouraged normalcy. Encouraged eating. Took a walk with patient, encouraged walking again later today. We will try the stairs tomorrow given that she will need to be L to go upstairs to be okay at homeI believe she physically/neurologically will be able to do this, but I do worry little about deconditioning and definitely need to build her confidence. Weaning meds that do not seem to be helping, as I suspect a lot of her dizziness is from side effect. (Wean steroids further, stopped Topamax and Lyrica, etc.) Koffi Ozuna is a 27 year old female admitted on 11/10 with facial pain and burning, dizziness, depression. She has a history of IVDU, clean since 2015. She has a history of lyme (2020) and at that time had similar symptoms, less severe. Affect continues to be labile. Reports 8/10 pain, unrelieved with current medications. Pain most prominent throughout face; pain described as burning sensation and numbness, equal on both sides and unaffected. This pain radiates around the temples, eyes, down the right side of the face to the chin, and down the left side of the face to the neck and upper chest (just above the nipple area). Denies nipple pain/sensitivity. She feels pressure in the neck. Patient reports that she has not been sleeping well; states that even when she does sleep she wakes up with the same pain. She has ringing and a pressure sensation in the ears. Dizziness improved off Lyrica and Topimax. Patient was able to take a shower, but did need to sit down in the shower, and took a supervised walk around the [place]. Encouraged taking another walk with a walker and getting PT re-involved for regain some strength. Her home is two stores with the bedroom and bathroom on the second floor. Her grandmother is currently caring for her son. Physical Exam Physical Exam: GENERAL: Anxious. Labile and frequently crying throughout exam. Well developed and well nourished. Vital signs reviewed as above. EYES: EOMI. Anicteric sclerae. HENT: Moist mucous membranes. RESPIRATORY: Clear to auscultation bilaterally. No wheezing, rales, or rhonchi. CARDIOVASCULAR: Regular rate and rhythm. No murmurs. No JVD. ABDOMEN: Soft, non-tender and non-distended. Normal bowel sounds. EXTREMITIES: No edema. Non-tender. SKIN: Warm, dry. NEUROLOGIC: A/O x3. Normal speech. Reports numbness throughout face (trigeminal distribution) bilaterally. 5/5 strength to BUE and BLE. PSYCHIATRIC: Anxious affect. Labile mood. No suicidal ideation. Results & Data Results & Data ([facility]) Vital Signs (Past 12 Hours) Vital Signs Temp Pulse Resp BP Pulse Ox O2 Del Method 11/24/22 15:49 36.6 C 80 19 111/76 96 Room Air 11/24/22 07:51 36.7 C 77 20 115/79 97 Room Air
[2022-11-24] MEDS ORDERED: KETOROLAC TROMETHAMINE 15 MG/ML VIAL IV ONE (18:25)
--- NOTE | 2022-11-24 18:50 | Billing Data ---
Date of Service November 24, 2022 Coding Level of Care Code 44165 SUB INP/OBS CARE MIN
[2022-11-24] MEDS: MELATONIN 3 MG TAB PO SCH (21:08)
[2022-11-25] MEDS: METOCLOPRAMIDE HCL 5 MG TABLET PO PRN (03:37)
[2022-11-25] MEDS: ACETAMINOPHEN 500 MG TAB PO PRN (05:40)
[2022-11-25] MEDS: LIDOCAINE 4% CREAM 15 GM TUBE EXT PRN (05:41)
[2022-11-25] MEDS: FERROUS GLUCONATE 324 MG TAB PO SCH (05:46)
[2022-11-25] MEDS ORDERED: predniSONE 20 MG TAB PO SCH (09:00)
[2022-11-25 09:07] LABS: BUN Creatinine Ratio 25.3 (10-20); Calcium 9.7 mg/dl (8.5-10.1); Creatinine Clr Calc Pharmacy 108.3 ml/min; Est GFR (African American) 113.6 ml/min; Magnesium 2.2 mg/dl (1.7-2.4); Potassium 3.5 mmol/L (3.5-5.1)
[2022-11-25] MEDS: CAPSAICIN CR 0.075% 60 GM TUBE EXT SCH (09:13)
[2022-11-25] MEDS: LIDOCAINE 5% 1 PATCH TD SCH (09:13)
[2022-11-25] MEDS: buprenorphine HCL 8 MG SUBL SL SCH ×2 (09:13→20:05)
[2022-11-25] MEDS: FLUTICASONE PROPIONATE NA SPR 16 GM BTL SCH (09:13)
[2022-11-25] MEDS: PANTOprazole 40 MG TAB PO SCH (09:14)
[2022-11-25] MEDS: CHOLECALCIFEROL 1,000 UNITS 25 MCG TAB PO SCH (09:14)
[2022-11-25] MEDS: OFLOXACIN 0.3% 75 DROPS/5 ML BTL OT SCH ×2 (09:15→20:06)
[2022-11-25] MEDS: SENNA 8.6 MG TAB PO SCH (09:15)
[2022-11-25] MEDS: predniSONE 10 MG TABLET PO SCH (09:15)
--- NOTE | 2022-11-25 09:17 | Hospitalist Progress Note ---
Date of Service November 25, 2022 Assessment & Plan (1) Lyme disease: Plan: Sarah is a 27-year-old woman with history of Lyme disease (2020), depression with anxiety, reflux esophagitis, OUD on Subutex with prior IVDU who is here with persistent POP, dizziness x3 weeks, nausea, blurry vision, facial numbness, and other reported symptoms found to have positive Lyme serology. While initially there was a strong suspicion for AGRICULTURE INTERN Lyme, evaluations undergone by both infectious disease and neurology do not feel that AGRICULTURE INTERN Lyme is likely (especially since patient had very similar symptoms a year prior and more recently completed a full course of outpatient doxycycline and, while here, ongoing CFTX with minimal improvement). At this time, primary suspicion is that her symptoms likely represent a phenotype of a chronic, complicated migraine, possibly superimposed by neuropsychiatric features. #Suspected Chronic, Complicated Migraine with Neurologic and Neuropsychiatric Manifestations -- - Pain likely multifactorial. Small portion of suboccipital tension POP - somatic dysfunction [id number]-djory-rxqligqmk region. Also component of eustation tube dysfunction. Suspect large component to be somataform disorder following traumatic experience with Lyme in 2020. -Workup: --> Positive Lyme serology including IgM, IgG on 11/07 (BANDS), positive IgM on WB, but negative IgG on WB; CSF studies do not demonstrate e/o Lyme DNA --> Contrast-enhanced brain, C and T-Spine MRIs - NEGATIVE for acute processes, demyelination, inflammation --> Smears NEGATIVE for intracellular parasites --> Inflammatory markers (ESR, CRP, PCT, ferritin) checked multiple times, all negative ; B12 normal --> ROBER, RF negative on 11/02 (PSH) negative --> FTA-ABS negative --> No MRI findings, physical exam findings, or inflammatory markers to suggest endocarditis (in setting of previous IVDU), history of Chiari malformation found on MRI in [facility] --> Improvement with steroids. No reported improvement with CFTX. Minimal imp rovements reported from prior TCA adjustment, gabapentin initiation. -Consults: --> ID consulted: Low suspicion for AGRICULTURE INTERN Lyme -- more likely to represent neuropsychiatric etiologies from their perspective --> Neurology consulted: Low suspicion for AGRICULTURE INTERN Lyme -- more likely to represent chronic, complicated headache phenotype with neuropsychiatric features --> Psychiatry consulted: Differential for symptoms (with Lyme excluded) include somatoform disorder, factitious disorder, malingering -Multidisciplinary Treatment Plan: (patient completed outpatient course of doxycycline prior to hospitalization) * CFTX started 11/10. Discontinue 11/18. Remove PICC. Transition to doxycycline, end on 11/24 to complete 14-day course * Ample hydration * Steroids: SoluMedrol burst x 2 days, then prednisone 60mg daily. Taper starting on 11/24 30 mg *Considered trial of Nurtec per neurology recommendations; however, hospital w/o Nurtec on formulary * 11/25: Cymbalta increase to 90mg daily * Continue vitamin replacement (B12, D3) and iron * Discontinue amitriptyline (no improvement with dosage change; also see psychiatry note) * Patient would benefit from outpatient headache clinic / establishing with center. Could also consider establishing with rheumatology/immunology. Consider outpatient follow-up with Dr. Villa for pain management * Fluticasone spray initiated for congestion/ear discomfort * Minimal pain improvement and increased dizziness, discontinue Topiramate 50 mg BID, Lyrica 150 mg TID * Continue topical lidocaine patches since 11/10. Discussed and initiated trial of Capsaicin Cream 0.075% to a small patch on maxillary cheek * Patient can call and make appt with [facility] () to obtain Medical Marijuana Card -Patient with improvement of facial paresthesias w/ topical lidocaine; started trial of lidocaine patches on 11/20 -Encouraged patient to limit ice pack use due to concern of exacerbating nerves; frequent reorientation throughout H&P with patient touching face to avoid exacerbating nerve pain - Counseled on the lack of structural etiology likely at play but rather the interplay of mind - body as a cause due to her history of Lyme and trigeminal neuralgia. Set goal to strive to do one activity a day for about an hour. - Close outpatient follow-up upon discharge, patient preference Dr. Morales Subutex Use - Subutex use of 8mg SL TID per PDMP review but inconsistent reports of use by patient - Patient reports that Subutex home regimen has been 8mg qAM, 4mg at lunch, and 8mg qhs -- Patient has been using Subutex 8mg SL daily since admission - Regimen adjusted on 11/20 to reflect home use - ? component of increased anxiety/pain secondary to decreased Subutex use since admission Positive CSF Cx: Oxacillin-Resistant CoNS - Culture positive BUT was in setting of a difficult tap - no WBCs, RBCs, negative BioFire - Suspect contaminant given species, clinical presentation, and otherwise negative CSF studies - ID consult: largely suspect contaminant (agree), no indication for IV ABX Reported History of Cystic Fibrosis - History discussed during admission. Reports that she is in "remission" but can't recall undergoing any formal testing. Son has had genetic testing reportedly confirming the diagnosis - Vitamin D, B12, and ferritin all low -- ?malabsorptive pathology. 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 -- could certainly affect intermittent screenings/immunizations - We did contact Erica for her pediatric history- no chronic conditions were noted per their chart review Nutritional Deficiencies - Ferritin, B12, and vitamin D all deficient - Management: -- Venofer 200mg x 1 given while here; initiate iron sulfate 325mg MWF at discharge -- Vitamin D2 50,000U q7d x 8 weeks then recheck level as outpatient ; also vitamin D3 2000 IU daily -- recheck in 3 mo' time -- Vitamin B12 shots daily x 7 days, then q7d x 4 weeks, then monthly x 3 months --> recheck level -Possible contribution from CF, though would be atypical given no other sxs of pancreatic insufficiency -Celiac disease panel negative Gardnerella UTI -Metronidazole 500 mg BID completed in hospital -Pyridium t.i.d. x 2 days, end 11/14 Depression with anxiety -See above -Discontinued amitriptyline, initiated duloxetine as above -Vistaril PRN anxiety -Otherwise as above, psychiatry following Reflux esophagitis -Pantoprazole 40 mg daily -Reglan PRN nausea Code: Full code Dispo: MS FEN/GI: Regular diet DVT Prophylaxis: Low-risk Consults: Infectious disease, neurology, psychiatry, PT (2) Gardnerella vaginalis infection: Admission and Anticipated Discharge Date Admission Date: November 10, 2022 Supervising Physician Co-Signing Physician Notes I personally examined the patient and verified all ferrer points of history and exam, discussed case, and agree with decision making with Samantha Jesus MS4 and Dr Valdez Ongoing face pain. Left ear/neck pain. extensive discussions with pt, mother, grandmother at the bedside. probably ~45mins face to face in discussions - after extensive, in depth, top to bottom discussions including working diagnosis and why, excluded diagnoses and why, parallel stories from other similar situations we have seen, management, prognosis - they express understanding Vitals noted, in general she is awake and alert alternates between periods of being more calm and being in a significant degree of distress almost pulling on her face. HEENT normocephalic atraumatic mucous membranes moist. Breathing unlabored no accessory muscle use good effort. Skin shows no rashes no pallor or icterus. Neuro without focal deficits or asymmetries, TMs improving b/l clear effusions Facial painsuspect multifactorial. -Small portion probably suboccipital tension headachesomatic dysfunction C- spine/occipital regionOMT several times throughout her stay -Small part eustachian tube dysfunctionAfrin/Flonase/OMT done several times throughout her stay -A large part I suspect to be somatoform disordershe had what amounts to a fairly traumatic experience having had Lyme a year ago, subsequent trigeminal neuralgia and severe painher symptoms now seem to have started with a case of Lymealthough not AGRICULTURE INTERN Lyme after further reviewbut I suspect after her experience last year, this easily could have created a neuro psychophysiologic "spinoff" of face pain somewhat mimicking, but worse than, her trigeminal neuralgia from a year ago. Reiterated explanations in depth yet again. Continue to discuss goals. Encouraged normalcy. Encouraged eating. extensive discussions w pt/family. anticipate home soon Subjective Sarah Ozuna is a 27 year old female admitted on 11/10 with facial pain and burning, dizziness, depression. She has a history of IVDU, clean since 2015. She has a history of lyme (2020) and at that time had similar symptoms, less severe. Affect continues to be labile. Reports 8/10 pain, unrelieved with current medications. Pain most prominent throughout face; pain described as burning sensation and numbness, equal on both sides and unaffected. This pain radiates around the temples, eyes, down the right side of the face to the chin, and down the left side of the face to the neck and upper chest (just above the nipple area). Denies nipple pain/sensitivity. She feels pressure in the neck. Patient reports that she has not been sleeping well; states that even when she does sleep she wakes up with the same pain. She has ringing and a pressure sensation in the ears. Pain, dizziness, and fatigue about the same. [place] slightly improved with Toradol. Had one episode of emesis last night and received Reglan. Discussed success with Christinamiguel in the past. Expressed not wanting to live with this pain. Reviewed the reasons to keep pushing through (family, son). Boyfriend will be home this weekend, suggested this is an ideal time to return home to normalcy. Review of Systems Review of Systems: See HPI Physical Exam Physical Exam: GENERAL: Anxious. Labile and frequently crying throughout exam. Well developed and well nourished. Vital signs reviewed as above. EYES: EOMI. Anicteric sclerae. HENT: Moist mucous membranes. RESPIRATORY: Clear to auscultation bilaterally. No wheezing, rales, or rhonchi. CARDIOVASCULAR: Regular rate and rhythm. No murmurs. No JVD. ABDOMEN: Soft, non-tender and non-distended. Normal bowel sounds. EXTREMITIES: No edema. Non-tender. SKIN: Warm, dry. NEUROLOGIC: A/O x3. Normal speech. Reports numbness throughout face (trigeminal distribution) bilaterally. 5/5 strength to BUE and BLE. PSYCHIATRIC: Anxious affect. Labile mood. No suicidal ideation. Results & Data Results & Data ([facility]) Vital Signs (Past 12 Hours) Vital Signs Temp Pulse Resp BP Pulse Ox O2 Del Method 11/25/22 08:23 36.7 C 88 16 115/77 96 Room Air
[2022-11-25] MEDS: DULoxetine HCL 30 MG CAP PO SCH (10:25)
[2022-11-25] MEDS: NAPROXEN 375 MG TAB PO PRN (11:36)
[2022-11-25] MEDS: buprenorphine HCL 2 MG SUBL SL SCH (11:36)
[2022-11-25] MEDS: ONDANSETRON 4 MG OD TAB PO PRN (17:47)
--- NOTE | 2022-11-25 18:06 | Billing Data ---
Date of Service November 25, 2022 Coding Level of Care Code 47319 SUB INP/OBS CARE
[2022-11-25] MEDS: MELATONIN 3 MG TAB PO SCH (20:05)
[2022-11-26] MEDS: ONDANSETRON 4 MG OD TAB PO PRN (04:19)
[2022-11-26] MEDS ORDERED: LOPERAMIDE HCL 2 MG CAP PO STA (04:49)
[2022-11-26] MEDS: FERROUS GLUCONATE 324 MG TAB PO SCH (06:04)
[2022-11-26] MEDS: buprenorphine HCL 8 MG SUBL SL SCH ×2 (07:51→20:44)
[2022-11-26] MEDS: LIDOCAINE 5% 1 PATCH TD SCH (07:52)
[2022-11-26] MEDS: FLUTICASONE PROPIONATE NA SPR 16 GM BTL SCH (07:52)
[2022-11-26] MEDS: DULoxetine HCL 30 MG CAP PO SCH (07:52)
[2022-11-26] MEDS: PANTOprazole 40 MG TAB PO SCH ×2 (07:53→20:44)
[2022-11-26] MEDS: OFLOXACIN 0.3% 75 DROPS/5 ML BTL OT SCH (07:53)
[2022-11-26] MEDS: predniSONE 10 MG TABLET PO SCH (07:53)
[2022-11-26] MEDS: CAPSAICIN CR 0.075% 60 GM TUBE EXT SCH (07:54)
[2022-11-26] MEDS: SENNA 8.6 MG TAB PO SCH (07:55)
--- NOTE | 2022-11-26 08:44 | Hospitalist Progress Note ---
Date of Service November 26, 2022 Assessment & Plan (1) Lyme disease: Plan: Sarah is a 27-year-old woman with history of Lyme disease (2020), depression with anxiety, reflux esophagitis, OUD on Subutex with prior IVDU who is here with persistent POP, dizziness x3 weeks, nausea, blurry vision, facial numbness, and other reported symptoms found to have positive Lyme serology. While initially there was a strong suspicion for RETENTION MANAGER Lyme, evaluations undergone by both infectious disease and neurology do not feel that RETENTION MANAGER Lyme is likely (especially since patient had very similar symptoms a year prior and more recently completed a full course of outpatient doxycycline and, while here, ongoing CFTX with minimal improvement). At this time, primary suspicion is that her symptoms likely represent a phenotype of a chronic, complicated migraine, possibly superimposed by neuropsychiatric features. #Suspected Chronic, Complicated Migraine with Neurologic and Neuropsychiatric Manifestations -- - Pain likely multifactorial. Small portion of suboccipital tension POP - somatic dysfunction T-rfxdn-fecgeykay region. Also component of eustation tube dysfunction. Suspect large component to be somataform disorder following traumatic experience with Lyme in 2020. -Workup: --> Positive Lyme serology including IgM, IgG on 11/07 (BANDS), positive IgM on WB, but negative IgG on WB; CSF studies do not demonstrate e/o Lyme DNA --> Contrast-enhanced brain, C and T-Spine MRIs - NEGATIVE for acute processes, demyelination, inflammation --> Smears NEGATIVE for intracellular parasites --> Inflammatory markers (ESR, CRP, PCT, ferritin) checked multiple times, all negative ; B12 normal --> ROBER, RF negative on 11/02 (PSH) negative --> FTA-ABS negative --> No MRI findings, physical exam findings, or inflammatory markers to suggest endocarditis (in setting of previous IVDU), history of Chiari malformation found on MRI in [facility] --> Improvement with steroids. No reported improvement with CFTX. Minimal imp rovements reported from prior TCA adjustment, gabapentin initiation. -Consults: --> ID consulted: Low suspicion for RETENTION MANAGER Lyme -- more likely to represent neuropsychiatric etiologies from their perspective --> Neurology consulted: Low suspicion for RETENTION MANAGER Lyme -- more likely to represent chronic, complicated headache phenotype with neuropsychiatric features --> Psychiatry consulted: Differential for symptoms (with Lyme excluded) include somatoform disorder, factitious disorder, malingering -Multidisciplinary Treatment Plan: (patient completed outpatient course of doxycycline prior to hospitalization) * CFTX started 11/10. Discontinue 11/18. Remove PICC. Transition to doxycycline, end on 11/24 to complete 14-day course * Ample hydration * Steroids: SoluMedrol burst x 2 days, then prednisone 60mg daily. Taper completed *Considered trial of Nurtec per neurology recommendations; however, hospital w/o Nurtec on formulary * 11/25: Cymbalta increase to 90mg daily * Continue vitamin replacement (B12, D3) and iron * Discontinue amitriptyline (no improvement with dosage change; also see psychiatry note) * Patient would benefit from outpatient headache clinic / establishing with center. Could also consider establishing with rheumatology/immunology. Consider outpatient follow-up with Dr. Villa for pain management * Fluticasone spray initiated for congestion/ear discomfort * Minimal pain improvement and increased dizziness, discontinue Topiramate 50 mg BID, Lyrica 150 mg TID * Continue topical lidocaine patches since 11/10. Discussed and initiated trial of Capsaicin Cream 0.075% to a small patch on maxillary cheek * Patient can call and make appt with [facility] () to obtain Medical Marijuana Card -Patient with improvement of facial paresthesias w/ topical lidocaine; started trial of lidocaine patches on 11/20 -Encouraged patient to limit ice pack use due to concern of exacerbating nerves; frequent reorientation throughout H&P with patient touching face to avoid exacerbating nerve pain - Counseled on the lack of structural etiology likely at play but rather the interplay of mind - body as a cause due to her history of Lyme and trigeminal neuralgia. Set goal to strive to do one activity a day for about an hour. - Close outpatient follow-up upon discharge, patient preference Dr. Morales Subutex Use - Subutex use of 8mg SL TID per PDMP review but inconsistent reports of use by patient - Patient reports that Subutex home regimen has been 8mg qAM, 4mg at lunch, and 8mg qhs -- Patient has been using Subutex 8mg SL daily since admission - Regimen adjusted on 11/20 to reflect home use - ? component of increased anxiety/pain secondary to decreased Subutex use since admission Positive CSF Cx: Oxacillin-Resistant CoNS - Culture positive BUT was in setting of a difficult tap - no WBCs, RBCs, negative BioFire - Suspect contaminant given species, clinical presentation, and otherwise negative CSF studies - ID consult: largely suspect contaminant (agree), no indication for IV ABX Reported History of Cystic Fibrosis - History discussed during admission. Reports that she is in "remission" but can't recall undergoing any formal testing. Son has had genetic testing reportedly confirming the diagnosis - Vitamin D, B12, and ferritin all low -- ?malabsorptive pathology. 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 establishing with engraver pantograph as outpatient -- could certainly affect intermittent screenings/immunizations - We did contact Erica for her pediatric history- no chronic conditions were noted per their chart review Nutritional Deficiencies - Ferritin, B12, and vitamin D all deficient - Management: -- Venofer 200mg x 1 given while here; initiate iron sulfate 325mg MWF at discharge -- Vitamin D2 50,000U q7d x 8 weeks then recheck level as outpatient ; also vitamin D3 2000 IU daily -- recheck in 3 mo' time -- Vitamin B12 shots daily x 7 days, then q7d x 4 weeks, then monthly x 3 months --> recheck level -Possible contribution from CF, though would be atypical given no other sxs of pancreatic insufficiency -Celiac disease panel negative Gardnerella UTI -Metronidazole 500 mg BID completed in hospital -Pyridium t.i.d. x 2 days, end 11/14 Depression with anxiety -See above -Discontinued amitriptyline, initiated duloxetine as above -Vistaril PRN anxiety -Otherwise as above, psychiatry following Reflux esophagitis -Pantoprazole 40 mg daily -Reglan PRN nausea Code: Full code Dispo: MS FEN/GI: Regular diet DVT Prophylaxis: Low-risk Consults: Infectious disease, neurology, psychiatry, PT (2) Gardnerella vaginalis infection: Admission and Anticipated Discharge Date Admission Date: November 10, 2022 Supervising Physician Co-Signing Physician Notes I personally examined the patient and verified all ferrer points of history and exam, discussed case, and agree with decision making with Padron Ongoing face pain. Also ongoing nausea with a little bit of stomach pain. Also vaginal discharge that did not respond to prior treatmentnotes this is actually been something its been going on for the better part of the year and she is seeing gynecology multiple times. Has not responded to prior courses of antibiotics. Notes Chlamydia has been negative. Would very much like repeat labs and imagingshsunny expresses a fairly good understanding that it is likely of low yield, but also feels that with the progression in her symptoms over the last few weeks, but her understanding that this is a very "mind-body" diagnosisthat she will likely be able to ratchet back her anxiety about the situation if she knows there are no changes. Also lightheaded. Vitals noted, in general she is awake and alert alternates between periods of being more calm and being in a significant degree of distress almost pulling on her face. HEENT normocephalic atraumatic mucous membranes moist. Breathing unlabored no accessory muscle use good effort. Skin shows no rashes no pallor or icterus. Neuro without focal deficits or asymmetries, mild epigastric tenderness no guarding rebound or rigidity. Gait slow and steady with a walker. Facial painsuspect multifactorial. -Small portion probably suboccipital tension headachesomatic dysfunction C- spine/occipital regionOMT several times throughout her stay -Small part eustachian tube dysfunctionAfrin/Flonase/OMT done several times throughout her stay -A large part I suspect to be somatoform disordershe had what amounts to a fairly traumatic experience having had Lyme a year ago, subsequent trigeminal neuralgia and severe painher symptoms now seem to have started with a case of Lymealthough not RETENTION MANAGER Lyme after further reviewbut I suspect after her experience last year, this easily could have created a neuro psychophysiologic "spinoff" of face pain somewhat mimicking, but worse than, her trigeminal neuralgia from a year ago. "Therapeutic" labs and MRI to provide further reassuranceafter discussion in depth with patient about low yield, and her expectations, it actually seems quite reasonableparticularly given that she has had some degree of progression of symptoms over the last 2-1/2 weeks since she last had imagingshsunny does express a feeling that she will be able to be less anxious about something being missed if she continues to have normal imaging.. Continue to discuss goals. Encouraged normalcy. Encouraged eating (I do suspect she has a degree of gastritisprobably stress and steroid-inducedPepcid twice daily, Protonix twice daily, Carafate 4 times daily). extensive di scussions w pt/family. anticipate home soon. Dose of empiric fluconazole. If this does not help discharge, will likely need outpatient follow-up for exam/KENZIE/wet prep/etc. Subjective Seen at bedside this AM. Patient is crying due to headache and facial pain. She feels it continues to be uncontrolled and is afraid to go home feeling this way. Stepfather is at bedside and agrees her pain is not controlled in general. Review of Systems Review of Systems: See HPI Physical Exam Physical Exam: GENERAL: Anxious. Labile and frequently crying throughout exam. Well developed and well nourished. Vital signs reviewed as above. EYES: EOMI. Anicteric sclerae. HENT: Moist mucous membranes. RESPIRATORY: Clear to auscultation bilaterally. No wheezing, rales, or rhonchi. CARDIOVASCULAR: Regular rate and rhythm. No murmurs. No JVD. ABDOMEN: Soft, non-tender and non-distended. Normal bowel sounds. EXTREMITIES: No edema. Non-tender. SKIN: Warm, dry. NEUROLOGIC: A/O x3. Normal speech. Reports numbness throughout face (trigeminal distribution) bilaterally. 5/5 strength to BUE and BLE. PSYCHIATRIC: Anxious affect. Labile mood. No suicidal ideation. Results & Data Results & Data ([facility]) Vital Signs (Past 12 Hours) Vital Signs Temp Pulse Pulse Resp BP Pulse Ox O2 Del Method 11/26/22 07:56 36.7 C 89 18 105/71 97 Room Air 11/25/22 21:47 36.6 C 90 16 123/88 96 Room Air Resident Activity Tracking Resident Involvement: Resident Care Provided Care Provided: Adult Hospital Medicine
[2022-11-26] MEDS: CYANOCOBALAMIN (B-12) 500 MCG TABLET PO SCH (10:19)
[2022-11-26] MEDS ORDERED: FLUCONAZOLE 50 MG TAB PO ONE (10:48)
[2022-11-26 11:29] LABS: Basophils # (auto) 0.01 K/uL (0-0.2); Basophils % (auto) 0.2 %; Hematocrit (blood only) 40.2 % (37.0-47.0); Hemoglobin 13.7 g/dl (12.0-16.0); Immature Granulocytes # (auto) 0.03 K/uL (0.01-0.20); Immature Granulocytes % (auto) 0.5 %; Lymphocytes # (auto) 0.64 K/uL (1.2-3.4); Lymphocytes % (auto) 10.8 %; Mean Corpuscular Hemoglobin 31.8 pg (25.0-34.0); Mean Corpuscular Hgb Conc 34.1 g/dL (32.0-36.0); Mean Corpuscular Volume 93.3 fL (80.0-100.0); Mean Platelet Volume 10.6 fL (9.4-12.4); Monocytes # (auto) 0.34 K/uL (0.11-0.59); Monocytes % (auto) 5.8 %; Neutrophils # (auto) 4.88 K/uL (1.40-6.50); Neutrophils % (auto) 82.7 %; Platelet Count 226 K/uL (130-400); RDW Coefficient of Variation 12.8 % (11.5-14.5); Red Blood Count 4.31 M/uL (4.20-5.40)
[2022-11-26] MEDS ORDERED: LACTATED RINGER'S 1,000 ML IV ONE (11:44)
[2022-11-26 11:54] LABS: Calcium 9.4 mg/dl (8.5-10.1); Est GFR (Non-African American) 100.9 ml/min
--- NOTE | 2022-11-26 12:31 | Magnetic Resonance Report ---
MR brain wo con HISTORY: 27 years-old Female worse visionloss/parestheisa, compare ?MS findings acute headache with nausea, dizziness and blurry vision COMPARISON: 11/07/2022 TECHNIQUE: Multiplanar multisequence MRI of the brain was obtained without the use of IV contrast. FINDINGS: Manufacturing Quality Technician localizer images demonstrate no gross extracranial abnormality. Midline structures appear unrem arkable. No restricted diffusion to suggest acute or subacute infarct. No acute intracranial hemorrha ge, midline shift, abnormal extra-axial collection, hydrocephalus or intracranial mass. Study is mild ly motion degraded. Volume and signal characteristics of the brain parenchyma are within normal limit s. Cerebral venous sinuses and major arterial flow voids appear patent. The skull, orbits and soft ti ssues are unremarkable. Mastoid air cells are clear. Mild polypoid mucosal thickening of the right ma xillary sinus. IMPRESSION: No acute intracranial abnormality. Stable exam from the study obtained 11/07/2022. ACT 112: Negative or not required by law. The above report was generated using voice recognition software. It may contain grammatical, syntax o r spelling errors. Electronically signed by: Ze Felder M.D. 11/26/2022 12:30 PM
[2022-11-26] MEDS: buprenorphine HCL 2 MG SUBL SL SCH (13:31)
[2022-11-26] MEDS: FAMOTIDINE 20 MG TAB PO SCH ×2 (13:31→20:45)
[2022-11-26] MEDS: SUCRALFATE 1 GM/10 ML UDC PO SCH ×3 (13:32→20:46)
[2022-11-26] MEDS: ERGOCALCIFEROL 50,000 UNITS 1250 MCG CAP PO SCH (13:32)
--- NOTE | 2022-11-26 17:23 | Billing Data ---
Date of Service November 26, 2022 Coding Level of Care Code 11052 SUB INP/OBS CARE MIN
[2022-11-26] MEDS: MIRTAZAPINE TAB 15 MG TAB PO SCH (20:44)
[2022-11-26] MEDS: MELATONIN 3 MG TAB PO SCH (20:44)
--- NOTE | 2022-11-27 07:11 | Hospitalist Progress Note ---
Date of Service November 27, 2022 Assessment & Plan (1) Lyme disease: Plan: Sarah is a 27-year-old woman with history of Lyme disease (2020), depression with anxiety, reflux esophagitis, OUD on Subutex with prior IVDU who is here with persistent POP, dizziness x3 weeks, nausea, blurry vision, facial numbness, and other reported symptoms found to have positive Lyme serology. While initially there was a strong suspicion for GANG BORE OPERATOR Lyme, evaluations undergone by both infectious disease and neurology do not feel that GANG BORE OPERATOR Lyme is likely (especially since patient had very similar symptoms a year prior and more recently completed a full course of outpatient doxycycline and, while here, ongoing CFTX with minimal improvement). At this time, primary suspicion is that her symptoms likely represent a phenotype of a chronic, complicated migraine, possibly superimposed by neuropsychiatric features. 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 Small portion of suboccipital tension POP - somatic dysfunction H-tvyvd-pcuqdesea region. Also component of eustation tube dysfunction. Suspect large component to be somataform disorder following traumatic experience with Lyme in 2020. -Workup: --> Positive Lyme serology including IgM, IgG on 11/07 (BANDS), positive IgM on WB, but negative IgG on WB; CSF studies do not demonstrate e/o Lyme DNA --> Contrast-enhanced brain, C and T-Spine MRIs - NEGATIVE for acute processes, demyelination, inflammation --> Smears NEGATIVE for intracellular parasites --> Inflammatory markers (ESR, CRP, PCT, ferritin) checked multiple times, all negative ; B12 normal --> ROBER, RF negative on 11/02 (PSH) negative --> FTA-ABS negative --> No MRI findings, physical exam findings, or inflammatory markers to suggest endocarditis (in setting of previous IVDU), history of Chiari malformation found on MRI in [facility] --> Improvement with steroids. No reported improvement with CFTX. Minimal improvements reported from prior TCA adjustment, gabapentin initiation. -Consults: --> ID consulted: Low suspicion for GANG BORE OPERATOR Lyme -- more likely to represent neuropsychiatric etiologies from their perspective --> Neurology consulted: Low suspicion for GANG BORE OPERATOR Lyme -- more likely to represent chronic, complicated headache phenotype with neuropsychiatric features --> Psychiatry consulted: Differential for symptoms (with Lyme excluded) include somatoform disorder, factitious disorder, malingering -Multidisciplinary Treatment Plan: (patient completed outpatient course of doxycycline prior to hospitalization) * CFTX started 11/10. Discontinue 11/18. Remove PICC. Transition to doxycycline, end on 11/24 to complete 14-day course * Ample hydration * Steroids: SoluMedrol burst x 2 days, then prednisone 60mg daily. Taper completed *Considered trial of Nurtec per neurology recommendations; however, hospital w/o Nurtec on formulary * 11/25: Cymbalta increase to 90mg daily * Continue vitamin replacement (B12, D3) and iron * Discontinue amitriptyline (no improvement with dosage change; also see psychiatry note) * Patient would benefit from outpatient headache clinic / establishing with center. Could also consider establishing with rheumatology/immunology. Consider outpatient follow-up with Dr. Villa for pain management * Fluticasone spray initiated for congestion/ear discomfort * Minimal pain improvement and increased dizziness, discontinue Topiramate 50 mg BID, Lyrica 150 mg TID * Continue topical lidocaine patches since 11/10. Discussed and initiated trial of Capsaicin Cream 0.075% to a small patch on maxillary cheek * Patient can call and make appt with [facility] [phone]) to obtain Medical Marijuana Card -Patient with improvement of facial paresthesias w/ topical lidocaine; started trial of lidocaine patches on 11/20 -Encouraged patient to limit ice pack use due to concern of exacerbating nerves; frequent reorientation throughout H&P with patient touching face to avoid exacerbating nerve pain - Counseled on the lack of structural etiology likely at play but rather the interplay of mind - body as a cause due to her history of Lyme and trigeminal neuralgia. Set goal to strive to do one activity a day for about an hour. - Close outpatient follow-up upon discharge, patient preference Dr. Morales Subutex Use - Subutex use of 8mg SL TID per PDMP review but inconsistent reports of use by patient - Patient reports that Subutex home regimen has been 8mg qAM, 4mg at lunch, and 8mg qhs -- Patient has been using Subutex 8mg SL daily since admission - Regimen adjusted on 11/20 to reflect home use - ? component of increased anxiety/pain secondary to decreased Subutex use since admission Positive CSF Cx: Oxacillin-Resistant CoNS - Culture positive BUT was in setting of a difficult tap - no WBCs, RBCs, negative BioFire - Suspect contaminant given species, clinical presentation, and otherwise negative CSF studies - ID consult: largely suspect contaminant (agree), no indication for IV ABX Reported History of Cystic Fibrosis - History discussed during admission. Reports that she is in "remission" but can't recall undergoing any formal testing. Son has had genetic testing reportedly confirming the diagnosis - Vitamin D, B12, and ferritin all low -- ?malabsorptive pathology. 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 establishing with hand shaper as outpatient -- could certainly affect intermittent screenings/immunizations - We did contact Erica for her pediatric history- no chronic conditions were noted per their chart review Nutritional Deficiencies - Ferritin, B12, and vitamin D all deficient - Management: -- Venofer 200mg x 1 given while here; initiate iron sulfate 325mg MWF at discharge -- Vitamin D2 50,000U q7d x 8 weeks then recheck level as outpatient ; also vitamin D3 2000 IU daily -- recheck in 3 mo' time -- Vitamin B12 shots daily x 7 days, then q7d x 4 weeks, then monthly x 3 months --> recheck level -Possible contribution from CF, though would be atypical given no other sxs of pancreatic insufficiency -Celiac disease panel negative Gardnerella UTI -Metronidazole 500 mg BID completed in hospital -Pyridium t.i.d. x 2 days, end 11/14 Abnormal Vaginal Discharge S/p Fluconazole x1 on 11/26. Symptoms slightly improved today. - f/u on this as outpatient, consideration for further testing (i.e. speculum eval, KENZIE prep, etc.) if symptoms persistent Depression with anxiety -See above -Discontinued amitriptyline, initiated duloxetine as above -Vistaril PRN anxiety -Otherwise as above, psychiatry following Reflux esophagitis -Pantoprazole 40 mg daily -Reglan PRN nausea Code: Full code Dispo: MS FEN/GI: Regular diet DVT Prophylaxis: Low-risk Consults: Infectious disease, neurology, psychiatry, PT (2) Gardnerella vaginalis infection: Admission and Anticipated Discharge Date Admission Date: November 10, 2022 Supervising Physician Co-Signing Physician Notes I personally examined the patient and verified all ferrer points of history and exam, discussed case, and agree with decision making with Padron Walking! Stomach pain a bit better. Vaginal discharge unchanged. Face pain may be migrating a bit more to just the left side. Eyes are dry. Vitals noted, in general she is awake and alert alternates between periods of being more calm and being in a significant degree of distress almost pulling on her face. HEENT normocephalic atraumatic mucous membranes moist. Breathing unlabored no accessory muscle use good effort. Skin shows no rashes no pallor or icterus. Neuro without focal deficits or asymmetries, mild epigastric tenderness no guarding rebound or rigidity. Gait slow and steady with a walker. Facial painsuspect multifactorial. -Small portion probably suboccipital tension headachesomatic dysfunction C- spine/occipital regionOMT several times throughout her stay -Small part eustachian tube dysfunctionAfrin/Flonase/OMT done several times throughout her stay -A large part I suspect to be somatoform disordershe had what amounts to a fairly traumatic experience having had Lyme a year ago, subsequent trigeminal neuralgia and severe painher symptoms now seem to have started with a case of Lymealthough not GANG BORE OPERATOR Lyme after further reviewbut I suspect after her experience last year, this easily could have created a neuro psychophysiologic "spinoff" of face pain somewhat mimicking, but worse than, her trigeminal neuralgia from a year ago. Studies have all been reassuring. Daily, we joana nue to discuss goals. Encouraged normalcy. Gastritis seems to be improving with PPI/H2/Carafate. anticipate home soon. Dose of empiric fluconazole given 2/4. If this does not help vaginal discharge, will likely need outpatient follow-up for exam/KENZIE/wet prep/etc. Subjective This morning patient reports that nausea and abdominal discomfort have improved since starting GI ppx therapy yesterday. Reports that abnormal vaginal discharge has slightly improved since yesterday. Remains with significant facial pain. Review of Systems Review of Systems: All systems reviewed & are unremarkable except as noted in HPI & below Physical Exam Physical Exam: General: A&Ox3. NAD. Cooperative. HEENT: Atraumatic, normocephalic. Pulm: CTAB A&P. -wheezes, -rales, -rhonchi. Symmetrical chest rise. No increase work of breathing. No respiratory distress. Cardiac: RRR, -mrg. Radial pulses intact and symmetrical. No LE edema. Abdominal: soft, non-tender, non-distended, BS x 4 Skin: warm, dry, no rash Results & Data Results & Data ([facility]) Vital Signs (Past 12 Hours) Vital Signs Temp Pulse Resp BP Pulse Ox O2 Del Method 11/26/22 22:51 36.5 C 68 16 111/75 97 Room Air Resident Activity Tracking Resident Involvement: Resident Care Provided Care Provided: Adult Hospital Medicine
[2022-11-27] MEDS: FERROUS GLUCONATE 324 MG TAB PO SCH (08:32)
[2022-11-27] MEDS: CAPSAICIN CR 0.075% 60 GM TUBE EXT SCH (08:33)
[2022-11-27] MEDS: CHOLECALCIFEROL 1,000 UNITS 25 MCG TAB PO SCH (08:33)
[2022-11-27] MEDS: buprenorphine HCL 8 MG SUBL SL SCH ×2 (08:33→20:01)
[2022-11-27] MEDS: FAMOTIDINE 20 MG TAB PO SCH ×2 (08:34→20:02)
[2022-11-27] MEDS: DULoxetine HCL 30 MG CAP PO SCH (08:34)
[2022-11-27] MEDS: CYANOCOBALAMIN (B-12) 500 MCG TABLET PO SCH (08:34)
[2022-11-27] MEDS: FLUTICASONE PROPIONATE NA SPR 16 GM BTL SCH (08:34)
[2022-11-27] MEDS: PANTOprazole 40 MG TAB PO SCH ×2 (08:35→20:02)
[2022-11-27] MEDS: SENNA 8.6 MG TAB PO SCH (08:35)
[2022-11-27] MEDS: SUCRALFATE 1 GM/10 ML UDC PO SCH ×4 (08:35→20:01)
[2022-11-27] MEDS: LIDOCAINE 5% 1 PATCH TD SCH (08:35)
[2022-11-27] MEDS: buprenorphine HCL 2 MG SUBL SL SCH (12:11)
[2022-11-27] MEDS: TRIMETHOPRIM/POLYMYXIN B OP SCH ×3 (15:13→20:07)
--- NOTE | 2022-11-27 17:48 | Billing Data ---
Date of Service November 27, 2022 Coding Level of Care Code 69551 SUB INP/OBS CARE MIN
[2022-11-27] MEDS: MIRTAZAPINE TAB 15 MG TAB PO SCH (20:02)
[2022-11-27] MEDS: MELATONIN 3 MG TAB PO SCH (20:05)
[2022-11-28] MEDS: TRIMETHOPRIM/POLYMYXIN B OP SCH ×6 (06:00→20:31)
[2022-11-28] MEDS: FERROUS GLUCONATE 324 MG TAB PO SCH (06:01)
[2022-11-28] MEDS: ONDANSETRON 4 MG OD TAB PO PRN (07:33)
[2022-11-28] MEDS: CHOLECALCIFEROL 1,000 UNITS 25 MCG TAB PO SCH (08:50)
[2022-11-28] MEDS: SENNA 8.6 MG TAB PO SCH (08:52)
[2022-11-28] MEDS: LIDOCAINE 5% 1 PATCH TD SCH (08:54)
[2022-11-28] MEDS: SUCRALFATE 1 GM/10 ML UDC PO SCH ×4 (08:57→20:32)
[2022-11-28] MEDS: PANTOprazole 40 MG TAB PO SCH ×2 (08:58→20:33)
[2022-11-28] MEDS: FAMOTIDINE 20 MG TAB PO SCH ×2 (08:59→20:32)
[2022-11-28] MEDS: CYANOCOBALAMIN (B-12) 500 MCG TABLET PO SCH (09:00)
[2022-11-28] MEDS: FLUTICASONE PROPIONATE NA SPR 16 GM BTL SCH (09:04)
[2022-11-28] MEDS: DULoxetine HCL 30 MG CAP PO SCH (09:04)
[2022-11-28] MEDS: CAPSAICIN CR 0.075% 60 GM TUBE EXT SCH (09:05)
[2022-11-28] MEDS: buprenorphine HCL 8 MG SUBL SL SCH ×2 (09:13→20:31)
[2022-11-28] MEDS: buprenorphine HCL 2 MG SUBL SL SCH (12:09)
[2022-11-28] MEDS: ACETAMINOPHEN 500 MG TAB PO PRN ×2 (12:10→20:30)
--- NOTE | 2022-11-28 16:10 | Hospitalist Progress Note ---
Date of Service November 28, 2022 Assessment & Plan (1) Lyme disease: Plan: Sarah is a 27-year-old woman with history of Lyme disease (2020), depression with anxiety, reflux esophagitis, OUD on Subutex with prior IVDU who is here with persistent POP, dizziness x3 weeks, nausea, blurry vision, facial numbness, and other reported symptoms found to have positive Lyme serology. While initially there was a strong suspicion for CHOKE SETTER Lyme, evaluations undergone by both infectious disease and neurology do not feel that CHOKE SETTER Lyme is likely (especially since patient had very similar symptoms a year prior and more recently completed a full course of outpatient doxycycline and, while here, ongoing CFTX with minimal improvement). At this time, primary suspicion is that her symptoms likely represent a phenotype of a chronic, complicated migraine, possibly superimposed by neuropsychiatric features. #Suspected Chronic, Complicated Migraine with Neurologic and Neuropsychiatric Manifestations -- - Pain likely multifactorial. Small portion of suboccipital tension POP - somatic dysfunction [id number] region. Also component of eustation tube dysfunction. Suspect large component to be somataform disorder following traumatic experience with Lyme in 2020. -Workup: --> Positive Lyme serology including IgM, IgG on 11/07 (BANDS), positive IgM on WB, but negative IgG on WB; CSF studies do not demonstrate e/o Lyme DNA --> Contrast-enhanced brain, C and T-Spine MRIs - NEGATIVE for acute processes, demyelination, inflammation --> Smears NEGATIVE for intracellular parasites --> Inflammatory markers (ESR, CRP, PCT, ferritin) checked multiple times, all negative ; B12 normal --> ROBER, RF negative on 11/02 (PSH) negative --> FTA-ABS negative --> No MRI findings, physical exam findings, or inflammatory markers to suggest endocarditis (in setting of previous IVDU), history of Chiari malformation found on MRI in [facility] --> Improvement with steroids. No reported improvement with CFTX. Minimal imp rovements reported from prior TCA adjustment, gabapentin initiation. -Consults: --> ID consulted: Low suspicion for CHOKE SETTER Lyme -- more likely to represent neuropsychiatric etiologies from their perspective --> Neurology consulted: Low suspicion for CHOKE SETTER Lyme -- more likely to represent chronic, complicated headache phenotype with neuropsychiatric features --> Psychiatry consulted: Differential for symptoms (with Lyme excluded) include somatoform disorder, factitious disorder, malingering -Multidisciplinary Treatment Plan: (patient completed outpatient course of doxycycline prior to hospitalization) * CFTX started 11/10. Discontinue 11/18. Remove PICC. Transition to doxycycline, end on 11/24 to complete 14-day course * Ample hydration * Steroids: SoluMedrol burst x 2 days, then prednisone 60mg daily. Taper starting on 11/24 30 mg *Considered trial of Nurtec per neurology recommendations; however, hospital w/o Nurtec on formulary * 11/25: Cymbalta increase to 90mg daily * Continue vitamin replacement (B12, D3) and iron * Discontinue amitriptyline (no improvement with dosage change; also see psychiatry note) * Patient would benefit from outpatient headache clinic / establishing with center. Could also consider establishing with rheumatology/immunology. Consider outpatient follow-up with Dr. Villa for pain management * Fluticasone spray initiated for congestion/ear discomfort * Minimal pain improvement and increased dizziness, discontinue Topiramate 50 mg BID, Lyrica 150 mg TID * Continue topical lidocaine patches since 11/10. Discussed and initiated trial of Capsaicin Cream 0.075% to a small patch on maxillary cheek * Patient can call and make appt with [facility] () to obtain Medical Marijuana Card * 11/28: Started Gabapentin 300 mg daily -Patient with improvement of facial paresthesias w/ topical lidocaine; started trial of lidocaine patches on 11/20 -Encouraged patient to limit ice pack use due to concern of exacerbating nerves; frequent reorientation throughout H&P with patient touching face to avoid exacerbating nerve pain - Counseled on the lack of structural etiology likely at play but rather the interplay of mind - body as a cause due to her history of Lyme and trigeminal neuralgia. Set goal to strive to do one activity a day for about an hour. - Close outpatient follow-up upon discharge, patient preference Dr. Morales Subutex Use - Subutex use of 8mg SL TID per PDMP review but inconsistent reports of use by patient - Patient reports that Subutex home regimen has been 8mg qAM, 4mg at lunch, and 8mg qhs -- Patient has been using Subutex 8mg SL daily since admission - Regimen adjusted on 11/20 to reflect home use - ? component of increased anxiety/pain secondary to decreased Subutex use since admission Positive CSF Cx: Oxacillin-Resistant CoNS - Culture positive BUT was in setting of a difficult tap - no WBCs, RBCs, negative BioFire - Suspect contaminant given species, clinical presentation, and otherwise negative CSF studies - ID consult: largely suspect contaminant (agree), no indication for IV ABX Reported History of Cystic Fibrosis - History discussed during admission. Reports that she is in "remission" but can't recall undergoing any formal testing. Son has had genetic testing reportedly confirming the diagnosis - Vitamin D, B12, and ferritin all low -- ?malabsorptive pathology. 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 establishing with education director as outpatient -- could certainly affect intermittent screenings/immunizations - We did contact Erica for her pediatric history- no chronic conditions were noted per their chart review Nutritional Deficiencies - Ferritin, B12, and vitamin D all deficient - Management: -- Venofer 200mg x 1 given while here; initiate iron sulfate 325mg MWF at discharge -- Vitamin D2 50,000U q7d x 8 weeks then recheck level as outpatient ; also vitamin D3 2000 IU daily -- recheck in 3 mo' time -- Vitamin B12 shots daily x 7 days, then q7d x 4 weeks, then monthly x 3 months --> recheck level -Possible contribution from CF, though would be atypical given no other sxs of pancreatic insufficiency -Celiac disease panel negative Gardnerella UTI -Metronidazole 500 mg BID completed in hospital -Pyridium t.i.d. x 2 days, end 11/14 Depression with anxiety -See above -Discontinued amitriptyline, initiated duloxetine as above -Vistaril PRN anxiety -Otherwise as above, psychiatry following Reflux esophagitis -Pantoprazole 40 mg daily -Reglan and Zofran PRN nausea Code: Full code Dispo: MS FEN/GI: Regular diet DVT Prophylaxis: Low-risk Consults: Infectious disease, neurology, psychiatry, PT (2) Gardnerella vaginalis infection: Admission and Anticipated Discharge Date Admission Date: November 10, 2022 Supervising Physician Co-Signing Physician Notes Medical Student Supervision Note: I was personally present during medical student patient encounter and independently interviewed and examined the patient and verified the ferrer history and physical, reviewed labs and image studies, discussed the case with Kailey Jesus and agree with the findings and care plan. No change today. Continues to report facial and ear pain. Ate well. o/e - Alert, comfortable in bed during conversation except when pain brought up during conversation. Headache - extensive work up - negative. Multiple trial of medication for different possible causes - no help so far. -gabapentin reintroduced per request - monitor for improvement in symptoms. Vaginal discharged - treated for BV and yeast empirically. consider vaginal exam and repeat BV treatment if symptoms persists. IVDU - continue subutex Anticipate d/c home in am with outpatient pcp and neuro follow up Subjective Sarah Ozuna is a 27 year old female on hospital day 18 for complex multifactorial facial pain. She has a PMH of depression, anxiety, Lyme (2020), and IVDU. Ongoing gastritis and vaginal burning and discharge. Today she feels her pain is about the same. Discussed restarting Gabapentin and close outpatient follow-up following discharge. Review of Systems Review of Systems: See HPI Physical Exam Physical Exam: GENERAL: Anxious. Labile and frequently crying throughout exam. Well developed and well nourished. Vital signs reviewed as above. EYES: EOMI. Anicteric sclerae. HENT: Moist mucous membranes. RESPIRATORY: Clear to auscultation bilaterally. No wheezing, rales, or rhonchi. CARDIOVASCULAR: Regular rate and rhythm. No murmurs. No JVD. ABDOMEN: Soft, non-tender and non-distended. Normal bowel sounds. EXTREMITIES: No edema. Non-tender. SKIN: Warm, dry. NEUROLOGIC: A/O x3. Normal speech. Reports numbness throughout face (trigeminal distribution) bilaterally. 5/5 strength to BUE and BLE. PSYCHIATRIC: Anxious affect. Labile mood. No suicidal ideation. Results & Data Results & Data ([facility]) Vital Signs (Past 12 Hours) Vital Signs Temp Pulse Pulse Resp BP Pulse Ox O2 Del Method 11/28/22 14:49 36.6 C 87 16 100/65 96 Room Air 11/28/22 07:18 36.7 C 87 16 118/79 95 Room Air
[2022-11-28] MEDS: MELATONIN 3 MG TAB PO SCH (20:30)
[2022-11-28] MEDS: GABAPENTIN 300 MG CAP PO SCH (20:31)
[2022-11-28] MEDS: MIRTAZAPINE TAB 15 MG TAB PO SCH (20:32)
[2022-11-29] MEDS: FERROUS GLUCONATE 324 MG TAB PO SCH (05:42)
[2022-11-29] MEDS: TRIMETHOPRIM/POLYMYXIN B OP SCH ×4 (05:42→14:58)
[2022-11-29] MEDS: ACETAMINOPHEN 500 MG TAB PO PRN (05:48)
[2022-11-29 08:23] LABS: Hematocrit (blood only) 37.1 % (37.0-47.0); Hemoglobin 12.8 g/dl (12.0-16.0); Mean Corpuscular Hgb Conc 34.5 g/dL (32.0-36.0); Mean Corpuscular Volume 92.8 fL (80.0-100.0); Mean Platelet Volume 10.7 fL (9.4-12.4); Platelet Count 190 K/uL (130-400); RDW Coefficient of Variation 12.6 % (11.5-14.5); RDW Standard Deviation 43.2 fL (36.4-46.3); White Blood Count 4.96 K/ul (4.8-10.8)
[2022-11-29] MEDS: PANTOprazole 40 MG TAB PO SCH (08:26)
[2022-11-29] MEDS: CYANOCOBALAMIN (B-12) 500 MCG TABLET PO SCH (08:26)
[2022-11-29] MEDS: SUCRALFATE 1 GM/10 ML UDC PO SCH ×2 (08:27→13:25)
[2022-11-29] MEDS: SENNA 8.6 MG TAB PO SCH (08:28)
[2022-11-29] MEDS: FAMOTIDINE 20 MG TAB PO SCH (08:28)
[2022-11-29] MEDS: CHOLECALCIFEROL 1,000 UNITS 25 MCG TAB PO SCH (08:28)
[2022-11-29] MEDS: DULoxetine HCL 30 MG CAP PO SCH (08:29)
[2022-11-29] MEDS: LIDOCAINE 5% 1 PATCH TD SCH (08:30)
[2022-11-29] MEDS: CAPSAICIN CR 0.075% 60 GM TUBE EXT SCH (08:31)
[2022-11-29] MEDS: FLUTICASONE PROPIONATE NA SPR 16 GM BTL SCH (08:31)
[2022-11-29] MEDS: GABAPENTIN 300 MG CAP PO SCH (08:33)
[2022-11-29 08:34] LABS: BUN Creatinine Ratio 21.6 (10-20); Calcium 9.4 mg/dl (8.5-10.1); Creatinine Clr Calc Pharmacy 102.1 ml/min; Est GFR (African American) 105.8 ml/min; Est GFR (Non-African American) 91.3 ml/min; Magnesium 2.2 mg/dl (1.7-2.4); Potassium 3.7 mmol/L (3.5-5.1)
[2022-11-29] MEDS: buprenorphine HCL 8 MG SUBL SL SCH (08:34)
--- NOTE | 2022-11-29 08:43 | Discharge Summary ---
Date of Service November 29, 2022 Admission HPI Per Admitting Provider Sarah is a 27-year-old woman with a past medical history of Lyme, depression with anxiety, reflux esophagitis and multiple concussions who presented to the ED with a complaint of dizziness. She states that she has felt this way for a few weeks now. She thinks she may have caught this when she right believe [place] her grandma[place] She is currently on doxycycline. Patient of note was in our emergency department yesterday had an LP and blood work and states that her Western blot was positive for Lyme was told to come back in to receive IV Rocephin and an admission. Patient had a similar episode 2 years ago and required IV Rocephin. Patient complains of dizziness generalized weakness. In the ED, vitals were normal. Labs were unremarkable, though patient serologies from her last stay on 11/07/2022 was positive for Lyme. She received IV ceftriaxone 2 g x 1 and decision was made to admit for admit to treat prophylactically for presumed disseminated Lyme. ROS + dizziness, fatigue, nausea, and palpitations. She denies chest pain, shortness of breath, abdominal pain, or headache. Admission Exam (Per Admitting) Constitutional WD/WN, vitals as above Eyes PERRL, conjunctivae normal, anicteric sclerae ENMT external ear and nose normal, oropharynx normal Respiratory normal respiratory effort, lungs clear to auscultation Cardiovascular RRR, no murmur, no edema Gastrointestinal (Abdomen) normal bowel sounds, soft, nontender, no hepatosplenomegaly Psychiatric A+Ox3, euthymic affect (mild disress) Discharge Data Consultations 11/10/22 03:15 ED Decision to Admit Stat 11/11/22 08:51 Consult Infectious Diseases Routine 11/12/22 17:41 HIM [Consult Health Information Management] Routine 11/15/22 07:00 Consult Psychiatry Routine 11/16/22 15:26 Consult Neurology Routine Hospital Course (1) Lyme disease: Sarah is a 27-year-old woman with history of Lyme disease (2020), depression with anxiety, reflux esophagitis, OUD on Subutex with prior IVDU who is here with persistent POP, dizziness x3 weeks, nausea, blurry vision, facial numbness, and other reported symptoms found to have positive Lyme serology. While initially there was a strong suspicion for WAREHOUSE OPERATOR Lyme, evaluations undergone by both infectious disease and neurology do not feel that WAREHOUSE OPERATOR Lyme is likely (especially since patient had very similar symptoms a year prior and more recently completed a full course of outpatient doxycycline and, while here, ongoing CFTX with minimal improvement). At this time, primary suspicion is that her symptoms likely represent a phenotype of a chronic, complicated migraine, possibly superimposed by neuropsychiatric features. #Suspected Chronic, Complicated Migraine with Neurologic and Neuropsychiatric Manifestations -- - Pain likely multifactorial. Small portion of suboccipital tension POP - somatic dysfunction [id number] region. Also component of eustation tube dysfunction. Suspect large component to be somataform disorder following traumatic experience with Lyme in 2020. -Workup: --> Positive Lyme serology including IgM, IgG on 11/07 (BANDS), positive IgM on WB, but negative IgG on WB; CSF studies do not demonstrate e/o Lyme DNA --> Contrast-enhanced brain, C and T-Spine MRIs - NEGATIVE for acute processes, demyelination, inflammation --> Smears NEGATIVE for intracellular parasites --> Inflammatory markers (ESR, CRP, PCT, ferritin) checked multiple times, all negative ; B12 normal --> ROBER, RF negative on 11/02 (PSH) negative --> FTA-ABS negative --> No MRI findings, physical exam findings, or inflammatory markers to suggest endocarditis (in setting of previous IVDU), history of Chiari malformation found on MRI in [facility] --> Improvement with steroids. No reported improvement with CFTX. Minimal improvements reported from prior TCA adjustment, gabapentin initiation. -Consults: --> ID consulted: Low suspicion for WAREHOUSE OPERATOR Lyme -- more likely to represent neuropsychiatric etiologies from their perspective --> Neurology consulted: Low suspicion for WAREHOUSE OPERATOR Lyme -- more likely to represent chronic, complicated headache phenotype with neuropsychiatric features --> Psychiatry consulted: Differential for symptoms (with Lyme excluded) i nclude somatoform disorder, factitious disorder, malingering -Multidisciplinary Treatment Plan: (patient completed outpatient course of doxycycline prior to hospitalization) * CFTX started 11/10. Discontinue 11/18. Remove PICC. Transition to doxycycline, end on 11/24 to complete 14-day course * Ample hydration * Steroids: SoluMedrol burst x 2 days, then prednisone 60mg daily. Taper Completed *Considered trial of Nurtec per neurology recommendations; however, hospital w/o Nurtec on formulary * 11/25: Cymbalta increase to 90mg daily * Continue vitamin replacement (B12, D3) and iron * Discontinue amitriptyline (no improvement with dosage change; also see psychiatry note) * Patient would benefit from outpatient headache clinic / establishing with center. Could also consider establishing with rheumatology/immunology. Consider outpatient follow-up with Dr. Villa for pain management * Fluticasone spray initiated for congestion/ear discomfort * Minimal pain improvement and increased dizziness, discontinue Topiramate 50 mg BID, Lyrica 150 mg TID * Continue topical lidocaine patches since 11/10. Discussed and initiated trial of Capsaicin Cream 0.075% to a small patch on maxillary cheek * Patient can call and make appt with [facility] () to obtain Medical Marijuana Card * 11/28: Started Gabapentin 300 mg BID -Patient with improvement of facial paresthesias w/ topical lidocaine; started trial of lidocaine patches on 11/20 -Encouraged patient to limit ice pack use due to concern of exacerbating nerves; frequent reorientation throughout H&P with patient touching face to avoid exacerbating nerve pain - Counseled on the lack of structural etiology likely at play but rather the interplay of mind - body as a cause due to her history of Lyme and trigeminal neuralgia. Set goal to strive to do one activity a day for about an hour. - Close outpatient follow-up upon discharge with [facility] Subutex Use - Subutex use of 8mg SL TID per PDMP review but inconsistent reports of use by patient - Patient reports that Subutex home regimen has been 8mg qAM, 4mg at lunch, and 8mg qhs -- Patient has been using Subutex 8mg SL daily since admission - Regimen adjusted on 11/20 to reflect home use - ? component of increased anxiety/pain secondary to decreased Subutex use since admission Positive CSF Cx: Oxacillin-Resistant CoNS - Culture positive BUT was in setting of a difficult tap - no WBCs, RBCs, negative BioFire - Suspect contaminant given species, clinical presentation, and otherwise negative CSF studies - ID consult: largely suspect contaminant (agree), no indication for IV ABX Reported History of Cystic Fibrosis - History discussed during admission. Reports that she is in "remission" but can't recall undergoing any formal testing. Son has had genetic testing reportedly confirming the diagnosis - Vitamin D, B12, and ferritin all low -- ?malabsorptive pathology. 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 establishing with telecommunications professional as outpatient -- could certainly affect intermittent screenings/immunizations - We did contact Erica for her pediatric history- no chronic conditions were noted per their chart review Nutritional Deficiencies - Ferritin, B12, and vitamin D all deficient - Management: -- Venofer 200mg x 1 given while here; initiate iron sulfate 325mg MWF at discharge -- Vitamin D2 50,000U q7d x 8 weeks then recheck level as outpatient ; also vitamin D3 2000 IU daily -- recheck in 3 mo' time -- Vitamin B12 shots daily x 7 days, then q7d x 4 weeks, then monthly x 3 months --> recheck level -Possible contribution from CF, though would be atypical given no other sxs of pancreatic insufficiency -Celiac disease panel negative Gardnerella UTI -Metronidazole 500 mg BID completed in hospital -Pyridium t.i.d. x 2 days, end 11/14 Depression with anxiety -See above -Discontinued amitriptyline, initiated duloxetine as above -Vistaril PRN anxiety -Otherwise as above, psychiatry following Reflux esophagitis -Pantoprazole 40 mg daily -Reglan and Zofran PRN nausea Code: Full code Dispo: MS BRAMBILA/GI: Regular diet DVT Prophylaxis: Low-risk Consults: Infectious disease, neurology, psychiatry, PT (2) Gardnerella vaginalis infection: Supervising Physician Co-Signing Physician Notes Medical Student Supervision Note: I was personally present during medical student patient encounter and i ndependently interviewed and examined the patient and verified the ferrer history and physical, reviewed labs and image studies, discussed the case with Kailey Jesus and agree with the findings and care plan. No change today. Worried about pain. o/e - Alert, in bed. Ox3. no respiratory distress. Headache - extensive work up - negative. Multiple trial of medication for different possible causes - no help so far. -Going home with multiple new meds- Cymbalta and gabapentin and capsaicin cream. -for concerns of non-allergic rhinitis contributing to headache- Azelastine nasal spray -outpatient pcp and neuro follow up Anxiety - Cymbalta should help. On prn vistaril. Mirtazapine for sleep GERD - Patient with chronic GI symptoms. Unclear of past work up. Did well on PPI, sucralfate, zofran, famotidine. To further evaluate as outpatient. Nutritional def - continue vitamin D, B12 and iron supplement, Vaginal discharge - treated for BV and yeast empirically. IVDU - continue subutex. Had not been using as prescribed. To reiterate compliance as outpatient. -In process of getting set up for Intensive outpatient psychiatry follow up.
[2022-11-29 11:46] LABS: GC (Neis gonorrhoeae) RNA Not Detected (NotDetected)
[2022-11-29] MEDS: buprenorphine HCL 2 MG SUBL SL SCH (12:03)
== END 2022-11-29 15:56 | disposition home or self-care (01) | DRG 868 ==
LOC: ED 00:14 → EDINP 05:58 → SUATTDRO 05:58 → 2N 06:29 → 3N 11-15 17:52